=== PATIENT | male | born 1955 | race Caucasian/White ===

== ENCOUNTER 2020-08-10 08:58 | Inpatient (IN) | payer MEDICARE, MEDICAID ==
[~2020-08-10] VITALS: Ht 172.7 cm; Wt 95.6 kg
[2020-08-10 09:18] LABS: BASOPHILS % (AUTO) 0 % (0-10); EOSINOPHILS # (AUTO) 0.1 10^3/uL (0.0-0.3); EOSINOPHILS % (AUTO) 0 % (0-10); HEMATOCRIT 47 % (40-54); HEMOGLOBIN 16.4 G/DL (13.3-17.7); LYMPHOCYTES # (AUTO) 1.1 X 10^3 (1.0-4.0); LYMPHOCYTES % (AUTO) 8 % (12-44); MEAN CORPUSCULAR HEMOGLOBIN 30 PG (25-34); MEAN CORPUSCULAR HGB CONC 35 G/DL (32-36); MEAN CORPUSCULAR VOLUME 85 FL (80-99); MEAN PLATELET VOLUME 9.7 FL (7.4-10.4); MONOCYTES # (AUTO) 1.2 X 10^3 (0.0-1.0); MONOCYTES % (AUTO) 9 % (0-12); NEUTROPHILS # (AUTO) 10.9 X 10^3 (1.8-7.8); NEUTROPHILS % (AUTO) 82 % (42-75); PLATELET COUNT 300 10^3/uL (130-400); WHITE BLOOD COUNT 13.2 10^3/uL (4.3-11.0)
[2020-08-10] MEDS ORDERED: LACTATED RINGERS 1,000 ML IV STA (09:36)
[2020-08-10 09:40] LABS: ERYTHROCYTE SEDIMENTATION RATE 3 MM/HR (0-30)
[2020-08-10 09:46] LABS: ALBUMIN 4.2 GM/DL (3.2-4.5); CHLORIDE 102 MMOL/L (98-107); POTASSIUM 3.5 MMOL/L (3.6-5.0); SODIUM 138 MMOL/L (135-145)
[2020-08-10 09:47] LABS: CALCIUM 9.8 MG/DL (8.5-10.1)
[2020-08-10 09:48] LABS: FIBRIN DEGRADATION PRODUCTS 0.85 UG/ML (0.00-0.49); PROTHROMBIN TIME PATIENT 13.9 SEC (12.2-14.7)
[2020-08-10 09:49] LABS: GLUCOSE 141 MG/DL (70-105); TOTAL PROTEIN 7.6 GM/DL (6.4-8.2)
[2020-08-10 09:50] LABS: BILIRUBIN,TOTAL 0.9 MG/DL (0.1-1.0); CARBON DIOXIDE 23 MMOL/L (21-32)
[2020-08-10 09:52] LABS: ALKALINE PHOSPHATASE 78 U/L (40-136)
[2020-08-10 09:53] LABS: CREATININE SERUM 1.01 MG/DL (0.60-1.30); GFR ESTIMATED > 60
[2020-08-10 09:54] LABS: BUN/CREATININE RATIO 20
[2020-08-10 09:55] LABS: ALANINE AMINOTRANSFERASE 27 U/L (0-55)
--- NOTE | 2020-08-10 10:03 | ED General ---
General Chief Complaint: Neurological Problems Stated Complaint: NAUSEA,INCOORDINATION Nursing Triage Note: Pt to ED via EMS. Pt reports brushing dog yesterday morning when L arm became weak and felt uncoordinated. Pt reports not feeling well then and has been on the couch ever since. Pt reports not eating or drinking anything since yesterday morning. Pt denies pain. Nursing Sepsis Screen: No Definite Risk Source of Information: Patient Exam Limitations: No Limitations History of Present Illness Date Seen by Provider: Aug 10, 2020 Time Seen by Provider: 09:09 Initial Comments Here by EMS with report of low-grade fever and not feeling well since yesterday morning. Apparently he went to [facility] and came back and was brushing his dog when he realized that his left arm wasn't working as well and he felt exhausted. He has been laying on the couch since and states he really couldn't get up and felt weak and off balance. EMS noted low-grade fever. Patient states that he has a cough that seems to be about where he normally has but maybe a little bit worse. The weakness is global and more profound. Denies contact with COVID-19 that he knows of. He is ill-appearing and appears dehydrated. Patient believes he probably is dehydrated because he has not had anything to eat or drink in greater than 24 hours. States that he feels like his left arm is a little weaker than the right and that has been persistent since yesterday. Denies dysuria or diarrhea. Timing/Duration: 24 Hours, Constant Severity: Moderate Associated Systoms: No Chest Pain; Cough, Fever/Chills, Malaise; No Nausea/Vomiting, No Shortness of Air; Weakness Allergies and Home Medications Allergies Coded Allergies: sulfamethoxazole (Verified Allergy, Unknown, Hives, 08/10/20) trimethoprim (Verified Allergy, Unknown, Hives, 08/10/20) Patient Home Medication List Home Medication List Reviewed: Yes Review of Systems Review of Systems Constitutional: see HPI EENTM: nose congestion, throat pain Respiratory: cough; No short of breath Cardiovascular: No chest pain, No edema Gastrointestinal: No abdominal pain, No nausea, No vomiting Genitourinary: no symptoms reported Musculoskeletal: No muscle pain; muscle weakness Skin: no symptoms reported Psychiatric/Neurological: See HPI All Other Systems Reviewed Negative Unless Noted: Yes Past Hnjljhg-Lmqedx-Yhccee Hx Past Med/Social Hx: Reviewed Nursing Past Med/Soc Hx Patient Social History Alcohol Use: Denies Use Recreational Drug Use: Yes (occassional marijuana) Smoking Status: Current Everyday Smoker Type Used: Cigarettes 2nd Hand Smoke Exposure: Yes Recent Foreign Travel: No Contact w/Someone Who Travel: No Recent Infectious Disease Expo: No Recent Hopitalizations: No Past Medical History Surgeries: No Respiratory: Yes COPD Cardiac: Yes Hypertension Neurological: No Genitourinary: No Gastrointestinal: No Musculoskeletal: No Endocrine: No ("borderline diabetic") HEENT: No Cancer: No Psychosocial: No Integumentary: No Blood Disorders: No Family Medical History Reviewed Nursing Family Hx Physical Exam-Suspected Sepsis Physical Exam Vital Signs Vital Signs - First Documented 08/10/20 08:58 Temp 37.6 Pulse 75 Resp 18 B/P (MAP) 151/81 (104) Pulse Ox 94 O2 Delivery Room Air Capillary Refill : Less Than 3 Seconds Blood Pressure Mean: 104 Height, Weight, BMI Height: '" Weight: lbs. oz. kg; 35.00 BMI Method: General Appearance: WD/WN, Other (ill-appearing) HEENT: PERRL/EOMI, Pharyngeal Erythema, Other (dry mucous membranes) Neck: Non Tender, Supple Respiratory: No Accessory Muscle Use, Wheezing (few scattered) Cardiovascular: Regular Rate, Rhythm, No Murmur Gastrointestinal: Non Tender, Soft Back: Normal Inspection, No CVA Tenderness, No Vertebral Tenderness Extremity: Normal Range of Motion, Non Tender, No Calf Tenderness Neurologic/Psychiatric: Alert, Oriented x3, Other (mild decrease in capability on finger to nose and left. Otherwise no coordination or sensation issues noted on exam. Moves all extremities and has equal strength bilaterally.) Skin: normal color, warm/dry Focused Exam Lactate Level 08/10/20 10:40: Lactic Acid Level 1.56 Lactic Acid Level Laboratory Tests Test 08/10/20 10:40 Lactic Acid Level 1.56 MMOL/L (0.50-2.00) Progress/Results/Core Measures Suspected Sepsis Recent Fever Within 48 Hours: Yes Infection Criteria Present: None New/Unexplained Altered Menta: No Sepsis Screen: No Definite Risk SIRS Temperature: Pulse: 75 Respiratory Rate: 18 Laboratory Tests 08/10/20 09:10: White Blood Count 13.2H Blood Pressure 151 /81 Mean: 104 08/10/20 10:40: Lactic Acid Level 1.56 Laboratory Tests 08/10/20 09:10: Platelet Count 300 08/10/20 09:28: Creatinine 1.01, INR Comment 1.0, Total Bilirubin 0.9 Results/Orders Lab Results Laboratory Tests Test 08/10/20 09:10 08/10/20 09:28 08/10/20 09:41 08/10/20 10:40 Range/Units White Blood Count 13.2 H 4.3-11.0 10^3/uL Red Blood Count 5.54 4.35-5.85 10^6/uL Hemoglobin 16.4 13.3-17.7 G/DL Hematocrit 47 40-54 % Mean Corpuscular Volume 85 80-99 FL Mean Corpuscular Hemoglobin 30 25-34 PG Mean Corpuscular Hemoglobin Concent 35 32-36 G/DL Red Cell Distribution Width 13.7 10.0-14.5 % Platelet Count 300 130-400 10^3/uL Mean Platelet Volume 9.7 7.4-10.4 FL Neutrophils (%) (Auto) 82 H 42-75 % Lymphocytes (%) (Auto) 8 L 12-44 % Monocytes (%) (Auto) 9 0-12 % Eosinophils (%) (Auto) 0 0-10 % Basophils (%) (Auto) 0 0-10 % Neutrophils # (Auto) 10.9 H 1.8-7.8 X 10^3 Lymphocytes # (Auto) 1.1 1.0-4.0 X 10^3 Monocytes # (Auto) 1.2 H 0.0-1.0 X 10^3 Eosinophils # (Auto) 0.1 0.0-0.3 10^3/uL Basophils # (Auto) 0.0 0.0-0.1 10^3/uL Erythrocyte Sedimentation Rate 3 0-30 MM/HR Prothrombin Time 13.9 12.2-14.7 SEC INR Comment 1.0 0.8-1.4 Activated Partial Thromboplast Time 29 24-35 SEC D-Dimer 0.85 H 0.00-0.49 UG/ML Sodium Level 138 135-145 MMOL/L Potassium Level 3.5 L 3.6-5.0 MMOL/L Chloride Level 102 98-107 MMOL/L Carbon Dioxide Level 23 21-32 MMOL/L Anion Gap 13 5-14 MMOL/L Blood Urea Nitrogen 20 H 7-18 MG/DL Creatinine 1.01 0.60-1.30 MG/DL Estimat Glomerular Filtration Rate > 60 BUN/Creatinine Ratio 20 Glucose Level 141 H 70-105 MG/DL Calcium Level 9.8 8.5-10.1 MG/DL Corrected Calcium 9.6 8.5-10.1 MG/DL Total Bilirubin 0.9 0.1-1.0 MG/DL Aspartate Amino Transf (AST/SGOT) 28 5-34 U/L Alanine Aminotransferase (ALT/SGPT) 27 0-55 U/L Alkaline Phosphatase 78 40-136 U/L Lactate Dehydrogenase 239 H 125-220 U/L Troponin I < 0.028 <0.028 NG/ML C-Reactive Protein High Sensitivity 2.38 H 0.00-0.50 MG/DL Total Protein 7.6 6.4-8.2 GM/DL Albumin 4.2 3.2-4.5 GM/DL Procalcitonin 0.13 H <0.10 NG/ML Coronavirus 2019 ([place]) Negative Negative Lactic Acid Level 1.56 0.50-2.00 MMOL/L Test 08/10/20 12:15 Range/Units Urine Color YELLOW Urine Clarity CLEAR Urine pH 8.0 5-9 Urine Specific [place] 1.010 L 1.016-1.022 Urine Protein TRACE H NEGATIVE Urine Glucose (UA) NEGATIVE NEGATIVE Urine Ketones NEGATIVE NEGATIVE Urine Nitrite NEGATIVE NEGATIVE Urine Bilirubin NEGATIVE NEGATIVE Urine Urobilinogen 1.0 < = 1.0 MG/DL Urine Leukocyte Esterase NEGATIVE NEGATIVE Urine RBC (Auto) NEGATIVE NEGATIVE Urine RBC RARE /HPF Urine WBC NONE /HPF Urine Squamous Epithelial Cells RARE /HPF Urine Crystals NONE /LPF Urine Bacteria NEGATIVE /HPF Urine Casts NONE /LPF Urine Mucus NEGATIVE /LPF Urine Culture Indicated NO Micro Results Microbiology 08/10/20 Influenza Types A,B Antigen ([place]) - Final, Complete My Orders Orders - SARA HIRSCH MD Cbc With Automated Diff (08/10/20 09:09) Comprehensive Metabolic Panel (08/10/20 09:09) Blood Culture (08/10/20 09:09) Sputum Culture (08/10/20 09:09) Urinalysis (08/10/20 09:09) Urine Culture (08/10/20 09:09) Protime With Inr (08/10/20 09:09) Partial Thromboplastin Time (08/10/20 09:09) Chest 1 View, Ap/Pa Only (08/10/20 09:09) Ed Iv/Invasive Line Start (08/10/20 09:09) Ed Iv/Invasive Line Start (08/10/20 09:09) Vital Signs Adult Sepsis Patie Q15M (08/10/20 09:09) O2 (08/10/20 09:09) Remove Rings In Anticipation O (08/10/20 09:09) Lactic Acid Analyzer (08/10/20 09:09) Fibrin Degradation Products (08/10/20 09:09) Procalcitonin (Pct) (08/10/20 09:09) Hs C Reactive Protein (08/10/20 09:09) Erythrocyte Sedimentation Rate (08/10/20 09:09) LDH (08/10/20 09:09) Influenza A And B Antigens (08/10/20 09:36) Lactated Ringers (Lr 1000 Ml Iv Solution (08/10/20 09:36) Covid 19 Inhouse Test (08/10/20 09:36) Ekg Tracing (08/10/20 09:41) Troponin I (08/10/20 09:28) Coronavirus Sars-Cov-2 So 2019 (08/10/20 10:19) Ct Chest W (08/10/20 10:28) Dysphagia Screening Tool (08/10/20 10:28) Lactated Ringers (Lr 1000 Ml Iv Solution (08/10/20 11:07) Ct Head W Wo (08/10/20 11:16) Iohexol Injection (Omnipaque 350 Mg/Ml 1 (08/10/20 12:00) Received Contrast (Hold Metformin- Contr (08/10/20 12:00) Sodium Chloride Flush (Catheter Flush Sy (08/10/20 12:00) Ns (Ivpb) (Sodium Chloride 0.9% Ivpb Bag (08/10/20 12:00) Dexamethasone Injection (Decadron Inje (08/10/20 13:15) Cefepime Injection (Maxipime Injection) (08/10/20 13:15) Medications Given in ED Current Medications Medications Dose Ordered Sig/Lacey Route Start Time Stop Time Status Last Admin Dose Admin Iohexol 75 ml ONCE ONCE IV 08/10/20 12:00 08/10/20 12:01 DC 08/10/20 11:54 75 ML Lactated Ringer's 1,000 ml @ 0 mls/hr Q0M ONCE IV 08/10/20 11:07 08/10/20 11:09 DC 08/10/20 11:45 1,000 MLS/HR Sodium Chloride 10 ml NEEDED PRN IV 08/10/20 12:00 08/10/20 11:52 10 ML Sodium Chloride 100 ml ONCE ONCE IV 08/10/20 12:00 08/10/20 12:01 DC 08/10/20 11:52 80 ML Vital Signs/I&O 08/10/20 08:58 Temp 37.6 Pulse 75 Resp 18 B/P (MAP) 151/81 (104) Pulse Ox 94 O2 Delivery Room Air Capillary Refill : Less Than 3 Seconds Blood Pressure Mean: 104 Progress Note : Progress Note Seen and evaluated. IV, labs, blood cultures and lactic acid as well as UA and chest x-ray ordered. We will get rapid screening for COVID-19 as well as influenza with confirmatory testing if needed. We will consider CT of the head after COVID results noted. LR 1 L bolus ordered. Monitor patient. 1117: CT head ordered. We have added CT of the chest with contrast due to large mass found on chest x-ray. CT had change from without to with and without contrast due to initial scan showing lesions in the brain. Monitor patient. 1320: CT results are noted. I have discussed the case with Dr. Parra. We have initiated Decadron 10 mg IV as well as cefepime 1 g IV for the brain mass with symptoms and also for likely postobstructive pneumonia of the left long. We will continue these therapies inpatient. Dr. Haque will further evaluate and guide therapy related to the oncological aspect. Dr. Parra accepts patient for admission, inpatient status. Patient agrees with plan. ECG Initial ECG Impression Date: Aug 10, 2020 Initial ECG Impression Time: 09:20 Initial ECG Rate: 72 Initial ECG Rhythm: Normal Sinus Initial ECG Comparisson: No Previous ECG Available Comment Sinus rhythm with right bundle branch block. Left axis deviation. No evidence of ST elevation AR. No previous available for comparison. Interpreted by me. Diagnostic Imaging Diagonstic Imaging: Xray Plain Films/CT/US/NM/MRI: chest Comments [id number] [place], [place] NAME: JOY SORTO [facility] REC#: [id number] PT STATUS: REG ER : 1955 PHYSICIAN: SARA HIRSCH MD ADMIT DATE: 08/10/20/ER Draft Date of Exam:08/10/20 CHEST 1 VIEW, AP/PA ONLY Indication: Left arm and leg weakness and sepsis. Time of exam 10:08 AM Correlation no prior chest 01/22/2010. Heart size normal. There is soft tissue mass in the left suprahilar location. Otherwise lungs are clear. There is no effusion or pneumothorax. IMPRESSION: Soft tissue mass left upper lobe. CT chest would be recommended for further evaluation. Dictated on workstation # [id number] Dict: 08/10/20 1023 Trans: 08/10/20 10[address] [facility], [place] 7593[address] Interpreted by: OMAR EMERY MD Electronically signed by: Reviewed: Reviewed by Ms Diagonstic Imaging: CT Plain Films/CT/US/NM/MRI: chest Comments [facility]. [place], [place] NAME: JOY SORTO [facility] REC#: [id number] PT STATUS: REG ER : 1955 PHYSICIAN: SARA HIRSCH MD ADMIT DATE: 08/10/20/ER Draft Date of Exam:08/10/20 CT CHEST W EXAMINATION: CT Chest with intravenous contrast. TECHNIQUE: Multiple contiguous axial images were obtained through the chest after the uneventful administration of intravenous contrast. All CT scans use one or more of the following dose optimizing techniques: automated exposure control, MA and/or KvP adjustment based on a patient size and exam type, or iterative reconstruction. HISTORY: Chest mass COMPARISON: None available. FINDINGS: There is a 7.1 x 5.2 cm left upper lobe mass abutting the aorta extending into the left suprahilar space. This severely attenuates the left upper pulmonary vein and left upper pulmonary artery. Lungs are mildly emphysematous. No edema or pneumonia is seen. No pleural effusion. No pneumothorax. There is no axillary or supraclavicular lymphadenopathy. There is no mediastinal lymphadenopathy. Heart size is normal. There are severe coronary artery calcifications. No pericardial effusion. Aorta is normal in caliber. Limited views of the upper abdomen show a cyst in the left kidney. There are no suspicious osseus lesions. IMPRESSION: 1. Large left upper lobe mass abutting the aorta and extending left suprahilar space attenuating left upper pulmonary vein and pulmonary artery. This is most consistent with lung cancer. 2. No metastatic disease identified. Dictated on workstation # [id number] Dict: 08/10/20 1147 Trans: 08/10/20 115[address] [facility] [place] 3364-[address] Interpreted by: LISS BAER MD Electronically signed by: Reviewed: Reviewed by Me Diagonstic Imaging: CT Plain Films/CT/US/NM/MRI: head Comments [facility] [place] NAME: JOY SORTO [facility] REC#: [id number] PT STATUS: REG ER : 1955 PHYSICIAN: SARA HIRSCH MD ADMIT DATE: 08/10/20/ER Draft Date of Exam:08/10/20 CT HEAD W WO PROCEDURE: CT head with and without contrast. TECHNIQUE: Multiple contiguous axial images were obtained through the brain before and after the administration of intravenous contrast. Auto Exposure Controls were utilized during the CT exam to meet ALARA standards for radiation dose reduction. INDICATION: Nausea and weakness. There is a large area of low density in the left cerebellar hemisphere. A mass at this location is suspected. There is a rounded mass in the right occipital lobe with surrounding vasogenic edema measuring 2 cm. No midline shift is identified. No acute intra-axial or extra-axial hemorrhage is detected. Cisterns are patent. There does appear to be some questionable minimal enhancement of the lesion in the right occipital lobe on postcontrast imaging. IMPRESSION: Mass like lesion with surrounding vasogenic edema in right occipital lobe. There is also a large area of low density in the left cerebellar hemisphere and a mass at this location is suspected. Findings are worrisome for intracranial metastatic disease. There is no significant mass effect or midline shift. Dictated on workstation # [id number] Dict: 08/10/20 1147 Trans: 08/10/20 115[address] [facility] [place] [address]66[address] Interpreted by: OMAR EMERY MD Electronically signed by: Reviewed: Reviewed by Me Departure Communication (Admissions) Time/Spoke to Admitting Phy: 13:15 Time/Spoke to Consulting Phy: 13:20 Impression Primary Impression: Lung cancer metastatic to brain Additional Impressions: Pneumonia involving left lung Qualified Codes: J18.9 - Pneumonia, unspecified organism COVID-19 evaluation Disposition: 09 ADMITTED INPATIENT Condition: Stable Admissions Decision to Admit Reason: Admit from ER (General) Decision to Admit/Date: Aug 10, 2020 Time/Decision to Admit Time: 13:15 SARA HIRSCH MD Aug 10, 2020 10:03
--- NOTE | 2020-08-10 10:34 | Diagnostic Imaging Report ---
Indication: Left arm and leg weakness and sepsis. Time of exam 10:08 AM Correlation no prior chest 01/22/2010. Heart size normal. There is soft tissue mass in the left suprahilar location. Otherwise lungs are clear. There is no effusion or pneumothorax. IMPRESSION: Soft tissue mass left upper lobe. CT chest would be recommended for further evaluation. Dictated by: Dictated on workstation # [id number]
[2020-08-10] MEDS ORDERED: LACTATED RINGERS 1,000 ML IV ONE (11:07)
--- NOTE | 2020-08-10 11:56 | Diagnostic Imaging Report ---
PROCEDURE: CT head with and without contrast. TECHNIQUE: Multiple contiguous axial images were obtained through the brain before and after the administration of intravenous contrast. Auto Exposure Controls were utilized during the CT exam to meet ALARA standards for radiation dose reduction. INDICATION: Nausea and weakness. There is a large area of low density in the left cerebellar hemisphere. A mass at this location is suspected. There is a rounded mass in the right occipital lobe with surrounding vasogenic edema measuring 2 cm. No midline shift is identified. No acute intra-axial or extra-axial hemorrhage is detected. Cisterns are patent. There does appear to be some questionable minimal enhancement of the lesion in the right occipital lobe on postcontrast imaging. IMPRESSION: Mass like lesion with surrounding vasogenic edema in right occipital lobe. There is also a large area of low density in the left cerebellar hemisphere and a mass at this location is suspected. Findings are worrisome for intracranial metastatic disease. There is no significant mass effect or midline shift. Dictated by: Dictated on workstation # [id number]
--- NOTE | 2020-08-10 11:56 | Diagnostic Imaging Report ---
EXAMINATION: CT Chest with intravenous contrast. TECHNIQUE: Multiple contiguous axial images were obtained through the chest after the uneventful administration of intravenous contrast. All CT scans use one or more of the following dose optimizing techniques: automated exposure control, MA and/or KvP adjustment based on a patient size and exam type, or iterative reconstruction. HISTORY: Chest mass COMPARISON: None available. FINDINGS: There is a 7.1 x 5.2 cm left upper lobe mass abutting the aorta extending into the left suprahilar space. This severely attenuates the left upper pulmonary vein and left upper pulmonary artery. Lungs are mildly emphysematous. No edema or pneumonia is seen. No pleural effusion. No pneumothorax. There is no axillary or supraclavicular lymphadenopathy. There is no mediastinal lymphadenopathy. Heart size is normal. There are severe coronary artery calcifications. No pericardial effusion. Aorta is normal in caliber. Limited views of the upper abdomen show a cyst in the left kidney. There are no suspicious osseus lesions. IMPRESSION: 1. Large left upper lobe mass abutting the aorta and extending left suprahilar space attenuating left upper pulmonary vein and pulmonary artery. This is most consistent with lung cancer. 2. No metastatic disease identified. Dictated by: Dictated on workstation # [id number]
[2020-08-10] MEDS ORDERED: CATHETER FLUSH 10 ML SYR IV PRN (12:00)
[2020-08-10] MEDS ORDERED: HOLD METFORMIN - RECEIVED CONTRAST 20 ML VIAL IV SCH (12:00)
[2020-08-10] MEDS ORDERED: IOHEXOL 350 MG/ML 100 ML (OMNIPAQUE 350) VIAL IV ONE (12:00)
[2020-08-10] MEDS ORDERED: NS 100 ML (IVPB) BAG IV ONE (12:00)
[2020-08-10 12:25] LABS: BILIRUBIN,URINE NEGATIVE (NEGATIVE); CLARITY,URINE CLEAR; COLOR,URINE YELLOW; GLUCOSE, URINE (UA) NEGATIVE (NEGATIVE); KETONES,URINE NEGATIVE (NEGATIVE); LEUKOCYTE ESTERASE ,URINE NEGATIVE (NEGATIVE); NITRITE,URINE NEGATIVE (NEGATIVE); PROTEIN,URINE TRACE (NEGATIVE)
[2020-08-10 12:35] LABS: BACTERIA,URINE NEGATIVE /HPF; RBC,URINE RARE /HPF; SQUAMOUS EPITHELIAL CELL,UR RARE /HPF
[2020-08-10] MEDS ORDERED: CEFEPIME INJECTION 1,000 MG in WATER (STERILE) FOR INJECTION 10 ML IV ONE (13:15)
[2020-08-10 14:47] VITALS: BP 148/76
[2020-08-10 15:30] VITALS: BP 148/76
[2020-08-10] MEDS ORDERED: ONDANSETRON 4 MG/2 ML (SDV) Z0FRAN IV PRN (15:30)
[2020-08-10] MEDS: CEFEPIME 1,000 MG/SWFI 10 ML IV PUSH IV SCH ×4 (18:19→23:42)
[2020-08-10 19:03] VITALS: BP 138/73
[2020-08-10 23:31] VITALS: BP 148/78
[2020-08-11 03:32] VITALS: BP 141/77
[2020-08-11 05:19] LABS: BASOPHILS % (AUTO) 0 % (0-10); EOSINOPHILS % (AUTO) 0 % (0-10); HEMATOCRIT 44 % (40-54); HEMOGLOBIN 15.2 G/DL (13.3-17.7); LYMPHOCYTES # (AUTO) 0.7 X 10^3 (1.0-4.0); LYMPHOCYTES % (AUTO) 6 % (12-44); MEAN CORPUSCULAR HEMOGLOBIN 29 PG (25-34); MEAN CORPUSCULAR HGB CONC 35 G/DL (32-36); MEAN CORPUSCULAR VOLUME 85 FL (80-99); MEAN PLATELET VOLUME 9.7 FL (7.4-10.4); MONOCYTES # (AUTO) 0.5 X 10^3 (0.0-1.0); MONOCYTES % (AUTO) 4 % (0-12); NEUTROPHILS # (AUTO) 11.4 X 10^3 (1.8-7.8); NEUTROPHILS % (AUTO) 90 % (42-75); PLATELET COUNT 297 10^3/uL (130-400); WHITE BLOOD COUNT 12.7 10^3/uL (4.3-11.0)
[2020-08-11 05:35] LABS: CHLORIDE 104 MMOL/L (98-107); POTASSIUM 3.9 MMOL/L (3.6-5.0); SODIUM 137 MMOL/L (135-145)
[2020-08-11 05:36] LABS: CALCIUM 9.3 MG/DL (8.5-10.1)
[2020-08-11 05:37] LABS: GLUCOSE 141 MG/DL (70-105); TOTAL PROTEIN 7.2 GM/DL (6.4-8.2)
[2020-08-11 05:38] LABS: CARBON DIOXIDE 21 MMOL/L (21-32)
[2020-08-11 05:39] LABS: BILIRUBIN,TOTAL 0.9 MG/DL (0.1-1.0)
[2020-08-11 05:41] LABS: ALKALINE PHOSPHATASE 72 U/L (40-136); CREATININE SERUM 0.96 MG/DL (0.60-1.30); GFR ESTIMATED > 60
[2020-08-11 05:42] LABS: BUN/CREATININE RATIO 21
[2020-08-11 05:44] LABS: ALANINE AMINOTRANSFERASE 27 U/L (0-55)
[2020-08-11] MEDS: CEFEPIME 1,000 MG/SWFI 10 ML IV PUSH IV SCH ×8 (05:58→23:20)
[2020-08-11 08:00] VITALS: BP 143/79
[2020-08-11] MEDS ORDERED: AMLO10TA7 PO (08:43)
[2020-08-11] MEDS ORDERED: BUDE10.22 INH (08:43)
[2020-08-11] MEDS ORDERED: TIOT18CA2 INH (08:43)
[2020-08-11] MEDS ORDERED: ATOR40TA70 PO (08:43)
[2020-08-11] MEDS ORDERED: QUIN10TA14 PO (08:43)
[2020-08-11] MEDS ORDERED: METF-397 PO (08:43)
[2020-08-11] MEDS ORDERED: ALBU2.5V4 INH (08:43)
[2020-08-11] MEDS ORDERED: DICL75TA2 PO (08:43)
[2020-08-11] MEDS ORDERED: MONT10TA26 PO (08:43)
[2020-08-11] MEDS ORDERED: FENO145T26 PO (08:43)
[2020-08-11] MEDS ORDERED: HYDR25TA4 PO (08:50)
[2020-08-11] MEDS: PANTOPRAZOLE 40 MG (PROTONIX) VIAL IV SCH (10:47)
--- NOTE | 2020-08-11 11:35 | History & Physical-Hospitalist ---
History of Present Illness HPI/Chief Complaint patient reports feeling in his usual state of health until he attempted to brush his dog Baron night and noted that his left hand was weak and not doing what he wanted to do. He reported a little increase in baseline cough from presumed chronic bronchitis from long-standing tobacco use. He reported sensation of low-grade fever. He stayed on the couch and this morning could not get off the couch. He called EMS services and was brought to the emergency room. He denies any purulent sputum production or hemoptysis. Date Seen 08/11/20 Time Seen by a Provider: 09:45 Attending Physician Onur Huynh MD PCP Referring Physician Date of Admission Aug 10, 2020 at 13:22 Home Medications & Allergies Home Medications Reviewed patient Home Medication Reconciliation performed by pharmacy medication reconciliations software support technician and/or nursing. Patients Allergies have been reviewed. Allergies Allergies Coded Allergies sulfamethoxazole (Verified Allergy, Unknown, Hives, 08/10/20) trimethoprim (Verified Allergy, Unknown, Hives, 08/10/20) Past Quicsod-Gletyj-Knwkyr Hx Past Med/Social Hx: Reviewed Nursing Past Med/Soc Hx, Reviewed and Corrections made Patient Social History Alcohol Use: Denies Use Recreational Drug Use: Yes (occassional marijuana) Smoking Status: Current Everyday Smoker Type Used: Cigarettes 2nd Hand Smoke Exposure: Yes Recent Foreign Travel: No Contact w/other who traveled: No Recent Hopitalizations: No Recent Infectious Disease Expo: No Immunizations Up To Date Date of Pneumonia Vaccine: Oct 10, 2018 Past Medical History Cardiac: Hypertension History of Blood Disorders: No Family History Reviewed Nursing Family Hx Review of Systems Constitutional: see HPI Physical Exam Physical Exam Vital Signs Vital Signs - First Documented 08/10/20 08:58 Temp 37.6 Pulse 75 Resp 18 B/P (MAP) 151/81 (104) Pulse Ox 94 O2 Delivery Room Air Capillary Refill : Less Than 3 Seconds Height, Weight, BMI Height: '" Weight: lbs. oz. kg; 35.87 BMI Method: General Appearance: No Apparent Distress HEENT: PERRL/EOMI Neck: Full Range of Motion, Normal Inspection, Non Tender Respiratory: No Accessory Muscle Use, No Respiratory Distress, Wheezing (bilateral symmetrical and expiratory predominantly) Cardiovascular: Regular Rate, Rhythm, No Edema, No Gallop, No JVD, No Murmur, Normal Peripheral Pulses Gastrointestinal: Normal Bowel Sounds, No Organomegaly, No Pulsatile Mass, Non Tender, Soft Extremity: Normal Capillary Refill, Normal Inspection, Normal Range of Motion, Non Tender, No Calf Tenderness, No Pedal Edema Neurologic/Psychiatric: Alert, Oriented x3, Other (left upper extremity strength 4+ right sided strength 5+ diminished fine motor control of the left upper extremity. Patient unable to stand for 5+ strength in the left lower extremity 5+ on the right patient appears to be ataxic but unable to walk) Results Results/Procedures Labs Laboratory Tests 08/10/20 09:10 08/10/20 09:28 08/11/20 04:32 Patient resulted labs reviewed. Assessment/Plan Admission Diagnosis 1. 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 Dr. Marcus has been contacted and Decadron has been initiated. Patient has no help at home and will likely need longer term hospitalization with initiation of radiation therapy this coming week with consultation Dr. Judd as well which Dr. Marcus will be setting up. CT-guided needle biopsy versus bronchoscopy with needle biopsy for tissue diagnosis at the follow. 2. 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 3. 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 Admission Status: Inpatient Order (span 2 midnights) Reason for Inpatient Admission: see admission diagnosis Clinical Quality Measures DVT/VTE Risk/Contraindication: Risk Factor Score Per Nursin RFS Level Per Nursing on Admit: 4+=Very High ONUR HUYNH MD Aug 11, 2020 11:35
[2020-08-11 12:00] VITALS: BP 124/61
[2020-08-11] MEDS: ENOXAPARIN 40 MG/0.4 ML (LOVENOX) SYR SC SCH (12:53)
[2020-08-11 15:30] VITALS: BP 131/63
[2020-08-11 20:01] VITALS: BP 140/67
--- NOTE | 2020-08-11 21:35 | CONSULTATION REPORT ---
DATE OF SERVICE: 08/11/2020 The patient is admitted to room 413. PHYSICIAN REQUESTING CONSULTATION: Ceasar Parra MD. PRIMARY PHYSICIAN: Phill Flores MD IMPRESSION: 1. A 65-year-old male admitted with rapid onset left-sided weakness. 2. Found to have a right occipital mass with surrounding edema and a left cerebellar hypodensity/edema as well as a left upper lobe lung mass, rule out primary lung cancer with brain metastasis. RECOMMENDATIONS: 1. Start the patient on dexamethasone 10 mg IV followed by 4 mg p.o. q.6 hours to reduce cerebellar and cerebral edema. 2. Consult pulmonary and interventional radiology to obtain a needle biopsy the least invasive way. 3. Consult radiation oncology for palliative whole brain radiation therapy. 4. Consult social contact worker regarding support services for him as he lives alone with no family or close friends. 5. Start the patient on proton pump inhibitor while he is on high dose steroids for gastric protection. 6. We will follow the patient with you. BRIEF HISTORY: The patient is a 65-year-old male, who complained of fairly rapid onset left-sided weakness within 24 hours. As he was unable to move around in his house, he contacted EMS, who brought him to the emergency room. Workup including CT scan of the head and CT of the chest showed 2 brain lesions with edema and a left upper lobe lung mass. The patient was started on high dose steroids and admitted to the hospital for further workup and management. PAST MEDICAL HISTORY: Significant for COPD diagnosed several years ago, hypertension and borderline glucose intolerance. SOCIAL HISTORY: The patient is from his and has four adult children in [place], but has not had any contact with them for 10 years. He does not have their phone numbers either. He lives alone in [place], [place] after moving here 10 years ago. 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 He has more than [id number] history of tobacco use, smoking up to 3 packs of cigarettes daily, but more recently, he has been smoking only half pack of cigarettes daily. He uses alcohol socially and occasionally uses marijuana. FAMILY HISTORY: Unremarkable and noncontributory. PHYSICAL EXAMINATION: GENERAL: Today showed an elderly male, well developed and nourished, awake and oriented, in mild distress because of the left-sided weakness. VITAL SIGNS: Temperature was 37.5, pulse rate of 67, respirations 18, blood pressure 143/79 with oxygen saturation 96% on room air. HEENT: Normocephalic with male pattern baldness, extraocular muscles intact, conjunctivae pink, oral mucosa moist. NECK: Supple, with no JVD. No cervical, supraclavicular or axillary lymphadenopathy palpable. CHEST: Symmetrical. LUNGS: With diminished breath sounds bilaterally with a few scattered wheezes. No rales heard. CARDIOVASCULAR: Regular in rate and rhythm. No murmurs or gallops heard. ABDOMEN: Soft, nontender with no hepatosplenomegaly or other masses palpable. EXTREMITIES: Showed no edema. NEUROLOGIC: Significant for motor strength in the left side of 4/5 and right side 5/5. Fine motor skills were absent then abnormal on the left side. The patient is unable to stand because of the left-sided weakness. LABORATORY DATA: CBC done at the time of admission showed white count 13.2, hemoglobin 16.4, platelet count 300,000 with neutrophil count 10.9, lymphocyte count 1.1 and monocyte count 1.2. Chemistry panel showed normal electrolytes except potassium level of 3.5. BUN was 20 and creatinine 1.01 with GFR more than 60 mL per minute. Nonfasting glucose was 141. Liver function studies were within normal limits. Serum LDH was 239. Coagulation studies were unremarkable and D-dimer slightly elevated at 0.85. UA was unremarkable and COVID-[address] scan of the chest done at the time of admission showed a 7.1 x 5.2 cm left upper lobe mass abutting the aorta extending into the left suprahilar space. No metastatic lymphadenopathy or osseous lesions. Limited views of the upper abdomen showed a cyst in the left kidney. CT scan of the head done at the time of admission showed a mass-like lesion with surrounding vasogenic edema in the right occipital lobe. Also a large area of low density in the left cerebellar hemisphere and a mass is suspected. Findings are worrisome for intracranial metastatic disease. No midline shift. Thank you for allowing me to participate in this patient's care. I will follow the patient with you and make appropriate recommendations. Job ID: [id number] DocumentID: [id number] Dictated Date: 08/11/2020 11:26:24 Utility Tractor Operator Date: 08/11/2020 14:21:41 Dictated By: LAYLA HARRIS MD
[2020-08-11 23:28] VITALS: BP 135/69
[2020-08-12] VITALS (7 sets, daily range): BP systolic 133–158; BP diastolic 64–85
[2020-08-12] MEDS: CEFEPIME 1,000 MG/SWFI 10 ML IV PUSH IV SCH ×8 (05:23→23:28)
[2020-08-12] MEDS: PANTOPRAZOLE 40 MG (PROTONIX) VIAL IV SCH (07:44)
[2020-08-12] MEDS ORDERED: IBUP-2473 PO (09:56)
[2020-08-12] MEDS ORDERED: RT-ALBUINH INH (09:56)
--- NOTE | 2020-08-12 11:25 | Progress Note ---
MEGGAN BISHOP,MED STUDENT 08/12/20 1125: Subjective Subjective/Events-last exam Patient seen and examined this morning. He states his left arm weakness feels about the same today, and he feels like he has trouble controlling it. He has not been up out of bed or tried walking around yet. Review of Systems General: No Fatigue, No Malaise HEENT: No Visual Changes Pulmonary: No Dyspnea; Cough Cardiovascular: No: Chest Pain, Edema Gastrointestinal: No: Nausea, Vomiting, Abdominal Pain Neurological: Weakness, Incoordination; No: Numbness Focused Exam Lactate Level 08/10/20 10:40: Lactic Acid Level 1.56 Capillary Refill: Less Than 3 Seconds Objective Exam Last Set of Vital Signs Vital Signs Date Time Temp Pulse Resp B/P (MAP) Pulse Ox O2 Delivery O2 Flow Rate FiO2 08/12/20 07:50 37.0 62 18 144/82 (102) 95 Room Air Capillary Refill : Less Than 3 Seconds I&O Intake and Output 08/12/20 00:00 Intake Total 2290 ml Output Total 1500 ml Balance 790 ml Intake Oral 2290 ml Output Urine Total 1500 ml General: Alert, Oriented X3, No Acute Distress HEENT: EOMI, Mucous Memb Moist/[place] Lungs: Other (wheezing and ronchi heard throughout) Heart: Regular Rate, No Murmurs Abdomen: Normal Bowel Sounds, Soft, No Tenderness Extremities: No Edema, Normal Pulses Neuro: Normal Speech, Strength at 5/5 X4 Ext, Sensation Intact Psych/Mental Status: Mental Status NL, Mood NL Results/Procedures Lab Microbiology 08/10/20 Gram Stain - Final, Resulted 08/10/20 Sputum Culture, Resulted Pending 08/10/20 Blood Culture - Preliminary, Resulted No growth Radiology Date of Exam:08/10/20 CHEST 1 VIEW, AP/PA ONLY Indication: Left arm and leg weakness and sepsis. Time of exam 10:08 AM Correlation no prior chest 01/22/2010. Heart size normal. There is soft tissue mass in the left suprahilar location. Otherwise lungs are clear. There is no effusion or pneumothorax. IMPRESSION: Soft tissue mass left upper lobe. CT chest would be recommended for further evaluation. Date of Exam:08/10/20 CT CHEST W EXAMINATION: CT Chest with intravenous contrast. TECHNIQUE: Multiple contiguous axial images were obtained through the chest after the uneventful administration of intravenous contrast. All CT scans use one or more of the following dose optimizing techniques: automated exposure control, MA and/or KvP adjustment based on a patient size and exam type, or iterative reconstruction. HISTORY: Chest mass COMPARISON: None available. FINDINGS: There is a 7.1 x 5.2 cm left upper lobe mass abutting the aorta extending into the left suprahilar space. This severely attenuates the left upper pulmonary vein and left upper pulmonary artery. Lungs are mildly emphysematous. No edema or pneumonia is seen. No pleural effusion. No pneumothorax. There is no axillary or supraclavicular lymphadenopathy. There is no mediastinal lymphadenopathy. Heart size is normal. There are severe coronary artery calcifications. No pericardial effusion. Aorta is normal in caliber. Limited views of the upper abdomen show a cyst in the left kidney. There are no suspicious osseus lesions. IMPRESSION: 1. Large left upper lobe mass abutting the aorta and extending left suprahilar space attenuating left upper pulmonary vein and pulmonary artery. This is most consistent with lung cancer. 2. No metastatic disease identified. Date of Exam:08/10/20 CT HEAD W WO PROCEDURE: CT head with and without contrast. TECHNIQUE: Multiple contiguous axial images were obtained through the brain before and after the administration of intravenous contrast. Auto Exposure Controls were utilized during the CT exam to meet ALARA standards for radiation dose reduction. INDICATION: Nausea and weakness. There is a large area of low density in the left cerebellar hemisphere. A mass at this location is suspected. There is a rounded mass in the right occipital lobe with surrounding vasogenic edema measuring 2 cm. No midline shift is identified. No acute intra-axial or extra-axial hemorrhage is detected. Cisterns are patent. There does appear to be some questionable minimal enhancement of the lesion in the right occipital lobe on postcontrast imaging. IMPRESSION: Mass like lesion with surrounding vasogenic edema in right occipital lobe. There is also a large area of low density in the left cerebellar hemisphere and a mass at this location is suspected. Findings are worrisome for intracranial metastatic disease. There is no significant mass effect or midline shift. 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 Hope for CT-guided biopsy of lung mass tomorrow. Continue cefepime and dexamethasone COPD DVT prophylaxis- will hold lovenox today for tomorrow's biopsy Encourage ambulation with PT Clinical Quality Measures DVT/VTE Risk/Contraindication: Risk Factor Score Per Nursin RFS Level Per Nursing on Admit: 4+=Very High ELIDA CAIN MD 08/12/20 1258: Assessment/Plan Assessment/Plan (1) Pneumonia involving left lung Status: Acute Assessment & Plan: Possible postobstructive pneumonia, has leukocytosis, but may be mass-related. Cefepime started on admit, will continue for now. Afebrile. Qualifiers: Qualified Codes: J18.9 - Pneumonia, unspecified organism (2) Lung cancer metastatic to brain Status: Acute Assessment & Plan: Dr. Haque consulted, appreciate recommendations, Started on decadron, Radiation Oncology consulted. PT/OT for subjective weakness/further eval. CT guided lung biopsy to be done tomorrow, hold enoxaparin. (3) COPD (chronic obstructive pulmonary disease) Status: Chronic Assessment & Plan: Albuterol prn. On steroids as above. No clear exacerbation, not hypoxic. (4) DVT prophylaxis Status: Acute Supervisory-Addendum Brief Verification & Attestation Participated in pt care: history, physical Personally performed: exam, history, MDM, supervision of care Care discussed with: Medical Student Procedures: n/a I personally saw and examined this patient and repeated the history and exam documented by the medical student. See problem list for my assessment and plan. MEGGAN BISHOP,MED STUDENT Aug 12, 2020 11:25 ELIDA CAIN MD Aug 12, 2020 12:58
--- NOTE | 2020-08-12 12:24 | NUR ---
SPOKE WITH THE PT, WENT THRU THE EXT MED HISTORY AND CALLED [facility] TO COMPLETE THE MED REC THE PT COULDNT REMEMBER THE NAMES OF ALL HIS MEDICATIONS, I THEN NAMED THEM USING THE EXT MED HISTORY AND PT WAS ABLE TO TELL ME HOW HE TAKES EACH ACCORDING TO THE PT HE USES ALBUTEROL NEBULIZER SOLUTION EVERY 4 HOURS SCHEDULED HCTZ 25MG SHOWS LAST FILL DATE OF 04-29-2020 #90/90DS- HOWEVER [facility] JUST REFILLED IT ON 08-11-2020 #90- THEREFORE I DID NOT INCLUDE THE PAST DUE FILL DATE ON THE MED REC OTC MEDS: IBUPROFEN
[2020-08-12] MEDS: ENOXAPARIN 40 MG/0.4 ML (LOVENOX) SYR SC SCH (12:26)
--- NOTE | 2020-08-12 13:56 | NUR ---
Met with pt who expresses sadness and shock concerning recent diagnosis of Metastatic lung cancer. He lives alone and his classroom assistant is his labrador who weighs 100 lbs but has been his pet for 10 years. Pt stated that his friends are trying to find a suitable placement for him. Contacted his [employer] requesting case management services to assist in possible home or community services. Several social workers in the community have befriended pt and describe him as very sweet and kind. Pt states he also has friends from the [facility] who might also be a source of support. Will follow
--- NOTE | 2020-08-12 14:46 | Physical Therapy Evaluation ---
PT Evaluation-General Medical Diagnosis Admission Date Aug 10, 2020 at 13:22 Medical Diagnosis: lung cancer with mets to brain Onset Date: Aug 10, 2020 Therapy Diagnosis Therapy Diagnosis: generalized weakness/debility Precautions Precautions/Isolations: Fall Prevention, Standard Precautions Weight Bear Status Right Lower Extremity: Right Weight Bearing/Tolerated Left Lower Extremity: Left Weight Bearing/Tolerated Referral Physician: Hermes Reason for Referral: Evaluation/Treatment Medical History Pertinent Medical History: COPD, HTN, Smoking Current History ER secondary to left UE weakness and "off balance" Reviewed History: Yes Social History Home: Apartment Current Living Status: Alone Prior Prior Level of Function SCALE: Activities may be completed with or without assistive devices. 4-Opqpqfqdjb-vftlxdw completes the activity by him/herself with no assistance from a helper. 5-Set-up or Clean-up Assistance-helper sets up or cleans up; patient completes activity. [place] assists only prior to or following the activity. 4-Supervision or Touching Assistance-helper provides verbal cues and/or touching/steadying and/or contact guard assistance as patient completes activity. Assistance may be provided throughout the activity or intermittently. 3-Partial/Moderate Assistance-helper does LESS THAN HALF the effort. [place] lifts, holds or supports trunk or limbs, but provides less than half the effort. 2-Substantial/Maximal Assistance-helper does MORE THAN HALF the effort. [place] lifts or holds trunk or limbs and provides more than half the effort. 4-Atqzjdnhk-niudmq does ALL the effort. Patient does none of the effort to complete the activity. Or, the assistance of 2 or more helpers is required for the patient to complete the activity. If activity was not attempted, code reason: 7-Patient Refused. 9-Not Applicable-not attempted and the patient did not perform the activity before the current illness, exacerbation or injury. 10-Not Attempted due to Environmental Limitations-(lack of equipment, weather restraints, etc.). 88-Not Attempted due to Medical Conditions or Safety Concerns. Bed Mobility: 6 Transfers (B,C,W/C): 6 Gait: 6 Stairs: 6 Indoor Mobility (Ambulation): Independent Stairs: Independent Prior Devices Use: None PT Evaluation-Current Subjective Patient agrees to PT. States he feels weak. Objective Patient Orientation: Normal For Age ROM/Strength ROM Lower Extremities bilateral LE WFL Strength Lower Extremities right LE 4/5 grossly all planes/left LE 3/5 grossly all planes Integumentary/Posture Integumentary refer to nursing notes Bowel Incontinence: No Bladder Incontinence: No Posture WFL Neuromuscular (Tone, Coordination, Reflexes) ataxic left UE and LE Sensory Vision: Functional Hearing: Functional Sensation Right Lower Extremit: Intact Sensation Left Lower Extremity: Intact Transfers Roll Left to Right (QC): 5 Sit to Lying (QC): 5 Lying to Sitting/Side of Bed(Q: 5 Sit to Stand (QC): 3 Chair/Hzj-nt-Cazwu Xfer(QC): 3 Gait Does the Patient Walk?: Yes Mode of Locomotion: Walk Anticipated Mode of Locomotion: Walk Walk 10 feet (QC): 3 Walk 50 ft with 2 Turns(QC): 3 Walk 150 ft (QC): 88 Distance: 50' Gait Assistive Device: FWW Comments/Gait Description slow, slightly unsteady with 2 episodes of left LOB with PT correct Balance Sitting Static: Fair Sitting Dynamic: Fair Standing Static: Fair Standing Dynamic: Fair (Fair-) Assessment/Needs 65 y.o. male, will benefit from skilled PT to address functional strength and mobility to improve current LOF. Patient displays impaired mobility/dynamic balance and has ataxic gait pattern. Rehab Potential: Guarded PT Book Editor Goals Book Editor Goals PT Book Editor Goals Time Frame: Aug 28, 2020 Roll Left & Right (QC): 5 Sit to Lying (QC): 5 Lying-Sitting on Side/Bed(QC): 5 Sit to Stand (QC): 5 Chair/Shv-oa-Mjeff Xfer(QC): 5 Toilet Transfer (QC): 5 Car Transfer (QC): 5 Does the Patient Walk: Yes Walk 10 feet (QC): 5 Walk 50ft with 2 Turns (QC): 5 Walk 150 ft (QC): 5 PT Plan Problem List Problem List: Activity Tolerance, Functional Strength, Safety, Balance, Gait, Transfer Treatment/Plan Treatment Plan: Continue Plan of Care Treatment Plan: Education, Functional Activity [place], Functional Strength, Gait, Safety, Therapeutic Exercise, Transfers Treatment Duration: Aug 28, 2020 Frequency: 6 times per week Estimated Hrs Per Day: .25 hour per day Patient and/or Family Agrees t: Yes Time/GCodes Time In: 1357 Time Out: 1412 Total Billed Treatment Time: 15 Total Billed Treatment 1 visit EVModC 15 min HAWK GREEN PT Aug 12, 2020 14:46
--- NOTE | 2020-08-12 14:51 | Occupational Therapy Eval ---
OT Evaluation-General/PLF Medical Diagnosis Admission Date Aug 10, 2020 at 13:22 Medical Diagnosis: COPD, lung cancer metastatic to brain Onset Date: Aug 10, 2020 Therapy Diagnosis Therapy Diagnosis: decreased ADL status Precautions Precautions/Isolations: Standard Precautions Referral Physician: Hermes Referral Reason: Evaluation/Treatment Medical History Pertinent Medical History: COPD, HTN Current History Pt experienced LUE weakness when brushing his dog. Social History Home: Apartment Current Living Status: Alone Entry Into Home: Stairs Without Railing Steps Into Home: 1 ADL-Prior Level of Function SCALE: Activities may be completed with or without assistive devices. 8-Uttnfygbjp-aokxnoj completes the activity by him/herself with no assistance from a helper. 5-Set-up or Clean-up Assistance-helper sets up or cleans up; patient completes activity. [place] assists only prior to or following the activity. 4-Supervision or Touching Assistance-helper provides verbal cues and/or touching/steadying and/or contact guard assistance as patient completes activity. Assistance may be provided throughout the activity or intermittently. 3-Partial/Moderate Assistance-helper does LESS THAN HALF the effort. [place] lifts, holds or supports trunk or limbs, but provides less than half the effort. 2-Substantial/Maximal Assistance-helper does MORE THAN HALF the effort. [place] lifts or holds trunk or limbs and provides more than half the effort. 6-Xezaedaik-fbjsex does ALL the effort. Patient does none of the effort to complete the activity. Or, the assistance of 2 or more helpers is required for the patient to complete the activity. If activity was not attempted, code reason: 7-Patient Refused. 9-Not Applicable-not attempted and the patient did not perform the activity before the current illness, exacerbation or injury. 10-Not Attempted due to Environmental Limitations-(lack of equipment, weather restraints, etc.). 88-Not Attempted due to Medical Conditions or Safety Concerns. ADL PLOF Comments Pt reports living alone with his dog in a 1st floor apartment, 1 large step to get in. At PLOF, pt was independent with all ADLs and functional mobility without AD/AE. Pt has a shower without SC. Self Care: Independent Functional Cognition: Independent DME/Equipment: Shower OT Current Status Subjective Pt laying in bed, agreeable to OT evaluation and tx. Pt did not verbalize and pain during tx. Mental Status/Objective Patient Orientation: Person, Place, Time, Situation Current Glasses/Contacts: Yes Hearing Aids: No Dentures/Partials: No Hand Dominance: Right Upper Extremity ROM BUE shoulder flexion to approx 160 degrees, pt able to touch back of head with hands. Upper Extremity Coordination Pt able to complete finger to nose test and thumb opposition to each finger, slightly slower movements with LUE but pt able to perform tests ADL-Treatment Eating (QC): 5 (Pt reports having slight difficulty with eating due to decreased coordination LUE, but pt able to manage eating.) On/Off Footwear (QC): 4 (CGA seated EOB, pt able to don/doff BLE socks.) Other Treatments Pt laying in bed, agreeable to OT tx. OT educated pt on benefits and purpose of OT, he verbalized understanding. Pt then provided information about PLOF and home set up. Pt participated in UE screen. Pt transferred supine to sit EOB, SBA. He doffed/donned BLE socks, CGA for task due to decreased unsupported/dynamic sitting balance. Pt then transferred back to supine, SBA. OT educated pt on OT POC, pt agreeable. Post OT tx, pt laying in bed, call light in reach and all needs met. Education OT Patient Education: Correct positioning, Energy conservation, Modified ADL techniques, Progress toward Goal/Update tx plan, Purpose of tx/functional activities, Transfer techniques Teaching Recipient: Patient Teaching Methods: Discussion Response to Teaching: Verbalize Understanding OT Detention Goals Motor Vehicles Inspector Goals Time Frame: Sep 02, 2020 Eating (QC): 6 Oral Hygiene (QC): 6 Toileting Hygiene (QC): 6 Shower/Bathe Self (QC): 6 Upper Body Dressing (QC): 6 Lower Body Dressing (QC): 6 On/Off Footwear (QC): 6 1=Demonstrate adherence to instructed precautions during ADL tasks. 2=Patient will verbalize/demonstrate understanding of assistive devices/modifications for ADL. 3=Patient will improve strength/tolerance for activity to enable patient to perform ADL's. OT Education/Plan Problem List/Assessment Assessment: Decreased Activ Tolerance, Decreased UE Strength, Impaired Bed Mobility, Impaired Funct Balance, Impaired I ADL's, Impaired Self-Care Skills Discharge Recommendations Plan/Recommendations: Continue POC Comment discharge location and equipment recommendations to be determined Treatment Plan/Plan of Care Patient would benefit from OT for education, treatment and training to promote independence in ADL's, mobility, safety and/or upper extremity function for ADL's. Plan of Care: ADL Retraining, Functional Mobility, UE Funct Exercise/Act, UE Neuromus Re-Ed/Coord Treatment Duration: Sep 02, 2020 Frequency: 5 times per week Estimated Hrs Per Day: .25 hour per day Rehab Potential: Guarded Time/GCodes Start Time: 13:34 Stop Time: 13:47 Total Time Billed (hr/min): 13 Billed Treatment Time 1, PETAR GROVE OT Aug 12, 2020 14:51
--- NOTE | 2020-08-12 16:05 | NUR ---
Pastoral care visit, pt had visitor advised I will revisit.
[2020-08-12] MEDS ORDERED: RT-ALBUTEROL SULF 2.5 MG/3 ML PRE-MIX VIAL INH PRN (17:00)
[2020-08-12] MEDS: RT-ALBUTEROL SULF 2.5 MG/3 ML PRE-MIX VIAL INH SCH (23:01)
[2020-08-13] VITALS (20 sets, daily range): BP systolic 128–174; BP diastolic 67–90
[2020-08-13 05:27] LABS: BASOPHILS % (AUTO) 0 % (0-10); EOSINOPHILS % (AUTO) 0 % (0-10); HEMATOCRIT 45 % (40-54); HEMOGLOBIN 15.9 G/DL (13.3-17.7); LYMPHOCYTES % (AUTO) 7 % (12-44); MEAN CORPUSCULAR HEMOGLOBIN 29 PG (25-34); MEAN CORPUSCULAR HGB CONC 35 G/DL (32-36); MEAN CORPUSCULAR VOLUME 84 FL (80-99); MEAN PLATELET VOLUME 9.5 FL (7.4-10.4); MONOCYTES # (AUTO) 1.1 X 10^3 (0.0-1.0); MONOCYTES % (AUTO) 8 % (0-12); NEUTROPHILS # (AUTO) 11.7 X 10^3 (1.8-7.8); NEUTROPHILS % (AUTO) 85 % (42-75); PLATELET COUNT 296 10^3/uL (130-400); WHITE BLOOD COUNT 13.7 10^3/uL (4.3-11.0)
[2020-08-13] MEDS: CEFEPIME 1,000 MG/SWFI 10 ML IV PUSH IV SCH ×8 (05:37→23:50)
[2020-08-13 05:43] LABS: ALBUMIN 3.7 GM/DL (3.2-4.5)
[2020-08-13 05:44] LABS: CHLORIDE 103 MMOL/L (98-107); POTASSIUM 4.4 MMOL/L (3.6-5.0); SODIUM 136 MMOL/L (135-145)
[2020-08-13 05:45] LABS: CALCIUM 8.6 MG/DL (8.5-10.1)
[2020-08-13 05:46] LABS: GLUCOSE 135 MG/DL (70-105); TOTAL PROTEIN 6.6 GM/DL (6.4-8.2)
[2020-08-13 05:47] LABS: CARBON DIOXIDE 24 MMOL/L (21-32)
[2020-08-13 05:48] LABS: BILIRUBIN,TOTAL 0.8 MG/DL (0.1-1.0)
[2020-08-13 05:49] LABS: ALKALINE PHOSPHATASE 62 U/L (40-136)
[2020-08-13 05:50] LABS: CREATININE SERUM 0.94 MG/DL (0.60-1.30); GFR ESTIMATED > 60
[2020-08-13 05:51] LABS: BUN/CREATININE RATIO 27
[2020-08-13 05:52] LABS: ALANINE AMINOTRANSFERASE 48 U/L (0-55)
[2020-08-13 05:53] LABS: INR 1.1 (0.8-1.4); PROTHROMBIN TIME PATIENT 14.2 SEC (12.2-14.7)
--- NOTE | 2020-08-13 07:44 | Progress Note ---
MEGGAN BISHOP,MED STUDENT 08/13/20 0744: Subjective Subjective/Events-last exam Patient seen and examined this morning. He is resting comfortably in bed. He feels about the same as yesterday. Denies shortness of breath or chest pain. States his arm weakness and incoordination feels unchanged. He did walk yesterday with PT and states the walker helped him because he was not having to hold onto womack like he had been doing. Review of Systems General: No Chills; Fatigue HEENT: No Visual Changes Pulmonary: No Dyspnea; Cough Cardiovascular: No: Chest Pain, Edema Gastrointestinal: No: Nausea, Vomiting, Abdominal Pain Neurological: Weakness, Incoordination; No: Numbness Focused Exam Lactate Level 08/10/20 10:40: Lactic Acid Level 1.56 Objective Exam Last Set of Vital Signs Vital Signs Date Time Temp Pulse Resp B/P (MAP) Pulse Ox O2 Delivery O2 Flow Rate FiO2 08/13/20 04:00 36.9 64 18 134/68 (90) 94 Room Air Capillary Refill : Less Than 3 Seconds I&O Intake and Output 08/13/20 00:00 Intake Total 1220 ml Output Total 1850 ml Balance -630 ml Intake Oral 1220 ml Output Urine Total 1850 ml General: Alert, No Acute Distress HEENT: EOMI, Mucous Memb Moist/[place] Lungs: Other (end expiratory wheezes heard throughout) Heart: Regular Rate, No Murmurs Abdomen: Soft, No Tenderness Extremities: No Edema Neuro: Strength at 5/5 X4 Ext, Sensation Intact Psych/Mental Status: Mental Status NL, Mood NL Results/Procedures Lab Laboratory Tests 08/13/20 04:45: White Blood Count 13.7H, Red Blood Count 5.44, Hemoglobin 15.9, Hematocrit 45, Mean Corpuscular Volume 84, Mean Corpuscular Hemoglobin 29, Mean Corpuscular Hemoglobin Concent 35, Red Cell Distribution Width 12.7, Platelet Count 296, Mean Platelet Volume 9.5, Neutrophils (%) (Auto) 85H, Lymphocytes (%) (Auto) 7L, Monocytes (%) (Auto) 8, Eosinophils (%) (Auto) 0, Basophils (%) (Auto) 0, Neutrophils # (Auto) 11.7H, Lymphocytes # (Auto) 1.0, Monocytes # (Auto) 1.1H, Eosinophils # (Auto) 0.0, Basophils # (Auto) 0.0, Prothrombin Time 14.2, INR Comment 1.1, Activated Partial Thromboplast Time 29, Sodium Level 136, Potassium Level 4.4, Chloride Level 103, Carbon Dioxide Level 24, Anion Gap 9, Blood Urea Nitrogen 25H, Creatinine 0.94, Estimat Glomerular Filtration Rate > 60, BUN/Creatinine Ratio 27, Glucose Level 135H, Calcium Level 8.6, Corrected Calcium 8.8, Total Bilirubin 0.8, Aspartate Amino Transf (AST/SGOT) 39H, Alanine Aminotransferase (ALT/SGPT) 48, Alkaline Phosphatase 62, Total Protein 6.6, Albumin 3.7 Microbiology 08/10/20 Gram Stain - Final, Resulted 08/10/20 Sputum Culture - Preliminary, Resulted Mixed Bacterial Noreen With Culture In Progress 08/10/20 Urine Culture - Final, Complete Gram Pos Mixed Bacterial Noreen 08/10/20 Blood Culture - Preliminary, Resulted No growth Radiology Date of Exam:08/10/20 CHEST 1 VIEW, AP/PA ONLY Indication: Left arm and leg weakness and sepsis. Time of exam 10:08 AM Correlation no prior chest 01/22/2010. Heart size normal. There is soft tissue mass in the left suprahilar location. Otherwise lungs are clear. There is no effusion or pneumothorax. IMPRESSION: Soft tissue mass left upper lobe. CT chest would be recommended for further evaluation. Date of Exam:08/10/20 CT CHEST W EXAMINATION: CT Chest with intravenous contrast. TECHNIQUE: Multiple contiguous axial images were obtained through the chest after the uneventful administration of intravenous contrast. All CT scans use one or more of the following dose optimizing techniques: automated exposure control, MA and/or KvP adjustment based on a patient size and exam type, or iterative reconstruction. HISTORY: Chest mass COMPARISON: None available. FINDINGS: There is a 7.1 x 5.2 cm left upper lobe mass abutting the aorta extending into the left suprahilar space. This severely attenuates the left upper pulmonary vein and left upper pulmonary artery. Lungs are mildly emphysematous. No edema or pneumonia is seen. No pleural effusion. No pneumothorax. There is no axillary or supraclavicular lymphadenopathy. There is no mediastinal lymphadenopathy. Heart size is normal. There are severe coronary artery calcifications. No pericardial effusion. Aorta is normal in caliber. Limited views of the upper abdomen show a cyst in the left kidney. There are no suspicious osseus lesions. IMPRESSION: 1. Large left upper lobe mass abutting the aorta and extending left suprahilar space attenuating left upper pulmonary vein and pulmonary artery. This is most consistent with lung cancer. 2. No metastatic disease identified. Date of Exam:08/10/20 CT HEAD W WO PROCEDURE: CT head with and without contrast. TECHNIQUE: Multiple contiguous axial images were obtained through the brain before and after the administration of intravenous contrast. Auto Exposure Controls were utilized during the CT exam to meet ALARA standards for radiation dose reduction. INDICATION: Nausea and weakness. There is a large area of low density in the left cerebellar hemisphere. A mass at this location is suspected. There is a rounded mass in the right occipital lobe with surrounding vasogenic edema measuring 2 cm. No midline shift is identified. No acute intra-axial or extra-axial hemorrhage is detected. Cisterns are patent. There does appear to be some questionable minimal enhancement of the lesion in the right occipital lobe on postcontrast imaging. IMPRESSION: Mass like lesion with surrounding vasogenic edema in right occipital lobe. There is also a large area of low density in the left cerebellar hemisphere and a mass at this location is suspected. Findings are worrisome for intracranial metastatic disease. There is no significant mass effect or midline shift. 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 CT- guided biopsy of lung mass planned for this afternoon Continue dexamethasone Possible postobstructive pneumonia- continue cefepime, WBC count did increase slightly from 12.7 to 13.7 but this could from dexamethasone COPD- chronic DVT prophylaxis- will hold lovenox until tomorrow for biopsy, Encourage continued ambulation with PT Clinical Quality Measures DVT/VTE Risk/Contraindication: Risk Factor Score Per Nursin RFS Level Per Nursing on Admit: 4+=Very High ELIDA CAIN MD 08/13/20 1023: Assessment/Plan Assessment/Plan (1) COPD (chronic obstructive pulmonary disease) Status: Chronic Assessment & Plan: No exacerbation, use albuterol as needed. (2) Pneumonia involving left lung Status: Acute Assessment & Plan: Possible post-obstructive pneumonia. Continue cefepime. Qualifiers: Qualified Codes: J18.9 - Pneumonia, unspecified organism (3) Lung cancer metastatic to brain Status: Acute Assessment & Plan: Oncology consulted, plan for IR biopsy this afternoon of lung mass. Dexamethasone started, Rad Onc consulted. (4) DVT prophylaxis Status: Acute Assessment & Plan: Held enoxaparin today for procedure. Supervisory-Addendum Brief Verification & Attestation Participated in pt care: history, MDM, physical Personally performed: exam, history, MDM, supervision of care Care discussed with: Medical Student Procedures: n/a I personally saw and examined the patient today, repeated the history and physical and agree with student documentation of these findings. See problem [address] for my assessment and plan. MEGGAN BISHOP,MED STUDENT Aug 13, 2020 07:44 ELIDA CAIN MD Aug 13, 2020 10:23
[2020-08-13] MEDS: RT-ALBUTEROL SULF 2.5 MG/3 ML PRE-MIX VIAL INH SCH ×4 (07:45→18:48)
[2020-08-13] MEDS: PANTOPRAZOLE 40 MG (PROTONIX) VIAL IV SCH (08:10)
--- NOTE | 2020-08-13 10:13 | Occupational Ther Daily Note ---
OT Current Status-Daily Note Subjective Pt seen in bed/ supine. Pt alert/ oriented. Pt agrees to OT tx session, denies pain, though states, "Same as yesterday." Mental Status/Objective Patient Orientation: Person, Place, Situation ADL-Treatment Therapy Code Descriptions/Definitions Functional [place] Measure: 0=Not Assessed/NA 4=Minimal Assistance 1=Total Assistance 5=Supervision or Setup 2=Maximal Assistance 6=Modified [place] 3=Moderate Assistance 7=Complete IndependenceSCALE: Activities may be completed with or without assistive devices. 5-Bzjlteretd-loytgrx completes the activity by him/herself with no assistance from a helper. 5-Set-up or Clean-up Assistance-helper sets up or cleans up; patient completes activity. [place] assists only prior to or following the activity. 4-Supervision or Touching Assistance-helper provides verbal cues and/or touching/steadying and/or contact guard assistance as patient completes activity. Assistance may be provided throughout the activity or intermittently. 3-Partial/Moderate Assistance-helper does LESS THAN HALF the effort. Mona lifts, holds or supports trunk or limbs, but provides less than half the effort. 2-Substantial/Maximal Assistance-helper does MORE THAN HALF the effort. Mona lifts or holds trunk or limbs and provides more than half the effort. 3-Msvgfvmmo-cmfzku does ALL the effort. Patient does none of the effort to complete the activity. Or, the assistance of 2 or more helpers is required for the patient to complete the activity. If activity was not attempted, code reason: 7-Patient Refused. 9-Not Applicable-not attempted and the patient did not perform the activity before the current illness, exacerbation or injury. 10-Not Attempted due to Environmental Limitations-(lack of equipment, weather restraints, etc.). 88-Not Attempted due to Medical Conditions or Safety Concerns. Eating (QC): 88 (NPO at this time.) Other Treatment Pt completes bed mob (supine to sit) with SUP, sit to stand and ambulation to chair with SBA. Good balance. Pt states fatigue with ambulation, sits and completes UE theraband ex with cues for positioning/ tension. Pt completes 10 reps bilaterally of the following exercises: bicep curls, back flies, triceps, scaption. Pt denies questions, encouraged to complete during times of increased energy. Pt able to maintain grasp with L hand throughout, denies pain throughout, noted R shoulder (dominant) depression during tasks. Pt left in chair with all needs met, call light in reach. Pt educated to press call light if need to get up. Pt agrees. Education OT Patient Education: Correct positioning, Exercise program, Home exercise program, Purpose of tx/functional activities, Safety issues Teaching Recipient: Patient Teaching Methods: Demonstration, Discussion Response to Teaching: Verbalize Understanding, Return Demonstration OT Blow Molder Goals Blow Molder Goals Time Frame: Sep 02, 2020 Eating (QC): 6 Oral Hygiene (QC): 6 Toileting Hygiene (QC): 6 Shower/Bathe Self (QC): 6 Upper Body Dressing (QC): 6 Lower Body Dressing (QC): 6 On/Off Footwear (QC): 6 1=Demonstrate adherence to instructed precautions during ADL tasks. 2=Patient will verbalize/demonstrate understanding of assistive devices/modifications for ADL. 3=Patient will improve strength/tolerance for activity to enable patient to perform ADL's. OT Education/Plan Problem List/Assessment Assessment: Decreased Activ Tolerance, Decreased UE Strength Discharge Recommendations Plan/Recommendations: Continue POC Therapy Discharge Recommendati: Meals on Wheels, Home & Family Treatment Plan/Plan of Care Treatment,Training & Education: Yes Patient would benefit from OT for education, treatment and training to promote independence in ADL's, mobility, safety and/or upper extremity function for ADL's. Plan of Care: ADL Retraining, Functional Mobility, UE Funct Exercise/Act, UE Neuromus Re-Ed/Coord Treatment Duration: Sep 02, 2020 Frequency: 5 times per week Estimated Hrs Per Day: .25 hour per day Rehab Potential: Guarded Time/GCodes Start Time: 09:47 Stop Time: 10:02 Total Time Billed (hr/min): 15 Billed Treatment Time 1, EX (15) BAILEY MARTINEZ OTR Aug 13, 2020 10:13
--- NOTE | 2020-08-13 11:17 | Physical Therapy Daily Note ---
PT Daily Note-Current Subjective Patient agrees to PT. Mental Status Patient Orientation: Normal For Age Transfers SCALE: Activities may be completed with or without assistive devices. 0-Lepmnhigqz-xdkfcnt completes the activity by him/herself with no assistance from a helper. 5-Set-up or Clean-up Assistance-helper sets up or cleans up; patient completes activity. [place] assists only prior to or following the activity. 4-Supervision or Touching Assistance-helper provides verbal cues and/or touching/steadying and/or contact guard assistance as patient completes activity. Assistance may be provided throughout the activity or intermittently. 3-Partial/Moderate Assistance-helper does LESS THAN HALF the effort. [place] lifts, holds or supports trunk or limbs, but provides less than half the effort. 2-Substantial/Maximal Assistance-helper does MORE THAN HALF the effort. [place] lifts or holds trunk or limbs and provides more than half the effort. 2-[place]-npxrif does ALL the effort. Patient does none of the effort to complete the activity. Or, the assistance of 2 or more helpers is required for the patient to complete the activity. If activity was not attempted, code reason: 7-Patient Refused. 9-Not Applicable-not attempted and the patient did not perform the activity befo re the current illness, exacerbation or injury. 10-Not Attempted due to Environmental Limitations-(lack of equipment, weather re straints, etc.). 88-Not Attempted due to Medical Conditions or Safety Concerns. Sit to Lying (QC): 5 Sit to Stand (QC): 3 Chair/Mfj-pf-Qehvl Xfer(QC): 3 Weight Bearing Right Lower Extremity: Right Weight Bearing/Tolerated Left Lower Extremity: Left Weight Bearing/Tolerated Gait Training Does the Patient Walk?: Yes Distance: 45' Walk 10 feet (QC): 3 Gait Assistive Device: FWW decreased step length with step to sequence due to balance deficit Assessment Patient returned to bed with needs met. Patient to have procedure in p.m. per his report. PT Machine Hostler Goals Machine Hostler Goals PT Machine [place]ler Goals Time Frame: Aug 28, 2020 Roll Left & Right (QC): 5 Sit to Lying (QC): 5 Lying-Sitting on Side/Bed(QC): 5 Sit to Stand (QC): 5 Chair/Ocy-du-Jwver Xfer(QC): 5 Toilet Transfer (QC): 5 Car Transfer (QC): 5 Does the Patient Walk: Yes Walk 10 feet (QC): 5 Walk 50ft with 2 Turns (QC): 5 Walk 150 ft (QC): 5 PT Plan Treatment/Plan Treatment Plan: Continue Plan of Care Treatment Plan: Education, Functional Activity [place], Functional Strength, Gait, Safety, Therapeutic Exercise, Transfers Treatment Duration: Aug 28, 2020 Frequency: 6 times per week Estimated Hrs Per Day: .25 hour per day Patient and/or Family Agrees t: Yes Time/GCodes Time In: 1029 Time Out: 1039 Total Billed Treatment Time: 10 Total Billed Treatment 1 visit GT 10 min HAWK GREEN PT Aug 13, 2020 11:17
[2020-08-13] MEDS ORDERED: fentaNYL INJECTION 100 MCG/2 ML AMP IVP ONE (11:30)
[2020-08-13] MEDS ORDERED: MIDAZOLAM 2 MG/2 ML (VERSED) VIAL IVP ONE (11:30)
[2020-08-13] MEDS ORDERED: LIDOCAINE 1% INJ 20 ML 20 ML VIAL INJ ONE (11:30)
--- NOTE | 2020-08-13 13:56 | Pre-Op Note & Conscious Sedat ---
Pre-Operative Progress Note H&P Reviewed The H&P was reviewed, patient examined and no changes noted. Date H&P Reviewed: Aug 13, 2020 Time H&P Reviewed: 12:00 Pre-Op Diagnosis: Lung mass Conscious Sedation Pre-Proced Time 12:00 ASA Score 2 For ASA 3 and 4: Consider anesthesia and medical clearance. Also, for patients with a history of failed moderate sedation consider anesthesia. Airway Lungs Heart ASA score ASA 1: a normal healthy patient ASA 2: a patient with a mild systemic disease (mid diabetes, controlled hypertension, obesity ASA 3: a patient with a severe systemic disease that limits activity (angina, COPD, prior Myocardial infarction) ASA 4: a patient with an incapacitating disease that is a constant threat to life (CHF, renal failure) ASA 5: a moribund patient not expected to survive 24 hrs. (ruptured aneurysm) ASA 6: a declared brain- patient whose organs are being harvested. For emergent operations, add the letter E after the classification Mallampati Classification Grade 2 Sedation Plan Analgesia, Amnesia, Plan communicated to team members, Discussed options with patient/fam, Discussed risks with patient/fam The patient is an appropriate candidate to undergo the planned procedure, sedation, and anesthesia. The patient immediately re-assessed prior to indication. OMAR EMERY MD Aug 13, 2020 13:56
--- NOTE | 2020-08-13 14:12 | Diagnostic Imaging Report ---
INDICATION: Left lung mass. Patient presents for CT-guided biopsy. TECHNIQUE: All CT scans use one or more of the following dose optimizing techniques: automated exposure control, MA and/or KvP adjustment based on patient size and exam type or iterative reconstruction. PROCEDURE: Patient is brought to the CT suite and placed on the table in a supine position. Axial imaging through the chest was performed to evaluate appropriate entry site. The study was performed utilizing conscious sedation with radiology nursing and constant patient monitoring. Patient was administered a total of 50 mcg of fentanyl and 1 mg of Versed intravenously. Total procedure time for approximately 9 minutes. The left upper chest was prepped and draped in the usual sterile fashion. A small amount of 1% lidocaine was utilized for local anesthesia. Coaxial 20-gauge Temno needle was advanced and placed with its tip within the mass in the left upper lobe. Three core biopsies were obtained. A blood patch was injected during needle removal. Follow-up imaging shows no complicating features. No definite pneumothorax is identified. IMPRESSION: CT-guided left upper lobe lung mass biopsy utilizing conscious sedation. Pathology results are currently pending. Dictated by: Dictated on workstation # [id number]
[2020-08-13] MEDS ORDERED: HYDROcodone/APAP 5 MG/325 MG (LORTAB) TAB PO PRN (14:15)
[2020-08-13] MEDS ORDERED: HYDROcodone/APAP 5 MG/325 MG (LORTAB) TAB ONE (14:25)
--- NOTE | 2020-08-13 15:00 | NUR ---
patient back from procedure, stable - few minutes later noted was lying on his left side moaning, reported of discomfort noted to be diaphoretic, patient was requested to turn on to his right side, pain med administered ,after this patient felt much better remains stable no pain just reports of some discomfort vitals stable and neuros
--- NOTE | 2020-08-13 15:21 | NUR ---
Swing Bed Note: Swing Bed evaluation order received. Patient qualifies for swing bed for continued need of strengthening to return to his prior level of independent functioning. He lives at home alone with no identified support systems. He has a dog that he cares for and has found someone to feed and walk his dog while he is away. Along with PT and OT the patient will be receiving chemotherapy for his known lung cancer with METS. It is unknown at this time what treatment course he will need for that. Patient has a managed [facility] [place] license of [facility] plan. Authorization request was submitted with pending auth number [facility] [id number] and [facility] [id number]. Clinical information faxed to [phone] with request to begin SWB on 08/14/20 pending acceptance vs denial. Days 1-100 are covered at 100% pending authorization. The above information was discussed with the patient and consent to access benefits was obtained pending auth.
--- NOTE | 2020-08-13 16:05 | Diagnostic Imaging Report ---
INDICATION: Lung biopsy. TIME OF EXAM: 3:37 PM. COMPARISON: Correlation is made with the prior chest x-ray from 08/10/2020. FINDINGS: There has been interval development of a left-sided pneumothorax of approximately 20%. There is some mild tracheal shift to the right. The left hilar mass is again noted. The right lung is clear. There is no effusion. IMPRESSION: Development of a moderate-sized left pneumothorax status post left lung mass biopsy. These results were discussed with Dr. Mejia at the time of this exam. The patient will be transferred to the ICU for monitoring. The patient is currently asymptomatic. Dictated by: Dictated on workstation # [id number]
--- NOTE | 2020-08-13 16:09 | NUR ---
While visiting with the patient, the primary care nurse came to the room and notified the patient that he has a pneumothorax and will transfer to the ICU for continued monitoring. He is lying on his right side and respirations are even et unlabored at this time. Will continue to follow along with and when the patient is determined to be at a post acute care level by the doctors then I will resubmit authorization request for swing bed at that time.
--- NOTE | 2020-08-13 16:21 | NUR ---
PATIENT TRANSFERRED TO ICU 8 AT THIS TIME, RN GAVE THIS NURSE REPORT AT BEDSIDE, THIS RN TO ASSUME CARE OF PATIENT. PATIENT HOOKED UP TO MONITOR, ET ORIENTED TO ROOM. PATIENT HAS NO C/O AT THIS TIME. SEE PHYSICAL ASSESSMENT UNDER INTERVENTIONS.
[2020-08-13] MEDS: inSUlin ASPART (NovoLOG) 1 UNIT/0.01 ML (CHARGE PER UNIT) SC SCH ×2 (17:03→21:02)
--- NOTE | 2020-08-13 18:04 | Diagnostic Imaging Report ---
INDICATION: Left-sided pneumothorax, status post lung biopsy. Study is performed for follow-up. TIME OF EXAM: 5:42 PM CORRELATION is made with prior exam from earlier same day. Left upper lobe lung mass is again noted. Left-sided pneumothorax does appear to be slightly smaller when compared with examination 2 hours earlier. This is likely approximately 15%. Right lung is clear. The degree of the tracheal shift to the right has decreased. IMPRESSION: Overall slight decrease in size of left-sided pneumothorax when compared with examination earlier this same day. Dictated by: Dictated on workstation # [id number]
[2020-08-13] MEDS ORDERED: CEFEPIME 1 GM (MAXIPIME) VIAL ONE ×2 (18:19→23:43)
[2020-08-13] MEDS ORDERED: WATER (STERILE) FOR INJECTION 10 ML ONE ×2 (18:19→23:43)
[2020-08-14] VITALS (22 sets, daily range): BP systolic 109–161; BP diastolic 66–99
[2020-08-14 04:02] LABS: BASOPHILS % (AUTO) 0 % (0-10); EOSINOPHILS % (AUTO) 0 % (0-10); HEMATOCRIT 46 % (40-54); LYMPHOCYTES # (AUTO) 0.7 X 10^3 (1.0-4.0); LYMPHOCYTES % (AUTO) 4 % (12-44); MEAN CORPUSCULAR HEMOGLOBIN 29 PG (25-34); MEAN CORPUSCULAR HGB CONC 35 G/DL (32-36); MEAN CORPUSCULAR VOLUME 84 FL (80-99); MEAN PLATELET VOLUME 9.7 FL (7.4-10.4); MONOCYTES # (AUTO) 1.5 X 10^3 (0.0-1.0); MONOCYTES % (AUTO) 9 % (0-12); NEUTROPHILS # (AUTO) 13.6 X 10^3 (1.8-7.8); NEUTROPHILS % (AUTO) 86 % (42-75); PLATELET COUNT 312 10^3/uL (130-400); WHITE BLOOD COUNT 15.8 10^3/uL (4.3-11.0)
[2020-08-14 04:15] LABS: ALBUMIN 3.9 GM/DL (3.2-4.5); CHLORIDE 103 MMOL/L (98-107); POTASSIUM 4.2 MMOL/L (3.6-5.0); SODIUM 137 MMOL/L (135-145)
[2020-08-14 04:16] LABS: CALCIUM 8.6 MG/DL (8.5-10.1)
[2020-08-14 04:18] LABS: GLUCOSE 139 MG/DL (70-105)
[2020-08-14 04:19] LABS: BILIRUBIN,TOTAL 0.7 MG/DL (0.1-1.0); CARBON DIOXIDE 23 MMOL/L (21-32)
[2020-08-14 04:21] LABS: ALKALINE PHOSPHATASE 68 U/L (40-136); GFR ESTIMATED > 60; PHOSPHORUS 2.6 MG/DL (2.3-4.7)
[2020-08-14 04:22] LABS: BUN/CREATININE RATIO 25
[2020-08-14 04:24] LABS: ALANINE AMINOTRANSFERASE 52 U/L (0-55); MAGNESIUM 2.7 MG/DL (1.6-2.4)
[2020-08-14] MEDS: inSUlin ASPART (NovoLOG) 1 UNIT/0.01 ML (CHARGE PER UNIT) SC SCH ×4 (05:13→21:00)
[2020-08-14] MEDS: MAGNESIUM 1 GM/100 ML IVPB 100 ML IV SCH (05:13)
[2020-08-14] MEDS: POTASSIUM CL 10MEQ/50ML IVPB 50 ML IV SCH (05:13)
[2020-08-14] MEDS: KCL 20 MEQ TAB (K-DUR) PO SCH (05:13)
[2020-08-14 05:34] LABS: ATYPICAL LYMPHOCYTES 1 %; LYMPHOCYTES % (MANUAL) 6 %; MONOCYTES % (MANUAL) 7 %; NEUTROPHILS % (MANUAL) 86 %
[2020-08-14 05:35] LABS: RBC MORPH NORMAL
[2020-08-14] MEDS ORDERED: WATER (STERILE) FOR INJECTION 10 ML ONE ×2 (05:43→18:14)
[2020-08-14] MEDS ORDERED: CEFEPIME 1 GM (MAXIPIME) VIAL ONE ×2 (05:43→18:14)
[2020-08-14] MEDS: CEFEPIME 1,000 MG/SWFI 10 ML IV PUSH IV SCH ×6 (06:20→18:25)
--- NOTE | 2020-08-14 06:39 | NUR ---
THIS RN NOTIFIED BY EICU CONCERNING PT CHEST XRAY. REQUESTED RADIOLOGY TO READ STAT. NOTIFIED CT. ALL VSS.
--- NOTE | 2020-08-14 07:02 | NUR ---
THIS RN NOTIFIED OF RADIOLOGY REPORT OF CHEST XRAY-PNEUMOTHORAX WORSENING. DR CAIN NOTIFIED. GENERAL SURGERY CONSULTED. ALL VSS
--- NOTE | 2020-08-14 07:02 | Diagnostic Imaging Report ---
INDICATION: 65-year-old male underwent a recent lung biopsy, has a pneumo, follow-up COMPARISONS: 08/14/2020 at 3:31 a.m., this film was obtained at 6:10 a.m. FINDINGS: Single portable film of the chest continues to show an approximately 50% left pneumothorax minimally changed since the earlier exam. Cardiac contour is normal. Some mild central venous prominence noted. A large left suprahilar lung mass again noted. Soft tissues and bony thorax are unchanged IMPRESSION: Persistent study greater than 50% left pneumothorax. Results will be called to Emergency Room. Dictated by: Dictated on workstation # [id number]
[2020-08-14] MEDS ORDERED: LIDOCAINE 1% INJ 20 ML 20 ML VIAL ONE (07:41)
[2020-08-14] MEDS: RT-ALBUTEROL SULF 2.5 MG/3 ML PRE-MIX VIAL INH SCH ×4 (07:45→19:12)
[2020-08-14] MEDS ORDERED: LIDOCAINE 1% INJ 20 ML 20 ML VIAL INJ NR (08:00)
--- NOTE | 2020-08-14 08:02 | Diagnostic Imaging Report ---
HISTORY: Follow-up pneumothorax. Dyspnea. COMPARISON: 08/13/2020 TECHNIQUE: Frontal view chest FINDINGS: Redemonstrated is a large left pneumothorax, which appears unchanged compared to the prior study. No significant midline shift is appreciated on this exam. There is no pleural effusion. The right lung is clear. The left perihilar mass is again seen. IMPRESSION: 1. Redemonstrated large left pneumothorax and left perihilar mass. Findings appear unchanged compared to the prior exam. Dictated by: Dictated on workstation # [id number]
--- NOTE | 2020-08-14 08:04 | NUR ---
TIMELINE NOTE BELOW 08/14/2020 AT 0740: CONSENT SIGNED BY PT FOR CHEST TUBE INSERTION. 08/14/2020 AT 0748: TIMEOUT PERFORMED WITH THIS RN AND DR. SANCHEZ. 08/14/2020 AT 0749: PROCEDURE START. 08/14/2020 AT 0755: PROCEDURE END. THORAVENT CONNECTED TO ATRIUM. ATRIUM CONNECTED TO WALL SUCTION AT LOW-CONTINUOUS SUCTION. AIR BUBBLES NOTED WITHIN ATRIUM COLLECTION SYSTEM. STAT CXR ORDERED.
--- NOTE | 2020-08-14 08:06 | Progress Note ---
MEGGAN BISHOP,MED STUDENT 08/14/20 0806: Subjective Subjective/Events-last exam Patient seen and examined this morning. After yesterday's biopsy he developed a pneumothorax and was subsequently moved to ICU. This morning he denies any pain, shortness of breath or trouble breathing. X-ray showed a persistent pneumothorax on the left this morning. Review of Systems General: No Chills, No Malaise HEENT: No Head Aches Pulmonary: No Dyspnea; Cough; No Pleuritic Chest Pain Cardiovascular: No: Chest Pain Gastrointestinal: No: Nausea, Vomiting, Abdominal Pain Neurological: Weakness Objective Exam Last Set of Vital Signs Vital Signs Date Time Temp Pulse Resp B/P (MAP) Pulse Ox O2 Delivery O2 Flow Rate FiO2 08/14/20 06:00 84 140/76 (97) 96 Nasal Cannula 5.00 08/14/20 05:00 15 08/14/20 00:13 37.0 Capillary Refill : Less Than 3 Seconds I&O Intake and Output 08/14/20 00:00 Intake Total 720 ml Output Total 1500 ml Balance -780 ml Intake Oral 720 ml Output Urine Total 1500 ml General: Alert, No Acute Distress HEENT: EOMI, Mucous Memb Moist/[place] Lungs: Other (decreased breath sounds on the left, wheezing throughout) Heart: Regular Rate, No Murmurs Abdomen: Soft, No Tenderness Extremities: No Edema Results/Procedures Lab Laboratory Tests 08/13/20 16:48: Glucometer 273H 08/13/20 20:42: Glucometer 166H 08/14/20 03:08: White Blood Count 15.8H, Red Blood Count 5.46, Hemoglobin 16.0, Hematocrit 46, Mean Corpuscular Volume 84, Mean Corpuscular Hemoglobin 29, Mean Corpuscular Hemoglobin Concent 35, Red Cell Distribution Width 13.2, Platelet Count 312, Mean Platelet Volume 9.7, Neutrophils (%) (Auto) 86H, Lymphocytes (%) (Auto) 4L, Monocytes (%) (Auto) 9, Eosinophils (%) (Auto) 0, Basophils (%) (Auto) 0, Neutrophils # (Auto) 13.6H, Lymphocytes # (Auto) 0.7L, Monocytes # (Auto) 1.5H, Eosinophils # (Auto) 0.0, Basophils # (Auto) 0.0, Neutrophils % (Manual) 86, Lymphocytes % (Manual) 6, Monocytes % (Manual) 7, Atypical Lymphocytes 1, Blood Morphology Comment NORMAL, Sodium Level 137, Potassium Level 4.2, Chloride Level 103, Carbon Dioxide Level 23, Anion Gap 11, Blood Urea Nitrogen 25H, Creatinine 1.00, Estimat Glomerular Filtration Rate > 60, BUN/Creatinine Ratio 25, Glucose Level 139H, Calcium Level 8.6, Corrected Calcium 8.7, Phosphorus Level 2.6, Magnesium Level 2.7H, Total Bilirubin 0.7, Aspartate Amino Transf (AST/SGOT) 30, Alanine Aminotransferase (ALT/SGPT) 52, Alkaline Phosphatase 68, Total Protein 7.0, Albumin 3.9 Microbiology 08/10/20 Gram Stain - Final, Complete 08/10/20 Sputum Culture - Final, Complete Usual upper respiratory era 08/10/20 Urine Culture - Final, Complete Gram Pos Mixed Bacterial Era 08/10/20 Blood Culture - Preliminary, Resulted No growth Radiology Date of Exam:08/10/20 CHEST 1 VIEW, AP/PA ONLY Indication: Left arm and leg weakness and sepsis. Time of exam 10:08 AM Correlation no prior chest 01/22/2010. Heart size normal. There is soft tissue mass in the left suprahilar location. Otherwise lungs are clear. There is no effusion or pneumothorax. IMPRESSION: Soft tissue mass left upper lobe. CT chest would be recommended for further evaluation. Date of Exam:08/10/20 CT CHEST W EXAMINATION: CT Chest with intravenous contrast. TECHNIQUE: Multiple contiguous axial images were obtained through the chest after the uneventful administration of intravenous contrast. All CT scans use one or more of the following dose optimizing techniques: automated exposure control, MA and/or KvP adjustment based on a patient size and exam type, or iterative reconstruction. HISTORY: Chest mass COMPARISON: None available. FINDINGS: There is a 7.1 x 5.2 cm left upper lobe mass abutting the aorta extending into the left suprahilar space. This severely attenuates the left upper pulmonary vein and left upper pulmonary artery. Lungs are mildly emphysematous. No edema or pneumonia is seen. No pleural effusion. No pneumothorax. There is no axillary or supraclavicular lymphadenopathy. There is no mediastinal lymphadenopathy. Heart size is normal. There are severe coronary artery calcifications. No pericardial effusion. Aorta is normal in caliber. Limited views of the upper abdomen show a cyst in the left kidney. There are no suspicious osseus lesions. IMPRESSION: 1. Large left upper lobe mass abutting the aorta and extending left suprahilar space attenuating left upper pulmonary vein and pulmonary artery. This is most consistent with lung cancer. 2. No metastatic disease identified. Date of Exam:08/10/20 CT HEAD W WO PROCEDURE: CT head with and without contrast. TECHNIQUE: Multiple contiguous axial images were obtained through the brain before and after the administration of intravenous contrast. Auto Exposure Controls were utilized during the CT exam to meet ALARA standards for radiation dose reduction. INDICATION: Nausea and weakness. There is a large area of low density in the left cerebellar hemisphere. A mass at this location is suspected. There is a rounded mass in the right occipital lobe with surrounding vasogenic edema measuring 2 cm. No midline shift is identified. No acute intra-axial or extra-axial hemorrhage is detected. Cisterns are patent. There does appear to be some questionable minimal enhancement of the lesion in the right occipital lobe on postcontrast imaging. IMPRESSION: Mass like lesion with surrounding vasogenic edema in right occipital lobe. There is also a large area of low density in the left cerebellar hemisphere and a mass at this location is suspected. Findings are worrisome for intracranial metastatic disease. There is no significant mass effect or midline shift. 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 CT- guided biopsy of lung mass performed yesterday, pending pathology. Continue dexamethasone Left pneumothorax- surgery consulted and chest tube placed this morning with improvement on Xray Possible postobstructive pneumonia- continue cefepime, will continue for a total course of 5 days. COPD- chronic, continue inhalers DVT prophylaxis- Will consider restarting enoxaparin due to patient being high risk. Encourage continued ambulation with PT Clinical Quality Measures DVT/VTE Risk/Contraindication: Risk Factor Score Per Nursin RFS Level Per Nursing on Admit: 4+=Very High ELIDA CAIN MD 08/14/20 1031: Assessment/Plan Assessment/Plan (1) Pneumothorax of left lung after biopsy Status: Acute Assessment & Plan: Initially around 15% volume, no respiratory issues, but pro gressed to 50% this am, Surgery consulted and venting tube placed with complete resolution. (2) Pneumonia involving left lung Status: Acute Assessment & Plan: Possible post-obstructive pneumonia. Continue cefepime. Qualifiers: Qualified Codes: J18.9 - Pneumonia, unspecified organism (3) Lung cancer metastatic to brain Status: Acute Assessment & Plan: Oncology consulted, IR biopsy done 08/13. Dexamethasone started, Rad Onc consulted. (4) COPD (chronic obstructive pulmonary disease) Status: Chronic Assessment & Plan: No exacerbation, use albuterol as needed. (5) DVT prophylaxis Status: Acute Assessment & Plan: Held enoxaparin today for procedure. Supervisory-Addendum Brief Verification & Attestation Participated in pt care: history, MDM, physical Personally performed: exam, history, MDM Care discussed with: Medical Student Procedures: n/a I personally saw and examined this patient today and did my own history and physical, agree with documentation per medical student history and exam. See problem list for my assessment and plan. MEGGAN BISHOP,MED STUDENT Aug 14, 2020 08:06 ELIDA CAIN MD Aug 14, 2020 10:31
[2020-08-14] MEDS: PANTOPRAZOLE 40 MG (PROTONIX) VIAL IV SCH (08:11)
--- NOTE | 2020-08-14 08:45 | Diagnostic Imaging Report ---
INDICATION: Thora-Vent placement. TIME OF EXAM: 8:10 AM. COMPARISON: Correlation is made with the prior study of earlier this same day. FINDINGS: A Pleur-evac chest tube has been placed on the left. There is complete reexpansion of the left lung. No residual pneumothorax is identified. A left upper lobe mass is again noted. The right lung is clear. IMPRESSION: Thora-Vent placement on the left. There has been complete reexpansion of the left lung. No pneumothorax is identified. Dictated by: Dictated on workstation # [id number]
--- NOTE | 2020-08-14 09:38 | Physical Therapy Progress Note ---
Therapy Progress Note Patient had a decline in medical status and went to ICU. Nurse notified that PT will need new orders if appropriate to continue PT tx. HUONG BRYANT PT Aug 14, 2020 09:38
--- NOTE | 2020-08-14 11:14 | Physical Therapy Evaluation ---
PT Evaluation-General Medical Diagnosis Admission Date Aug 10, 2020 at 13:22 Medical Diagnosis: COPD, lung cancer metastatic to brain Onset Date: Aug 10, 2020 Therapy Diagnosis Therapy Diagnosis: Impaired balance, strength, and endurance Precautions Precautions/Isolations: Fall Prevention, Standard Precautions Weight Bear Status Right Lower Extremity: Right Weight Bearing/Tolerated Left Lower Extremity: Left Weight Bearing/Tolerated Referral Physician: Hermes Reason for Referral: Evaluation/Treatment Medical History Pertinent Medical History: COPD, HTN Additional Medical History lung CA with mets to brain Reviewed History: Yes Social History Home: Apartment Current Living Status: Alone Entry Into Home: Stairs Without Railing PT Steps Into Home: 1 Prior Prior Level of Function SCALE: Activities may be completed with or without assistive devices. 6-Lrkukqnqra-knnxyfe completes the activity by him/herself with no assistance from a helper. 5-Set-up or Clean-up Assistance-helper sets up or cleans up; patient completes activity. [place] assists only prior to or following the activity. 4-Supervision or Touching Assistance-helper provides verbal cues and/or t ouching/steadying and/or contact guard assistance as patient completes activity. Assistance may be provided throughout the activity or intermittently. 3-Partial/Moderate Assistance-helper does LESS THAN HALF the effort. [place] lifts, holds or supports trunk or limbs, but provides less than half the effort. 2-Substantial/Maximal Assistance-helper does MORE THAN HALF the effort. [place] lifts or holds trunk or limbs and provides more than half the effort. 9-Mpircpdbv-rozysz does ALL the effort. Patient does none of the effort to complete the activity. Or, the assistance of 2 or more helpers is required for the patient to complete the activity. If activity was not attempted, code reason: 7-Patient Refused. 9-Not Applicable-not attempted and the patient did not perform the activity before the current illness, exacerbation or injury. 10-Not Attempted due to Environmental Limitations-(lack of equipment, weather restraints, etc.). 88-Not Attempted due to Medical Conditions or Safety Concerns. Bed Mobility: 6 Transfers (B,C,W/C): 6 Gait: 6 Stairs: 6 Indoor Mobility (Ambulation): Independent Stairs: Independent Prior Devices Use: None PT Evaluation-Current Subjective Pt presents supine in bed. Pt agrees to PT. Pt reports 2/10 pain at area of chest-tube placement. Pt/Family Goals Return Home Objective Patient Orientation: Person, Unable to Assess, Eyes Open, Situation Attachments: Chest Tube, Oxygen, IV ROM/Strength ROM Lower Extremities WFL Strength Lower Extremities Gross B LE strength 4/5 Integumentary/Posture Bowel Incontinence: No Bladder Incontinence: No Neuromuscular (Tone, Coordination, Reflexes) Patient describes weakness in left UE and LE, some neurological testing performed. Patient has intact peripheral vision bilaterally, possibly slight impaired tracking on the left side, normal clonus in LLE and negative babinski Sensory Vision: Functional Hearing: Functional Hand Dominance: Right Sensation Right Lower Extremit: Intact Sensation Left Lower Extremity: Intact Transfers Sit to Lying (QC): 3 Lying to Sitting/Side of Bed(Q: 3 Sit to Stand (QC): 3 Balance Sitting Static: Normal Sitting Dynamic: Normal Standing Static: Fair Standing Dynamic: Poor Treatment Standing Marches x10 Seated LAQ and HR/TR x15 Assessment/Needs Pt struggles with holding balance in standing; pt takes extra time to weight shift and requires min assistance to stabilize when holding full weight on L side. Rehab Potential: Fair PT Residential Goals Tool Rental Technician Goals PT Tool Rental Technician Goals Time Frame: Aug 21, 2020 Roll Left & Right (QC): 4 Sit to Lying (QC): 4 Lying-Sitting on Side/Bed(QC): 4 Sit to Stand (QC): 4 Chair/Ibj-qh-Gbyad Xfer(QC): 4 Toilet Transfer (QC): 4 Car Transfer (QC): 4 Does the Patient Walk: Yes Walk 10 feet (QC): 4 Walk 50ft with 2 Turns (QC): 4 PT Plan Problem List Problem List: Activity Tolerance, Functional Strength, Safety, Balance, Gait, Transfer, Bed Mobility, ROM Treatment/Plan Treatment Plan: Continue Plan of Care Treatment Plan: Bed Mobility, Education, Functional Activity [place], Functional Strength, Gait, Safety, Therapeutic Exercise, Transfers Treatment Duration: Aug 21, 2020 Frequency: 6 times per week Estimated Hrs Per Day: .25 hour per day Patient and/or Family Agrees t: Yes Safety Risks/Education Patient Education: Transfer Techniques, Correct Positioning, Safety Issues Teaching Recipient: Patient Teaching Methods: Demonstration, Discussion Response to Teaching: Reinforcement Needed Discharge Recommendations Plan Patient will perform bed mobility and transfer training, balance and endurance training, functional strengthening, stair training, gait training, and education, to improve functional mobility and independence at home. Therapy Discharge Recommendati: Post Acute PT Time/GCodes Time In: 1033 Time Out: 1050 Total Billed Treatment Time: 17 Total Billed Treatment 1 visit HUONG BEASLEY PT Aug 14, 2020 11:14
--- NOTE | 2020-08-14 11:36 | Occupational Ther Daily Note ---
OT Current Status-Daily Note Subjective New order received to continue treatment with pt. after admitting to ICU from 4th. Pt. does not report pain, but states that he is tired from procedure this morning. Appearance Pt. in bed. Agrees to work with OT. Mental Status/Objective Patient Orientation: Person, Place, Time, Situation Attachments: Telemetry ADL-Treatment Therapy Code Descriptions/Definitions Functional [place] Measure: 0=Not Assessed/NA 4=Minimal Assistance 1=Total Assistance 5=Supervision or Setup 2=Maximal Assistance 6=Modified [place] 3=Moderate Assistance 7=Complete IndependenceSCALE: Activities may be completed with or without assistive devices. 2-Lzoutkyrxc-nsfnsax completes the activity by him/herself with no assistance from a helper. 5-Set-up or Clean-up Assistance-helper sets up or cleans up; patient completes activity. [place] assists only prior to or following the activity. 4-Supervision or Touching Assistance-helper provides verbal cues and/or touching/steadying and/or contact guard assistance as patient completes activity. Assistance may be provided throughout the activity or intermittently. 3-Partial/Moderate Assistance-helper does LESS THAN HALF the effort. [place] lifts, holds or supports trunk or limbs, but provides less than half the effort. 2-Substantial/Maximal Assistance-helper does MORE THAN HALF the effort. [place] lifts or holds trunk or limbs and provides more than half the effort. 0-Ojzxxkjiw-yoqkox does ALL the effort. Patient does none of the effort to complete the activity. Or, the assistance of 2 or more helpers is required for the patient to complete the activity. If activity was not attempted, code reason: 7-Patient Refused. 9-Not Applicable-not attempted and the patient did not perform the activity before the current illness, exacerbation or injury. 10-Not Attempted due to Environmental Limitations-(lack of equipment, weather restraints, etc.). 88-Not Attempted due to Medical Conditions or Safety Concerns. Oral Hygiene (QC): 7 (Pt. declines. States, "I only have 4 teeth." OT encourages him to brush his 4 teeth. He continues to decline.) Shower/Bathe Self (QC): 7 (Pt. declines cleaning up with bath pack after getting to side of bed.) Lower Body Dressing (QC): 4 (CGA in stance to don pants over hips.) On/Off Footwear: 4 (SBA while seated on side of bed to don slipper socks.) Other Treatment Pt. transfers supine-sit with SBA. Sits on side of bed and encouraged to take d eep breaths. Pt. is able to stand from bed with CGA and no AE, to unfasten and pull down jeans over hips. Sat back on bed and doffed over feet. Pt. agrees to don clean sweat pants. Pt. able to bring feet up to him and don over feet. Stood again with CGA and donned over hips. Pt. able to don slipper socks by bringing feet up to him. Pt. continues to sit on side and take deep breaths. Pt. is able to state that his coordination is more difficult in left UE. Stood several more times to take steps toward HOB. Transferred sit-supine with SBA. All needs met. Education OT Patient Education: Correct positioning, Modified ADL techniques, Progress toward Goal/Update tx plan, Purpose of tx/functional activities, Reviewed preca utions, Rehab process, Transfer techniques Teaching Recipient: Patient Teaching Methods: Demonstration, Discussion Response to Teaching: Verbalize Understanding, Return Demonstration OT Long-Term Goals [employer] Police Sergeant Goals Time Frame: Sep 02, 2020 Eating (QC): 6 Oral Hygiene (QC): 6 Toileting Hygiene (QC): 6 Shower/Bathe Self (QC): 6 Upper Body Dressing (QC): 6 Lower Body Dressing (QC): 6 On/Off Footwear (QC): 6 1=Demonstrate adherence to instructed precautions during ADL tasks. 2=Patient will verbalize/demonstrate understanding of assistive devices/modifications for ADL. 3=Patient will improve strength/tolerance for activity to enable patient to perform ADL's. OT Education/Plan Problem List/Assessment Assessment: Decreased Activ Tolerance, Impaired Coordination, Impaired I ADL's, Impaired Self-Care Skills Discharge Recommendations Plan/Recommendations: Continue POC Therapy Discharge Recommendati: Post Acute OT Treatment Plan/Plan of Care Treatment,Training & Education: Yes Patient would benefit from OT for education, treatment and training to promote independence in ADL's, mobility, safety and/or upper extremity function for ADL's. Plan of Care: ADL Retraining, Functional Mobility, UE Funct Exercise/Act, UE Neuromus Re-Ed/Coord Treatment Duration: Sep 02, 2020 Frequency: 5 times per week Estimated Hrs Per Day: .25 hour per day Agreement: Yes Rehab Potential: Good Time/GCodes Start Time: 10:55 Stop Time: 11:15 Total Time Billed (hr/min): 20 Billed Treatment Time 1, ADL DINH CUELLAR OT Aug 14, 2020 11:35
--- NOTE | 2020-08-14 19:46 | Consultation - Surgery ---
History of Present Illness History of Present Illness Patient Consulted On(maureen/time) 08/14/20 07:41 Date Seen by Provider: Aug 14, 2020 Time Seen by Provider: 07:41 History of Present Illness Consult requested by Dr. Mirza for left pneumothorax. Patient is a 65 year old male who was at home and began having left sided weakness. Was able to call EMS and brought to hospital for evaluation. Patient was found to have left upper lobe lung mass with likely metastatic lesions to brain. Patient had biopsy of lung mass yesterday and found to have small pneumothorax. He was placed in ICU and this morning had enlargment of left pneumothorax. Patient states he is a having a little more difficuly breathing but not too bad. Not having any chest pain. Had chest x ray showing about 50% left sided pneumothorax and irasema lung mass. Patient states moving around make breathing harder. Laying still makes better. Denies n/v fever sweats chills or chest pain. Allergies and Home Medications Allergies Coded Allergies: sulfamethoxazole (Verified Allergy, Unknown, Hives, 08/10/20) trimethoprim (Verified Allergy, Unknown, Hives, 08/10/20) Home Medications Albuterol Sulfate 2.5 Mg/3 Ml Vial.neb, 1 VIAL INH QID, (Reported) Albuterol Sulfate 1 Puff Puff, 2 PUFF INH Q6H PRN for SHORTNESS OF BREATH, (Reported) Amlodipine Besylate 10 Mg Tablet, 10 MG PO HS, (Reported) Atorvastatin Calcium 40 Mg Tablet, 40 MG PO HS, (Reported) Budesonide/Formoterol Fumarate 10.2 Gm Hfa.aer.ad, 1 PUFF INH DAILY, (Reported) Diclofenac Sodium 75 Mg Tablet.dr, 75 MG PO BID, (Reported) Fenofibrate Nanocrystallized 145 Mg Tablet, 145 MG PO DAILY, (Reported) Hydrochlorothiazide 25 Mg Tablet, 25 MG PO DAILY, (Reported) Ibuprofen 200 Mg Tablet, 400-600 MG PO Q6H PRN for PAIN-MILD (1-4), (Reported) Metformin HCl 500 Mg Tablet, 1,000 MG PO BID, (Reported) TAKES 2 (500MG) TABS Montelukast Sodium 10 Mg Tablet, 10 MG PO HS, (Reported) Quinapril HCl 10 Mg Tablet, 10 MG PO HS, (Reported) Tiotropium [place] 1 Inh Aerp, 1 PUFF INH DAILY, (Reported) Patient Home Medication List Home Medication List Reviewed: Yes Past Drackdh-Njjgpe-Uzvasl Hx Patient Social History Alcohol Use: Denies Use Recreational Drug Use: Yes (occassional marijuana) Smoking Status: Current Everyday Smoker Type Used: Cigarettes 2nd Hand Smoke Exposure: Yes Recent Foreign Travel: No Contact w/Someone Who Travel: No Recent Infectious Disease Expo: No Recent Hopitalizations: No Immunizations Up To Date Date of Pneumonia Vaccine: Oct 10, 2018 Surgeries History of Surgeries: No Respiratory History of Respiratory Disorde: Yes Respiratory Disorders: COPD Cardiovascular History of Cardiac Disorders: Yes Cardiac Disorders: Hypertension Neurological History of Neurological Disord: No Genitourinary History of Genitourinary Disor: No Gastrointestinal History of Gastrointestinal Di: No Musculoskeletal History of Musculoskeletal Dis: No Endocrine History of Endocrine Disorders: No ("borderline diabetic") HEENT History of HEENT Disorders: No Cancer History of Cancer: No Psychosocial History of Psychiatric Problem: No Integumentary History of Skin or Integumenta: No Blood Transfusions History of Blood Disorders: No Reviewed Nursing Assessment Reviewed/Agree w Nursing PMH: Yes Family Medical History Significant Family History: No Pertinent Family Hx Review of Systems-General Constitutional: No chills; weakness Respiratory: dyspnea on exertion, short of breath Cardiovascular: No chest pain, No edema Gastrointestinal: No abdominal pain, No dysphagia Genitourinary: No decreased output, No discharge Musculoskeletal: No back pain, No joint pain Skin: No change in color, No change in hair/nails Psychiatric/Neurological: Denies Anxiety, Denies Depressed, Denies Emotional Problems All Other Systems Reviewed Negative Unless Noted: Yes (Negative excepted noted.) Physical Exam-General Problems Physical Exam Vital Signs Vital Signs - First Documented 08/10/20 08/13/20 08:58 13:30 Temp 37.6 Pulse 75 Resp 18 B/P (MAP) 151/81 (104) Pulse Ox 94 O2 Delivery Room Air O2 Flow Rate 2.00 Capillary Refill : Less Than 3 Seconds General Appearance: WD/WN, no apparent distress HEENT: PERRL/EOMI, normal ENT inspection Neck: non-tender, supple Respiratory: chest non-tender, no accessory muscle use, decreased breath sounds (left) Cardiovascular: regular rate, rhythm, no edema, no JVD Gastrointestinal: non tender, soft, no organomegaly Rectal: deferred Back: no CVA tenderness, no vertebral tenderness Extremities: non-tender, normal inspection Neurologic/Psychiatric: alert, normal mood/affect, oriented x 3 Skin: normal color, warm/dry Lymphatic: no adenopathy Data Review Labs Laboratory Tests 08/13/20 20:42: Glucometer 166H 08/14/20 03:08: White Blood Count 15.8H, Red Blood Count 5.46, Hemoglobin 16.0, Hematocrit 46, Mean Corpuscular Volume 84, Mean Corpuscular Hemoglobin 29, Mean Corpuscular Hemoglobin Concent 35, Red Cell Distribution Width 13.2, Platelet Count 312, Mean Platelet Volume 9.7, Neutrophils (%) (Auto) 86H, Lymphocytes (%) (Auto) 4L, Monocytes (%) (Auto) 9, Eosinophils (%) (Auto) 0, Basophils (%) (Auto) 0, Neutrophils # (Auto) 13.6H, Lymphocytes # (Auto) 0.7L, Monocytes # (Auto) 1.5H, Eosinophils # (Auto) 0.0, Basophils # (Auto) 0.0, Neutrophils % (Manual) 86, Lymphocytes % (Manual) 6, Monocytes % (Manual) 7, Atypical Lymphocytes 1, Blood Morphology Comment NORMAL, Sodium Level 137, Potassium Level 4.2, Chloride Level 103, Carbon Dioxide Level 23, Anion Gap 11, Blood Urea Nitrogen 25H, Creatinine 1.00, Estimat Glomerular Filtration Rate > 60, BUN/Creatinine Ratio 25, Glucose Level 139H, Calcium Level 8.6, Corrected Calcium 8.7, Phosphorus Level 2.6, Magnesium Level 2.7H, Total Bilirubin 0.7, Aspartate Amino Transf (AST/SGOT) 30, Alanine Aminotransferase (ALT/SGPT) 52, Alkaline Phosphatase 68, Total Protein 7.0, Albumin 3.9 08/14/20 10:30: Glucometer 152H 08/14/20 15:40: Glucometer 166H Microbiology 08/13/20 MRSA Screen - Final, Complete MRSA not isolated 08/10/20 Urine Culture - Final, Complete Gram Pos Mixed Bacterial Noreen 08/10/20 Blood Culture - Preliminary, Resulted No growth Assessment/Plan Assessment/Plan Assessment/Plan left upper lobe lung mass left pneumothorax shortness of breath patient with left pneumothorax, we discussed management and placement of Thoravent (chest tube) he understands risks and benefits and wishes to proceed with left chest thoravent placment To atirum chest x ray after placement Clinical Quality Measures DVT/VTE Risk/Contraindication: Risk Factor Score Per Nursin RFS Level Per Nursing on Admit: 4+=Very High PATRICIA SANCHEZ DO Aug 14, 2020 19:46
[2020-08-15] VITALS (19 sets, daily range): BP systolic 126–170; BP diastolic 68–105
[2020-08-15] MEDS ORDERED: CEFEPIME 1 GM (MAXIPIME) VIAL ONE ×3 (00:21→11:14)
[2020-08-15] MEDS ORDERED: WATER (STERILE) FOR INJECTION 10 ML ONE ×2 (00:21→05:22)
[2020-08-15] MEDS: CEFEPIME 1,000 MG/SWFI 10 ML IV PUSH IV SCH ×6 (00:29→11:21)
[2020-08-15 04:00] LABS: BASOPHILS % (AUTO) 0 % (0-10); EOSINOPHILS % (AUTO) 0 % (0-10); HEMATOCRIT 46 % (40-54); HEMOGLOBIN 16.1 G/DL (13.3-17.7); LYMPHOCYTES # (AUTO) 0.8 X 10^3 (1.0-4.0); LYMPHOCYTES % (AUTO) 5 % (12-44); MEAN CORPUSCULAR HEMOGLOBIN 29 PG (25-34); MEAN CORPUSCULAR HGB CONC 35 G/DL (32-36); MEAN CORPUSCULAR VOLUME 84 FL (80-99); MEAN PLATELET VOLUME 9.6 FL (7.4-10.4); MONOCYTES # (AUTO) 1.3 X 10^3 (0.0-1.0); MONOCYTES % (AUTO) 9 % (0-12); NEUTROPHILS # (AUTO) 12.9 X 10^3 (1.8-7.8); NEUTROPHILS % (AUTO) 86 % (42-75); PLATELET COUNT 309 10^3/uL (130-400); WHITE BLOOD COUNT 15.1 10^3/uL (4.3-11.0)
[2020-08-15 04:23] LABS: BUN/CREATININE RATIO 23; CALCIUM 8.4 MG/DL (8.5-10.1); CARBON DIOXIDE 25 MMOL/L (21-32); CHLORIDE 101 MMOL/L (98-107); CREATININE SERUM 0.87 MG/DL (0.60-1.30); GFR ESTIMATED > 60; GLUCOSE 150 MG/DL (70-105); MAGNESIUM 2.5 MG/DL (1.6-2.4); PHOSPHORUS 2.5 MG/DL (2.3-4.7); POTASSIUM 4.8 MMOL/L (3.6-5.0); SODIUM 134 MMOL/L (135-145)
[2020-08-15] MEDS: KCL 20 MEQ TAB (K-DUR) PO SCH (04:28)
[2020-08-15] MEDS: MAGNESIUM 1 GM/100 ML IVPB 100 ML IV SCH (04:28)
[2020-08-15] MEDS: POTASSIUM CL 10MEQ/50ML IVPB 50 ML IV SCH (04:28)
[2020-08-15] MEDS: inSUlin ASPART (NovoLOG) 1 UNIT/0.01 ML (CHARGE PER UNIT) SC SCH (04:29)
--- NOTE | 2020-08-15 04:46 | OPERATIVE REPORT ---
DATE OF SERVICE: 08/14/2020 PREOPERATIVE DIAGNOSIS: Left pneumothorax. POSTOPERATIVE DIAGNOSIS: Left pneumothorax. PROCEDURE: Left chest or vent (thoracostomy) tube placement. SURGEON: Patricia Lemus DO ANESTHESIA: 1% lidocaine 3 mL. COMPLICATIONS: None. INDICATIONS: The patient is a 65-year-old male with left upper lobe lung mass that was biopsied yesterday. The patient was found to have pneumothorax, increased in size, I was called for placement of Thora-Vent or chest tube. The patient understands risks and benefits of procedure and wished to proceed with procedure. Consent was signed in the chart. DESCRIPTION OF PROCEDURE: The patient was prepped and draped in sterile fashion. Timeout was performed. Local anesthetic was infiltrated in midclavicular lines between the 2nd and 3rd rib space. Between the 2nd and 3rd rib, a #11 blade scalpel was used to make a small skin incision and the Thora-Vent was then advanced through the chest wall into the chest cavity and the catheter was advanced and the trocar was removed. This was then attached in the usual fashion. This was then hooked up to the atrium, which the patient had air leak. Chest x-ray is pending. The patient tolerated procedure well without any complications. Job ID: [id number] DocumentID: [id number] Dictated Date: 08/14/2020 21:54:44 Eyeglass Cutter Date: 08/15/2020 04:45:48 Dictated By: PATRICIA LEMUS DO
[2020-08-15] MEDS: RT-ALBUTEROL SULF 2.5 MG/3 ML PRE-MIX VIAL INH SCH ×5 (07:19→23:11)
--- NOTE | 2020-08-15 07:32 | Diagnostic Imaging Report ---
Portable erect AP chest at 310 hours. INDICATION: Dyspnea. FINDINGS: The heart size is within normal limits and stable when compared to 08/14/2020. The large mass along the medial aspect of the left upper lung seen previously is also again evident and no different. There is no sign of a pneumothorax on the left. The right lung is generally clear. The mediastinum is not widened. The osseous structures are intact. IMPRESSION: The overall appearance of the chest is stable when compared to the prior exam. Specifically, there is no sign of a recurrent pneumothorax on the left. A followup study would be recommended for continued evaluation. Dictated by: Dictated on workstation # [id number]
--- NOTE | 2020-08-15 08:40 | Progress Note ---
MEGGAN BISHOP,MED STUDENT 08/15/20 0840: Subjective Subjective/Events-last exam Patient seen and examined this morning. He denies any shortness of breath. He feels like his weakness in his left arm is continuing to improve, and he hopes to work with PT more today for his walking. He states that he has some pain near the insertion site of the chest tube, but denies any other complaints this morning. Review of Systems General: No Fatigue HEENT: No Head Aches, No Visual Changes; Sore Throat (feels "dry" ) Pulmonary: No Dyspnea; Cough Cardiovascular: Chest Pain (near chest tube ) Gastrointestinal: No: Nausea, Vomiting, Abdominal Pain Neurological: Weakness, Incoordination; No: Numbness Objective Exam Last Set of Vital Signs Vital Signs Date Time Temp Pulse Resp B/P (MAP) Pulse Ox O2 Delivery O2 Flow Rate FiO2 08/15/20 07:19 97 Nasal Cannula 3.00 08/15/20 06:00 56 11 158/96 (116) 08/14/20 20:00 36.6 Capillary Refill : Less Than 3 Seconds I&O Intake and Output 08/15/20 00:00 Intake Total 2210 ml Output Total 2475 ml Balance -265 ml Intake Oral 2210 ml Output Urine Total 2475 ml Drainage Total 0 ml General: Alert, No Acute Distress HEENT: EOMI Lungs: Other (wheezes throughout, but somwehat improved from yesterday, crackles left lower lobe) Heart: Regular Rate, No Murmurs Abdomen: Normal Bowel Sounds, Soft, No Tenderness Extremities: No Edema Results/Procedures Lab Laboratory Tests 08/14/20 10:30: Glucometer 152H 08/14/20 15:40: Glucometer 166H 08/14/20 20:47: Glucometer 145H 08/15/20 03:33: White Blood Count 15.1H, Red Blood Count 5.47, Hemoglobin 16.1, Hematocrit 46, Mean Corpuscular Volume 84, Mean Corpuscular Hemoglobin 29, Mean Corpuscular Hemoglobin Concent 35, Red Cell Distribution Width 12.9, Platelet Count 309, Mean Platelet Volume 9.6, Neutrophils (%) (Auto) 86H, Lymphocytes (%) (Auto) 5L, Monocytes (%) (Auto) 9, Eosinophils (%) (Auto) 0, Basophils (%) (Auto) 0, Neutrophils # (Auto) 12.9H, Lymphocytes # (Auto) 0.8L, Monocytes # (Auto) 1.3H, Eosinophils # (Auto) 0.0, Basophils # (Auto) 0.0, Sodium Level 134L, Potassium Level 4.8, Chloride Level 101, Carbon Dioxide Level 25, Anion Gap 8, Blood Urea Nitrogen 20H, Creatinine 0.87, Estimat Glomerular Filtration Rate > 60, BUN/Creatinine Ratio 23, Glucose Level 150H, Calcium Level 8.4L, Phosphorus Level 2.5, Magnesium Level 2.5H 08/15/20 05:49: Glucometer 146H Microbiology 08/13/20 MRSA Screen - Final, Complete MRSA not isolated 08/10/20 Urine Culture - Final, Complete Gram Pos Mixed Bacterial Noreen 08/10/20 Blood Culture - Preliminary, Resulted No growth Radiology Date of Exam:08/10/20 CHEST 1 VIEW, AP/PA ONLY Indication: Left arm and leg weakness and sepsis. Time of exam 10:08 AM Correlation no prior chest 01/22/2010. Heart size normal. There is soft tissue mass in the left suprahilar location. Otherwise lungs are clear. There is no effusion or pneumothorax. IMPRESSION: Soft tissue mass left upper lobe. CT chest would be recommended for further evaluation. Date of Exam:08/10/20 CT CHEST W EXAMINATION: CT Chest with intravenous contrast. TECHNIQUE: Multiple contiguous axial images were obtained through the chest after the uneventful administration of intravenous contrast. All CT scans use one or more of the following dose optimizing techniques: automated exposure control, MA and/or KvP adjustment based on a patient size and exam type, or iterative reconstruction. HISTORY: Chest mass COMPARISON: None available. FINDINGS: There is a 7.1 x 5.2 cm left upper lobe mass abutting the aorta extending into the left suprahilar space. This severely attenuates the left upper pulmonary vein and left upper pulmonary artery. Lungs are mildly emphysematous. No edema or pneumonia is seen. No pleural effusion. No pneumothorax. There is no axillary or supraclavicular lymphadenopathy. There is no mediastinal lymphadenopathy. Heart size is normal. There are severe coronary artery calcifications. No pericardial effusion. Aorta is normal in caliber. Limited views of the upper abdomen show a cyst in the left kidney. There are no suspicious osseus lesions. IMPRESSION: 1. Large left upper lobe mass abutting the aorta and extending left suprahilar space attenuating left upper pulmonary vein and pulmonary artery. This is most consistent with lung cancer. 2. No metastatic disease identified. Date of Exam:08/10/20 CT HEAD W WO PROCEDURE: CT head with and without contrast. TECHNIQUE: Multiple contiguous axial images were obtained through the brain before and after the administration of intravenous contrast. Auto Exposure Controls were utilized during the CT exam to meet ALARA standards for radiation dose reduction. INDICATION: Nausea and weakness. There is a large area of low density in the left cerebellar hemisphere. A mass at this location is suspected. There is a rounded mass in the right occipital lobe with surrounding vasogenic edema measuring 2 cm. No midline shift is identified. No acute intra-axial or extra-axial hemorrhage is detected. Cisterns are patent. There does appear to be some questionable minimal enhancement of the lesion in the right occipital lobe on postcontrast imaging. IMPRESSION: Mass like lesion with surrounding vasogenic edema in right occipital lobe. There is also a large area of low density in the left cerebellar hemisphere and a mass at this location is suspected. Findings are worrisome for intracranial metastatic disease. There is no significant mass effect or midline shift. 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 CT- guided biopsy of lung mass performed, pending pathology. Continue dexamethasone Left pneumothorax- resolved after chest tube placement, management per surgical team Possible postobstructive pneumonia- continue cefepime, will continue for a total course of 5 days. COPD- chronic, continue inhalers DVT prophylaxis- Will consider restarting enoxaparin due to patient being high risk. Encourage continued ambulation with PT Clinical Quality Measures DVT/VTE Risk/Contraindication: Risk Factor Score Per Nursin RFS Level Per Nursing on Admit: 4+=Very High ELIDA CAIN MD 08/15/20 1146: Assessment/Plan Assessment/Plan (1) Lung cancer metastatic to brain Status: Acute Assessment & Plan: Oncology consulted, IR biopsy done 08/13. Dexamethasone started, Rad Onc consulted. (2) Pneumonia involving left lung Status: Acute Assessment & Plan: Possible post-obstructive pneumonia. Completed 6 days of cefepime, will d/c. Qualifiers: Qualified Codes: J18.9 - Pneumonia, unspecified organism (3) Pneumothorax of left lung after biopsy Status: Acute Assessment & Plan: Initially around 15% volume, no respiratory issues, but progressed to 50%, Surgery consulted and venting tube placed with complete resolution. 08/15- no further air leak last night, tube clamped (4) COPD (chronic obstructive pulmonary disease) Status: Chronic Assessment & Plan: No exacerbation, use albuterol as needed. (5) Hypertension Status: Chronic Assessment & Plan: Resume home meds Qualifiers: Qualified Codes: I10 - Essential (primary) hypertension (6) Hyperlipidemia Status: Chronic Assessment & Plan: Resume home meds (7) Diabetes mellitus Status: Chronic Assessment & Plan: Hold metformin, diabetic diet. Qualifiers: Qualified Codes: E11.69 - Type 2 diabetes mellitus with other specified complication (8) Hyponatremia Status: Acute Assessment & Plan: Mild, suspect secondary to lung pathology, monitor. (9) DVT prophylaxis Status: Acute Assessment & Plan: Enoxaparin Supervisory-Addendum Brief Verification & Attestation Participated in pt care: history, MDM, physical Personally performed: exam, history, MDM, supervision of care Care discussed with: Medical Student Procedures: n/a I personally saw and examined patient today, I did my own history and physical exam and my findings are the same as those documented by the medical student. See problem list for my assessment and plan. Move to floor status. MEGGAN BISHOP,MED STUDENT Aug 15, 2020 08:40 ELIDA CAIN MD Aug 15, 2020 11:46
--- NOTE | 2020-08-15 08:44 | NUR ---
THIS NURSE SPOKE WITH DR Pope WITH [facility]. ORDERS GIVEN TO WATER SEAL CHEST TUBE AND TO RECHECK CXR AT 1300. THIS NURSE TO MONITOR PT BREATH SOUNDS AND FOR SOA.
[2020-08-15] MEDS: HYDROCHLOROTHIAZIDE 25 MG (HCTZ) TAB PO SCH (08:58)
[2020-08-15] MEDS: PANTOPRAZOLE 40 MG (PROTONIX) VIAL IV SCH (08:58)
[2020-08-15] MEDS: ETODOLAC 300 MG (LODINE) CAP PO SCH ×2 (08:58→20:08)
[2020-08-15] MEDS: lisINopril 10 MG (PRINIVIL) TABLET PO SCH (08:58)
--- NOTE | 2020-08-15 10:22 | NUR ---
Pt wanting to return to his apt. where he lives alone. Initiated a Home and Community Based service request from [facility]. He would need a Front Wheel Walker, Home Health Care, Meals on Wheels, and Home personal Alert system. Pt resistant to shelter placement but recognizes may be his only option Will fol;ow and assist.
[2020-08-15] MEDS: UMECLIDINIUM BROMIDE (INCRUSE ELLIPTA) 7'S IH SCH (10:31)
[2020-08-15] MEDS: ENOXAPARIN 40 MG/0.4 ML (LOVENOX) SYR SC SCH (11:21)
--- NOTE | 2020-08-15 12:01 | Physical Therapy Daily Note ---
PT Daily Note-Current Subjective Patient agrees to PT. Pain Numeric Pain Scale: 0-No Pain Location: No Pain Reported Mental Status Patient Orientation: Normal For Age Attachments: Oxygen Transfers SCALE: Activities may be completed with or without assistive devices. 1-Wrssamzyts-rllehqm completes the activity by him/herself with no assistance from a helper. 5-Set-up or Clean-up Assistance-helper sets up or cleans up; patient completes activity. [place] assists only prior to or following the activity. 4-Supervision or Touching Assistance-helper provides verbal cues and/or touching/steadying and/or contact guard assistance as patient completes activity. Assistance may be provided throughout the activity or intermittently. 3-Partial/Moderate Assistance-helper does LESS THAN HALF the effort. [place] lifts, holds or supports trunk or limbs, but provides less than half the effort. 2-Substantial/Maximal Assistance-helper does MORE THAN HALF the effort. [place] lifts or holds trunk or limbs and provides more than half the effort. 4-Esqkjiblr-awdcdj does ALL the effort. Patient does none of the effort to complete the activity. Or, the assistance of 2 or more helpers is required for the patient to complete the activity. If activity was not attempted, code reason: 7-Patient Refused. 9-Not Applicable-not attempted and the patient did not perform the activity before the current illness, exacerbation or injury. 10-Not Attempted due to Environmental Limitations-(lack of equipment, weather restraints, etc.). 88-Not Attempted due to Medical Conditions or Safety Concerns. Roll Left & Right (QC): 5 Lying to Sitting/Side of Bed(Q: 5 Sit to Stand (QC): 3 Chair/Zrt-xb-Idwww Xfer(QC): 3 minimal assist due to diminished balance Weight Bearing Right Lower Extremity: Right Weight Bearing/Tolerated Left Lower Extremity: Left Weight Bearing/Tolerated Gait Training Does the Patient Walk?: Yes Distance: 10 Walk 10 feet (QC): 3 Gait Assistive Device: FWW decreased step length and ataxic Exercises Standing: (20) Assessment Patient ceased ambulation due to fear of falling and decrease in balance. PT to increase activity as tolerated by patient. PT Custodial Goals Medical Biller Goals PT Custodial Goals Time Frame: Aug 21, 2020 Roll Left & Right (QC): 4 Sit to Lying (QC): 4 Lying-Sitting on Side/Bed(QC): 4 Sit to Stand (QC): 4 Chair/Nxp-ex-Qtmwu Xfer(QC): 4 Toilet Transfer (QC): 4 Car Transfer (QC): 4 Does the Patient Walk: Yes Walk 10 feet (QC): 4 Walk 50ft with 2 Turns (QC): 4 PT Plan Treatment/Plan Treatment Plan: Continue Plan of Care Treatment Plan: Bed Mobility, Education, Functional Activity Fabien, Functional Strength, Gait, Safety, Therapeutic Exercise, Transfers Treatment Duration: Aug 21, 2020 Frequency: 6 times per week Estimated Hrs Per Day: .25 hour per day Patient and/or Family Agrees t: Yes Time/GCodes Time In: 1100 Time Out: 1113 Total Billed Treatment Time: 13 Total Billed Treatment 1 visit FA 13 min HAWK GREEN PT Aug 15, 2020 12:01
--- NOTE | 2020-08-15 13:54 | Progress Note - Surgery ---
CHELSEA KIM MED STUDENT 08/15/20 1354: Subjective Date Seen by a Provider: Aug 15, 2020 Time Seen by a Provider: 07:20 Subjective/Events-last exam Miguel has decreased SOB with the Thoravent in place. He has tubing going to the atrium and states he has had a small amount of blood running through the tube since it was put in yesterday. The patient states he has an occasional dry cough from being a smoker but denies increased cough. He denies rashes near the Thoravent device. Objective Exam Vital Signs Date Time Temp Pulse Resp B/P (MAP) Pulse Ox O2 Delivery O2 Flow Rate FiO2 08/15/20 11:59 37.2 08/15/20 11:00 67 16 170/90 (116) 95 Nasal Cannula 5.00 08/15/20 10:32 96 Nasal Cannula 3.00 08/15/20 10:00 73 27 158/88 (111) 96 Nasal Cannula 5.00 08/15/20 09:00 64 21 155/95 (115) 98 Nasal Cannula 5.00 08/15/20 08:41 36.7 08/15/20 08:00 71 19 160/91 (114) 97 Nasal Cannula 5.00 08/15/20 08:00 Nasal Cannula 5.00 08/15/20 07:19 97 Nasal Cannula 3.00 08/15/20 07:00 57 17 166/100 (122) 98 Nasal Cannula 5.00 08/15/20 07:00 55 08/15/20 06:00 56 11 158/96 (116) 98 Nasal Cannula 5.00 08/15/20 05:00 57 16 153/86 (108) 97 Nasal Cannula 5.00 08/15/20 04:10 Nasal Cannula 5.00 08/15/20 04:00 59 15 160/105 (123) 97 Nasal Cannula 5.00 08/15/20 03:00 51 15 152/86 (108) 98 Nasal Cannula 5.00 08/15/20 02:00 53 156/88 (110) 97 Nasal Cannula 5.00 08/15/20 01:00 60 08/15/20 01:00 55 164/95 (118) 97 Nasal Cannula 5.00 08/15/20 00:00 Nasal Cannula 5.00 08/15/20 00:00 62 36 154/89 (110) 97 Nasal Cannula 5.00 08/14/20 23:00 54 25 156/98 (117) 97 Nasal Cannula 5.00 08/14/20 22:00 62 22 152/87 (108) 97 Nasal Cannula 5.00 08/14/20 21:00 55 15 161/99 (119) 98 Nasal Cannula 5.00 08/14/20 20:00 Nasal Cannula 5.00 08/14/20 20:00 36.6 08/14/20 20:00 79 14 154/77 (102) 96 Nasal Cannula 5.00 08/14/20 19:00 62 13 150/77 (101) 97 Nasal Cannula 5.00 08/14/20 19:00 62 08/14/20 18:00 70 17 141/77 (98) 97 Nasal Cannula 5.00 08/14/20 17:00 64 32 138/66 (90) 97 Nasal Cannula 5.00 08/14/20 16:00 Nasal Cannula 5.00 08/14/20 16:00 37.0 08/14/20 16:00 71 28 151/82 (105) 98 Nasal Cannula 5.00 08/14/20 15:00 64 23 151/74 (99) 98 Nasal Cannula 5.00 08/14/20 14:48 97 Nasal Cannula 5.00 08/14/20 14:00 80 28 109/80 (90) 94 Nasal Cannula 5.00 I & O 08/15/20 07:00 Intake Total 2160 ml Output Total 3400 ml Balance -1240 ml Capillary Refill : Less Than 3 Seconds General Appearance: No Apparent Distress HEENT: PERRL/EOMI Neck: Full Range of Motion, Normal Inspection, Non Tender Respiratory: Chest Non Tender, Lungs Clear (only auscultated upper and RML ), Normal Breath Sounds, Other (Thoravent in place left anterior chest. No surrounding erythema or signs of cellulitis. Some blood present in the tubing, no blood in atrium collection device. ) Cardiovascular: Regular Rate, Rhythm, No Edema, Other (faint heart sounds) Gastrointestinal: non tender, soft, no organomegaly Extremity: Normal Capillary Refill, Normal Inspection, Normal Range of Motion, Non Tender, No Calf Tenderness, No Pedal Edema Neurologic/Psychiatric: Alert, Oriented x3, Other (left upper extremity strength 4+ right sided strength 5+ diminished fine motor control of the left upper extremity. Patient unable to stand for 5+ strength in the left lower extremity 5+ on the right patient appears to be ataxic but unable to walk) Results Lab Laboratory Tests 08/14/20 15:40: Glucometer 166H 08/14/20 20:47: Glucometer 145H 08/15/20 03:33: White Blood Count 15.1H, Red Blood Count 5.47, Hemoglobin 16.1, Hematocrit 46, Mean Corpuscular Volume 84, Mean Corpuscular Hemoglobin 29, Mean Corpuscular Hemoglobin Concent 35, Red Cell Distribution Width 12.9, Platelet Count 309, Mean Platelet Volume 9.6, Neutrophils (%) (Auto) 86H, Lymphocytes (%) (Auto) 5L, Monocytes (%) (Auto) 9, Eosinophils (%) (Auto) 0, Basophils (%) (Auto) 0, Neutrophils # (Auto) 12.9H, Lymphocytes # (Auto) 0.8L, Monocytes # (Auto) 1.3H, Eosinophils # (Auto) 0.0, Basophils # (Auto) 0.0, Sodium Level 134L, Potassium Level 4.8, Chloride Level 101, Carbon Dioxide Level 25, Anion Gap 8, Blood Urea Nitrogen 20H, Creatinine 0.87, Estimat Glomerular Filtration Rate > 60, BUN/Creatinine Ratio 23, Glucose Level 150H, Calcium Level 8.4L, Phosphorus Level 2.5, Magnesium Level 2.5H 08/15/20 05:49: Glucometer 146H 08/15/20 10:53: Glucometer 192H Microbiology 08/13/20 MRSA Screen - Final, Complete MRSA not isolated 08/10/20 Urine Culture - Final, Complete Gram Pos Mixed Bacterial Noreen 08/10/20 Blood Culture - Final, Complete No growth Assessment/Plan Assessment/Plan Assessment/Plan left upper lobe lung mass s/p biopsy 08/13 left pneumothorax shortness of breath Thoravent in place, repeat X-rays show expanded lungs will stop suction and repeat CXR in 4 to 6 hours continue to monitor for signs of cellulitis monitor for worsening SOB awaiting biopsy results management of other issues per ICU team Clinical Quality Measures DVT/VTE Risk/Contraindication: Risk Factor Score Per Nursin RFS Level Per Nursing on Admit: 4+=Very High PATRICIA LEMUS DO 08/15/202056: Subjective Subjective/Events-last exam Denies any shortness of breath at this time. No air leak. Chest x ray no pneumothorax. No chest pain. Left sided weakness he feels is getting better. Denies n/v fever sweats chills shortness of breath or chest pain. Objective Exam General Appearance: No Apparent Distress, WD/WN HEENT: PERRL/EOMI, Normal ENT Inspection Neck: Full Range of Motion, Non Tender Respiratory: Chest Non Tender, Normal Breath Sounds, Other (Thoravent in place left anterior chest. No surrounding erythema or signs of cellulitis. Some blood present in the tubing, no blood in atrium collection device. ) Cardiovascular: Regular Rate, Rhythm, No JVD Gastrointestinal: non tender, soft, no organomegaly Extremity: Normal Capillary Refill, Normal Inspection, Non Tender Neurologic/Psychiatric: Alert, Oriented x3 Skin: Normal Color, Warm/Dry Lymphatic: No Adenopathy Assessment/Plan Assessment/Plan Assessment/Plan left upper lobe lung mass s/p biopsy 08/13 left pneumothorax shortness of breath Thoravent may be outside chest, no pneumothorax, likely remove later today follow with x ray medical management, Supervisory-Addendum Brief Verification & Attestation Participated in pt care: history, MDM, physical Personally performed: exam, history, MDM, supervision of care Care discussed with: Medical Student Procedures: n/a Results interpretation: Verified all documentation Verification and Attestation of Medical Student E/M Service A medical student performed and documented this service in my presence. I reviewed and verified all information documented by the medical student and made modifications to such information, when appropriate. I personally performed the physical exam and medical decision making. Patricia Lemus, Aug 15, 2020,20:57 CHELSEA KIM MED STUDENT Aug 15, 2020 13:54 PATRICIA LEMUS DO Aug 15, 2020 20:57
--- NOTE | 2020-08-15 14:36 | Occupational Ther Daily Note ---
OT Current Status-Daily Note Subjective Pt. states that he is upset because his friend did not come back. Does not report pain. Pt. does seem slightly confused. OT notified nursing of this. ADL-Treatment Therapy Code Descriptions/Definitions Functional [place] Measure: 0=Not Assessed/NA 4=Minimal Assistance 1=Total Assistance 5=Supervision or Setup 2=Maximal Assistance 6=Modified [place] 3=Moderate Assistance 7=Complete IndependenceSCALE: Activities may be completed with or without assistive devices. 5-Dhroemjcmn-qlbsqrw completes the activity by him/herself with no assistance from a helper. 5-Set-up or Clean-up Assistance-helper sets up or cleans up; patient completes activity. [place] assists only prior to or following the activity. 4-Supervision or Touching Assistance-helper provides verbal cues and/or touching/steadying and/or contact guard assistance as patient completes activity. Assistance may be provided throughout the activity or intermittently. 3-Partial/Moderate Assistance-helper does LESS THAN HALF the effort. [place] lifts, holds or supports trunk or limbs, but provides less than half the effort. 2-Substantial/Maximal Assistance-helper does MORE THAN HALF the effort. [place] lifts or holds trunk or limbs and provides more than half the effort. 2-Qcvciqkwh-cazocs does ALL the effort. Patient does none of the effort to complete the activity. Or, the assistance of 2 or more helpers is required for the patient to complete the activity. If activity was not attempted, code reason: 7-Patient Refused. 9-Not Applicable-not attempted and the patient did not perform the activity before the current illness, exacerbation or injury. 10-Not Attempted due to Environmental Limitations-(lack of equipment, weather restraints, etc.). 88-Not Attempted due to Medical Conditions or Safety Concerns. Other Treatment Pt. up in chair when OT came. Pt. verbalizes that his friend did not come back after leaving, and he is upset. Also states that he wanted to get up more, but no one did. OT reminded him that when he was up earlier with PT, he was unstable and safe. Pt. seems confused and states that he was supposed to get PT twice in the a.m., and twice in the p.m. Pt. seems slightly confused and tearful. Noted that pt. had urinated on front of sweat pants. OT encouraged pt. to let OT assist him with changing pants and cleaning self up. Pt. is adamant and refuses. States that he just wants to lay in his pants, because he laid in his "others, and no one cared." OT offers to assist pt. to stance and work on standing balance and endurance. Pt. refuses after saying he wants more therapy, and states, "I am just going to get back to bed." OT assists pt. to bed with CGA sit-stand and SBA for sit-supine. All needs met and OT notified nursing of pt's pants and concerns, and possible confusion. Education OT Patient Education: Correct positioning, Modified ADL techniques, Progress toward Goal/Update tx plan, Purpose of tx/functional activities, Reviewed precautions, Rehab process, Transfer techniques Teaching Recipient: Patient Teaching Methods: Demonstration, Discussion Response to Teaching: Reinforcement Needed OT Fabrication Specialist Goals M[facility] Goals Time Frame: Sep 02, 2020 Eating (QC): 6 Oral Hygiene (QC): 6 Toileting Hygiene (QC): 6 Shower/Bathe Self (QC): 6 Upper Body Dressing (QC): 6 Lower Body Dressing (QC): 6 On/Off Footwear (QC): 6 1=Demonstrate adherence to instructed precautions during ADL tasks. 2=Patient will verbalize/demonstrate understanding of assistive devices/modifications for ADL. 3=Patient will improve strength/tolerance for activity to enable patient to perform ADL's. OT Education/Plan Problem List/Assessment Assessment: Decreased Activ Tolerance, Decreased UE Strength, Dependent Transfers, Impaired Cognition, Impaired I ADL's, Impaired Self-Care Skills Discharge Recommendations Plan/Recommendations: Continue POC Therapy Discharge Recommendati: Post Acute OT Treatment Plan/Plan of Care Treatment,Training & Education: Yes Patient would benefit from OT for education, treatment and training to promote independence in ADL's, mobility, safety and/or upper extremity function for ADL's. Plan of Care: ADL Retraining, Functional Mobility, UE Funct Exercise/Act, UE Neuromus Re-Ed/Coord Treatment Duration: Sep 02, 2020 Frequency: 5 times per week Estimated Hrs Per Day: .25 hour per day Agreement: Yes Rehab Potential: Fair Time/GCodes Start Time: 14:10 Stop Time: 14:25 Total Time Billed (hr/min): 15 Billed Treatment Time 1, FA x 15minutes NACCARATO,DINH OT Aug 15, 2020 14:36
--- NOTE | 2020-08-15 15:36 | Diagnostic Imaging Report ---
INDICATION: Pneumothorax, follow-up. TIME OF EXAM: 02:43 p.m. COMPARISON: Correlation is made with prior study earlier same day. FINDINGS: A large mass in left upper lobe is again noted. The Thora-Vent chest tube overlying the left upper chest appears to have the tip extrathoracic. This is similar to the chest x-ray earlier today. Even so, left lung is completely expanded without evidence of residual pneumothorax. Right lung is clear. Pulmonary vascularity is normal. IMPRESSION: 1. No evidence of residual pneumothorax. Note is made that the patient's left Thora-Vent chest tube is extrathoracic in location with tip overlying the left axilla. Results were discussed with Dr. Lemus prior to this dictation. Dictated by: Dictated on workstation # [id number]
--- NOTE | 2020-08-15 15:45 | NUR ---
THIS NURSE SPOKE WITH DR SANCHEZ. ORDER GIVEN TO DC CHEST TUBE AND TO PLACE PETROLEUM GAUZE AND GAUZE OVER SITE AND TO GET A CHEST XRAY IN 2 HOURS.
--- NOTE | 2020-08-15 17:34 | Progress Note ---
Standard Progress Note Progress Notes/Assess & Plan Date Seen by a Provider: Aug 15, 2020 Time Seen by a Provider: 17:30 Progress/Assessment & Plan 65-year-old male admitted with left-sided weakness and found to have left upper lobe lung mass with right posterior occipital mass with surrounding edema as well as left cerebellar edema. Patient was started on dexamethasone to reduce cerebral edema. The left upper extremity strength, movement and motor function has improved. He underwent CT-guided needle biopsy of the left upper lobe lung mass which resulted in a pneumothorax requiring chest tube placement. Chest tube was removed today. Preliminary pathology report yesterday was of necrotic tissue with no viable tissue. Deeper sections done today showed only necrotic tissue. He will need a repeat biopsy for tissue diagnosis. Radiation oncology consult pending and will see him next week on Wednesday to start palliative whole brain radiation. An MRI of the brain was requested for better visualization of the left cerebellar edema/mass. May consider decreasing dexamethasone to 4 mg every 8 hours. Will follow patient with you. LAYLA HARRIS Aug 15, 2020 17:34
--- NOTE | 2020-08-15 19:12 | Diagnostic Imaging Report ---
INDICATION: Chest tube. FINDINGS: There is no thoracostomy tube radiographically apparent. Left medial upper lung mass redemonstrated. No appreciable pneumothorax. IMPRESSION: Left lung mass redemonstrated. No pneumothorax following catheter removal. Dictated by: Dictated on workstation # [id number]
[2020-08-15] MEDS: ADVAIR HFA 45/21 MCG INHALER 8 GM IH SCH (19:38)
[2020-08-15] MEDS ORDERED: amLODIPine 10 MG (NORVASC) TAB PO SCH (21:00)
[2020-08-15] MEDS ORDERED: MONTELUKAST 10 MG (SINGULAIR) TAB PO SCH (21:00)
[2020-08-15] MEDS ORDERED: FENOFIBRATE 134 MG (LOFIBRA) CAPSULE PO SCH (21:00)
[2020-08-16] VITALS: BP 111/97
[2020-08-16 03:09] LABS: HEMOGLOBIN 16.3 G/DL (13.3-17.7); MEAN PLATELET VOLUME 9.4 FL (7.4-10.4); WHITE BLOOD COUNT 16.5 10^3/uL (4.3-11.0)
[2020-08-16] MEDS: RT-ALBUTEROL SULF 2.5 MG/3 ML PRE-MIX VIAL INH SCH ×4 (03:10→14:30)
[2020-08-16 03:17] LABS: CHLORIDE 97 MMOL/L (98-107); POTASSIUM 4.3 MMOL/L (3.6-5.0); SODIUM 133 MMOL/L (135-145)
[2020-08-16 03:18] LABS: CALCIUM 8.9 MG/DL (8.5-10.1)
[2020-08-16 03:19] LABS: GLUCOSE 149 MG/DL (70-105)
[2020-08-16 03:20] LABS: CARBON DIOXIDE 27 MMOL/L (21-32)
[2020-08-16 03:23] LABS: CREATININE SERUM 0.89 MG/DL (0.60-1.30); GFR ESTIMATED > 60
[2020-08-16 03:24] LABS: BUN/CREATININE RATIO 21
[2020-08-16 04:00] VITALS: BP 128/73
[2020-08-16] MEDS: UMECLIDINIUM BROMIDE (INCRUSE ELLIPTA) 7'S IH SCH (07:35)
[2020-08-16] MEDS: ADVAIR HFA 45/21 MCG INHALER 8 GM IH SCH (07:35)
[2020-08-16 08:00] VITALS: BP 165/86
--- NOTE | 2020-08-16 08:00 | Diagnostic Imaging Report ---
Indication: Lung mass. Findings: A left medial lung mass unchanged. There is no pneumothorax or pleural fluid. Impression: No pneumothorax, redemonstration of known left lung mass. Dictated by: Dictated on workstation # [id number]
--- NOTE | 2020-08-16 08:26 | Progress Note - Surgery ---
CHELSEA KIM MED STUDENT 08/16/20 0826: Subjective Date Seen by a Provider: Aug 16, 2020 Time Seen by a Provider: 07:10 Subjective/Events-last exam Miguel states no respiratory difficulties. Has not had chest pain since removal of thoravent. Denies fever, chills, increased cough. Has chronic occasional dry cough due to smoking. Objective Exam Vital Signs Date Time Temp Pulse Resp B/P (MAP) Pulse Ox O2 Delivery O2 Flow Rate FiO2 08/16/20 07:36 97 Nasal Cannula 3.00 08/16/20 07:00 70 08/16/20 04:00 36.3 08/16/20 04:00 55 14 128/73 (91) 97 Nasal Cannula 5.00 08/16/20 03:10 96 Nasal Cannula 3.00 08/16/20 01:00 61 08/16/20 00:00 67 22 111/97 (102) 97 Nasal Cannula 5.00 08/16/20 00:00 36.8 08/15/20 23:11 99 Nasal Cannula 3.00 08/15/20 20:00 37.1 08/15/20 20:00 Nasal Cannula 5.00 08/15/20 20:00 64 17 142/81 (101) 97 Nasal Cannula 5.00 08/15/20 19:37 97 Nasal Cannula 3.00 08/15/20 19:00 61 08/15/20 16:32 Nasal Cannula 5.00 08/15/20 16:00 17 126/85 (99) 95 Nasal Cannula 5.00 08/15/20 15:55 37.0 08/15/20 15:00 64 10 147/80 (102) 99 Nasal Cannula 5.00 08/15/20 14:39 96 Nasal Cannula 3.00 08/15/20 14:24 37.2 75 97 32 08/15/20 14:00 17 145/74 (97) 96 Nasal Cannula 5.00 08/15/20 13:00 75 17 137/68 (91) 100 Nasal Cannula 5.00 08/15/20 12:00 71 22 147/82 (103) 97 Nasal Cannula 5.00 08/15/20 11:59 37.2 08/15/20 11:00 67 16 170/90 (116) 95 Nasal Cannula 5.00 08/15/20 10:32 96 Nasal Cannula 3.00 08/15/20 10:00 73 27 158/88 (111) 96 Nasal Cannula 5.00 08/15/20 09:00 64 21 155/95 (115) 98 Nasal Cannula 5.00 08/15/20 08:41 36.7 I & O 08/16/20 07:00 Intake Total 2140 ml Output Total 3650 ml Balance -1510 ml Capillary Refill : Less Than 3 Seconds General Appearance: No Apparent Distress, WD/WN HEENT: PERRL/EOMI, Normal ENT Inspection Neck: Full Range of Motion, Non Tender Respiratory: Chest Non Tender, Normal Breath Sounds, Other (bandage over left chest covering prior thoravent location. No signs of seepage through the bandage.) Cardiovascular: Regular Rate, Rhythm, No JVD Gastrointestinal: non tender, soft, no organomegaly Extremity: Normal Capillary Refill, Normal Inspection, Non Tender Neurologic/Psychiatric: Alert, Oriented x3 Skin: Normal Color, Warm/Dry Lymphatic: No Adenopathy Results Lab Laboratory Tests 08/15/20 10:53: Glucometer 192H 08/15/20 15:21: Glucometer 191H 08/15/20 20:20: Glucometer 187H 08/16/20 03:00: White Blood Count 16.5H, Red Blood Count 5.59, Hemoglobin 16.3, Hematocrit 47, Mean Corpuscular Volume 84, Mean Corpuscular Hemoglobin 29, Mean Corpuscular Hemoglobin Concent 35, Red Cell Distribution Width 13.2, Platelet Count 309, Mean Platelet Volume 9.4, Sodium Level 133L, Potassium Level 4.3, Chloride Level 97L, Carbon Dioxide Level 27, Anion Gap 9, Blood Urea Nitrogen 19H, Creatinine 0.89, Estimat Glomerular Filtration Rate > 60, BUN/Creatinine Ratio 21, Glucose Level 149H, Calcium Level 8.9 Microbiology 08/13/20 MRSA Screen - Final, Complete MRSA not isolated 08/10/20 Urine Culture - Final, Complete Gram Pos Mixed Bacterial Noreen 08/10/20 Blood Culture - Final, Complete No growth Assessment/Plan Assessment/Plan Assessment/Plan left upper lobe lung mass s/p biopsy 08/13 left pneumothorax shortness of breath Thoravent removed yesterday, 3am 07/16 xray no pneumothorax medical management Clinical Quality Measures DVT/VTE Risk/Contraindication: Risk Factor Score Per Nursin RFS Level Per Nursing on Admit: 4+=Very High PATRICIA LEMUS DO 08/18/20 1117: Subjective Subjective/Events-last exam Not having any issues with breathing at this time. Thoravent removed and no evidence of pneumothorax. Patient with no new complaints. Objective Exam General Appearance: No Apparent Distress, WD/WN HEENT: PERRL/EOMI, Normal ENT Inspection Neck: Normal Inspection, Non Tender Respiratory: Chest Non Tender, No Accessory Muscle Use, No Respiratory Distress Cardiovascular: Regular Rate, Rhythm, No JVD Gastrointestinal: non tender, soft, no organomegaly Extremity: Normal Capillary Refill, Normal Inspection, Non Tender Neurologic/Psychiatric: Alert, Oriented x3 Skin: Normal Color, Warm/Dry Lymphatic: No Adenopathy Assessment/Plan Assessment/Plan Assessment/Plan left upper lobe lung mass s/p biopsy 08/13 left pneumothorax shortness of breath Thoravent removed yesterday and no evidence of left pneumothorax 3am 07/16 xray no pneumothorax medical management may need rebiopsy vs bronch for irasema lung mass biopsy necrotic no surgical intervention at this time. Supervisory-Addendum Brief Verification & Attestation Participated in pt care: history, MDM, physical Personally performed: exam, history, MDM, supervision of care Care discussed with: Medical Student Procedures: n/a Results interpretation: Verified all documentation Verification and Attestation of Medical Student E/M Service A medical student performed and documented this service in my presence. I reviewed and verified all information documented by the medical student and made modifications to such information, when appropriate. I personally performed the physical exam and medical decision making. Patricia Lemus, Aug 16, 2020,11:16 CHELSEA KIM MED STUDENT Aug 16, 2020 08:26 PATRICIA LEMUS DO Aug 18, 2020 11:17
[2020-08-16 08:29] VITALS: BP 158/84
[2020-08-16] MEDS ORDERED: PANTOPRAZOLE 40 MG (PROTONIX) TAB PO SCH (09:00)
[2020-08-16] MEDS: ETODOLAC 300 MG (LODINE) CAP PO SCH (09:56)
[2020-08-16] MEDS: HYDROCHLOROTHIAZIDE 25 MG (HCTZ) TAB PO SCH (09:56)
[2020-08-16] MEDS: lisINopril 10 MG (PRINIVIL) TABLET PO SCH (09:56)
[2020-08-16] MEDS ORDERED: GADOBUTROL 10 MMOL/10 ML (GADAVIST) VIAL IV ONE ×2 (10:30→10:45)
--- NOTE | 2020-08-16 11:17 | Diagnostic Imaging Report ---
PROCEDURE: MR imaging of the brain with and without contrast. TECHNIQUE: Multiplanar, multisequence MR imaging of the brain was performed with and without contrast. INDICATION: Lung cancer with brain metastases. COMPARISON: CT head on 08/10/2020. FINDINGS: Acute/subacute ischemia is seen involving the middle and superior aspect of the left cerebellar hemisphere. No hemorrhagic conversion is seen. There is associated edema with mild effacement of the 4th ventricle. 2 enhancing lesions are visualized in the bilateral parieto-occipital regions, with the largest in the right measuring 2.2 x 1.8 cm and 2.8 cm craniocaudal and the smaller measuring 1.0 x 0.9 cm on the left. Internal hemorrhage is seen within the larger mass. Associated surrounding edema is seen without evidence of midline shift. No evidence of herniation. The ventricles are symmetric without evidence of acute hydrocephalus. The basilar cisterns are symmetric and unremarkable. The sellar and suprasellar regions have a normal appearance. The paranasal sinuses and mastoid air cells demonstrate normal signal characteristics. The globes and orbits are symmetric and unremarkable. The scalp and calvarium have a normal appearance. IMPRESSION: 1. Enhancing masses in the bilateral parieto-occipital regions with associated surrounding edema. Internal hemorrhage is noted within the larger mass on the right. No evidence of midline shift or herniation. 2. Acute/subacute ischemia involving the mid and superior aspects of the left cerebellar hemisphere. This results in mild effacement of the 4th ventricle without evidence of obstructive hydrocephalus. Dr. Judd was paged at 11:05 AM on 08/16/[address] Domenico White. Dictated by: Dictated on workstation # [id number]
--- NOTE | 2020-08-16 11:20 | Physical Therapy Progress Note ---
Therapy Progress Note Patient just returned from MRI and delined PT at this time. PT will check status in p.m. 1 ref ([id number]) HAWK GREEN PT Aug 16, 2020 11:20
--- NOTE | 2020-08-16 11:48 | Occupational Ther Daily Note ---
OT Current Status-Daily Note Subjective Pt's nurse clears OT tx. Pt in bed upon entry, alert/ Ox3. Pt denies pain, states agreement for tx. Mental Status/Objective Patient Orientation: Normal For Age Attachments: Oxygen ADL-Treatment Therapy Code Descriptions/Definitions Functional [place] Measure: 0=Not Assessed/NA 4=Minimal Assistance 1=Total Assistance 5=Supervision or Setup 2=Maximal Assistance 6=Modified [place] 3=Moderate Assistance 7=Complete IndependenceSCALE: Activities may be completed with or without assistive devices. 3-Mnrzzmvurb-rsjbtxi completes the activity by him/herself with no assistance from a helper. 5-Set-up or Clean-up Assistance-helper sets up or cleans up; patient completes activity. [place] assists only prior to or following the activity. 4-Supervision or Touching Assistance-helper provides verbal cues and/or touching/steadying and/or contact guard assistance as patient completes activity. Assistance may be provided throughout the activity or intermittently. 3-Partial/Moderate Assistance-helper does LESS THAN HALF the effort. [place] lifts, holds or supports trunk or limbs, but provides less than half the effort. 2-Substantial/Maximal Assistance-helper does MORE THAN HALF the effort. [place] lifts or holds trunk or limbs and provides more than half the effort. 5-Hodnkirak-tixcjl does ALL the effort. Patient does none of the effort to complete the activity. Or, the assistance of 2 or more helpers is required for the patient to complete the activity. If activity was not attempted, code reason: 7-Patient Refused. 9-Not Applicable-not attempted and the patient did not perform the activity before the current illness, exacerbation or injury. 10-Not Attempted due to Environmental Limitations-(lack of equipment, weather restraints, etc.). 88-Not Attempted due to Medical Conditions or Safety Concerns. Toileting Hygiene (QC): 7 Toilet Transfer (QC): 7 Other Treatment Pt seen in bed. Pt states has been completing AROM. Pt again educated on use of LUE and AROM for increased fx movement/ strengthening/ neuromuscular re-ed. Pt agrees. Pt supine to sit with SBA, sit to stand from EOB with CGA and no AE. Pt denies use of walker at this time. Pt positions self in front of chair and holds on to arm rests to rotate self to chair. Pt sits with control. Pt states no BM since last Wednesday. Pt is educated on diaphragmatic breathing technique and torin efits, pt return demonstrates with good form 5x. All needs met, call light in reach, pt in chair upon OT exit. Education OT Patient Education: Correct positioning, Exercise program, Home exercise program, Progress toward Goal/Update tx plan, Purpose of tx/functional activities, Safety issues Teaching Recipient: Patient Teaching Methods: Demonstration, Discussion Response to Teaching: Verbalize Understanding, Return Demonstration OT Bolt Loader Goals Mcc Goals Time Frame: Sep 02, 2020 Eating (QC): 6 Oral Hygiene (QC): 6 Toileting Hygiene (QC): 6 Shower/Bathe Self (QC): 6 Upper Body Dressing (QC): 6 Lower Body Dressing (QC): 6 On/Off Footwear (QC): 6 1=Demonstrate adherence to instructed precautions during ADL tasks. 2=Patient will verbalize/demonstrate understanding of assistive devices/modifications for ADL. 3=Patient will improve strength/tolerance for activity to enable patient to perform ADL's. OT Education/Plan Problem List/Assessment Assessment: Decreased Activ Tolerance, Decreased Safety Aware, Decreased UE Strength, Dependent Transfers, Impaired Funct Balance, Impaired I ADL's, Impaired Self-Care Skills Discharge Recommendations Plan/Recommendations: Continue POC Therapy Discharge Recommendati: Intermittent Supervision, Scheduled Assistance, Home & Family Treatment Plan/Plan of Care Treatment,Training & Education: Yes Patient would benefit from OT for education, treatment and training to promote independence in ADL's, mobility, safety and/or upper extremity function for ADL's. Plan of Care: ADL Retraining, Functional Mobility, UE Funct Exercise/Act, UE N euromus Re-Ed/Coord Treatment Duration: Sep 02, 2020 Frequency: 5 times per week Estimated Hrs Per Day: .25 hour per day Agreement: Yes Rehab Potential: Fair Time/GCodes Start Time: 11:31 Stop Time: 11:41 Total Time Billed (hr/min): 10 Billed Treatment Time 1, EX (10) BAILEY MARTINEZ OTR Aug 16, 2020 11:48
--- NOTE | 2020-08-16 11:58 | Physical Therapy Daily Note ---
PT Daily Note-Current Subjective Patient reports fatigue from just completing OT, however, agrees to PT. Pain Numeric Pain Scale: 0-No Pain Location: No Pain Reported Mental Status Patient Orientation: Normal For Age Attachments: Oxygen Transfers SCALE: Activities may be completed with or without assistive devices. 3-Nhfaqtaugc-kdduuem completes the activity by him/herself with no assistance from a helper. 5-Set-up or Clean-up Assistance-helper sets up or cleans up; patient completes activity. [place] assists only prior to or following the activity. 4-Supervision or Touching Assistance-helper provides verbal cues and/or touching/steadying and/or contact guard assistance as patient completes activity. Assistance may be provided throughout the activity or intermittently. 3-Partial/Moderate Assistance-helper does LESS THAN HALF the effort. [place] lifts, holds or supports trunk or limbs, but provides less than half the effort. 2-Substantial/Maximal Assistance-helper does MORE THAN HALF the effort. [place] lifts or holds trunk or limbs and provides more than half the effort. 7-Wpkoyrohq-niymez does ALL the effort. Patient does none of the effort to complete the activity. Or, the assistance of 2 or more helpers is required for the patient to complete the activity. If activity was not attempted, code reason: 7-Patient Refused. 9-Not Applicable-not attempted and the patient did not perform the activity before the current illness, exacerbation or injury. 10-Not Attempted due to Environmental Limitations-(lack of equipment, weather restraints, etc.). 88-Not Attempted due to Medical Conditions or Safety Concerns. Sit to Stand (QC): 3 Weight Bearing Right Lower Extremity: Right Weight Bearing/Tolerated Left Lower Extremity: Left Weight Bearing/Tolerated Gait Training Does the Patient Walk?: Yes Distance: 30' x 2 Walk 10 feet (QC): 3 (minimal to moderate assist due to 3 episodes of LOB to left with PT correct) VC's for body placement in FWW for safety and mobility/3 episodes of LOB with PT correct. Assessment Patient remains up in recliner with needs met. Patient continues with impaired mobility/dynamic balance with decrease step length. PT Intermediate Goals Turf Keeper Goals PT Turf Keeper Goals Time Frame: Aug 21, 2020 Roll Left & Right (QC): 4 Sit to Lying (QC): 4 Lying-Sitting on Side/Bed(QC): 4 Sit to Stand (QC): 4 Chair/Zeg-yy-Tvqji Xfer(QC): 4 Toilet Transfer (QC): 4 Car Transfer (QC): 4 Does the Patient Walk: Yes Walk 10 feet (QC): 4 Walk 50ft with 2 Turns (QC): 4 PT Plan Treatment/Plan Treatment Plan: Continue Plan of Care Treatment Plan: Bed Mobility, Education, Functional Activity Fabien, Functional Strength, Gait, Safety, Therapeutic Exercise, Transfers Treatment Duration: Aug 21, 2020 Frequency: 6 times per week Estimated Hrs Per Day: .25 hour per day Patient and/or Family Agrees t: Yes Time/GCodes Time In: 1140 Time Out: 1151 Total Billed Treatment Time: 11 Total Billed Treatment 1 visit GT 11 min HAWK GREEN PT Aug 16, 2020 11:58
[2020-08-16 12:00] VITALS: BP 155/81
--- NOTE | 2020-08-16 12:08 | Progress Note ---
Subjective Subjective/Events-last exam Afebrile, feeling fairly well. Still not able to ambulate well. Breathing is reportedly okay. Objective Exam Last Set of Vital Signs Vital Signs Date Time Temp Pulse Resp B/P (MAP) Pulse Ox O2 Delivery O2 Flow Rate FiO2 08/16/20 08:29 71 16 158/84 (108) 100 Nasal Cannula 3.00 08/16/20 08:00 36.8 08/15/20 14:24 32 Capillary Refill : Less Than 3 Seconds I&O Intake and Output 08/16/20 00:00 Intake Total 1990 ml Output Total 4225 ml Balance -2235 ml Intake Oral 1980 ml IV Total 10 ml Output Urine Total 4225 ml Drainage Total 0 ml General: Alert, No Acute Distress Lungs: Clear to Auscultation, Normal Air Movement Heart: Regular Rate, No Murmurs Neuro: Normal Speech Psych/Mental Status: Mood NL Results/Procedures Lab Laboratory Tests 08/15/20 15:21: Glucometer 191H 08/15/20 20:20: Glucometer 187H 08/16/20 03:00: White Blood Count 16.5H, Red Blood Count 5.59, Hemoglobin 16.3, Hematocrit 47, Mean Corpuscular Volume 84, Mean Corpuscular Hemoglobin 29, Mean Corpuscular Hemoglobin Concent 35, Red Cell Distribution Width 13.2, Platelet Count 309, Mean Platelet Volume 9.4, Sodium Level 133L, Potassium Level 4.3, Chloride Level 97L, Carbon Dioxide Level 27, Anion Gap 9, Blood Urea Nitrogen 19H, Creatinine 0.89, Estimat Glomerular Filtration Rate > 60, BUN/Creatinine Ratio 21, Glucose Level 149H, Calcium Level 8.9 08/16/20 10:45: Glucometer 206H Microbiology 08/13/20 MRSA Screen - Final, Complete MRSA not isolated 08/10/20 Urine Culture - Final, Complete Gram Pos Mixed Bacterial Noreen 08/10/20 Blood Culture - Final, Complete No growth Radiology Date of Exam:08/10/20 CHEST 1 VIEW, AP/PA ONLY Indication: Left arm and leg weakness and sepsis. Time of exam 10:08 AM Correlation no prior chest 01/22/2010. Heart size normal. There is soft tissue mass in the left suprahilar location. Otherwise lungs are clear. There is no effusion or pneumothorax. IMPRESSION: Soft tissue mass left upper lobe. CT chest would be recommended for further evaluation. Date of Exam:08/10/20 CT CHEST W EXAMINATION: CT Chest with intravenous contrast. TECHNIQUE: Multiple contiguous axial images were obtained through the chest after the uneventful administration of intravenous contrast. All CT scans use one or more of the following dose optimizing techniques: automated exposure control, MA and/or KvP adjustment based on a patient size and exam type, or iterative reconstruction. HISTORY: Chest mass COMPARISON: None available. FINDINGS: There is a 7.1 x 5.2 cm left upper lobe mass abutting the aorta extending into the left suprahilar space. This severely attenuates the left upper pulmonary vein and left upper pulmonary artery. Lungs are mildly emphysematous. No edema or pneumonia is seen. No pleural effusion. No pneumothorax. There is no axillary or supraclavicular lymphadenopathy. There is no mediastinal lymphadenopathy. Heart size is normal. There are severe coronary artery calcifications. No pericardial effusion. Aorta is normal in caliber. Limited views of the upper abdomen show a cyst in the left kidney. There are no suspicious osseus lesions. IMPRESSION: 1. Large left upper lobe mass abutting the aorta and extending left suprahilar space attenuating left upper pulmonary vein and pulmonary artery. This is most consistent with lung cancer. 2. No metastatic disease identified. ---- Date of Exam:08/10/20 CT HEAD W WO PROCEDURE: CT head with and without contrast. TECHNIQUE: Multiple contiguous axial images were obtained through the brain before and after the administration of intravenous contrast. Auto Exposure Controls were utilized during the CT exam to meet ALARA standards for radiation dose reduction. INDICATION: Nausea and weakness. There is a large area of low density in the left cerebellar hemisphere. A mass at this location is suspected. There is a rounded mass in the right occipital lobe with surrounding vasogenic edema measuring 2 cm. No midline shift is identified. No acute intra-axial or extra-axial hemorrhage is detected. Cisterns are patent. There does appear to be some questionable minimal enhancement of the lesion in the right occipital lobe on postcontrast imaging. IMPRESSION: Mass like lesion with surrounding vasogenic edema in right occipital lobe. There is also a large area of low density in the left cerebellar hemisphere and a mass at this location is suspected. Findings are worrisome for intracranial metastatic disease. There is no significant mass effect or midline shift. Assessment/Plan Assessment/Plan (1) Lung cancer metastatic to brain Status: Acute Assessment & Plan: Oncology consulted, IR biopsy done 08/13. Dexamethasone started, Rad Onc consulted. 08/16 biopsy unfortunately is necrotic tissue, will need repeat, discussed with Dr. Mejia and can do bronchoscopy/attempt further biopsy on Wed am. Continue dexamethasone and PT/OT. Not able to safely go home at this time. (2) Pneumonia involving left lung Status: Acute Assessment & Plan: Possible post-obstructive pneumonia. Completed 6 days of cefepime, will d/c. Qualifiers: Qualified Codes: J18.9 - Pneumonia, unspecified organism (3) Pneumothorax of left lung after biopsy Status: Resolved Assessment & Plan: Initially around 15% volume, no respiratory issues, but progressed to 50%, Surgery consulted and venting tube placed with complete resolution. 08/15- no further air leak last night, tube clamped 08/16 chest tube removed yesterday and CXR stable with no recurrence. (4) COPD (chronic obstructive pulmonary disease) Status: Chronic Assessment & Plan: No exacerbation, use albuterol as needed. (5) Hypertension Status: Chronic Assessment & Plan: Resume home meds Qualifiers: Qualified Codes: I10 - Essential (primary) hypertension (6) Hyperlipidemia Status: Chronic Assessment & Plan: Resume home meds (7) Diabetes mellitus Status: Chronic Assessment & Plan: Hold metformin, diabetic diet. Qualifiers: Qualified Codes: E11.69 - Type 2 diabetes mellitus with other specified complication (8) Hyponatremia Status: Acute Assessment & Plan: Mild, suspect secondary to lung pathology, monitor. (9) DVT prophylaxis Status: Acute Assessment & Plan: Enoxaparin Clinical Quality Measures DVT/VTE Risk/Contraindication: Risk Factor Score Per Nursin RFS Level Per Nursing on Admit: 4+=Very High ELIDA CAIN MD Aug 16, 2020 12:08
[2020-08-16] MEDS: ENOXAPARIN 40 MG/0.4 ML (LOVENOX) SYR SC SCH (12:26)
--- NOTE | 2020-08-16 12:27 | NUR ---
SPOKE WITH DR CAIN AFTER MRI RESULTS REVIEWED AND ADMINISTRATION OF LOVENOX. PER DR CAIN CONTINUE WITH LOVENOX AT CURRENT DOSE.
--- NOTE | 2020-08-16 14:08 | NUR ---
"RD ASSESSMENT PMHx: HTN; COPD PT INTERACTION: Pt was awake and pleasant during nutrition assessment for LOS. Pt states current appetite is good. Note avg PO intake 85% x4d, per chart review. Pt states following a regular diet at home and has no issues with chewing/swallowing food, despite missing several teeth. Pt states some recent issues with nausea, vomiting, and constipation, and that last his last BM was 08/10. Note pt not currently on bowel regimen per chart review. Pt states no recent wt changes. Note unable to determine recent wt hx, per chart review. ABNORMAL NUTRITION-RELATED LAB VALUES LOW: Na 133; Cl 97 HIGH: glu 149 Est. kcal needs: 1450 kcal | 15 kcal/kg Est. Pro needs: 76 g Pro | 0.8 g Pro/kg PES STATEMENT: Given current PO intake, no nutrition diagnosis at this time (NO-1.1) INTERVENTION: Continue with current diet order of CHO 60g/m 1snack diet. Pt may benefit from more aggressive bowel regimen if constipation persists. Will continue to follow and reassess as pt needs, intake, and status change. Aliza Holm, MS, RD, LD"
--- NOTE | 2020-08-16 16:00 | Discharge Summary ---
Discharge Summary Hospital Course Problems/Diagnosis: (1) Lung cancer metastatic to brain Status: Acute Assessment & Plan: Oncology consulted, IR biopsy done 08/13. Dexamethasone started, Rad Onc consulted. 08/16 biopsy unfortunately is necrotic tissue, will need repeat, discussed with Dr. Mejia and can do bronchoscopy/attempt further biopsy on Wed am. Continue dexamethasone and PT/OT. Not able to safely go home at this time, discharged to swing bed status. (2) Pneumonia involving left lung Status: Acute Assessment & Plan: Possible post-obstructive pneumonia. Completed 6 days of cefepime, will d/c. Qualifiers: Qualified Codes: J18.9 - Pneumonia, unspecified organism (3) Pneumothorax of left lung after biopsy Status: Resolved Resolution Date/Time: 08/15/20 @ 12:07 Assessment & Plan: Initially around 15% volume, no respiratory issues, but progressed to 50%, Surgery consulted and venting tube placed with complete resolution. 08/15- no further air leak last night, tube clamped 08/16 chest tube removed yesterday and CXR stable with no recurrence. (4) COPD (chronic obstructive pulmonary disease) Status: Chronic Assessment & Plan: No exacerbation, use albuterol as needed. (5) Hypertension Status: Chronic Assessment & Plan: Resume home meds Qualifiers: Qualified Codes: I10 - Essential (primary) hypertension (6) Hyperlipidemia Status: Chronic Assessment & Plan: Resume home meds (7) Diabetes mellitus Status: Chronic Assessment & Plan: Hold metformin, diabetic diet. Qualifiers: Qualified Codes: E11.69 - Type 2 diabetes mellitus with other specified complication (8) Hyponatremia Status: Acute Assessment & Plan: Mild, suspect secondary to lung pathology, monitor. Hospital Course Date of Admission: Aug 10, 2020 at 13:22 Admission Diagnosis : See problem list Family Physician/Provider: Date of Discharge: 08/16/20 Discharge Diagnosis: See problem list Hospital Course: See problem list Labs and Pending Lab Test: Laboratory Tests 08/15/20 20:20: Glucometer 187H 08/16/20 03:00: White Blood Count 16.5H, Red Blood Count 5.59, Hemoglobin 16.3, Hematocrit 47, Mean Corpuscular Volume 84, Mean Corpuscular Hemoglobin 29, Mean Corpuscular Hemoglobin Concent 35, Red Cell Distribution Width 13.2, Platelet Count 309, Mean Platelet Volume 9.4, Sodium Level 133L, Potassium Level 4.3, Chloride Level 97L, Carbon Dioxide Level 27, Anion Gap 9, Blood Urea Nitrogen 19H, Creatinine 0.89, Estimat Glomerular Filtration Rate > 60, BUN/Creatinine Ratio 21, Glucose Level 149H, Calcium Level 8.9 08/16/20 10:45: Glucometer 206H Microbiology 08/13/20 MRSA Screen - Final, Complete MRSA not isolated 08/10/20 Urine Culture - Final, Complete Gram Pos Mixed Bacterial Noreen 08/10/20 Blood Culture - Final, Complete No growth Home Meds Active Reported Ibuprofen 200 Mg Tablet 400-600 Mg PO Q6H PRN Proair Hfa (Albuterol Sulfate) 1 Puff Puff 2 Puff INH Q6H PRN Hydrochlorothiazide 25 Mg Tablet 25 Mg PO DAILY Amlodipine Besylate 10 Mg Tablet 10 Mg PO HS Albuterol Sulfate 2.5 Mg/3 Ml Vial.neb 1 Vial INH QID Symbicort 80-4.5 Mcg Inhaler (Budesonide/Formoterol Fumarate) 10.2 Gm Hfa.aer.ad 1 Puff INH DAILY Fenofibrate (Fenofibrate Nanocrystallized) 145 Mg Tablet 145 Mg PO DAILY Spiriva (Tiotropium [place]) 1 Inh Aerp 1 Puff INH DAILY Montelukast Sodium 10 Mg Tablet 10 Mg PO HS Atorvastatin Calcium 40 Mg Tablet 40 Mg PO HS Quinapril HCl 10 Mg Tablet 10 Mg PO HS Metformin HCl 500 Mg Tablet 1,000 Mg PO BID TAKES 2 (500MG) TABS Diclofenac Sodium 75 Mg Tablet.dr 75 Mg PO BID Assessment/Pt DC Instructions Discharged to swing bed status. Discharge Physical Examination Allergies: Coded Allergies: sulfamethoxazole (Verified Allergy, Unknown, Hives, 08/10/20) trimethoprim (Verified Allergy, Unknown, Hives, 08/10/20) General Appearance: No Apparent Distress, WD/WN Respiratory: Lungs Clear, Normal Breath Sounds Cardiovascular: Regular Rate, Rhythm, No Murmur Skin: Normal Color, Warm/Dry Neurologic/Psychiatric: Alert, Normal Mood/Affect Clinical Quality Measures DVT/VTE Risk/Contraindication: Risk Factor Score Per Nursin RFS Level Per Nursing on Admit: 4+=Very High ELIDA CAIN MD Aug 16, 2020 16:00
== END 2020-08-16 14:50 | disposition swing bed (61) | DRG 180 ==
LOC: EDUNIT# 08:58 → ER 09:00 → 4TH 13:22 → ICU 08-13 16:21 → 4TH 08-16 14:21
PROVIDERS: ADMIT Internal Medicine; ATTEND Family Medicine
PROC: 0B9G3ZX Drainage of Left Upper Lung Lobe, Percutaneous Approach, Diagnostic (ICD-10-PCS; principal; 2020-08-13)
PROC: 0W9B30Z Drainage of Left Pleural Cavity with Drainage Device, Percutaneous Approach (ICD-10-PCS; 2020-08-14)
DX: C34.12 Malignant neoplasm of upper lobe, left bronchus or lung (principal); J18.9 Pneumonia, unspecified organism; G93.6 Cerebral edema; C79.31 Secondary malignant neoplasm of brain; J44.0 Chronic obstructive pulmonary disease with (acute) lower respiratory infection; G81.94 Hemiplegia, unspecified affecting left nondominant side; J95.811 Postprocedural pneumothorax; E87.1 Hypo-osmolality and hyponatremia; E11.69 Type 2 diabetes mellitus with other specified complication; E78.5 Hyperlipidemia, unspecified; I10 Essential (primary) hypertension; F17.210 Nicotine dependence, cigarettes, uncomplicated; R27.0 Ataxia, unspecified; Z20.828 Contact with and (suspected) exposure to other viral communicable diseases
CPT/HCPCS: 36415; 70470; 70553; 71045; 71260; 77012; 80048; 80053; 81000; 82962; 83605; 83615; 83735; 84100; 84145; 84484; 85007; 85025; 85027; 85379; 85610; 85652; 85730; 86141; 87040; 87070; 87081; 87088; 87205; 87635; 87804; 88305; 93005; 94640; 94664; 94760

== ENCOUNTER 2020-08-16 14:33 | Inpatient (IN) | payer MEDICARE, MEDICAID ==
[~2020-08-16 14:33] MED LIST: ALBU2.5V4 INH; AMLO10TA7 PO; ATOR40TA70 PO; BUDE10.22 INH; DICL75TA2 PO; FENO145T26 PO; HYDR25TA4 PO; IBUP-2473 PO; METF-397 PO; MONT10TA26 PO; QUIN10TA14 PO; RT-ALBUINH INH; TIOT18CA2 INH
[2020-08-16] MEDS ORDERED: ONDANSETRON 4 MG/2 ML (SDV) Z0FRAN IV PRN (15:00)
[2020-08-16] MEDS ORDERED: CATHETER FLUSH 10 ML SYR IV PRN (15:00)
[2020-08-16] MEDS ORDERED: HYDROcodone/APAP 5 MG/325 MG (LORTAB) TAB PO PRN (15:00)
[2020-08-16] MEDS ORDERED: ENOXAPARIN 40 MG/0.4 ML (LOVENOX) SYR SC SCH (15:00)
[2020-08-16] MEDS ORDERED: RT-ALBUTEROL SULF 2.5 MG/3 ML PRE-MIX VIAL INH PRN (15:30)
--- NOTE | 2020-08-16 15:56 | Occupational Therapy Eval ---
OT Evaluation-General/PLF Medical Diagnosis Admission Date Aug 16, 2020 at 14:58 Medical Diagnosis: COPD, lung cancer metastatic to brain Onset Date: Aug 10, 2020 Therapy Diagnosis Therapy Diagnosis: decreased ADL status Referral Physician: Hermes Referral Reason: Evaluation/Treatment Medical History Pertinent Medical History: COPD, DM, HTN Additional Medical History hyperlipidemia Current History Pt experienced LUE weakness when brushing his dog Social History Home: Apartment Current Living Status: Alone Entry Into Home: Stairs Without Railing Steps Into Home: 1 ADL-Prior Level of Function SCALE: Activities may be completed with or without assistive devices. 5-Cgmomjeyed-scmxcmc completes the activity by him/herself with no assistance from a helper. 5-Set-up or Clean-up Assistance-helper sets up or cleans up; patient completes activity. [place] assists only prior to or following the activity. 4-Supervision or Touching Assistance-helper provides verbal cues and/or touching/steadying and/or contact guard assistance as patient completes activity. Assistance may be provided throughout the activity or intermittently. 3-Partial/Moderate Assistance-helper does LESS THAN HALF the effort. [place] lifts, holds or supports trunk or limbs, but provides less than half the effort. 2-Substantial/Maximal Assistance-helper does MORE THAN HALF the effort. [place] lifts or holds trunk or limbs and provides more than half the effort. 3-Atdifcwmm-mquizn does ALL the effort. Patient does none of the effort to complete the activity. Or, the assistance of 2 or more helpers is required for the patient to complete the activity. If activity was not attempted, code reason: 7-Patient Refused. 9-Not Applicable-not attempted and the patient did not perform the activity be fore the current illness, exacerbation or injury. 10-Not Attempted due to Environmental Limitations-(lack of equipment, weather restraints, etc.). 88-Not Attempted due to Medical Conditions or Safety Concerns. ADL PLOF Comments Pt reports being independent at PLOF with ADLs and functional mobility, no AD/AE. He has a shower without SC. Self Care: Independent Functional Cognition: Independent DME/Equipment: Shower OT Current Status Subjective Pt laying in bed, agreeable to OT evaluation at this time. Mental Status/Objective Patient Orientation: Person, Place, Time, Situation Attachments: Oxygen Current Glasses/Contacts: Yes Hearing Aids: No Dentures/Partials: No Hand Dominance: Right Upper Extremity ROM WFL Upper Extremity Coordination WFL, slightly slower movements with LUE ADL-Treatment Eating (QC): 6 (pt reports being independent with eating, he is able to cut food and bring food to mouth) Oral Hygiene (QC): 9 (Pt reports he did not complete this task at home prior to hospitalization, he only has a few teeth and they bleed when he brushes. He declined task.) Shower/Bathe Self (QC): 3 (Mod A standing balance at FWW, Pt able to wash upper body, buttocks and periarea, assist with LEs due to fatigue.) Upper Body Dressing (QC): 7 (pt declined donning shirt at this time.) Lower Body Dressing (QC): 3 (Pt requires assistance for dynamic sitting balance at EOB, and Mod A with balance when standing at FWW during pant hike) On/Off Footwear (QC): 3 (Min A for footwear, assistance with dynamic sitting balance and min assist with donning sock due to fatigue.) Toileting Hygiene (QC): 3 (Mod A standing balance at FWW, pt able to perform pericare and wash buttocks, he can manage pants down and manage pants up with assistance for balance.) Other Treatments Pt laying in bed, transferred supine to sit EOB with SBA. Pt completed sponge bath and dressing sitting EOB, with assistance for dynamic sitting balance. Pt reports being able to eat independently. Post OT Tx, pt seated EOB with PT present. Education OT Patient Education: Correct positioning, Modified ADL techniques, Progress toward Goal/Update tx plan, Purpose of tx/functional activities, Safety issues, Transfer techniques Teaching Recipient: Patient Teaching Methods: Discussion Response to Teaching: Verbalize Understanding OT Shelter Goals Shelter Goals Time Frame: Sep 06, 2020 Eating (QC): 6 Oral Hygiene (QC): 6 Toileting Hygiene (QC): 6 Shower/Bathe Self (QC): 6 Upper Body Dressing (QC): 6 Lower Body Dressing (QC): 6 On/Off Footwear (QC): 6 1=Demonstrate adherence to instructed precautions during ADL tasks. 2=Patient will verbalize/demonstrate understanding of assistive devices/modifications for ADL. 3=Patient will improve strength/tolerance for activity to enable patient to perform ADL's. OT Education/Plan Problem List/Assessment Assessment: Decreased Activ Tolerance, Decreased UE Strength, Impaired I ADL's, Impaired Self-Care Skills Discharge Recommendations Plan/Recommendations: Continue POC Treatment Plan/Plan of Care Patient would benefit from OT for education, treatment and training to promote independence in ADL's, mobility, safety and/or upper extremity function for ADL's. Plan of Care: ADL Retraining, Functional Mobility, UE Funct Exercise/Act Treatment Duration: Sep 06, 2020 Frequency: 5 times per week Estimated Hrs Per Day: .25 hour per day Rehab Potential: Fair Time/GCodes Start Time: 15:20 Stop Time: 15:40 Total Time Billed (hr/min): 20 Billed Treatment Time 1, PETAR GROVE OT Aug 16, 2020 15:56
--- NOTE | 2020-08-16 16:10 | Physical Therapy Evaluation ---
PT Evaluation-General Medical Diagnosis Admission Date Aug 16, 2020 at 14:58 Medical Diagnosis: COPD, lung cancer metastatic to brain Onset Date: Aug 10, 2020 Therapy Diagnosis Therapy Diagnosis: impaired mobility, strength, endurance, balance Weight Bear Status Right Lower Extremity: Right Weight Bearing/Tolerated Left Lower Extremity: Left Weight Bearing/Tolerated Referral Physician: Hermes Reason for Referral: Evaluation/Treatment Medical History Pertinent Medical History: COPD, DM, HTN Reviewed History: Yes Social History Home: Apartment Current Living Status: Alone Entry Into Home: Stairs Without Railing PT Steps Into Home: 1 Prior Prior Level of Function SCALE: Activities may be completed with or without assistive devices. 0-Kmtumcxkmt-lvvitvn completes the activity by him/herself with no assistance from a helper. 5-Set-up or Clean-up Assistance-helper sets up or cleans up; patient completes activity. [place] assists only prior to or following the activity. 4-Supervision or Touching Assistance-helper provides verbal cues and/or touching/steadying and/or contact guard assistance as patient completes activity. Assistance may be provided throughout the activity or intermittently. 3-Partial/Moderate Assistance-helper does LESS THAN HALF the effort. [place] lifts, holds or supports trunk or limbs, but provides less than half the effort. 2-Substantial/Maximal Assistance-helper does MORE THAN HALF the effort. [place] lifts or holds trunk or limbs and provides more than half the effort. 0-Zexjplafh-lmtnyw does ALL the effort. Patient does none of the effort to complete the activity. Or, the assistance of 2 or more helpers is required for the patient to complete the activity. If activity was not attempted, code reason: 7-Patient Refused. 9-Not Applicable-not attempted and the patient did not perform the activity before the current illness, exacerbation or injury. 10-Not Attempted due to Environmental Limitations-(lack of equipment, weather restraints, etc.). 88-Not Attempted due to Medical Conditions or Safety Concerns. Bed Mobility: 6 Transfers (B,C,W/C): 6 Gait: 6 Stairs: 6 Indoor Mobility (Ambulation): Independent Stairs: Independent PT Evaluation-Current Subjective Patient sitting EOB pre tx, agrees to PT, has no complaints of pain. Pt/Family Goals "to get my balance better" Objective Patient Orientation: Person, Place, Situation Attachments: Oxygen ROM/Strength ROM Lower Extremities WNL Strength Lower Extremities 4+/5 gross LLE, 5/5 gross RLE Sensory Vision: Functional Hearing: Functional Hand Dominance: Right Sensation Right Lower Extremit: Intact Sensation Left Lower Extremity: Intact Transfers Roll Left to Right (QC): 6 Sit to Lying (QC): 6 Lying to Sitting/Side of Bed(Q: 6 Sit to Stand (QC): 4 Chair/Okq-ne-Cscoa Xfer(QC): 4 Toilet Transfer (QC): 4 Car Transfer (QC): 4 CGA for sit to stand and transfers, cues for safety, direction, and positioning Gait Does the Patient Walk?: Yes Mode of Locomotion: Walk Anticipated Mode of Locomotion: Walk Walk 10 feet (QC): 4 Walk 50 ft with 2 Turns(QC): 88 Walk 150 ft (QC): 88 Walking 10ft/uneven surface-QC: 88 Distance: 40' Gait Assistive Device: FWW Comments/Gait Description slow ambulation, unsteady but no parul LOB, uncoordinated steps with left leg Wheelchair Training Wheel 50 ft with 2 turns (QC): 9 Wheel 150 ft (QC): 9 Stairs 1 Step (curb) (QC): 88 4 Steps (QC): 88 12 Steps (QC): 88 Balance Sitting Static: Normal Sitting Dynamic: Normal Standing Static: Fair Standing Dynamic: Poor Picking up an Object (QC): 88 Treatment supine BLE exercises x20 (AP, QS, GS, HS) Assessment/Needs Patient has impaired mobility, strength, endurance, balance. Patient in bed post tx with nurse call, phone, tray, all needs met. Patient is unsteady with ambulation but still CGA, no LOB. Rehab Potential: Fair PT Mcc Goals Pastry Mixer Goals PT Mcc Goals Time Frame: Aug 23, 2020 Roll Left & Right (QC): 6 Sit to Lying (QC): 6 Lying-Sitting on Side/Bed(QC): 6 Sit to Stand (QC): 4 (SBA) Chair/Ubq-cv-Jpepe Xfer(QC): 4 (SBA) Toilet Transfer (QC): 4 (SBA) Car Transfer (QC): 4 (SBA) Does the Patient Walk: Yes Walk 10 feet (QC): 4 (SBA) Walk 50ft with 2 Turns (QC): 4 (SBA) Walk 150 ft (QC): 4 (SBA) Walking 10ft on Uneven Surface: 4 (SBA) 1 Step (curb) (QC): 4 (SBA) 4 Steps (QC): 9 12 Steps (QC): 9 Picking up an Object (QC): 88 Does the Pt use WC or Scooter?: No Wheel 50 feet with 2 turns (QC: 9 Wheel 150 feet: 9 PT Plan Problem List Problem List: Activity Tolerance, Functional Strength, Safety, Balance, Gait, Transfer Treatment/Plan Treatment Plan: Continue Plan of Care Treatment Plan: Education, Functional Activity Fabien, Functional Strength, Gait, Safety, Therapeutic Exercise, Transfers Treatment Duration: Aug 23, 2020 Frequency: 6 times per week Estimated Hrs Per Day: .25 hour per day Patient and/or Family Agrees t: Yes Safety Risks/Education Patient Education: Gait Training, Transfer Techniques, Correct Positioning, Safety Issues Teaching Recipient: Patient Teaching Methods: Demonstration, Discussion Response to Teaching: Reinforcement Needed Discharge Recommendations Plan Patient will perform bed mobility and transfer training, balance and endurance training, functional strengthening, stair training, gait training, and education, to improve functional mobility and independence at home. Therapy Discharge Recommendati: Post Acute PT Time/GCodes Time In: 1540 Time Out: 1610 Total Billed Treatment Time: 30 Total Billed Treatment 1 visit STACY 15' EX 15' HUONG BRYANT PT Aug 16, 2020 16:10
--- NOTE | 2020-08-16 16:12 | NUR ---
Swing Bed Note: Swing Bed evaluation order received. Patient qualifies for swing bed for continued need of strengthening to return to his prior level of independent functioning. He lives at home alone with no identified support systems. He has a dog that he cares for and has found someone to feed and walk his dog while he is away. Along with PT and OT the patient will be receiving chemotherapy for his known lung cancer with METS. It is unknown at this time what treatment course he will need for that. Patient has a managed [facility]. Authorization request was submitted with pending auth number [facility] [id number] and [facility] [id number]. Clinical information faxed to [phone] with request to begin SWB on 08/14/20 pending acceptance vs denial. Days 1-100 are covered at 100% pending authorization. The above information was discussed with the patient and consent to access benefits was obtained pending auth.
--- NOTE | 2020-08-16 16:13 | NUR ---
Swing Bed Note: Authorization number [id number]. Auth given for 08/16/20-09/15/20 NRD needed on 09/15/20.
--- NOTE | 2020-08-16 16:38 | NUR ---
Admission Drug Regimen Review: Date: 08/16/20 Time: 1637 Review Completed, No Issues found
--- NOTE | 2020-08-16 17:45 | NUR ---
REPORT RECEIVED FROM CHRISTOPHER, CLIMATOLOGIST. PT TRANSFERRED TO ROOM 410 FROM ICU ADMITTED TO SWING BED.
[2020-08-16] MEDS: RT-ALBUTEROL SULF 2.5 MG/3 ML PRE-MIX VIAL INH SCH ×2 (19:18→22:49)
[2020-08-16] MEDS: ADVAIR HFA 45/21 MCG INHALER 8 GM IH SCH (19:19)
[2020-08-16] MEDS: MONTELUKAST 10 MG (SINGULAIR) TAB PO SCH (20:51)
[2020-08-16] MEDS: amLODIPine 10 MG (NORVASC) TAB PO SCH (20:51)
[2020-08-16] MEDS: ETODOLAC 300 MG (LODINE) CAP PO SCH (20:51)
[2020-08-16] MEDS: FENOFIBRATE 134 MG (LOFIBRA) CAPSULE PO SCH (20:52)
[2020-08-17 05:31] VITALS: BP 131/84
[2020-08-17] MEDS: HYDROCHLOROTHIAZIDE 25 MG (HCTZ) TAB PO SCH (08:37)
[2020-08-17] MEDS: lisINopril 10 MG (PRINIVIL) TABLET PO SCH (08:37)
[2020-08-17] MEDS: ETODOLAC 300 MG (LODINE) CAP PO SCH ×2 (08:37→20:11)
[2020-08-17] MEDS: PANTOPRAZOLE 40 MG (PROTONIX) TAB PO SCH (08:37)
[2020-08-17] MEDS: RT-ALBUTEROL SULF 2.5 MG/3 ML PRE-MIX VIAL INH SCH ×4 (10:38→18:16)
[2020-08-17] MEDS: UMECLIDINIUM BROMIDE (INCRUSE ELLIPTA) 7'S IH SCH (10:40)
[2020-08-17] MEDS: ADVAIR HFA 45/21 MCG INHALER 8 GM IH SCH ×3 (10:40→18:23)
[2020-08-17] MEDS: ENOXAPARIN 40 MG/0.4 ML (LOVENOX) SYR SC SCH (12:47)
--- NOTE | 2020-08-17 13:45 | Physical Therapy Daily Note ---
PT Daily Note-Current Subjective Pt. in bed, agrees to PT. Mental Status Patient Orientation: Person, Place Transfers SCALE: Activities may be completed with or without assistive devices. 0-Vekycrcvrv-jwajcxf completes the activity by him/herself with no assistance from a helper. 5-Set-up or Clean-up Assistance-helper sets up or cleans up; patient completes activity. [place] assists only prior to or following the activity. 4-Supervision or Touching Assistance-helper provides verbal cues and/or touching/steadying and/or contact guard assistance as patient completes activity. Assistance may be provided throughout the activity or intermittently. 3-Partial/Moderate Assistance-helper does LESS THAN HALF the effort. [place] lifts, holds or supports trunk or limbs, but provides less than half the effort. 2-Substantial/Maximal Assistance-helper does MORE THAN HALF the effort. [place] lifts or holds trunk or limbs and provides more than half the effort. 7-Vljqxwvrz-qrqhfi does ALL the effort. Patient does none of the effort to complete the activity. Or, the assistance of 2 or more helpers is required for the patient to complete the activity. If activity was not attempted, code reason: 7-Patient Refused. 9-Not Applicable-not attempted and the patient did not perform the activity b efore the current illness, exacerbation or injury. 10-Not Attempted due to Environmental Limitations-(lack of equipment, weather restraints, etc.). 88-Not Attempted due to Medical Conditions or Safety Concerns. Lying to Sitting/Side of Bed(Q: 4 Sit to Stand (QC): 4 Weight Bearing Right Lower Extremity: Right Weight Bearing/Tolerated Left Lower Extremity: Left Weight Bearing/Tolerated Gait Training Does the Patient Walk?: Yes Distance: 60 ft Walk 10 feet (QC): 3 Gait Assistive Device: FWW very slow gait, small steps Treatments gait training Assessment Current Status: Good Progress Pt. was CGA/min A with transfers, mod A with gait. He had no parul LOB but extremely slow gait pattern. Pt. returned to bed, call light in reach and all needs met. PT Senior Living Goals Senior Living Goals PT Senior Living Goals Time Frame: Aug 23, 2020 Roll Left & Right (QC): 6 Sit to Lying (QC): 6 Lying-Sitting on Side/Bed(QC): 6 Sit to Stand (QC): 4 (SBA) Chair/Jgx-za-Ruxwi Xfer(QC): 4 (SBA) Toilet Transfer (QC): 4 (SBA) Car Transfer (QC): 4 (SBA) Does the Patient Walk: Yes Walk 10 feet (QC): 4 (SBA) Walk 50ft with 2 Turns (QC): 4 (SBA) Walk 150 ft (QC): 4 (SBA) Walking 10ft on Uneven Surface: 4 (SBA) 1 Step (curb) (QC): 4 (SBA) 4 Steps (QC): 9 12 Steps (QC): 9 Picking up an Object (QC): 88 Does the Pt use WC or Scooter?: No Wheel 50 feet with 2 turns (QC: 9 Wheel 150 feet: 9 PT Plan Treatment/Plan Treatment Plan: Continue Plan of Care Treatment Plan: Education, Functional Activity Fabien, Functional Strength, Gait, Safety, Therapeutic Exercise, Transfers Treatment Duration: Aug 23, 2020 Frequency: 6 times per week Estimated Hrs Per Day: .25 hour per day Patient and/or Family Agrees t: Yes Time/GCodes Time In: 1133 Time Out: 1153 Total Billed Treatment Time: 20 Total Billed Treatment 1, GT 20' ESTRADA RIOS PT Aug 17, 2020 13:45
[2020-08-17 17:32] VITALS: BP 136/68
[2020-08-17] MEDS: FENOFIBRATE 134 MG (LOFIBRA) CAPSULE PO SCH (20:08)
[2020-08-17] MEDS: amLODIPine 10 MG (NORVASC) TAB PO SCH (20:08)
[2020-08-17] MEDS: MONTELUKAST 10 MG (SINGULAIR) TAB PO SCH (20:08)
[2020-08-18 05:51] VITALS: BP 146/79
[2020-08-18] MEDS: ADVAIR HFA 45/21 MCG INHALER 8 GM IH SCH ×2 (07:16→19:09)
[2020-08-18] MEDS: RT-ALBUTEROL SULF 2.5 MG/3 ML PRE-MIX VIAL INH SCH ×4 (07:16→19:03)
[2020-08-18] MEDS: UMECLIDINIUM BROMIDE (INCRUSE ELLIPTA) 7'S IH SCH (07:17)
[2020-08-18] MEDS: PANTOPRAZOLE 40 MG (PROTONIX) TAB PO SCH (08:52)
[2020-08-18] MEDS: HYDROCHLOROTHIAZIDE 25 MG (HCTZ) TAB PO SCH (08:52)
[2020-08-18] MEDS: ETODOLAC 300 MG (LODINE) CAP PO SCH ×2 (08:52→20:30)
[2020-08-18] MEDS: lisINopril 10 MG (PRINIVIL) TABLET PO SCH (08:52)
[2020-08-18] MEDS ORDERED: inSUlin ASPART (NovoLOG) 1 UNIT/0.01 ML (CHARGE PER UNIT) ONE (12:07)
[2020-08-18] MEDS: ENOXAPARIN 40 MG/0.4 ML (LOVENOX) SYR SC SCH (12:13)
[2020-08-18] MEDS: inSUlin ASPART (NovoLOG) 1 UNIT/0.01 ML (CHARGE PER UNIT) SC SCH ×3 (12:14→21:16)
[2020-08-18 17:32] VITALS: BP 142/74
[2020-08-18] MEDS: amLODIPine 10 MG (NORVASC) TAB PO SCH (20:29)
[2020-08-18] MEDS: MONTELUKAST 10 MG (SINGULAIR) TAB PO SCH (20:29)
[2020-08-18] MEDS: FENOFIBRATE 134 MG (LOFIBRA) CAPSULE PO SCH (20:29)
[2020-08-19] MEDS: inSUlin ASPART (NovoLOG) 1 UNIT/0.01 ML (CHARGE PER UNIT) SC SCH ×2 (05:42→12:20)
[2020-08-19 06:14] VITALS: BP 133/75
[2020-08-19] MEDS: RT-ALBUTEROL SULF 2.5 MG/3 ML PRE-MIX VIAL INH SCH ×2 (06:43→09:56)
[2020-08-19] MEDS: UMECLIDINIUM BROMIDE (INCRUSE ELLIPTA) 7'S IH SCH (06:44)
[2020-08-19] MEDS: ADVAIR HFA 45/21 MCG INHALER 8 GM IH SCH (06:44)
[2020-08-19] MEDS: PANTOPRAZOLE 40 MG (PROTONIX) TAB PO SCH (09:53)
[2020-08-19] MEDS: HYDROCHLOROTHIAZIDE 25 MG (HCTZ) TAB PO SCH (09:53)
[2020-08-19] MEDS: ETODOLAC 300 MG (LODINE) CAP PO SCH (09:53)
[2020-08-19] MEDS: lisINopril 10 MG (PRINIVIL) TABLET PO SCH (09:53)
[2020-08-19 10:04] VITALS: BP 133/75
[2020-08-19 10:07] LABS: BASOPHILS % (AUTO) 0 % (0-10); EOSINOPHILS % (AUTO) 0 % (0-10); HEMATOCRIT 50 % (40-54); HEMOGLOBIN 17.8 G/DL (13.3-17.7); LYMPHOCYTES # (AUTO) 1.3 X 10^3 (1.0-4.0); LYMPHOCYTES % (AUTO) 6 % (12-44); MEAN CORPUSCULAR HEMOGLOBIN 30 PG (25-34); MEAN CORPUSCULAR HGB CONC 36 G/DL (32-36); MEAN CORPUSCULAR VOLUME 84 FL (80-99); MEAN PLATELET VOLUME 9.4 FL (7.4-10.4); MONOCYTES % (AUTO) 5 % (0-12); NEUTROPHILS # (AUTO) 19.3 X 10^3 (1.8-7.8); NEUTROPHILS % (AUTO) 90 % (42-75); PLATELET COUNT 348 10^3/uL (130-400); WHITE BLOOD COUNT 21.6 10^3/uL (4.3-11.0)
--- NOTE | 2020-08-19 10:15 | Physical Therapy Daily Note ---
PT Daily Note-Current Subjective Patient voices frustration with not knowing the plan. PT consulted with RN. Pain Numeric Pain Scale: 0-No Pain Location: No Pain Reported Mental Status Patient Orientation: Person, Time, Situation Attachments: Oxygen (2L) Transfers SCALE: Activities may be completed with or without assistive devices. 7-Frbtsmccle-ieanywy completes the activity by him/herself with no assistance from a helper. 5-Set-up or Clean-up Assistance-helper sets up or cleans up; patient completes activity. [place] assists only prior to or following the activity. 4-Supervision or Touching Assistance-helper provides verbal cues and/or touching/steadying and/or contact guard assistance as patient completes activity. Assistance may be provided throughout the activity or intermittently. 3-Partial/Moderate Assistance-helper does LESS THAN HALF the effort. [place] lifts, holds or supports trunk or limbs, but provides less than half the effort. 2-Substantial/Maximal Assistance-helper does MORE THAN HALF the effort. [place] lifts or holds trunk or limbs and provides more than half the effort. 4-Naashuxtn-eawgjx does ALL the effort. Patient does none of the effort to complete the activity. Or, the assistance of 2 or more helpers is required for the patient to complete the activity. If activity was not attempted, code reason: 7-Patient Refused. 9-Not Applicable-not attempted and the patient did not perform the activity before the current illness, exacerbation or injury. 10-Not Attempted due to Environmental Limitations-(lack of equipment, weather restraints, etc.). 88-Not Attempted due to Medical Conditions or Safety Concerns. Roll Left & Right (QC): 6 Sit to Lying (QC): 6 Lying to Sitting/Side of Bed(Q: 6 Sit to Stand (QC): 4 Weight Bearing Right Lower Extremity: Right Weight Bearing/Tolerated Left Lower Extremity: Left Weight Bearing/Tolerated Gait Training Does the Patient Walk?: Yes Distance: 125' Walk 10 feet (QC): 3 Walk 50 ft with 2 Turns(QC): 3 Walk 150 ft (QC): 88 Gait Assistive Device: FWW very slow, steady gait sequence/short kwame/no deviation Assessment Current Status: Good Progress Patient returned to bed with needs met. PT to increase activity as tolerated by patient. PT [place]her Goals Edge [place]usher Goals PT Longterm Goals Time Frame: Aug 23, 2020 Roll Left & Right (QC): 6 Sit to Lying (QC): 6 Lying-Sitting on Side/Bed(QC): 6 Sit to Stand (QC): 4 (SBA) Chair/Bmb-gf-Tvxnj Xfer(QC): 4 (SBA) Toilet Transfer (QC): 4 (SBA) Car Transfer (QC): 4 (SBA) Does the Patient Walk: Yes Walk 10 feet (QC): 4 (SBA) Walk 50ft with 2 Turns (QC): 4 (SBA) Walk 150 ft (QC): 4 (SBA) Walking 10ft on Uneven Surface: 4 (SBA) 1 Step (curb) (QC): 4 (SBA) 4 Steps (QC): 9 12 Steps (QC): 9 Picking up an Object (QC): 88 Does the Pt use WC or Scooter?: No Wheel 50 feet with 2 turns (QC: 9 Wheel 150 feet: 9 PT Plan Treatment/Plan Treatment Plan: Continue Plan of Care Treatment Plan: Education, Functional Activity Fabien, Functional Strength, Gait, Safety, Therapeutic Exercise, Transfers Treatment Duration: Aug 23, 2020 Frequency: 6 times per week Estimated Hrs Per Day: .25 hour per day Patient and/or Family Agrees t: Yes Time/GCodes Time In: 925 Time Out: 943 Total Billed Treatment Time: 18 Total Billed Treatment 1 visit GT 18 min HAWK GREEN PT Aug 19, 2020 10:15
--- NOTE | 2020-08-19 10:24 | Progress Note - Hospitalist ---
Subjective HPI/CC On Admission Date Seen by Provider: Aug 19, 2020 Time Seen by Provider: 08:00 Subjective/Events-last exam see dc note Review of Systems General: Fatigue, Malaise Neurological: Weakness Focused Exam Lactate Level 08/19/20 10:40: Lactic Acid Level 2.02*H 08/19/20 13:10: Lactic Acid Level 1.39 Lactic Acid Level Objective Exam Vital Signs Vital Signs Date Time Temp Pulse Resp B/P (MAP) Pulse Ox O2 Delivery O2 Flow Rate FiO2 08/19/20 10:04 36.9 88 91 28 08/19/20 09:56 Nasal Cannula 2.00 08/19/20 06:14 20 133/75 (94) Capillary Refill : Less Than 3 Seconds General Appearance: No Apparent Distress, WD/WN, Anxious, Chronically ill HEENT: PERRL/EOMI, Normal ENT Inspection, Pharynx Normal, Moist Mucous Membranes Neck: Full Range of Motion, Normal Inspection, Non Tender, Supple, Carotid Bruit Respiratory: Chest Non Tender, Lungs Clear, Normal Breath Sounds, No Accessory Muscle Use, No Respiratory Distress, Decreased Breath Sounds Cardiovascular: Regular Rate, Rhythm, No Edema, No Gallop, No JVD, No Murmur, Normal Peripheral Pulses Gastrointestinal: Normal Bowel Sounds, No Organomegaly, No Pulsatile Mass, Non Tender, Soft Back: Normal Inspection, No CVA Tenderness, No Vertebral Tenderness Extremity: Normal Capillary Refill, Normal Inspection, Normal Range of Motion, Non Tender, No Calf Tenderness, No Pedal Edema Neurologic/Psychiatric: Alert, Oriented x3, No Motor/Sensory Deficits, Normal Mood/Affect Skin: Normal Color, Warm/Dry Lymphatic: No Adenopathy Results/Procedures Lab Laboratory Tests 08/19/20 10:00 Patient resulted labs reviewed. Assessment/Plan Assessment and Plan Assess & Plan/Chief Complaint Assessment: AECOPD Elevated lactic acid Oxygen dependant Severe debility Leukocytosis Plan: Check labs IV fluids Dr. Mejia consult Monitor closely Check chest xray and add PCT and lactic acid move to ICU Clinical Quality Measures DVT/VTE Risk/Contraindication: Risk Factor Score Per Nursin DAVID NICOLE DO Aug 19, 2020 10:24
[2020-08-19 10:25] LABS: BAND NEUTROPHILS 1 %; LYMPHOCYTES % (MANUAL) 6 %; MONOCYTES % (MANUAL) 7 %; NEUTROPHILS % (MANUAL) 86 %; RBC MORPH NORMAL
[2020-08-19 10:28] LABS: ALANINE AMINOTRANSFERASE 130 U/L (0-55); ALBUMIN 3.8 GM/DL (3.2-4.5); ALKALINE PHOSPHATASE 85 U/L (40-136); BUN/CREATININE RATIO 29; CALCIUM 9.3 MG/DL (8.5-10.1); CARBON DIOXIDE 20 MMOL/L (21-32); CHLORIDE 98 MMOL/L (98-107); CREATININE SERUM 1.12 MG/DL (0.60-1.30); GFR ESTIMATED > 60; GLUCOSE 277 MG/DL (70-105); SODIUM 130 MMOL/L (135-145); TOTAL PROTEIN 6.7 GM/DL (6.4-8.2)
--- NOTE | 2020-08-19 10:54 | NUR ---
Pt recently diagnosed with cancer but diagnostic studies remain pending. Dr. Judd Radiation Oncologist is scheduled to see pt tomorrow at 2:30 to complete radiation consult. Pt lives alone is a small apt. locally and is most significant butt presser is a 12 year old female lab who weighs nearly 100 lbs. Pt has been living in this community 10 years and prior was homeless but through the efforts of several community agencies was able to establish independent living arrangement. He has no family support. Pt receives social security disability but has very limited social security income and food-stamps. He has Medicare and [employer] Medicaid plan. He currently has Home oxygen at home for nighttime. If discharged home he will need Front Wheel walker, Meals on Wheels, personal alert system and oxygen home study as well as Home Health Care with Physical and Occupational Therapies with Bathing assistance. Home and Community Based services request through [employer] has been completed and faxed to [place] [employer] office in [place] and waiting their approval which would provide homemaker in-home care. Pt seemed more agitated today then seen previously. He is concerned about the whereabouts of his dog and will try to resolve his concerns. Would like to have most services in place by the end if this week pending medical status and treatment plan. Will follow and assist.
--- NOTE | 2020-08-19 11:30 | Diagnostic Imaging Report ---
INDICATION: Leukocytosis. COMPARISON: 08/16/2020. FINDINGS: Frontal and lateral radiographic views of the chest were obtained and show interval development of large left pneumothorax estimated greater than 50%. Large left upper lobe mass is again noted. Right lung remains relatively clear. There is no large effusion on either side. Cardiac silhouette and pulmonary vasculature are within normal limits and midline. Osseous structures show no new acute abnormalities. IMPRESSION: 1. Interval development of large left-sided pneumothorax. 2. Redemonstration of left upper lobe lung mass. Attempt was made at 1115 to page the ordering physician, but the ordering physician does not take pages unless on-call. Ordering physician's office does not answer the phone. Additionally, the patient's floor in the hospital also does not answer the phone. Results were eventually successfully relayed to the patient's nurse, Myriam and Devin in Dr. Gil's office by Navi Alarcon. Dictated by: Dictated on workstation # [id number]
[2020-08-19] MEDS ORDERED: MIDAZOLAM 5 MG/5 ML (VERSED) VIAL ONE (12:19)
[2020-08-19] MEDS ORDERED: fentaNYL INJECTION 100 MCG/2 ML AMP ONE (12:19)
[2020-08-19] MEDS: ENOXAPARIN 40 MG/0.4 ML (LOVENOX) SYR SC SCH (12:20)
[2020-08-19] MEDS ORDERED: NS IV 1000 ML 1,000 ML ONE (12:24)
--- NOTE | 2020-08-19 12:35 | NUR ---
Received communication from Dr. Gil that patient will be moving to ICU. F/U with Pocket Operator [place] to let her know that patient will have to be discharged out of the swing bed account and a new acute account will need to be made. Patient is discharged from [facility] on this date.
[2020-08-19] MEDS ORDERED: LIDOCAINE 1% INJ 20 ML 20 ML VIAL ONE (12:47)
--- NOTE | 2020-08-19 15:21 | Therapy Team Discharge Summary ---
Therapy Discharge Summary Discharge Recommendations Date of Discharge Aug 19, 2020 at 12:30 Physical Therapy Patient transferred to ICU due to change in medical status. PT to dismiss patient from SWB at this time. Occupational Therapy Decreased Activ Tolerance, Decreased UE Strength, Impaired I ADL's, Impaired Self-Care Skills PT Skilled Nursing Goals Cloth Handler Goals PT Skilled Nursing Goals Time Frame: Aug 23, 2020 Roll Left to Right (QC): 6 Sit to Lying (QC): 6 Lying-Sitting on Side/Bed(QC): 6 Sit to Stand (QC): 4 (SBA) Chair/Umt-ud-Pvyut Xfer(QC): 4 (SBA) Car Transfer (QC): 4 (SBA) Does the Patient Walk: Yes Walk 10 feet (QC): 4 (SBA) Walk 10ft-Uneven Surface(QC): 4 (SBA) Walk 50ft with 2 Turns (QC): 4 (SBA) Walk 150 ft (QC): 4 (SBA) Does the Pt use WC or Scooter?: No Wheel 50 feet with 2 turns (QC: 9 1 Step (curb) (QC): 4 (SBA) 4 Steps (QC): 9 12 Steps (QC): 9 Picking up an Object (QC): 88 OT Cloth Handler Goals Cloth Handler Goals Time Frame: Sep 06, 2020 Eating (QC): 6 Oral Hygiene (QC): 6 Shower/Bathe Self (QC): 6 Upper Body Dressing (QC): 6 Lower Body Dressing (QC): 6 On/Off Footwear (QC): 6 Toileting Hygiene (QC): 6 Toilet/Commode Transfer (QC): 4 (SBA) 1=Demonstrate adherence to instructed precautions during ADL tasks. 2=Patient will verbalize/demonstrate understanding of assistive devices/modifications for ADL. 3=Patient will improve strength/tolerance for activity to enable patient to perform ADL's. HAWK GREEN PT Aug 19, 2020 15:21
--- NOTE | 2020-08-19 15:35 | Therapy Team Discharge Summary ---
Therapy Discharge Summary Discharge Recommendations Date of Discharge Aug 19, 2020 at 12:30 Occupational Therapy Pt evaluated on 08/16/2020, pt did not meet any goals/make progress towards goals due to only being seen for evaluation. Pt transferred to ICU due to change in medical status. OT to d/c from [facility] OT services at this time. Decreased Activ Tolerance, Decreased UE Strength, Impaired I ADL's, Impaired Self-Care Skills PT Jackhammer Splitter Operator Goals Jackhammer Splitter Operator Goals PT Jackhammer Splitter Operator Goals Time Frame: Aug 23, 2020 Roll Left to Right (QC): 6 Sit to Lying (QC): 6 Lying-Sitting on Side/Bed(QC): 6 Sit to Stand (QC): 4 (SBA) Chair/Iud-vz-Toluq Xfer(QC): 4 (SBA) Car Transfer (QC): 4 (SBA) Does the Patient Walk: Yes Walk 10 feet (QC): 4 (SBA) Walk 10ft-Uneven Surface(QC): 4 (SBA) Walk 50ft with 2 Turns (QC): 4 (SBA) Walk 150 ft (QC): 4 (SBA) Does the Pt use WC or Scooter?: No Wheel 50 feet with 2 turns (QC: 9 1 Step (curb) (QC): 4 (SBA) 4 Steps (QC): 9 12 Steps (QC): 9 Picking up an Object (QC): 88 OT Jackhammer Splitter Operator Goals Correction Goals Time Frame: Sep 06, 2020 Eating (QC): 6 Oral Hygiene (QC): 6 Shower/Bathe Self (QC): 6 Upper Body Dressing (QC): 6 Lower Body Dressing (QC): 6 On/Off Footwear (QC): 6 Toileting Hygiene (QC): 6 Toilet/Commode Transfer (QC): 4 (SBA) 1=Demonstrate adherence to instructed precautions during ADL tasks. 2=Patient will verbalize/demonstrate understanding of assistive devices/modifications for ADL. 3=Patient will improve strength/tolerance for activity to enable patient to perform ADL's. PETAR NICHOLS OT Aug 19, 2020 15:35
--- NOTE | 2020-08-19 21:14 | Discharge Summary ---
Discharge Summary Hospital Course Was the Problem List Reviewed?: Yes Problems/Dx: (1) Pneumothorax Hospital Course Date of Admission: Aug 16, 2020 at 14:58 Admission Diagnosis : Family Physician/Provider: Date of Discharge: 08/19/20 Discharge Diagnosis: Left PTX, AECOPD Hospital Course: Hospital Course: Pt had a brief hospital course. He was admitted for acute on chronic respiratory failure requiring steroids and oxygen supplementation in addition to his home O2 at night, he was requiring 24/7. Overall he wanted to get home as soon as possible. Pt was found to have slight tachypnea. Labs reviewed from this morning showing white count of 21,000. Chest x ray obtained, Dr. Mejia consulted, and that revealed a pneumothorax. Pt was transferred to ICU for chest tube placement. Labs and Pending Lab Test: Laboratory Tests 08/19/20 05:36: Glucometer 152H 08/19/20 10:00: White Blood Count 21.6H, Red Blood Count 5.98H, Hemoglobin 17.8H, Hematocrit 50, Mean Corpuscular Volume 84, Mean Corpuscular Hemoglobin 30, Mean Corpuscular Hemoglobin Concent 36, Red Cell Distribution Width 13.9, Platelet Count 348, Mean Platelet Volume 9.4, Neutrophils (%) (Auto) 90H, Lymphocytes (%) (Auto) 6L, Monocytes (%) (Auto) 5, Eosinophils (%) (Auto) 0, Basophils (%) (Auto) 0, Neutrophils # (Auto) 19.3H, Lymphocytes # (Auto) 1.3, Monocytes # (Auto) 1.0, Eosinophils # (Auto) 0.0, Basophils # (Auto) 0.0, Neutrophils % (Manual) 86, Lymphocytes % (Manual) 6, Monocytes % (Manual) 7, Band Neutrophils 1, Blood Morphology Comment NORMAL, Sodium Level 130L, Potassium Level 5.0, Chloride Level 98, Carbon Dioxide Level 20L, Anion Gap 12, Blood Urea Nitrogen 32H, Creatinine 1.12, Estimat Glomerular Filtration Rate > 60, BUN/Creatinine Ratio 29, Glucose Level 277H, Calcium Level 9.3, Corrected Calcium 9.5, Total Bilirubin 1.0, Aspartate Amino Transf (AST/SGOT) 24, Alanine Aminotransferase (ALT/SGPT) 130H, Alkaline Phosphatase 85, Total Protein 6.7, Albumin 3.8, Procalcitonin 0.05 08/19/20 10:40: Lactic Acid Level 2.02*H 08/19/20 11:30: Glucometer 214H 08/19/20 13:10: Lactic Acid Level 1.39 Home Meds Active Reported Ibuprofen 200 Mg Tablet 400-600 Mg PO Q6H PRN Proair Hfa (Albuterol Sulfate) 1 Puff Puff 2 Puff INH Q6H PRN Hydrochlorothiazide 25 Mg Tablet 25 Mg PO DAILY Amlodipine Besylate 10 Mg Tablet 10 Mg PO HS Albuterol Sulfate 2.5 Mg/3 Ml Vial.neb 1 Vial INH QID Symbicort 80-4.5 Mcg Inhaler (Budesonide/Formoterol Fumarate) 10.2 Gm Hfa.aer.ad 1 Puff INH DAILY Fenofibrate (Fenofibrate Nanocrystallized) 145 Mg Tablet 145 Mg PO DAILY Spiriva (Tiotropium [place]) 1 Inh Aerp 1 Puff INH DAILY Montelukast Sodium 10 Mg Tablet 10 Mg PO HS Atorvastatin Calcium 40 Mg Tablet 40 Mg PO HS Quinapril HCl 10 Mg Tablet 10 Mg PO HS Metformin HCl 500 Mg Tablet 1,000 Mg PO BID TAKES 2 (500MG) TABS Diclofenac Sodium 75 Mg Tablet.dr 75 Mg PO BID Assessment/Pt Instructions icu Discharge Planning: <30 minutes discharge planning Discharge Instructions Discharge Diet: ADA Diet Activity as Tolerated: Yes Discharge Physical Examination Vital Signs Vital Signs Date Time Temp Pulse Resp B/P (MAP) Pulse Ox O2 Delivery O2 Flow Rate FiO2 08/19/20 10:04 36.9 88 91 28 08/19/20 09:56 Nasal Cannula 2.00 08/19/20 06:14 20 133/75 (94) Respiratory: Decreased Breath Sounds Allergies: Coded Allergies: sulfamethoxazole (Verified Allergy, Unknown, Hives, 08/10/20) trimethoprim (Verified Allergy, Unknown, Hives, 08/10/20) Discharge Summary Date of Admission Aug 16, 2020 at 14:58 Date of Discharge Aug 19, 2020 at 12:30 Discharge Diagnosis Assessment: AECOPD Elevated lactic acid Oxygen dependant Severe debility Leukocytosis Plan: Check labs IV fluids Dr. Mejia consult Monitor closely Check chest xray and add PCT and lactic acid move to ICU Clinical Quality Measures DVT/VTE Risk/Contraindication: Risk Factor Score Per Nursin DAVID NICOLE DO Aug 19, 2020 21:14
== END 2020-08-19 12:30 | disposition short-term general hospital (02) | DRG 189 ==
LOC: 4TH 14:58 → ICU 08-19 12:28
PROVIDERS: ADMIT Family Medicine; ATTEND Internal Medicine
DX: J96.20 Acute and chronic respiratory failure, unspecified whether with hypoxia or hypercapnia (principal); J44.1 Chronic obstructive pulmonary disease with (acute) exacerbation; C34.12 Malignant neoplasm of upper lobe, left bronchus or lung; C79.9 Secondary malignant neoplasm of unspecified site; J93.9 Pneumothorax, unspecified; Z99.81 Dependence on supplemental oxygen
CPT/HCPCS: 36415; 71046; 80053; 82962; 83605; 84145; 85007; 85027; 94640; 94760

== ENCOUNTER 2020-08-19 12:43 | Inpatient (IN) | payer MEDICARE, MEDICAID ==
[~2020-08-19] VITALS: Ht 172.7 cm; Wt 88.4 kg
[2020-08-19] VITALS (9 sets, daily range): BP systolic 127–150; BP diastolic 63–95
[~2020-08-19 12:43] MED LIST changes: +MIDAZOLAM 2 MG/2 ML (VERSED) VIAL IVP ONE; +fentaNYL INJECTION 100 MCG/2 ML AMP IVP ONE
[2020-08-19] MEDS ORDERED: PIPERACILLIN/TAZO 4.5 GM/NS 100 ML IV NR ×2 (14:00)
--- NOTE | 2020-08-19 14:10 | Pulmonary Consultation ---
History of Present Illness History of Present Illness Date Seen by Provider: Aug 19, 2020 Time Seen by Provider: 14:09 Date of Admission Allergies and Home Medications Allergies Coded Allergies: sulfamethoxazole (Verified Allergy, Unknown, Hives, 08/10/20) trimethoprim (Verified Allergy, Unknown, Hives, 08/10/20) Home Medications Albuterol Sulfate 2.5 Mg/3 Ml Vial.neb, 1 VIAL INH QID, (Reported) Albuterol Sulfate 1 Puff Puff, 2 PUFF INH Q6H PRN for SHORTNESS OF BREATH, (Reported) Amlodipine Besylate 10 Mg Tablet, 10 MG PO HS, (Reported) Atorvastatin Calcium 40 Mg Tablet, 40 MG PO HS, (Reported) Budesonide/Formoterol Fumarate 10.2 Gm Hfa.aer.ad, 1 PUFF INH DAILY, (Reported) Diclofenac Sodium 75 Mg Tablet.dr, 75 MG PO BID, (Reported) Fenofibrate Nanocrystallized 145 Mg Tablet, 145 MG PO DAILY, (Reported) Hydrochlorothiazide 25 Mg Tablet, 25 MG PO DAILY, (Reported) Ibuprofen 200 Mg Tablet, 400-600 MG PO Q6H PRN for PAIN-MILD (1-4), (Reported) Metformin HCl 500 Mg Tablet, 1,000 MG PO BID, (Reported) TAKES 2 (500MG) TABS Montelukast Sodium 10 Mg Tablet, 10 MG PO HS, (Reported) Quinapril HCl 10 Mg Tablet, 10 MG PO HS, (Reported) Tiotropium [place] 1 Inh Aerp, 1 PUFF INH DAILY, (Reported) Past Ckvqxzi-Mfbaer-Wkdsuu Hx Patient Social History Type Used: Cigarettes 2nd Hand Smoke Exposure: Yes Recent Hopitalizations: No Immunizations Up To Date Date of Pneumonia Vaccine: Oct 10, 2018 Past Medical History Surgeries: No Respiratory: Yes COPD Cardiac: Yes Hypertension Neurological: No Genitourinary: No Gastrointestinal: No Musculoskeletal: No Endocrine: No ("borderline diabetic") HEENT: No Cancer: No Psychosocial: No Integumentary: No Blood Disorders: No Review of Systems Time Seen by Provider: 14:10 Sepsis Event Evaluation Height, Weight, BMI Height: '" Weight: lbs. oz. kg; 35.87 BMI Method: Exam Exam Vital Signs Date Time Temp Pulse Resp B/P (MAP) Pulse Ox O2 Delivery O2 Flow Rate FiO2 08/19/20 13:00 82 08/19/20 12:15 83 Height & Weight Height: '" Weight: lbs. oz. kg; 35.87 BMI Method: Assessment/Plan Assessment/Plan Acute repeat PTX iatrogenic from CT needle bx -Will place Thoravent -Transfer to ICU Large left Lung Mass -Plan is for bronch with EBUS on Wed Leukocytosis -Start Zosyn -Edwards cultures -Check UA NORBERTO RAUSCH DO Aug 19, 2020 14:10
--- NOTE | 2020-08-19 14:12 | Pulmonary Procedures ---
Pulmonary Procedures Date of Procedure Date of Service: Aug 19, 2020 Chest Tube : Chest Tube Position: Left (Secondary to left PTX) Chest Tube Location: Anterior Chest Chest Tube Procedure: betadine prep, sterile drapes applied, sterile dressing applied Anesthesia: 1% Lidocaine Volume Anesthetic (ccs): 8 Number of Attempts: 1 Time of Successful Intubation: 13:30 Tube Drainage: see nurses notes Tube Sutured to Skin: Yes Post Procedure CXR?: Yes NORBERTO RAUSCH DO Aug 19, 2020 14:12
[2020-08-19] MEDS ORDERED: diphenhydrAMINE 25 MG TAB (BENADRYL) PO PRN (14:30)
[2020-08-19] MEDS ORDERED: DOCUSATE SODIUM 100 MG (COLACE) CAP PO PRN (14:30)
[2020-08-19] MEDS ORDERED: ACETAMINOPHEN 500 MG TAB (TYLENOL) PO PRN (14:30)
[2020-08-19] MEDS ORDERED: ONDANSETRON 4 MG/2 ML (SDV) Z0FRAN IVP PRN (14:30)
[2020-08-19] MEDS ORDERED: MELATONIN 3 MG TABLET PO PRN (14:30)
[2020-08-19] MEDS ORDERED: CALCIUM CARBONATE 500 MG (TUMS) TAB.CHEW PO PRN (14:30)
[2020-08-19] MEDS ORDERED: ALPRAZolam 0.25 MG (XANAX) TAB PO PRN (14:30)
--- NOTE | 2020-08-19 14:42 | Diagnostic Imaging Report ---
INDICATION: Chest tube placement. COMPARISON: Earlier same day Single frontal radiographic view of the chest was obtained and demonstrates interval placement of left-sided chest tube. As a result, there has been appropriate interval evacuation of large left-sided pneumothorax. Large left upper lung mass is noted, as is a smaller nodular density within the lateral left lower lung. Right lung remains clear. There is no large effusion on either side. Cardiac silhouette and pulmonary vasculature remain within normal limits. IMPRESSION: 1. Interval placement of left-sided chest tube with successful interval evacuation of left-sided pneumothorax. Dictated by: Dictated on workstation # [id number]
[2020-08-19] MEDS ORDERED: RT-ALBUTEROL SULF 2.5 MG/3 ML PRE-MIX VIAL INH PRN (15:45)
--- NOTE | 2020-08-19 16:27 | NUR ---
is a 65 year old single male who was initially admitted to our hospital Jul. 12. Since admission he has been treated at our ICU and was placed on Swing Bed Status on but returned to ICU on this date. Pt has no available family and came to this community homeless but through the aid of community agencies has lived in an apt. locally for 10 years with his 10 year old Lab. Pt is expressing frustration today not knowing his diagnosis and plan for treatment. He has placed his dog Justin in the [facility] with the hope that he may return to his apt. and resume her care. Pt doesn't want to name anyone as DPOA as states he doesn't want anyone "stuck with making final arrangements" as he doesn't have any funds. Pt more agitated today then he was last week. DR. Judd, Radiation Oncologist is scheduled to see pt tomorrow at 2:30PM. will follow and assist. Pt does have friends he names as Ghazal and Dustin who live in the [place] area. Their telephone number is [phone] or [phone].
[2020-08-19] MEDS: RT-ALBUTEROL SULF 2.5 MG/3 ML PRE-MIX VIAL INH SCH ×2 (18:42→22:06)
--- NOTE | 2020-08-19 21:11 | History & Physical-Hospitalist ---
History of Present Illness HPI/Chief Complaint CC: SOB HPI: This is a 65yoWM who has a PMH of COPD who had been admitted, placed on swing bed last week but found to have worsening SOB. Chest x-ray revealed left pneumothorax and white count was 21,000. Pt was transferred to the ICU with Dr. Mejia for a chest tube placement and will be monitored in the meantime. He is worried about his dog. Her name is Justin and his family is in and will need prior notice to come to [place] when he goes home. Source: patient, RN/MD Exam Limitations: no limitations Date Seen 08/19/20 Time Seen by a Provider: 13:00 Attending Physician Chayito Gil Bethany N MD Referring Physician Date of Admission Aug 19, 2020 at 12:43 Home Medications & Allergies Home Medications Reviewed patient Home Medication Reconciliation performed by pharmacy medication reconciliations installation technician and/or nursing. Patients Allergies have been reviewed. Allergies Allergies Coded Allergies sulfamethoxazole (Verified Allergy, Unknown, Hives, 08/10/20) trimethoprim (Verified Allergy, Unknown, Hives, 08/10/20) Past Thxhjwg-Alpxgj-Jhnaql Hx Past Med/Social Hx: Reviewed Nursing Past Med/Soc Hx, Reviewed and Corrections made Patient Social History Marrital Status: single Employed/Student: retired Alcohol Use: Denies Use Smoking Status: Never a Smoker Type Used: Cigarettes 2nd Hand Smoke Exposure: Yes Recent Hopitalizations: No Immunizations Up To Date Date of Pneumonia Vaccine: Oct 10, 2018 Past Medical History Respiratory: COPD Cardiac: Hypertension History of Blood Disorders: No Review of Systems Constitutional: see HPI, malaise, weakness Respiratory: dyspnea on exertion, short of breath Physical Exam Physical Exam Vital Signs Vital Signs - First Documented 08/19/20 08/19/20 08/19/20 12:06 12:15 15:00 Temp 36.9 Pulse 83 Resp 12 B/P (MAP) 143/86 (105) Pulse Ox 96 O2 Delivery Nasal Cannula O2 Flow Rate 4.00 Capillary Refill : Height, Weight, BMI Height: '" Weight: lbs. oz. kg; 30.04 BMI Method: General Appearance: No Apparent Distress, Anxious, Chronically ill Eyes: Right Eye Normal Inspection, Right Eye PERRL HEENT: PERRL/EOMI, Normal ENT Inspection, Pharynx Normal, Moist Mucous Membranes Neck: Full Range of Motion, Normal Inspection, Non Tender Respiratory: Chest Non Tender, Lungs Clear, Normal Breath Sounds, No Accessory Muscle Use, No Respiratory Distress Cardiovascular: Regular Rate, Rhythm, No Edema, No Gallop, No JVD, No Murmur, Normal Peripheral Pulses Gastrointestinal: Normal Bowel Sounds, No Organomegaly, No Pulsatile Mass, Non Tender, Soft Back: Normal Inspection, No CVA Tenderness, No Vertebral Tenderness Extremity: Normal Capillary Refill, Normal Inspection, Normal Range of Motion, Non Tender, No Calf Tenderness, No Pedal Edema Neurologic/Psychiatric: Alert, Oriented x3, No Motor/Sensory Deficits, Normal Mood/Affect Skin: Normal Color, Warm/Dry Lymphatic: No Adenopathy Results Results/Procedures Labs Patient resulted labs reviewed. Assessment/Plan Admission Diagnosis Assessment: Acute pneumothorax AE COPD Plan: Continue current medications in ICU Admission Status: Inpatient Order (span 2 midnights) Reason for Inpatient Admission: PTX Diagnosis/Problems Diagnosis/Problems (1) Pneumothorax (2) COPD (chronic obstructive pulmonary disease) Status: Chronic (3) Hypertension Status: Chronic (4) Hyperlipidemia Status: Chronic (5) Diabetes mellitus Status: Chronic Clinical Quality Measures DVT/VTE Risk/Contraindication: Risk Factor Score Per Nursin RFS Level Per Nursing on Admit: 4+=Very High Contraindications-Pharm: Other *list below* Other: bronch tomorrow CHAYITO GIL DO Aug 19, 2020 21:11
[2020-08-19] MEDS ORDERED: PIPERACILLIN/TAZO 4.5 GM VIAL (ZOSYN) IV ONE (21:24)
[2020-08-19] MEDS ORDERED: NS (IVPB) 100 ML ONE (21:25)
[2020-08-19] MEDS: PIPERACILLIN/TAZOBACTAM (BULK) 4.5 GM in NS (IVPB) 100 ML IV SCH (21:38)
[2020-08-19] MEDS: SENNA W/DOCUSATE (SENOKOT S) TABLET PO SCH (21:40)
[2020-08-20] VITALS (24 sets, daily range): BP systolic 121–160; BP diastolic 65–97
[2020-08-20] MEDS: RT-ALBUTEROL SULF 2.5 MG/3 ML PRE-MIX VIAL INH SCH (02:32)
[2020-08-20 03:47] LABS: BASOPHILS % (AUTO) 0 % (0-10); EOSINOPHILS # (AUTO) 0.1 10^3/uL (0.0-0.3); EOSINOPHILS % (AUTO) 0 % (0-10); HEMATOCRIT 50 % (40-54); HEMOGLOBIN 17.6 G/DL (13.3-17.7); LYMPHOCYTES # (AUTO) 1.6 X 10^3 (1.0-4.0); LYMPHOCYTES % (AUTO) 9 % (12-44); MEAN CORPUSCULAR HEMOGLOBIN 30 PG (25-34); MEAN CORPUSCULAR HGB CONC 36 G/DL (32-36); MEAN CORPUSCULAR VOLUME 85 FL (80-99); MEAN PLATELET VOLUME 9.7 FL (7.4-10.4); MONOCYTES # (AUTO) 2.5 X 10^3 (0.0-1.0); MONOCYTES % (AUTO) 13 % (0-12); NEUTROPHILS % (AUTO) 78 % (42-75); PLATELET COUNT 283 10^3/uL (130-400); WHITE BLOOD COUNT 19.2 10^3/uL (4.3-11.0)
[2020-08-20 04:05] LABS: ALBUMIN 3.5 GM/DL (3.2-4.5); CHLORIDE 97 MMOL/L (98-107); POTASSIUM 4.4 MMOL/L (3.6-5.0); SODIUM 132 MMOL/L (135-145)
[2020-08-20 04:07] LABS: CALCIUM 9.1 MG/DL (8.5-10.1)
[2020-08-20 04:08] LABS: GLUCOSE 130 MG/DL (70-105); TOTAL PROTEIN 6.3 GM/DL (6.4-8.2)
[2020-08-20 04:09] LABS: CARBON DIOXIDE 25 MMOL/L (21-32)
[2020-08-20] MEDS ORDERED: PIPERACILLIN/TAZO 4.5 GM VIAL (ZOSYN) IV ONE (04:09)
[2020-08-20 04:10] LABS: BILIRUBIN,TOTAL 0.9 MG/DL (0.1-1.0)
[2020-08-20] MEDS ORDERED: NS (IVPB) 100 ML ONE (04:10)
[2020-08-20 04:11] LABS: ALKALINE PHOSPHATASE 81 U/L (40-136); PHOSPHORUS 3.9 MG/DL (2.3-4.7)
[2020-08-20 04:12] LABS: CREATININE SERUM 1.03 MG/DL (0.60-1.30); GFR ESTIMATED > 60
[2020-08-20 04:13] LABS: BUN/CREATININE RATIO 26
[2020-08-20 04:14] LABS: ALANINE AMINOTRANSFERASE 122 U/L (0-55); MAGNESIUM 1.8 MG/DL (1.6-2.4)
[2020-08-20] MEDS: PIPERACILLIN/TAZOBACTAM (BULK) 4.5 GM in NS (IVPB) 100 ML IV SCH ×3 (04:38→20:11)
[2020-08-20 05:22] LABS: CLARITY,URINE CLEAR; COLOR,URINE YELLOW; GLUCOSE, URINE (UA) 1+ (NEGATIVE); KETONES,URINE NEGATIVE (NEGATIVE); LEUKOCYTE ESTERASE ,URINE NEGATIVE (NEGATIVE); NITRITE,URINE NEGATIVE (NEGATIVE); PROTEIN,URINE NEGATIVE (NEGATIVE)
[2020-08-20 05:34] LABS: BACTERIA,URINE NEGATIVE /HPF; BILIRUBIN,URINE 1+ (NEGATIVE)
--- NOTE | 2020-08-20 05:34 | Pulmonary Progress Note ---
Subjective Date Seen by a Provider: Aug 20, 2020 Time Seen by a Provider: 05:29 Subjective/Events-last exam Pt complains of SOB. Sepsis Event Evaluation Height, Weight, BMI Height: '" Weight: lbs. oz. kg; 30.04 BMI Method: Exam Exam Vital Signs Date Time Temp Pulse Resp B/P (MAP) Pulse Ox O2 Delivery O2 Flow Rate FiO2 08/20/20 04:00 36.0 08/20/20 04:00 70 16 135/78 (97) 93 Nasal Cannula 4.00 08/20/20 04:00 94 Nasal Cannula 4.00 08/20/20 03:00 62 13 126/77 (93) 92 Nasal Cannula 4.00 08/20/20 02:32 94 Nasal Cannula 2.00 08/20/20 02:00 65 14 126/79 (95) 93 Nasal Cannula 4.00 08/20/20 01:00 68 08/20/20 01:00 68 26 130/69 (89) 95 Nasal Cannula 4.00 08/20/20 00:54 36.2 08/20/20 00:00 68 14 129/79 (96) 94 Nasal Cannula 4.00 08/20/20 00:00 94 Nasal Cannula 4.00 08/19/20 23:00 75 12 127/81 (96) 94 Nasal Cannula 4.00 08/19/20 22:00 65 14 135/65 (88) 94 Nasal Cannula 4.00 08/19/20 22:00 94 Nasal Cannula 2.00 08/19/20 21:00 73 13 145/73 (97) 95 Nasal Cannula 4.00 08/19/20 20:04 36.2 08/19/20 20:00 82 22 139/74 (95) 92 Nasal Cannula 4.00 08/19/20 20:00 Nasal Cannula 4.00 08/19/20 19:00 77 08/19/20 19:00 77 15 136/71 (92) 91 Nasal Cannula 4.00 08/19/20 18:42 96 Nasal Cannula 2.00 08/19/20 18:00 73 15 132/63 (86) 92 Nasal Cannula 4.00 08/19/20 17:00 96 24 145/95 (112) 96 Nasal Cannula 4.00 08/19/20 16:00 Nasal Cannula 2.00 08/19/20 16:00 75 11 150/81 (104) 95 Nasal Cannula 4.00 08/19/20 15:30 36.4 08/19/20 15:21 82 96 08/19/20 15:00 65 12 143/86 (105) 96 Nasal Cannula 4.00 08/19/20 14:00 Nasal Cannula 4.00 08/19/20 13:00 Nasal Cannula 4.00 08/19/20 13:00 82 08/19/20 12:15 83 08/19/20 12:09 Nasal Cannula 2.00 08/19/20 12:06 36.9 Nasal Cannula 4.00 I & O 08/20/20 07:00 Intake Total 920 ml Output Total 1500 ml Balance -580 ml Height & Weight Height: '" Weight: lbs. oz. kg; 30.04 BMI Method: General Appearance: No Apparent Distress, Anxious, Chronically ill HEENT: PERRL/EOMI, Normal ENT Inspection, Pharynx Normal, Moist Mucous Membranes Neck: Full Range of Motion, Normal Inspection, Non Tender Respiratory: Chest Non Tender, Lungs Clear, Normal Breath Sounds, No Accessory Muscle Use, No Respiratory Distress Cardiovascular: Regular Rate, Rhythm, No Edema, No Gallop, No JVD, No Murmur, Normal Peripheral Pulses Capillary Refill: Less Than 3 Seconds Extremity: Normal Capillary Refill, Normal Inspection, Normal Range of Motion, Non Tender, No Calf Tenderness, No Pedal Edema Neurologic/Psychiatric: Alert, Oriented x3, No Motor/Sensory Deficits, Normal Mood/Affect Skin: Normal Color, Warm/Dry Lymphatic: No Adenopathy Results Lab Laboratory Tests 08/20/20 03:01 Assessment/Plan Assessment/Plan Acute repeat PTX iatrogenic from CT needle bx -Will place Thoravent -Transfer to ICU Large left Lung Mass with mets to brain -Plan is for bronch with EBUS on Wed -Repeat CT of chest today and add abdomen/pelvis. Leukocytosis -Start Zosyn -Edwards cultures -Check UA Total time taken with pt is 60min of ICU time. NORBERTO RAUSCH DO Aug 20, 2020 05:34
[2020-08-20] MEDS ORDERED: NS 100 ML (IVPB) BAG IV ONE (06:00)
[2020-08-20] MEDS ORDERED: HOLD METFORMIN - RECEIVED CONTRAST 20 ML VIAL IV SCH (06:00)
[2020-08-20] MEDS ORDERED: IOHEXOL 350 MG/ML 100 ML (OMNIPAQUE 350) VIAL IV ONE (06:00)
[2020-08-20] MEDS: RT-ALBUTEROL/IPRATROPIUM 3 ML (DUONEB) VIAL INH SCH ×5 (07:43→22:33)
--- NOTE | 2020-08-20 08:02 | Diagnostic Imaging Report ---
EXAMINATION: CT Chest, Abdomen and Pelvis with intravenous contrast. TECHNIQUE: Multiple contiguous axial images were obtained through the chest, abdomen and pelvis after the uneventful administration of intravenous contrast. All CT scans use one or more of the following dose optimizing techniques: automated exposure control, MA and/or KvP adjustment based on a patient size and exam type, or iterative reconstruction. HISTORY: Lung mass, pneumothorax. COMPARISON: 08/10/2020 FINDINGS: Again seen is a large left upper lobe mass measuring up to 7.5 cm, unchanged from previous exam. There is now a large left pneumothorax. There is a left chest wall catheter which does not enter the pleural space or a blood vessel There is a 6 mm right upper lobe nodule which is new from prior exam. Lungs are severely emphysematous. No pleural effusion. There is no axillary or supraclavicular lymphadenopathy. There is no mediastinal lymphadenopathy. Heart size is normal. There are moderate coronary artery calcifications. No pericardial effusion. Aorta is normal in caliber. The liver is normal without focal lesion. There is no biliary ductal dilation. Gallbladder is normal. Pancreas is normal. Spleen is normal. Adrenal glands are normal. There is a 26 mm left lower pole renal mass. There is an adjacent 25 mm left lower pole renal mass. Simple cysts are also seen in both kidneys. There is no hydronephrosis. Urinary bladder is normal. Visualized bowel is normal in caliber without obstruction or inflammation. No free fluid or air. No abdominal or pelvic lymphadenopathy. Aorta is normal in caliber without aneurysm. There are no suspicious osseus lesions. IMPRESSION: 1. Large left pneumothorax. There is a catheter in the left chest wall but this does not enter the pleural space. 2. Stable large left upper lobe lung mass. 3. New right upper lobe pulmonary nodule, presumed to be inflammatory given its rapid appearance, but attention on follow-up is recommended to ensure it is not metastatic. 4. There are two left renal masses concerning for metastases. Dictated by: Dictated on workstation # [id number]
--- NOTE | 2020-08-20 08:14 | Physical Therapy Progress Note ---
Therapy Progress Note With transfer to ICU, PT will require new orders to resume. RN will be notified. HAWK GREEN PT Aug 20, 2020 08:13
--- NOTE | 2020-08-20 08:31 | Diagnostic Imaging Report ---
INDICATION: Lung cancer. Frontal chest obtained at 0309 a.m. and compared to yesterday. Left perihilar mass is unchanged. Small caliber left-sided chest tube is noted. There is a left lateral basilar pneumothorax which was not present yesterday. There is no new infiltrate or pleural fluid. IMPRESSION: Unchanged left perihilar mass and left-sided chest tube. There is a new relatively small lateral basilar pneumothorax on the left side. Dictated by: Dictated on workstation # [id number]
--- NOTE | 2020-08-20 09:43 | Progress Note - Hospitalist ---
Subjective HPI/CC On Admission Date Seen by Provider: Aug 20, 2020 Time Seen by Provider: 09:00 CC: SOB HPI: This is a 65yoWM who has a PMH of COPD who had been admitted, placed on swing bed last week but found to have worsening SOB. Chest x-ray revealed left pneumothorax and white count was 21,000. Pt was transferred to the ICU with Dr. Mejia for a chest tube placement and will be monitored in the meantime. He is worried about his dog. Her name is Justin and his family is in and will need prior notice to come to [place] when he goes home. Subjective/Events-last exam Pt in a bad mood today Cant understand why he cant go home Had to have the left-sided chest tube replaced because it came out Heplocking IV fluid Bronchoscopy in the morning Bowels moved yesterday Review of Systems General: Fatigue, Malaise Neurological: Weakness Objective Exam Vital Signs Vital Signs Date Time Temp Pulse Resp B/P (MAP) Pulse Ox O2 Delivery O2 Flow Rate FiO2 08/20/20 20:00 36.8 08/20/20 18:45 96 Nasal Cannula 4.00 08/20/20 18:00 79 14 144/82 (102) Capillary Refill : Less Than 3 Seconds General Appearance: No Apparent Distress, WD/WN, Chronically ill, Thin HEENT: PERRL/EOMI, Normal ENT Inspection, Pharynx Normal, Moist Mucous Membranes Neck: Full Range of Motion, Normal Inspection, Non Tender, Supple, Carotid Bruit Respiratory: Chest Non Tender, No Accessory Muscle Use, No Respiratory Distress, Decreased Breath Sounds Cardiovascular: Regular Rate, Rhythm, No Edema, No Gallop, No JVD, No Murmur, Normal Peripheral Pulses Gastrointestinal: Normal Bowel Sounds, No Organomegaly, No Pulsatile Mass, Non Tender, Soft Back: Normal Inspection, No CVA Tenderness, No Vertebral Tenderness Extremity: Normal Capillary Refill, Normal Inspection, Normal Range of Motion, Non Tender, No Calf Tenderness, No Pedal Edema Neurologic/Psychiatric: Alert, Oriented x3, No Motor/Sensory Deficits, Normal Mood/Affect Skin: Normal Color, Warm/Dry Lymphatic: No Adenopathy Results/Procedures Lab Laboratory Tests 08/20/20 03:01 Patient resulted labs reviewed. Assessment/Plan Assessment and Plan Assess & Plan/Chief Complaint Assessment: Acute pneumothorax AE COPD Plan: Continue current medications in ICU 08/20/20: Heplock IV fluid Bronchoscopy in the morning Appreciate Dr. Mejia Maintain chest tube in left chest wall Diagnosis/Problems Diagnosis/Problems (1) Pneumothorax (2) COPD (chronic obstructive pulmonary disease) Status: Chronic (3) Hypertension Status: Chronic (4) Hyperlipidemia Status: Chronic (5) Diabetes mellitus Status: Chronic Clinical Quality Measures DVT/VTE Risk/Contraindication: Risk Factor Score Per Nursin RFS Level Per Nursing on Admit: 4+=Very High Contraindications-Pharm: Other *list below* Other: bronch tomorrow DAVID NICOLE DO Aug 20, 2020 09:43
[2020-08-20] MEDS: SENNA W/DOCUSATE (SENOKOT S) TABLET PO SCH ×2 (10:43→21:37)
[2020-08-20] MEDS ORDERED: MIDAZOLAM 2 MG/2 ML (VERSED) VIAL ONE (11:22)
[2020-08-20] MEDS ORDERED: fentaNYL INJECTION 100 MCG/2 ML AMP ONE (11:22)
[2020-08-20] MEDS ORDERED: LIDOCAINE 1% INJ 20 ML 20 ML VIAL ONE (11:28)
[2020-08-20] MEDS ORDERED: morphine INJ 4 MG/ML 1 ML (VIAL/SYRINGE) IVP PRN (12:00)
--- NOTE | 2020-08-20 12:12 | Pulmonary Procedures ---
Pulmonary Procedures Date of Procedure Date of Service: Aug 20, 2020 Chest Tube : Chest Tube Position: Left Chest Tube Location: Anterior Chest Chest Tube Procedure: betadine prep, sterile drapes applied, sterile dressing applied Anesthesia: 1% Lidocaine [place]val[place] [employer]: Yes Number of Attempts: 8 Time of Successful Intubation: 11:30 Tube Drainage: see nurses notes Tube Sutured to Skin: Yes Post Procedure CXR?: Yes NORBERTO RAUSCH DO Aug 20, 2020 12:12
--- NOTE | 2020-08-20 13:01 | Diagnostic Imaging Report ---
INDICATION: Repositioning of the left thoracostomy tube. TIME: 11:55 AM. COMPARISON: Correlation is made with the prior chest from earlier this same day. FINDINGS: The chest tube has been repositioned on the left. There has been reexpansion of the left lung. No residual pneumothorax is detected. The large left upper lobe mass is again noted. The right lung is stable. There is no effusion. IMPRESSION: Repositioning of the left-sided Thora-Vent chest tube with reexpansion of the left lung. Dictated by: Dictated on workstation # [id number]
--- NOTE | 2020-08-20 13:22 | Pulmonary Progress Note ---
Standard Progress Note Progress Notes Date Seen by Provider: Aug 20, 2020 Time Seen by Provider: 11:00 Called to bedside secondary to Chest tube becoming dislodged. I discussed with patient and need to reinsert chest tube. Pt is in agreement. Assessment & Plan Acute repeat PTX iatrogenic from CT needle bx -Will place Thoravent -Transfer to ICU Large left Lung Mass with mets to brain -Plan is for bronch with EBUS on Wed -Repeat CT of chest today and add abdomen/pelvis. Leukocytosis -Start Zosyn -Edwards cultures -Check UA Critical Care: Critically Ill Patient NORBERTO RAUSCH DO Aug 20, 2020 13:22
--- NOTE | 2020-08-20 14:58 | NUR ---
11[address] NEW [address]ORAVENT PLACED BY DR RAUSCH, IV SEDATION MEDICATIONS GIVEN PER DR RAUSCH ORDERS. 50 MG FENTANYL AND 2 MG VERSED GIVEN. PT TOLERATED PROCEDURE WELL. PT PLACED BACK ON SUCTION PER DR RAUSCH ORDERS. PT VOICES NO C/O OF PAIN, CALL LIGHT AND OTHER PERSONAL ITEMS WITHIN REACH WILL CONTINUE TO MONITOR.
[2020-08-20] MEDS: HYDROcodone/APAP 5 MG/325 MG (LORTAB) TAB PO PRN (20:15)
[2020-08-21] VITALS (19 sets, daily range): BP systolic 66–156; BP diastolic 68–87
[2020-08-21] MEDS: RT-ALBUTEROL/IPRATROPIUM 3 ML (DUONEB) VIAL INH SCH ×6 (02:33→22:51)
[2020-08-21 03:38] LABS: BASOPHILS % (AUTO) 0 % (0-10); EOSINOPHILS # (AUTO) 0.3 10^3/uL (0.0-0.3); EOSINOPHILS % (AUTO) 2 % (0-10); HEMATOCRIT 50 % (40-54); HEMOGLOBIN 16.9 g/dL (13.3-17.7); LYMPHOCYTES # (AUTO) 1.3 10^3/uL (1.0-4.0); LYMPHOCYTES % (AUTO) 10 % (12-44); MEAN CORPUSCULAR HEMOGLOBIN 29 pg (25-34); MEAN CORPUSCULAR HGB CONC 34 g/dL (32-36); MEAN CORPUSCULAR VOLUME 87 fL (80-99); MEAN PLATELET VOLUME 9.5 fL (9.0-12.2); MONOCYTES # (AUTO) 1.7 10^3/uL (0.0-1.0); MONOCYTES % (AUTO) 13 % (0-12); NEUTROPHILS # (AUTO) 9.6 10^3/uL (1.8-7.8); NEUTROPHILS % (AUTO) 73 % (42-75); PLATELET COUNT 236 10^3/uL (130-400); WHITE BLOOD COUNT 13.1 10^3/uL (4.3-11.0)
[2020-08-21 03:48] LABS: BUN/CREATININE RATIO 24; CALCIUM 8.6 MG/DL (8.5-10.1); CARBON DIOXIDE 25 MMOL/L (21-32); CHLORIDE 99 MMOL/L (98-107); CREATININE SERUM 1.03 MG/DL (0.60-1.30); GFR ESTIMATED > 60; GLUCOSE 129 MG/DL (70-105); MAGNESIUM 1.9 MG/DL (1.6-2.4); PHOSPHORUS 3.5 MG/DL (2.3-4.7); POTASSIUM 4.3 MMOL/L (3.6-5.0); SODIUM 134 MMOL/L (135-145)
[2020-08-21] MEDS: PIPERACILLIN/TAZOBACTAM (BULK) 4.5 GM in NS (IVPB) 100 ML IV SCH ×3 (04:16→20:02)
--- NOTE | 2020-08-21 05:14 | Pulmonary Progress Note ---
Subjective Time Seen by a Provider: 05:11 Sepsis Event Evaluation Height, Weight, BMI Height: '" Weight: lbs. oz. kg; 30.04 BMI Method: Exam Exam Vital Signs Date Time Temp Pulse Resp B/P (MAP) Pulse Ox O2 Delivery O2 Flow Rate FiO2 08/21/20 04:16 36.4 08/21/20 04:00 94 Nasal Cannula 4.00 08/21/20 03:08 67 135/84 (101) 93 Nasal Cannula 6.00 08/21/20 02:33 93 Nasal Cannula 08/21/20 02:00 70 16 127/83 (98) 92 Nasal Cannula 6.00 08/21/20 01:00 72 14 121/76 (91) 92 Nasal Cannula 6.00 08/21/20 01:00 72 08/21/20 00:00 70 15 128/77 (94) 94 Nasal Cannula 6.00 08/21/20 00:00 94 Nasal Cannula 4.00 08/21/20 00:00 36.7 08/20/20 23:00 77 15 127/81 (96) 96 Nasal Cannula 6.00 08/20/20 22:34 96 Nasal Cannula 4.00 08/20/20 22:00 75 13 138/76 (96) 97 Nasal Cannula 6.00 08/20/20 21:00 78 16 134/77 (96) 95 Nasal Cannula 6.00 08/20/20 20:00 79 13 131/74 (93) Nasal Cannula 6.00 08/20/20 20:00 94 Nasal Cannula 4.00 08/20/20 20:00 36.8 08/20/20 19:05 82 19 122/83 (96) 95 Nasal Cannula 6.00 08/20/20 19:00 87 08/20/20 18:45 96 Nasal Cannula 4.00 08/20/20 18:00 79 14 144/82 (102) 96 Nasal Cannula 6.00 08/20/20 17:00 98 18 140/95 (110) 97 Nasal Cannula 6.00 08/20/20 16:00 95 Nasal Cannula 3.00 08/20/20 16:00 36.4 08/20/20 16:00 73 13 135/76 (95) 92 Nasal Cannula 6.00 08/20/20 15:00 82 16 132/69 (90) 93 Nasal Cannula 6.00 08/20/20 14:46 96 Nasal Cannula 6.00 08/20/20 14:00 74 13 133/72 (92) 97 Nasal Cannula 6.00 08/20/20 13:00 80 9 143/78 (99) 97 Nasal Cannula 6.00 08/20/20 12:31 84 08/20/20 12:15 95 Nasal Cannula 3.00 08/20/20 12:00 86 14 136/80 (98) 96 Nasal Cannula 6.00 08/20/20 11:00 90 19 146/75 (98) 95 Nasal Cannula 6.00 08/20/20 10:02 94 Nasal Cannula 6.00 08/20/20 10:00 86 27 140/77 (98) 92 Nasal Cannula 6.00 08/20/20 09:34 Nasal Cannula 6.00 08/20/20 09:00 82 13 142/86 (104) 92 Nasal Cannula 5.00 08/20/20 08:00 76 16 160/66 (97) 91 Nasal Cannula 5.00 08/20/20 07:45 95 Nasal Cannula 3.00 08/20/20 07:43 91 Nasal Cannula 5.00 08/20/20 07:40 Nasal Cannula 5.00 08/20/20 07:40 37.1 08/20/20 07:00 84 20 136/95 (109) 90 Nasal Cannula 4.00 08/20/20 06:39 66 08/20/20 06:30 73 17 157/97 (117) 94 Nasal Cannula 4.00 I & O 08/21/20 07:00 Intake Total 820 ml Output Total 2075 ml Balance -1255 ml Height & Weight Height: '" Weight: lbs. oz. kg; 30.04 BMI Method: General Appearance: No Apparent Distress, WD/WN, Chronically ill, Thin HEENT: PERRL/EOMI, Normal ENT Inspection, Pharynx Normal, Moist Mucous Membranes Neck: Full Range of Motion, Normal Inspection, Non Tender, Supple, Carotid Bruit Respiratory: Chest Non Tender, No Accessory Muscle Use, No Respiratory Distress , Decreased Breath Sounds Cardiovascular: Regular Rate, Rhythm, No Edema, No Gallop, No JVD, No Murmur, Normal Peripheral Pulses Capillary Refill: Less Than 3 Seconds Extremity: Normal Capillary Refill, Normal Inspection, Normal Range of Motion, Non Tender, No Calf Tenderness, No Pedal Edema Neurologic/Psychiatric: Alert, Oriented x3, No Motor/Sensory Deficits, Normal Mood/Affect Skin: Normal Color, Warm/Dry Lymphatic: No Adenopathy Results Lab Laboratory Tests 08/20/20 03:01 08/21/20 03:10 Assessment/Plan Assessment/Plan Acute repeat PTX iatrogenic from CT needle bx -continue Thoravent Large left Lung Mass with mets to brain -Plan is for bronch with EBUS on Wed Leukocytosis - Zosyn -Edwards cultures -Check UA NORBERTO RAUSCH DO Aug 21, 2020 05:14
[2020-08-21] MEDS ORDERED: MIDAZOLAM 2 MG/2 ML (VERSED) VIAL ONE (07:10)
[2020-08-21] MEDS ORDERED: GLYCOPYRROLATE 0.2 MG/ML (ROBINUL) 2 ML VIAL ONE (07:10)
[2020-08-21] MEDS ORDERED: fentaNYL INJECTION 100 MCG/2 ML AMP ONE (07:10)
[2020-08-21] MEDS ORDERED: proPOfol 200 MG/20 ML (DIPRIVAN) VIAL IV ONE (07:10)
[2020-08-21] MEDS ORDERED: NEOSTIGMINE 3 MG/3 ML VIAL ONE (07:11)
[2020-08-21] MEDS ORDERED: ONDANSETRON 4 MG/2 ML (SDV) Z0FRAN ONE (07:11)
[2020-08-21] MEDS ORDERED: LIDOCAINE PF 2% 5 ML (XYLOCAINE) VIAL ONE (07:11)
[2020-08-21] MEDS ORDERED: ROCURONIUM 10 MG/ML 5 ML SYRINGE IV ONE (07:11)
[2020-08-21] MEDS ORDERED: LACTATED RINGERS 1,000 ML IV ONE (07:14)
[2020-08-21] MEDS ORDERED: LACTATED RINGERS 1,000 ML IV PRN (07:33)
[2020-08-21] MEDS ORDERED: PROPOFOL INJECTION 50 ML IV ONE ×2 (07:33→07:45)
[2020-08-21] MEDS ORDERED: SUCCINYLCHOLINE INJ 100 MG/5 ML SYR/VIAL ONE (07:40)
--- NOTE | 2020-08-21 07:47 | Diagnostic Imaging Report ---
INDICATION: Lung cancer Upright chest shows normal heart size and vascularity. The left upper lung mass is again seen. The remainder of the lungs are clear. Chest tube remains in place on the left. There is no pneumothorax. These findings are similar to the 08/20/2020 study. IMPRESSION: Stable chest. Dictated by: Dictated on workstation # [id number]
--- NOTE | 2020-08-21 08:31 | Pulmonary Procedures ---
Pulmonary Procedures Date of Procedure Date of Service: Aug 21, 2020 Bronch Bronchoscopy with fleuroscopy, bilateral wash, DODIE BAL, transbronchial brush, transbronchial forcep bx. EBUS was used to US mediastinum however no lymph nodes were large enough for bx. Preop DX: [mediastinal lymphadenopathy] PostOP DX: same Complications: None Pt was sedated per anesthesia. Bronchoscopy was advanced through the ET tube and an anatomical undertaken down to the segmental bronchi bilaterally. No endobronchial lesions noted. Bronchoscopy with use of fleuroscopy, bilateral was h, DODIE BAL, transbronchial brush, transbronchial forcep bx were done. EBUS was used to US mediastinum however no lymph nodes were large enough for bx. Pt tolerated procedure well. No complications noted. NORBERTO RAUSCH DO Aug 21, 2020 08:31
--- NOTE | 2020-08-21 09:05 | Diagnostic Imaging Report ---
CHEST 1 VIEW, AP/PA ONLY Indication: Pneumothorax status post lung biopsy Comparison: 08/21/2020 at 3:01 AM Findings: Left-sided chest tube is in stable position. A trace pneumothorax is now seen in the left apex with approximately 5 mm of apical pleural separation. No pleural effusion. Left upper lobe mass is stable. Stable cardiac mediastinal silhouette. Impression: 1. Trace left apical pneumothorax is now appreciated on this examination, which was not prior exam from 0300 of same day. Dictated by: Dictated on workstation # [id number]
[2020-08-21] MEDS: SENNA W/DOCUSATE (SENOKOT S) TABLET PO SCH ×2 (09:30→20:02)
--- NOTE | 2020-08-21 09:46 | NUR ---
PT BACK TO ROOM ICU 7 POST BRONCHOSCOPY, ASSESSMENT COMPLETE, PT DROWSY AWAKENS TO VERBAL STIMULI, PT ON 4 LITERS 02, PT VOICES NO C/O OF PAIN, NO NEEDS NOTED AT THIS TIME, CALL LIGHT AND OTHER PERSONAL ITEMS WITHIN REACH WILL CONTINUE TO MONITOR. Addendum: 08/21/20 at 0953 by DONOVAN LANDERS RN ORDERS RECEIVED TO PLACE PT BACK TO WALL SUCTION ON CHEST TUBE AND CONTINUE ALL PREVIOUS ORDERS.
--- NOTE | 2020-08-21 10:23 | Diagnostic Imaging Report ---
INDICATION: Fluoroscopy during bronchoscopy. TIME OF EXAM: 08:32 a.m. FINDINGS: Fluoroscopy was provided for Dr. Mejia during bronchoscopy. 55 seconds of fluoroscopic time was utilized. A single image was obtained. Image demonstrates forceps overlying the left lung mass. IMPRESSION: Fluoroscopy during bronchoscopy. Dictated by: Dictated on workstation # [id number]
[2020-08-21] MEDS ORDERED: LIDOCAINE JELLY 2% 6 ML SYRINGE MM ONE (10:54)
[2020-08-21] MEDS ORDERED: LIDOCAINE PF 1% 2 ML AMP IJ ONE (10:54)
[2020-08-21] MEDS ORDERED: LIDOCAINE PF 2% 5 ML (XYLOCAINE) VIAL INJ ONE (10:54)
--- NOTE | 2020-08-21 11:36 | Progress Note - Hospitalist ---
Subjective HPI/CC On Admission Date Seen by Provider: Aug 21, 2020 Time Seen by Provider: 10:00 CC: SOB HPI: This is a 65yoWM who has a PMH of COPD who had been admitted, placed on swing bed last week but found to have worsening SOB. Chest x-ray revealed left pneumothorax and white count was 21,000. Pt was transferred to the ICU with Dr. Mejia for a chest tube placement and will be monitored in the meantime. He is worried about his dog. Her name is Justin and his family is in [place] and will need prior notice to come to [place] when he goes home. Subjective/Events-last exam Pt doing pretty well Bronchoscopy was successful today Remains on 4 liters of O2 Chest tube in place on the left side Moving to 4th floor Review of Systems General: Fatigue, Malaise Neurological: Weakness Objective Exam Vital Signs Vital Signs Date Time Temp Pulse Resp B/P (MAP) Pulse Ox O2 Delivery O2 Flow Rate FiO2 08/22/20 04:30 36.6 71 20 162/86 (111) 96 Nasal Cannula 3.00 Capillary Refill : Less Than 3 Seconds General Appearance: No Apparent Distress, WD/WN, Chronically ill HEENT: PERRL/EOMI, Normal ENT Inspection, Pharynx Normal, Moist Mucous Membranes Neck: Full Range of Motion, Normal Inspection, Non Tender, Supple, Carotid Bruit Respiratory: Chest Non Tender, Lungs Clear, No Accessory Muscle Use, No Respiratory Distress, Decreased Breath Sounds Cardiovascular: Regular Rate, Rhythm, No Edema, No Gallop, No JVD, No Murmur, Normal Peripheral Pulses Gastrointestinal: Normal Bowel Sounds, No Organomegaly, No Pulsatile Mass, Non Tender, Soft Back: Normal Inspection, No CVA Tenderness, No Vertebral Tenderness Extremity: Normal Capillary Refill, Normal Inspection, Normal Range of Motion, Non Tender, No Calf Tenderness, No Pedal Edema Neurologic/Psychiatric: Alert, Oriented x3, No Motor/Sensory Deficits, Normal Mood/Affect Skin: Normal Color, Warm/Dry Lymphatic: No Adenopathy Results/Procedures Lab Laboratory Tests 08/22/20 03:15 Patient resulted labs reviewed. Assessment/Plan Assessment and Plan Assess & Plan/Chief Complaint Assessment: Acute pneumothorax AE COPD Plan: Continue current medications in ICU 08/20/20: Heplock IV fluid Bronchoscopy in the morning Appreciate Dr. Mejia Maintain chest tube in left chest wall 08/21/20: Transfer to 4th floor Maintain oxygen level Maintain chest tube on the left Critical Care Critically Ill Patient Diagnosis/Problems Diagnosis/Problems (1) Pneumothorax (2) COPD (chronic obstructive pulmonary disease) Status: Chronic (3) Hypertension Status: Chronic (4) Hyperlipidemia Status: Chronic (5) Diabetes mellitus Status: Chronic Clinical Quality Measures DVT/VTE Risk/Contraindication: Risk Factor Score Per Nursin RFS Level Per Nursing on Admit: 4+=Very High Contraindications-Pharm: Other *list below* Other: bronch tomorrow DAVID NICOLE DO Aug 21, 2020 11:36
--- NOTE | 2020-08-21 14:02 | Occupational Therapy Eval ---
OT Evaluation-General/PLF Medical Diagnosis Admission Date Aug 19, 2020 at 12:43 Medical Diagnosis: pneumothorax Onset Date: Aug 19, 2020 Therapy Diagnosis Therapy Diagnosis: decreased ADL status, impaired functional mobility Precautions Precautions/Isolations: Fall Prevention, Standard Precautions Referral Physician: Jeffery Bucio Reason: Evaluation/Treatment Medical History Pertinent Medical History: COPD, DM, HTN Current History Pt admitted to hospital on 08/10 after petting his dog and experiencing LUE weakness. Pt diagnosed with lung cancer metastatic to brain. Pt then admitted to [facility] on 08/16, transferring back to ICU on 08/19 due to SOB. Pt had chest tube placed Social History Home: Apartment Current Living Status: Alone Entry Into Home: Stairs Without Railing Steps Into Home: 1 ADL-Prior Level of Function SCALE: Activities may be completed with or without assistive devices. 2-Uxlteaskyu-xxxupzf completes the activity by him/herself with no assistance from a helper. 5-Set-up or Clean-up Assistance-helper sets up or cleans up; patient completes activity. [place] assists only prior to or following the activity. 4-Supervision or Touching Assistance-helper provides verbal cues and/or touching/steadying and/or contact guard assistance as patient completes activity. Assistance may be provided throughout the activity or intermittently. 3-Partial/Moderate Assistance-helper does LESS THAN HALF the effort. [place] lifts, holds or supports trunk or limbs, but provides less than half the effort. 2-Substantial/Maximal Assistance-helper does MORE THAN HALF the effort. [place] lifts or holds trunk or limbs and provides more than half the effort. 8-Ydzctbdyt-fneadv does ALL the effort. Patient does none of the effort to complete the activity. Or, the assistance of 2 or more helpers is required for the patient to complete the activity. If activity was not attempted, code reason: 7-Patient Refused. 9-Not Applicable-not attempted and the patient did not perform the activity before the current illness, exacerbation or injury. 10-Not Attempted due to Environmental Limitations-(lack of equipment, weather restraints, etc.). 88-Not Attempted due to Medical Conditions or Safety Concerns. ADL PLOF Comments Pt lives in an apartment with his dog, he reports everything he needs is close together in his apartment. Pt was independent with ADLs and functional mobility without AD/AE at PLOF Self Care: Independent Functional Cognition: Independent DME/Equipment: Shower OT Current Status Subjective Pt laying in bed, agreeable to OT evaluation and tx. Pt indicates he is tired but has difficulty sleeping from the noise and the lines attached to him. Pt also expresses concerns about discharge, stating he had a procedure this morning but no one has updated him on what his discharge plan is or the results of procedure. OT notified nurse. Mental Status/Objective Patient Orientation: Person, Place, Time, Situation Attachments: Chest Tube, IV, Oxygen Current Glasses/Contacts: Yes Hearing Aids: No Dentures/Partials: No Hand Dominance: Right Upper Extremity ROM WFL Upper Extremity Coordination WFL, slightly slower movements in LUE Upper Extremity Sensation WFL, pt denies tingling/numnbess BUEs ADL-Treatment Oral Hygiene (QC): 7 Other Treatments Pt laying in bed, OT introduced self to pt. Pt provided information about PLOF and home set up. Pt declined brushing his teeth, stating he does not have any. Pt agreeable to washing his face, pt completed task with set up. Pt expressed frustration with not knowing the results of this mornings procedure, and he has not had anyone talk with him about discharge planing. Pt indicates he would like to go home, his apartment is set up to where everything is close together. OT informed pt of recommendation of shower chair for safety with bathing, pt agreeable. Pt declined further ADLs/UE exercises, stating he would just like to get some rest. OT educated pt on OT POC while he is admitted to the hospital, including txs to focus on increasing independence and safety with ADLs/functi onal mobility, and UE strengthening, pt agreeable. Post OT tx, pt laying in bed, call light in reach and all needs met. Education OT Patient Education: Correct positioning, Modified ADL techniques, Progress toward Goal/Update tx plan, Purpose of tx/functional activities, Rehab process Teaching Recipient: Patient Teaching Methods: Discussion Response to Teaching: Verbalize Understanding OT Supervisor [employer] Goals Longterm Goals Time Frame: Sep 13, 2020 Eating (QC): 6 Oral Hygiene (QC): 6 Toileting Hygiene (QC): 6 Shower/Bathe Self (QC): 6 Upper Body Dressing (QC): 6 Lower Body Dressing (QC): 6 On/Off Footwear (QC): 6 1=Demonstrate adherence to instructed precautions during ADL tasks. 2=Patient will verbalize/demonstrate understanding of assistive devices/modifications for ADL. 3=Patient will improve strength/tolerance for activity to enable patient to perform ADL's. OT Education/Plan Problem List/Assessment Assessment: Decreased Activ Tolerance, Decreased UE Strength, Impaired Funct Balance, Impaired I ADL's, Impaired Self-Care Skills, Restricted Funct UE ROM Discharge Recommendations Plan/Recommendations: Continue POC Equpiment Recommendations-D/C: Bath Chair Treatment Plan/Plan of Care Patient would benefit from OT for education, treatment and training to promote independence in ADL's, mobility, safety and/or upper extremity function for ADL's. Plan of Care: ADL Retraining, Functional Mobility, UE Funct Exercise/Act, UE Neuromus Re-Ed/Coord Treatment Duration: Sep 13, 2020 Frequency: 5 times per week Estimated Hrs Per Day: .25 hour per day Rehab Potential: Guarded Time/GCodes Start Time: 13:35 Stop Time: 13:45 Total Time Billed (hr/min): 10 Billed Treatment Time 1, PETAR GROVE OT Aug 21, 2020 14:02
--- NOTE | 2020-08-21 14:36 | Physical Therapy Evaluation ---
PT Evaluation-General Medical Diagnosis Admission Date Aug 19, 2020 at 12:43 Medical Diagnosis: pneumothorax Onset Date: Aug 19, 2020 Therapy Diagnosis Therapy Diagnosis: impaired mobility, strength, endurance Precautions Precautions/Isolations: Fall Prevention, Standard Precautions Referral Physician: Jeffery Reason for Referral: Evaluation/Treatment Medical History Pertinent Medical History: COPD, DM, HTN Reviewed History: Yes Social History Home: Apartment Current Living Status: Alone Entry Into Home: Stairs Without Railing PT Steps Into Home: 1 Prior Prior Level of Function SCALE: Activities may be completed with or without assistive devices. 4-Empglxrvzn-bilvefi completes the activity by him/herself with no assistance from a helper. 5-Set-up or Clean-up Assistance-helper sets up or cleans up; patient completes activity. [place] assists only prior to or following the activity. 4-Supervision or Touching Assistance-helper provides verbal cues and/or touching/steadying and/or contact guard assistance as patient completes activity. Assistance may be provided throughout the activity or intermittently. 3-Partial/Moderate Assistance-helper does LESS THAN HALF the effort. [place] lifts, holds or supports trunk or limbs, but provides less than half the effort. 2-Substantial/Maximal Assistance-helper does MORE THAN HALF the effort. [place] lifts or holds trunk or limbs and provides more than half the effort. 0-Zqoryqrbm-gbpjnf does ALL the effort. Patient does none of the effort to complete the activity. Or, the assistance of 2 or more helpers is required for the patient to complete the activity. If activity was not attempted, code reason: 7-Patient Refused. 9-Not Applicable-not attempted and the patient did not perform the activity before the current illness, exacerbation or injury. 10-Not Attempted due to Environmental Limitations-(lack of equipment, weather restraints, etc.). 88-Not Attempted due to Medical Conditions or Safety Concerns. Bed Mobility: 6 Transfers (B,C,W/C): 6 Gait: 6 Stairs: 6 Indoor Mobility (Ambulation): Independent Stairs: Independent PT Evaluation-Current Subjective Patient in bed pre tx, agrees reluctantly to PT, states he is very tired and depressed and doesn't want to do much. Voiced no complaints of pain. Pt/Family Goals to be independent at home Objective Patient Orientation: Person, Place, Situation Attachments: Chest Tube, Oxygen, IV ROM/Strength ROM Lower Extremities WNL Strength Lower Extremities 4+/5 gross LLE, 5/5 gross RLE Sensory Vision: Functional Hearing: Functional Hand Dominance: Right Sensation Right Lower Extremit: Intact Sensation Left Lower Extremity: Intact Transfers Roll Left to Right (QC): 6 Sit to Lying (QC): 6 Lying to Sitting/Side of Bed(Q: 6 Sit to Stand (QC): 4 SBA for sit to stand, patient was able to stand for a couple of minutes before sitting back down and laying down. Balance Sitting Static: Normal Sitting Dynamic: Normal Standing Static: Good Standing Dynamic: Good Assessment/Needs Patient has impaired mobility, strength, endurance. Patient's chest tube limits his mobility. Patient in bed post tx with nurse call, phone, tray, all needs met. 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 [facility] Goals PT [facility] Goals Time Frame: Aug 28, 2020 Roll Left & Right (QC): 6 Sit to Lying (QC): 6 Lying-Sitting on Side/Bed(QC): 6 Sit to Stand (QC): 6 Chair/Tao-xm-Vphqm Xfer(QC): 6 Walk 10 feet (QC): 6 Walk 50ft with 2 Turns (QC): 6 Walk 150 ft (QC): 6 PT Plan Problem List Problem List: Activity Tolerance, Functional Strength, Safety, Balance, Gait, Transfer Treatment/Plan Treatment Plan: Continue Plan of Care Treatment Plan: Education, Functional Activity Fabien, Functional Strength, Gait, Safety, Therapeutic Exercise, Transfers Treatment Duration: Aug 28, 2020 Frequency: 6 times per week Estimated Hrs Per Day: .25 hour per day Patient and/or Family Agrees t: Yes Safety Risks/Education Patient Education: Transfer Techniques, Correct Positioning, Safety Issues Teaching Recipient: Patient Teaching Methods: Demonstration, Discussion Response to Teaching: Reinforcement Needed Discharge Recommendations Plan Patient will perform bed mobility and transfer training, balance and endurance training, functional strengthening, stair training, gait training, and education, to improve functional mobility and independence at home. Therapy Discharge Recommendati: Home & Family Time/GCodes Time In: 1346 Time Out: 1356 Total Billed Treatment Time: 10 Total Billed Treatment 1 visit HUONG KING PT Aug 21, 2020 14:36
--- NOTE | 2020-08-21 14:37 | Anesthesia-General Post-Op ---
General Patient Condition Mental Status/LOC: Same as Preop Cardiovascular: Satisfactory Nausea/Vomiting: Absent Respiratory: Satisfactory Pain: Controlled Complications: Absent Post Op Complications Complications None Follow Up Care/Instructions Patient Instructions None needed. Anesthesia/Patient Condition Patient Condition Patient is doing well, no complaints, stable vital signs, no apparent adverse anesthesia problems. No complications reported per nursing. SULEMA CARTWRIGHT CRNA Aug 21, 2020 14:37
--- NOTE | 2020-08-21 16:05 | NUR ---
Pt appears depressed and states wants discharged home but unsure he can manage.He has absolutely no one available to assist m with grocery shopping, meal preparation, or Activities of Daily living. Referrals have been made to [place] [facility] for In-home care but hasn't yet been approved. When discharged home would recommend Home Health Care with Nursing, Physical and Occupational Therapies with Bathing assistance. He will also need Front wheel walker, Home oxygen study for current continuous oxygen as has orders for Night-time only which is provided by [facility] from [place]. Have initiated request for Personal alarm bracelet and can request installation after discharge. Pt has friends in [facility] but unsure they can visit or assist. Have suggested to pt that he actively participate with therapies.
[2020-08-21] MEDS ORDERED: RT-ALBUTEROL/IPRATROPIUM 3 ML (DUONEB) VIAL ONE (18:28)
[2020-08-22 00:28] VITALS: BP 149/81
[2020-08-22] MEDS: HYDROcodone/APAP 5 MG/325 MG (LORTAB) TAB PO PRN (00:33)
[2020-08-22 03:32] LABS: BASOPHILS % (AUTO) 0 % (0-10); EOSINOPHILS % (AUTO) 0 % (0-10); HEMATOCRIT 47 % (40-54); LYMPHOCYTES # (AUTO) 0.5 10^3/uL (1.0-4.0); LYMPHOCYTES % (AUTO) 3 % (12-44); MEAN CORPUSCULAR HEMOGLOBIN 30 pg (25-34); MEAN CORPUSCULAR HGB CONC 34 g/dL (32-36); MEAN CORPUSCULAR VOLUME 86 fL (80-99); MEAN PLATELET VOLUME 9.4 fL (9.0-12.2); MONOCYTES # (AUTO) 0.9 10^3/uL (0.0-1.0); MONOCYTES % (AUTO) 5 % (0-12); NEUTROPHILS # (AUTO) 15.3 10^3/uL (1.8-7.8); NEUTROPHILS % (AUTO) 90 % (42-75); PLATELET COUNT 231 10^3/uL (130-400); WHITE BLOOD COUNT 16.9 10^3/uL (4.3-11.0)
[2020-08-22 04:01] LABS: CHLORIDE 98 MMOL/L (98-107); POTASSIUM 4.8 MMOL/L (3.6-5.0); SODIUM 132 MMOL/L (135-145)
[2020-08-22 04:02] LABS: CALCIUM 8.5 MG/DL (8.5-10.1)
[2020-08-22 04:03] LABS: GLUCOSE 201 MG/DL (70-105)
[2020-08-22 04:04] LABS: CARBON DIOXIDE 24 MMOL/L (21-32)
[2020-08-22 04:07] LABS: BUN/CREATININE RATIO 21; CREATININE SERUM 0.91 MG/DL (0.60-1.30); GFR ESTIMATED > 60
[2020-08-22 04:30] VITALS: BP 162/86
[2020-08-22] MEDS: PIPERACILLIN/TAZOBACTAM (BULK) 4.5 GM in NS (IVPB) 100 ML IV SCH ×3 (04:31→19:56)
--- NOTE | 2020-08-22 05:26 | Progress Note - Hospitalist ---
Subjective HPI/CC On Admission Date Seen by Provider: Aug 22, 2020 Time Seen by Provider: 10:00 CC: SOB HPI: This is a 65yoWM who has a PMH of COPD who had been admitted, placed on swing bed last week but found to have worsening SOB. Chest x-ray revealed left pneumothorax and white count was 21,000. Pt was transferred to the ICU with Dr. Mejia for a chest tube placement and will be monitored in the meantime. He is worried about his dog. Her name is Justin and his family is in [place] and will need prior notice to come to [place] when he goes home. Subjective/Events-last exam Pt doing pretty well today Crackles on lungs exam Chest tube still in place on the left side On Decadron per oncology recommendations Sodium level 132 WBC 16.9 Review of Systems General: Fatigue, Malaise Pulmonary: Dyspnea Objective Exam Vital Signs Vital Signs Date Time Temp Pulse Resp B/P (MAP) Pulse Ox O2 Delivery O2 Flow Rate FiO2 08/23/20 01:47 98 High Flow N/C 1.00 08/23/20 01:00 70 08/23/20 00:00 36.6 16 140/72 (94) Capillary Refill : Less Than 3 Seconds General Appearance: No Apparent Distress, WD/WN Respiratory: Chest Non Tender, No Accessory Muscle Use, No Respiratory Distress, Decreased Breath Sounds, Wheezing Cardiovascular: Regular Rate, Rhythm, No Edema, No Gallop, No JVD, No Murmur, Normal Peripheral Pulses Neurologic/Psychiatric: Alert, Oriented x3, No Motor/Sensory Deficits, Normal Mood/Affect Results/Procedures Lab Laboratory Tests 08/23/20 02:15 Patient resulted labs reviewed. Assessment/Plan Assessment and Plan Assess & Plan/Chief Complaint Assessment: Acute pneumothorax AE COPD Plan: Continue current medications in ICU 08/20/20: Heplock IV fluid Bronchoscopy in the morning Appreciate Dr. Mejia Maintain chest tube in left chest wall 08/21/20: Transfer to 4th floor Maintain oxygen level Maintain chest tube on the left 08/22/20: Chest tube management Monitor labs and O2 Critical Care Critically Ill Patient Diagnosis/Problems Diagnosis/Problems (1) Pneumothorax (2) COPD (chronic obstructive pulmonary disease) Status: Chronic (3) Hypertension Status: Chronic (4) Hyperlipidemia Status: Chronic (5) Diabetes mellitus Status: Chronic Clinical Quality Measures DVT/VTE Risk/Contraindication: Risk Factor Score Per Nursin RFS Level Per Nursing on Admit: 4+=Very High Contraindications-Pharm: Other *list below* Other: bronch tomorrow DAVID NICOLE DO Aug 22, 2020 05:26
[2020-08-22] MEDS: RT-ALBUTEROL/IPRATROPIUM 3 ML (DUONEB) VIAL INH SCH ×5 (06:27→22:23)
--- NOTE | 2020-08-22 06:37 | NUR ---
This RT received patient on 3 L Hifl NC with an O2 Sat of 98% so she turned O2 down to 2 L. No distress noted at this time.
--- NOTE | 2020-08-22 06:59 | Pulmonary Progress Note ---
Subjective Time Seen by a Provider: 06:56 Subjective/Events-last exam No complications noted. Sepsis Event Evaluation Height, Weight, BMI Height: '" Weight: lbs. oz. kg; 30.04 BMI Method: Exam Exam Vital Signs Date Time Temp Pulse Resp B/P (MAP) Pulse Ox O2 Delivery O2 Flow Rate FiO2 08/22/20 06:27 98 High Flow N/C 3.00 08/22/20 04:30 36.6 71 20 162/86 (111) 96 Nasal Cannula 3.00 08/22/20 04:28 94 Nasal Cannula 4.00 08/22/20 01:00 80 08/22/20 00:28 36.6 75 20 149/81 (103) 96 Nasal Cannula 3.00 08/22/20 00:00 94 Nasal Cannula 4.00 08/21/20 23:25 95 High Flow N/C 4.00 08/21/20 20:00 36.8 91 22 156/81 (106) 96 Nasal Cannula 4.00 08/21/20 20:00 94 Nasal Cannula 4.00 08/21/20 19:16 96 High Flow N/C 4.00 08/21/20 19:00 90 08/21/20 16:02 94 Nasal Cannula 4.00 08/21/20 16:00 85 19 96 Nasal Cannula 4.00 08/21/20 16:00 36.8 08/21/20 15:00 26 138/70 (92) Nasal Cannula 4.00 08/21/20 14:33 98 Nasal Cannula 4.00 08/21/20 12:42 81 08/21/20 12:40 36.0 08/21/20 12:35 98 Nasal Cannula 4.00 08/21/20 12:00 80 31 136/87 (103) 97 Nasal Cannula 4.00 08/21/20 11:20 14 08/21/20 11:00 66 14 132/82 (99) 94 Nasal Cannula 4.00 08/21/20 10:58 94 Nasal Cannula 4.00 08/21/20 10:00 68 11 123/74 (90) 97 Nasal Cannula 4.00 08/21/20 09:51 Nasal Cannula 4.00 08/21/20 09:45 97 Nasal Cannula 4.00 08/21/20 09:25 OxyMask 2 08/21/20 09:20 36.8 17 127/69 (88) 92 OxyMask 2 08/21/20 09:15 OxyMask 4 08/21/20 09:10 14 133/75 (94) 97 OxyMask 2 08/21/20 09:00 13 126/75 (92) 95 OxyMask 4 08/21/20 09:00 135/77 (96) Nasal Cannula 6.00 08/21/20 08:55 OxyMask 6 08/21/20 08:50 15 129/72 (91) 97 OxyMask 6 08/21/20 08:45 OxyMask 8 08/21/20 08:40 15 123/70 (87) 96 OxyMask 8 08/21/20 08:35 36.8 16 132/71 (91) 95 OxyMask 10 08/21/20 08:35 OxyMask 10 08/21/20 08:00 74 18 93 Nasal Cannula 6.00 08/21/20 07:25 93 Nasal Cannula 3.00 08/21/20 07:00 74 15 135/85 (102) 94 Nasal Cannula 6.00 I & O 08/22/20 07:00 Intake Total 2030 ml Output Total 1325 ml Balance 705 ml Height & Weight Height: '" Weight: lbs. oz. kg; 30.04 BMI Method: General Appearance: No Apparent Distress, WD/WN, Chronically ill HEENT: PERRL/EOMI, Normal ENT Inspection, Pharynx Normal, Moist Mucous Membranes Neck: Full Range of Motion, Normal Inspection, Non Tender, Supple, Carotid Bruit Respiratory: Chest Non Tender, Lungs Clear, No Accessory Muscle Use, No Respiratory Distress, Decreased Breath Sounds Cardiovascular: Regular Rate, Rhythm, No Edema, No Gallop, No JVD, No Murmur, Normal Peripheral Pulses Capillary Refill: Less Than 3 Seconds Extremity: Normal Capillary Refill, Normal Inspection, Normal Range of Motion, Non Tender, No Calf Tenderness, No Pedal Edema Neurologic/Psychiatric: Alert, Oriented x3, No Motor/Sensory Deficits, Normal Mood/Affect Skin: Normal Color, Warm/Dry Lymphatic: No Adenopathy Results Lab Laboratory Tests 08/21/20 03:10 08/22/20 03:15 Assessment/Plan Assessment/Plan Acute repeat PTX iatrogenic from CT needle bx -continue Thoravent -Will disconnect pt from suction. 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
[2020-08-22 07:25] VITALS: BP 156/70
--- NOTE | 2020-08-22 08:24 | Physical Therapy Progress Note ---
Therapy Progress Note Patient declined PT stating, "Every time I move I have too much chest pressure. I sat up for 5 hours yesterday and it was too much on my chest." PT attempted to educate patient on importance of actively participating with therapy to improve lung function, however, patient continued to decline. He also reports frustration with no one telling him what the plan of care. PT consulted with RN on patient's concern and frustration. 1 ref ( [phone]) HAWK GREEN PT Aug 22, 2020 08:24
--- NOTE | 2020-08-22 08:42 | Diagnostic Imaging Report ---
EXAMINATION: Portable erect AP chest at 414h. INDICATION: Pneumothorax The prior exam of 08/21/2020 suggest a trace apical pneumothorax on the left. That pneumothorax is difficult to appreciate on this study. The small caliber chest tube on the left seen previously is again evident. The atelectasis/infiltrate in the left upper lung adjacent to the soft tissue mass along the medial aspect of the left upper lung seen previously has essentially resolved. The soft tissue mass itself is unchanged. The small nodule in the right upper lobe noted previously is also no different. The lungs are otherwise clear and the heart is stable. IMPRESSION: The appearance of the chest has improved as the trace apical pneumothorax on the left seen previously has resolved. The left upper lung also seems much better aerated. There is no acute abnormality identified at this time. Dictated by: Dictated on workstation # [id number]
[2020-08-22] MEDS: SENNA W/DOCUSATE (SENOKOT S) TABLET PO SCH ×2 (08:45→19:56)
--- NOTE | 2020-08-22 09:07 | NUR ---
0840 DR RAUSCH IN ROOM TO SEE PATIENT AND SUCTION REMOVED FROM THORAVENT. PT REMAINS ON 2 LITERS OF 02 VIA NC, NO SOA NOTED, ALL PERSONAL ITEMS WITHIN REACH, PT VERBALIZES NO NEEDS AT THIS TIME, WILL CONTINUE TO MONITOR.
--- NOTE | 2020-08-22 11:35 | NUR ---
Pastoral care visit.
[2020-08-22 12:07] VITALS: BP 161/84
--- NOTE | 2020-08-22 12:11 | Occupational Ther Daily Note ---
OT Current Status-Daily Note Subjective Pt laying in bed, agreeable to OT. Pt states difficulty using new phone and asks for assistance. Mental Status/Objective Patient Orientation: Person, Place, Time, Situation ADL-Treatment Therapy Code Descriptions/Definitions Functional [place] Measure: 0=Not Assessed/NA 4=Minimal Assistance 1=Total Assistance 5=Supervision or Setup 2=Maximal Assistance 6=Modified [place] 3=Moderate Assistance 7=Complete IndependenceSCALE: Activities may be completed with or without assistive devices. 9-Qmmytyfwlk-tfmomto completes the activity by him/herself with no assistance from a helper. 5-Set-up or Clean-up Assistance-helper sets up or cleans up; patient completes activity. [place] assists only prior to or following the activity. 4-Supervision or Touching Assistance-helper provides verbal cues and/or touching/steadying and/or contact guard assistance as patient completes activity. Assistance may be provided throughout the activity or intermittently. 3-Partial/Moderate Assistance-helper does LESS THAN HALF the effort. [place] lifts, holds or supports trunk or limbs, but provides less than half the effort. 2-Substantial/Maximal Assistance-helper does MORE THAN HALF the effort. [place] lifts or holds trunk or limbs and provides more than half the effort. 7-Nnqlkrvgn-jphbys does ALL the effort. Patient does none of the effort to complete the activity. Or, the assistance of 2 or more helpers is required for the patient to complete the activity. If activity was not attempted, code reason: 7-Patient Refused. 9-Not Applicable-not attempted and the patient did not perform the activity before the current illness, exacerbation or injury. 10-Not Attempted due to Environmental Limitations-(lack of equipment, weather restraints, etc.). 88-Not Attempted due to Medical Conditions or Safety Concerns. Other Treatment Pt laying in bed, requests assistance with phone. In order to increase independence with ADLs and safety at home, OT assisted pt with learning how to operate his phone. OT guided pt through powering phone on/off, and getting to contact list/dial pad to call someone. Pt demo'd ability to operate phone, unlock screen, navigate to phone icon, call from contact list and navigate to dial pad. Pt indicates he feels more comfortable with operating phone, he was nervous about being home alone and not knowing how to operate the phone if he falls or needs assistance. Pt states no further concerns at this time and declines other ADLs. Post OT tx, pt laying in bed, call light in reach and all needs met. Education OT Patient Education: Correct positioning, Energy conservation, Modified ADL techniques, Progress toward Goal/Update tx plan, Purpose of tx/functional activities, Safety issues Teaching Recipient: Patient Teaching Methods: Discussion Response to Teaching: Verbalize Understanding OT Adjustment Supervisor Goals Half-Way Goals Time Frame: Sep 13, 2020 Eating (QC): 6 Oral Hygiene (QC): 6 Toileting Hygiene (QC): 6 Shower/Bathe Self (QC): 6 Upper Body Dressing (QC): 6 Lower Body Dressing (QC): 6 On/Off Footwear (QC): 6 1=Demonstrate adherence to instructed precautions during ADL tasks. 2=Patient will verbalize/demonstrate understanding of assistive devices/modifications for ADL. 3=Patient will improve strength/tolerance for activity to enable patient to perform ADL's. OT Education/Plan Problem List/Assessment Assessment: Decreased Activ Tolerance, Decreased UE Strength, Impaired I ADL's, Impaired Self-Care Skills Discharge Recommendations Plan/Recommendations: Continue POC Treatment Plan/Plan of Care Patient would benefit from OT for education, treatment and training to promote independence in ADL's, mobility, safety and/or upper extremity function for ADL's. Plan of Care: ADL Retraining, Functional Mobility, UE Funct Exercise/Act, UE Neuromus Re-Ed/Coord Treatment Duration: Sep 13, 2020 Frequency: 5 times per week Estimated Hrs Per Day: .25 hour per day Rehab Potential: Fair Time/GCodes Start Time: 11:25 Stop Time: 11:35 Total Time Billed (hr/min): 10 Billed Treatment Time 1, ADL PETAR NICHOLS OT Aug 22, 2020 12:11
[2020-08-22 15:35] VITALS: BP 164/73
[2020-08-22 19:09] VITALS: BP 137/71
[2020-08-23] VITALS (7 sets, daily range): BP systolic 140–165; BP diastolic 72–96
[2020-08-23] MEDS: RT-ALBUTEROL/IPRATROPIUM 3 ML (DUONEB) VIAL INH SCH ×5 (01:47→21:23)
[2020-08-23 02:57] LABS: BASOPHILS % (AUTO) 0 % (0-10); EOSINOPHILS % (AUTO) 0 % (0-10); HEMATOCRIT 45 % (40-54); HEMOGLOBIN 15.3 g/dL (13.3-17.7); LYMPHOCYTES # (AUTO) 0.6 10^3/uL (1.0-4.0); LYMPHOCYTES % (AUTO) 3 % (12-44); MEAN CORPUSCULAR HEMOGLOBIN 29 pg (25-34); MEAN CORPUSCULAR HGB CONC 34 g/dL (32-36); MEAN CORPUSCULAR VOLUME 86 fL (80-99); MEAN PLATELET VOLUME 9.7 fL (9.0-12.2); MONOCYTES # (AUTO) 1.2 10^3/uL (0.0-1.0); MONOCYTES % (AUTO) 7 % (0-12); NEUTROPHILS # (AUTO) 15.9 10^3/uL (1.8-7.8); NEUTROPHILS % (AUTO) 88 % (42-75); PLATELET COUNT 232 10^3/uL (130-400)
[2020-08-23 03:03] LABS: CHLORIDE 101 MMOL/L (98-107); POTASSIUM 4.3 MMOL/L (3.6-5.0); SODIUM 133 MMOL/L (135-145)
[2020-08-23 03:04] LABS: CALCIUM 8.9 MG/DL (8.5-10.1)
[2020-08-23 03:05] LABS: GLUCOSE 242 MG/DL (70-105)
[2020-08-23 03:06] LABS: CARBON DIOXIDE 24 MMOL/L (21-32)
[2020-08-23 03:08] LABS: PHOSPHORUS 2.1 MG/DL (2.3-4.7)
[2020-08-23 03:09] LABS: BUN/CREATININE RATIO 22; CREATININE SERUM 0.83 MG/DL (0.60-1.30); GFR ESTIMATED > 60
[2020-08-23 03:11] LABS: MAGNESIUM 1.8 MG/DL (1.6-2.4)
[2020-08-23] MEDS: PIPERACILLIN/TAZOBACTAM (BULK) 4.5 GM in NS (IVPB) 100 ML IV SCH ×3 (04:54→21:30)
--- NOTE | 2020-08-23 07:11 | Pulmonary Progress Note ---
Subjective Time Seen by a Provider: 07:10 Subjective/Events-last exam No complications noted. Sepsis Event Evaluation Height, Weight, BMI Height: '" Weight: lbs. oz. kg; 30.04 BMI Method: Exam Exam Vital Signs Date Time Temp Pulse Resp B/P (MAP) Pulse Ox O2 Delivery O2 Flow Rate FiO2 08/23/20 07:02 93 Room Air 08/23/20 04:20 37.0 72 16 161/88 (112) 96 Room Air 08/23/20 01:47 98 High Flow N/C 1.00 08/23/20 01:00 70 08/23/20 00:00 36.6 77 16 140/72 (94) 96 Nasal Cannula 2.00 08/22/20 22:23 96 High Flow N/C 1.00 08/22/20 21:00 95 Nasal Cannula 2.00 08/22/20 19:09 37.3 80 16 137/71 (93) 96 Nasal Cannula 2.00 08/22/20 19:00 80 08/22/20 17:18 96 High Flow N/C 1.00 08/22/20 15:35 37.3 88 17 164/73 (103) 96 Nasal Cannula 2.00 08/22/20 14:34 95 High Flow N/C 1.00 08/22/20 13:01 92 08/22/20 12:07 36.8 83 16 161/84 (109) 95 Nasal Cannula 2.00 08/22/20 10:22 97 High Flow N/C 2.00 08/22/20 08:00 94 Nasal Cannula 2.00 08/22/20 07:25 36.8 84 16 156/70 (98) 97 Nasal Cannula 2.00 I & O 08/23/20 07:00 Intake Total 1350 ml Output Total 1800 ml Balance -450 ml Height & Weight Height: '" Weight: lbs. oz. kg; 30.04 BMI Method: General Appearance: No Apparent Distress, WD/WN HEENT: PERRL/EOMI, Normal ENT Inspection, Pharynx Normal, Moist Mucous Membranes Neck: Full Range of Motion, Normal Inspection, Non Tender, Supple, Carotid Bruit Respiratory: Chest Non Tender, No Accessory Muscle Use, No Respiratory Distress, Decreased Breath Sounds, Wheezing Cardiovascular: Regular Rate, Rhythm, No Edema, No Gallop, No JVD, No Murmur, Normal Peripheral Pulses Capillary Refill: Less Than 3 Seconds Extremity: Normal Capillary Refill, Normal Inspection, Normal Range of Motion, Non Tender, No Calf Tenderness, No Pedal Edema Neurologic/Psychiatric: Alert, Oriented x3, No Motor/Sensory Deficits, Normal Mood/Affect Skin: Normal Color, Warm/Dry Lymphatic: No Adenopathy Results Lab Laboratory Tests 08/22/20 03:15 08/23/20 02:15 Assessment/Plan Assessment/Plan Acute repeat PTX iatrogenic from CT needle bx -continue Thoravent- disconnected from suction -Check repeat CT of chest to ensure resolution of PTX. 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
[2020-08-23] MEDS: SENNA W/DOCUSATE (SENOKOT S) TABLET PO SCH ×2 (09:58→21:34)
--- NOTE | 2020-08-23 10:10 | Physical Therapy Daily Note ---
PT Daily Note-Current Subjective Patient agrees to PT. Continues to c/o dizziness. Mental Status Patient Orientation: Normal For Age Transfers SCALE: Activities may be completed with or without assistive devices. 9-Hrlqxcorfb-ckvzxis completes the activity by him/herself with no assistance from a helper. 5-Set-up or Clean-up Assistance-helper sets up or cleans up; patient completes activity. [place] assists only prior to or following the activity. 4-Supervision or Touching Assistance-helper provides verbal cues and/or touching/steadying and/or contact guard assistance as patient completes activity. Assistance may be provided throughout the activity or intermittently. 3-Partial/Moderate Assistance-helper does LESS THAN HALF the effort. [place] lifts, holds or supports trunk or limbs, but provides less than half the effort. 2-Substantial/Maximal Assistance-helper does MORE THAN HALF the effort. [place] lifts or holds trunk or limbs and provides more than half the effort. 3-Xbskodmlo-qckrxt does ALL the effort. Patient does none of the effort to complete the activity. Or, the assistance of 2 or more helpers is required for the patient to complete the activity. If activity was not attempted, code reason: 7-Patient Refused. 9-Not Applicable-not attempted and the patient did not perform the activity before the current illness, exacerbation or injury. 10-Not Attempted due to Environmental Limitations-(lack of equipment, weather restraints, etc.). 88-Not Attempted due to Medical Conditions or Safety Concerns. Roll Left & Right (QC): 6 Sit to Lying (QC): 6 Lying to Sitting/Side of Bed(Q: 6 Sit to Stand (QC): 3 Toilet Transfer (QC): 3 slight left lean with PT correct/noted diminished proprioception left LE and UE Gait Training Does the Patient Walk?: Yes Distance: 150' Walk 10 feet (QC): 3 Walk 50 ft with 2 Turns(QC): 3 Walk 150 ft (QC): 3 Gait Assistive Device: FWW NBOS/noted left knee hyperextension due to increase weakness/diminished proprioception left LE/UE Assessment Patient declined exercises due to frustration and fatigue. Patient returned to bed with 4 rails up. 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 Seafood Fisherman Goals 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 Time Frame: Aug 28, 2020 Roll Left & Right (QC): 6 Sit to Lying (QC): 6 Lying-Sitting on Side/Bed(QC): 6 Sit to Stand (QC): 6 Chair/Iio-ke-Ytjxy Xfer(QC): 6 Walk 10 feet (QC): 6 Walk 50ft with 2 Turns (QC): 6 Walk 150 ft (QC): 6 PT Plan Treatment/Plan Treatment Plan: Continue Plan of Care Treatment Plan: Education, Functional Activity Fabien, Functional Strength, Gait, Safety, Therapeutic Exercise, Transfers Treatment Duration: Aug 28, 2020 Frequency: 6 times per week Estimated Hrs Per Day: .25 hour per day Patient and/or Family Agrees t: Yes Time/GCodes Time In: 920 Time Out: 933 Total Billed Treatment Time: 13 Total Billed Treatment 1 visit GT 13 min HAWK GREEN PT Aug 23, 2020 10:10
--- NOTE | 2020-08-23 10:42 | Diagnostic Imaging Report ---
PROCEDURE: CT chest without contrast. TECHNIQUE: Multiple contiguous axial images were obtained through the chest without the use of intravenous contrast. Auto Exposure Controls were utilized during the CT exam to meet ALARA standards for radiation dose reduction. INDICATION: Pneumothorax. FINDINGS: The previous CT chest exam of 08/20/2020 noted a large apical pneumothorax on the left. The plain film examination of the chest performed earlier today at 03:44 a.m. failed to show any clear evidence for pneumothorax. On this study, there is only a very small residual apical pneumothorax present. I would estimate this to be less than 5% of the volume of the lung. As noted on the chest exam, there is radiopaque tubing overlying the left upper thorax. However, this tubing is entirely extrathoracic and unchanged in position when compared to the prior study. There is a small amount of subcutaneous gas about the tubing. The large mass in the left suprahilar region seen previously is again evident and no different. There is only a very small amount of associated atelectasis/infiltrate still present about the mass. There is a very small 3.5 mm noncalcified nodule in the lingula (image 111/170). Even in retrospect, this finding could not be clearly visualized on the prior exam. The 6 mm nodule along the posterior aspect of the right upper lobe seen previously is again evident and no different. The left lung is otherwise generally clear as is the right lung. The heart is stable in size. Coronary artery calcifications are again noted. The aorta is not abnormally dilated. There is no obvious mediastinal or hilar adenopathy. The thyroid gland is unremarkable. There is no obvious mediastinal or hilar adenopathy. The sections through the upper abdomen failed to show any sign of an acute abnormality. The two suspected left renal metastatic lesions, reported on the previous study, were not well visualized on this exam. The stomach is filled with particulate matter. The bone windows are unremarkable for a fracture or for a destructive lesion. IMPRESSION: 1. The appearance of the chest has improved as the large pneumothorax on the left seen previously has diminished significantly. There is only a small amount of free air still present within the left thorax. The radiopaque tubing seen on the chest exam is entirely extrathoracic. There is a small amount is subcutaneous emphysema still present about the tubing. 2. The appearance of the chest has also improved as the left lung does seem much better aerated than on the prior CT exam. There is no acute cardiopulmonary abnormality noted. 3. The large mass involving the medial aspect of the left upper lobe is unchanged. There are also a small noncalcified nodules in the lingula and right upper lobe. These could be neoplastic in nature. 4. The heart is stable in size. Coronary artery calcifications are noted. 5. These results were discussed with Dr. Len Mejia. Dictated by: Dictated on workstation # [id number]
[2020-08-23] MEDS ORDERED: CEFD300C3 PO (11:09)
[2020-08-23] MEDS ORDERED: DEXA4TAB PO (11:09)
--- NOTE | 2020-08-23 11:09 | Discharge Summary ---
Discharge Summary Hospital Course Problems/Dx: (1) Pneumothorax (2) COPD (chronic obstructive pulmonary disease) Status: Chronic (3) Hypertension Status: Chronic (4) Hyperlipidemia Status: Chronic (5) Diabetes mellitus Status: Chronic Hospital Course Date of Admission: Aug 19, 2020 at 12:43 Admission Diagnosis : Family Physician/Provider: Date of Discharge: 08/23/20 Discharge Diagnosis: [ ] Hospital Course: [ ] Labs and Pending Lab Test: Laboratory Tests 08/23/20 02:15: White Blood Count 18.0H, Red Blood Count 5.21, Hemoglobin 15.3, Hematocrit 45, Mean Corpuscular Volume 86, Mean Corpuscular Hemoglobin 29, Mean Corpuscular Hemoglobin Concent 34, Red Cell Distribution Width 12.7, Platelet Count 232, Mean Platelet Volume 9.7, Immature Granulocyte % (Auto) 1, Neutrophils (%) (Auto) 88H, Lymphocytes (%) (Auto) 3L, Monocytes (%) (Auto) 7, Eosinophils (%) (Auto) 0, Basophils (%) (Auto) 0, Neutrophils # (Auto) 15.9H, Lymphocytes # (Auto) 0.6L, Monocytes # (Auto) 1.2H, Eosinophils # (Auto) 0.0, Basophils # (Auto) 0.0, Immature Granulocyte # (Auto) 0.2H, Sodium Level 133L, Potassium Level 4.3, Chloride Level 101, Carbon Dioxide Level 24, Anion Gap 8, Blood Urea Nitrogen 18, Creatinine 0.83, Estimat Glomerular Filtration Rate > 60, BUN/Creatinine Ratio 22, Glucose Level 242H, Calcium Level 8.9, Phosphorus Level 2.1L, Magnesium Level 1.8 Microbiology 08/21/20 Mycobacterial Culture - Preliminary, Resulted 08/20/20 Blood Culture - Preliminary, Resulted No growth Home Meds Active Reported Ibuprofen 200 Mg Tablet 400-600 Mg PO Q6H PRN Proair Hfa (Albuterol Sulfate) 1 Puff Puff 2 Puff INH Q6H PRN Hydrochlorothiazide 25 Mg Tablet 25 Mg PO DAILY Amlodipine Besylate 10 Mg Tablet 10 Mg PO HS Albuterol Sulfate 2.5 Mg/3 Ml Vial.neb 1 Vial INH QID Symbicort 80-4.5 Mcg Inhaler (Budesonide/Formoterol Fumarate) 10.2 Gm Hfa.aer.ad 1 Puff INH DAILY Fenofibrate (Fenofibrate Nanocrystallized) 145 Mg Tablet 145 Mg PO DAILY Spiriva (Tiotropium [place]) 1 Inh Aerp 1 Puff INH DAILY Montelukast Sodium 10 Mg Tablet 10 Mg PO HS Atorvastatin Calcium 40 Mg Tablet 40 Mg PO HS Quinapril HCl 10 Mg Tablet 10 Mg PO HS Metformin HCl 500 Mg Tablet 1,000 Mg PO BID TAKES 2 (500MG) TABS Diclofenac Sodium 75 Mg Tablet.dr 75 Mg PO BID Discharge Physical Examination Vital Signs Vital Signs Date Time Temp Pulse Resp B/P (MAP) Pulse Ox O2 Delivery O2 Flow Rate FiO2 08/23/20 10:35 94 Room Air 08/23/20 08:00 80 18 161/80 (107) 08/23/20 04:20 37.0 08/23/20 01:47 1.00 Allergies: Coded Allergies: sulfamethoxazole (Verified Allergy, Unknown, Hives, 08/10/20) trimethoprim (Verified Allergy, Unknown, Hives, 08/10/20) Discharge Summary Date of Admission Aug 19, 2020 at 12:43 Date of Discharge Discharge Date: Aug 23, 2020 Admission Diagnosis Assessment: Acute pneumothorax AE COPD Plan: Continue current medications in ICU Discharge Diagnosis Assessment: Acute pneumothorax AE COPD Plan: Continue current medications in ICU 08/20/20: Heplock IV fluid Bronchoscopy in the morning Appreciate Dr. Mejia Maintain chest tube in left chest wall 08/21/20: Transfer to 4th floor Maintain oxygen level Maintain chest tube on the left 08/22/20: Chest tube management Monitor labs and O2 (1) Pneumothorax (2) COPD (chronic obstructive pulmonary disease) Status: Chronic (3) Hypertension Status: Chronic (4) Hyperlipidemia Status: Chronic (5) Diabetes mellitus Status: Chronic Clinical Quality Measures DVT/VTE Risk/Contraindication: Risk Factor Score Per Nursin RFS Level Per Nursing on Admit: 4+=Very High Contraindications-Pharm: Other *list below* Other: bronch tomorrow DAVID NICOLE DO Aug 23, 2020 11:09
--- NOTE | 2020-08-23 11:30 | Occ Therapy Progress Note ---
Therapy Progress Note Pt laying in bed, requested assistance to find his phone. OT and staff looked through pt's belongings, his phone was found and placed on tray table per pt request. Pt declined OT tx on this date. OT educated pt on benefits of OT to increase independence with ADLs and UE strengthening, encouraging him to participate, pt continued to decline stating he is hoping to discharge today. He also does not want to perform arm exercises because he will be eating lunch before long and he tries to eat with his left hand, so he does not want to fatigue now. OT will attempt again next available time. 1, visit 1055 PETAR NICHOLS OT Aug 23, 2020 11:30
--- NOTE | 2020-08-23 11:32 | Progress Note - Hospitalist ---
Subjective HPI/CC On Admission Date Seen by Provider: Aug 23, 2020 Time Seen by Provider: 10:00 CC: SOB HPI: This is a 65yoWM who has a PMH of COPD who had been admitted, placed on swing bed last week but found to have worsening SOB. Chest x-ray revealed left pneumothorax and white count was 21,000. Pt was transferred to the ICU with Dr. Mejia for a chest tube placement and will be monitored in the meantime. He is worried about his dog. Her name is Justin and his family is in and will need prior notice to come to [place] when he goes home. Subjective/Events-last exam Patient doing well CT removed today CT reviewed No pain No BM yet Checked meds and labs Review of Systems General: Fatigue, Malaise Pulmonary: Dyspnea Objective Exam Vital Signs Vital Signs Date Time Temp Pulse Resp B/P (MAP) Pulse Ox O2 Delivery O2 Flow Rate FiO2 08/24/20 04:00 36.8 62 17 146/79 (101) 95 Room Air 08/23/20 01:47 1.00 Capillary Refill : Less Than 3 Seconds General Appearance: No Apparent Distress, WD/WN, Chronically ill Respiratory: Chest Non Tender, Lungs Clear, Normal Breath Sounds, No Accessory Muscle Use, No Respiratory Distress, Decreased Breath Sounds Cardiovascular: Regular Rate, Rhythm, No Edema, No Gallop, No JVD, No Murmur, Normal Peripheral Pulses Results/Procedures Lab Laboratory Tests 08/24/20 02:50 Patient resulted labs reviewed. Assessment/Plan Assessment and Plan Assess & Plan/Chief Complaint Assessment: Acute pneumothorax AE COPD Plan: Continue current medications in ICU 08/20/20: Heplock IV fluid Bronchoscopy in the morning Appreciate Dr. Mejia Maintain chest tube in left chest wall 08/21/20: Transfer to 4th floor Maintain oxygen level Maintain chest tube on the left 08/22/20: Chest tube management Monitor labs and O2 08/23/20: CT removed CT checked Monitor closely for recurrent PTX Critical Care Critically Ill Patient Diagnosis/Problems Diagnosis/Problems (1) Pneumothorax (2) COPD (chronic obstructive pulmonary disease) Status: Chronic (3) Hypertension Status: Chronic (4) Hyperlipidemia Status: Chronic (5) Diabetes mellitus Status: Chronic Clinical Quality Measures DVT/VTE Risk/Contraindication: Risk Factor Score Per Nursin RFS Level Per Nursing on Admit: 4+=Very High Contraindications-Pharm: Other *list below* Other: bronch tomorrow DAVID NICOLE DO Aug 23, 2020 11:32
--- NOTE | 2020-08-23 14:20 | NUR ---
CM/SS Received a call from [facility] child support case officer and updated hospital social work job titles: Analisa Waters [facility] [phone] Analisa stated patient is eligible for Home Care Based Services.
--- NOTE | 2020-08-23 17:18 | NUR ---
Pt understands may be discharged on Wednesday. He has been approved for in-home care. Recommend that he receive Home Health care orders for pt to receive [facility] - Nursing, Physical and Occupational therapies with bathing assistance. Pt will also need physician orders for Front wheel walker and Home Oxygen study for [facility] if needs continuous oxygen. will follow and assist.
[2020-08-23] MEDS ORDERED: RT-ALBUTEROL/IPRATROPIUM 3 ML (DUONEB) VIAL ONE (18:16)
--- NOTE | 2020-08-23 21:07 | NUR ---
THIS RN NOTIFIED DR. NICOLE THAT PATIENT'S BLOOD SUGAR HAS BEEN IN 200'S LAST TWO DAYS ON MORNING LABS, PT NOT TAKING HOME METFORMIN CURRENTLY, NEW ORDER RECEIVED FOR ACHS ACCU CHECKS AND NOVOLOG SLIDING SCALE A. ALSO NOTIFIED DR. NICOLE THAT PATIENT'S SBP HAS BEEN RANGING IN 140-160'S, HOME BP MEDICATIONS HAVE NOT BEEN RESTARTED AT THIS TIME. NEW ORDER RECEIVED FOR 5M PO NORVASC X1 NOW AND TO RESTART THE FOLLOWING MEDICATIONS TO START TOMORROW: AMLODIPINE 10 MG PO DAILY, HYDROCHLOROTHIAZIDE 25MG PO DAILY, AND QUINAPRIL 10MG PO HS. SEE ORDER HX.
[2020-08-23] MEDS ORDERED: amLODIPine 5 MG (NORVASC) TAB PO ONE (21:15)
[2020-08-23] MEDS ORDERED: amLODIPine 5 MG (NORVASC) TAB ONE (21:17)
[2020-08-23] MEDS ORDERED: inSUlin ASPART (NovoLOG) 1 UNIT/0.01 ML (CHARGE PER UNIT) ONE (21:29)
[2020-08-23] MEDS: inSUlin ASPART (NovoLOG) 1 UNIT/0.01 ML (CHARGE PER UNIT) SC SCH (21:34)
[2020-08-24] MEDS: RT-ALBUTEROL/IPRATROPIUM 3 ML (DUONEB) VIAL INH SCH ×6 (02:30→23:36)
[2020-08-24 03:18] LABS: BASOPHILS % (AUTO) 0 % (0-10); EOSINOPHILS % (AUTO) 0 % (0-10); HEMATOCRIT 45 % (40-54); HEMOGLOBIN 15.4 g/dL (13.3-17.7); LYMPHOCYTES # (AUTO) 0.6 10^3/uL (1.0-4.0); LYMPHOCYTES % (AUTO) 3 % (12-44); MEAN CORPUSCULAR HEMOGLOBIN 29 pg (25-34); MEAN CORPUSCULAR HGB CONC 34 g/dL (32-36); MEAN CORPUSCULAR VOLUME 86 fL (80-99); MEAN PLATELET VOLUME 9.2 fL (9.0-12.2); MONOCYTES # (AUTO) 1.2 10^3/uL (0.0-1.0); MONOCYTES % (AUTO) 7 % (0-12); NEUTROPHILS # (AUTO) 15.5 10^3/uL (1.8-7.8); NEUTROPHILS % (AUTO) 89 % (42-75); PLATELET COUNT 242 10^3/uL (130-400); WHITE BLOOD COUNT 17.5 10^3/uL (4.3-11.0)
[2020-08-24 03:37] LABS: CHLORIDE 103 MMOL/L (98-107); POTASSIUM 4.3 MMOL/L (3.6-5.0); SODIUM 134 MMOL/L (135-145)
[2020-08-24 03:38] LABS: CALCIUM 9.2 MG/DL (8.5-10.1); GLUCOSE 218 MG/DL (70-105)
[2020-08-24 03:40] LABS: CARBON DIOXIDE 22 MMOL/L (21-32)
[2020-08-24 03:42] LABS: CREATININE SERUM 0.78 MG/DL (0.60-1.30); GFR ESTIMATED > 60; PHOSPHORUS 2.6 MG/DL (2.3-4.7)
[2020-08-24 03:43] LABS: BUN/CREATININE RATIO 19
[2020-08-24 03:45] LABS: MAGNESIUM 1.7 MG/DL (1.6-2.4)
[2020-08-24 04:00] VITALS: BP 146/79
[2020-08-24] MEDS: PIPERACILLIN/TAZOBACTAM (BULK) 4.5 GM in NS (IVPB) 100 ML IV SCH ×2 (04:26→12:40)
--- NOTE | 2020-08-24 05:14 | Pulmonary Progress Note ---
Subjective Time Seen by a Provider: 05:12 Subjective/Events-last exam no complications noted. Sepsis Event Evaluation Height, Weight, BMI Height: '" Weight: lbs. oz. kg; 30.04 BMI Method: Exam Exam Vital Signs Date Time Temp Pulse Resp B/P (MAP) Pulse Ox O2 Delivery O2 Flow Rate FiO2 08/24/20 04:00 36.8 62 17 146/79 (101) 95 Room Air 08/24/20 01:00 62 08/23/20 23:27 36.6 75 18 151/73 (99) 96 Room Air 08/23/20 21:24 98 Room Air 08/23/20 21:00 Room Air 08/23/20 20:00 36.8 85 20 165/85 (111) 94 Room Air 08/23/20 19:00 90 08/23/20 18:50 97 Room Air 08/23/20 16:00 69 18 148/96 (113) 96 Room Air 08/23/20 14:28 95 Room Air 08/23/20 13:00 98 08/23/20 12:00 36.8 88 20 154/75 (101) 95 Room Air 08/23/20 10:35 94 Room Air 08/23/20 08:31 Room Air 08/23/20 08:00 80 18 161/80 (107) 96 Room Air 08/23/20 07:02 93 Room Air 08/23/20 07:00 63 I & O 08/24/20 07:00 Intake Total 1570 ml Output Total 2175 ml Balance -605 ml Height & Weight Height: '" Weight: lbs. oz. kg; 30.04 BMI Method: General Appearance: No Apparent Distress, WD/WN, Chronically ill HEENT: PERRL/EOMI, Normal ENT Inspection, Pharynx Normal, Moist Mucous Membranes Neck: Full Range of Motion, Normal Inspection, Non Tender, Supple, Carotid Br uit Respiratory: Chest Non Tender, Lungs Clear, Normal Breath Sounds, No Accessory Muscle Use, No Respiratory Distress, Decreased Breath Sounds Cardiovascular: Regular Rate, Rhythm, No Edema, No Gallop, No JVD, No Murmur, Normal Peripheral Pulses Capillary Refill: Less Than 3 Seconds Extremity: Normal Capillary Refill, Normal Inspection, Normal Range of Motion, Non Tender, No Calf Tenderness, No Pedal Edema Neurologic/Psychiatric: Alert, Oriented x3, No Motor/Sensory Deficits, Normal M ood/Affect Skin: Normal Color, Warm/Dry Lymphatic: No Adenopathy Results Lab Laboratory Tests 08/23/20 02:15 08/24/20 02:50 Assessment/Plan Assessment/Plan Acute repeat PTX iatrogenic from CT needle bx -S/p chest tube 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
--- NOTE | 2020-08-24 06:25 | Progress Note - Hospitalist ---
Subjective HPI/CC On Admission Date Seen by Provider: Aug 25, 2020 Time Seen by Provider: 11:30 CC: SOB HPI: This is a 65yoWM who has a PMH of COPD who had been admitted, placed on swing bed last week but found to have worsening SOB. Chest x-ray revealed left pneumothorax and white count was 21,000. Pt was transferred to the ICU with Dr. Mejia for a chest tube placement and will be monitored in the meantime. He is worried about his dog. Her name is Justin and his family is in and will need prior notice to come to [place] when he goes home. Subjective/Events-last exam Patient doing well No PTX on CXR today No BM yet and he refused meds so I encouraged him to take some No pain reported Review of Systems General: Fatigue Pulmonary: Dyspnea Objective Exam Vital Signs Vital Signs Date Time Temp Pulse Resp B/P (MAP) Pulse Ox O2 Delivery O2 Flow Rate FiO2 08/25/20 06:18 93 Room Air 21 08/25/20 04:23 36.0 72 16 146/72 (96) 08/23/20 01:47 1.00 Capillary Refill : Less Than 3 Seconds General Appearance: No Apparent Distress, WD/WN, Chronically ill Respiratory: Chest Non Tender, Lungs Clear, Normal Breath Sounds, No Accessory Muscle Use, No Respiratory Distress, Decreased Breath Sounds Cardiovascular: Regular Rate, Rhythm, No Edema, No Gallop, No JVD, No Murmur, Normal Peripheral Pulses Neurologic/Psychiatric: Alert, Oriented x3, No Motor/Sensory Deficits, Normal Mood/Affect Results/Procedures Lab Laboratory Tests 08/25/20 03:15 Patient resulted labs reviewed. Assessment/Plan Assessment and Plan Assess & Plan/Chief Complaint Assessment: Acute pneumothorax AE COPD Plan: Continue current medications in ICU 08/20/20: Heplock IV fluid Bronchoscopy in the morning Appreciate Dr. Mejia Maintain chest tube in left chest wall 08/21/20: Transfer to 4th floor Maintain oxygen level Maintain chest tube on the left 08/22/20: Chest tube management Monitor labs and O2 08/23/20: CT removed CT checked Monitor closely for recurrent PTX 08/24/20: Monitor for recurrent PTX BM regimen DC Wednesday on Critical Care Critically Ill Patient Diagnosis/Problems Diagnosis/Problems (1) Pneumothorax (2) COPD (chronic obstructive pulmonary disease) Status: Chronic (3) Hypertension Status: Chronic (4) Hyperlipidemia Status: Chronic (5) Diabetes mellitus Status: Chronic Clinical Quality Measures DVT/VTE Risk/Contraindication: Risk Factor Score Per Nursin RFS Level Per Nursing on Admit: 4+=Very High Contraindications-Pharm: Other *list below* Other: bronch tomorrow DAVID NICOLE DO Aug 24, 2020 06:25
[2020-08-24] MEDS: inSUlin ASPART (NovoLOG) 1 UNIT/0.01 ML (CHARGE PER UNIT) SC SCH ×4 (06:30→20:15)
[2020-08-24 07:22] VITALS: BP 148/75
--- NOTE | 2020-08-24 08:33 | Diagnostic Imaging Report ---
Indication: Dyspnea. Follow-up lung cancer. Comparison: 08/23/2020. Discussion: Single upright frontal portable view of the chest was obtained. Large mass within the left suprahilar region is stable. No pneumothorax. No new consolidation. No pleural fluid. Normal heart size. No osseous abnormality. Impression: 1. Stable mass within the left upper lobe. No acute cardiopulmonary process. Dictated by: Dictated on workstation # [id number]
[2020-08-24] MEDS: HYDROCHLOROTHIAZIDE 25 MG (HCTZ) TAB PO SCH (10:15)
[2020-08-24] MEDS: amLODIPine 5 MG (NORVASC) TAB PO SCH (10:15)
[2020-08-24] MEDS: SENNA W/DOCUSATE (SENOKOT S) TABLET PO SCH ×3 (10:16→20:14)
[2020-08-24] MEDS: ENOXAPARIN 40 MG/0.4 ML (LOVENOX) SYR SC SCH (10:16)
[2020-08-24 11:15] VITALS: BP 153/79
--- NOTE | 2020-08-24 11:23 | Physical Therapy Daily Note ---
PT Daily Note-Current Subjective Pt in bed, agreeable. No c/o pain, "just tired". Mental Status Patient Orientation: Person, Place Attachments: IV Transfers SCALE: Activities may be completed with or without assistive devices. 2-Pmvrkrqqfj-dhnpabd completes the activity by him/herself with no assistance from a helper. 5-Set-up or Clean-up Assistance-helper sets up or cleans up; patient completes activity. Rampart assists only prior to or following the activity. 4-Supervision or Touching Assistance-helper provides verbal cues and/or touching/steadying and/or contact guard assistance as patient completes activity. Assistance may be provided throughout the activity or intermittently. 3-Partial/Moderate Assistance-helper does LESS THAN HALF the effort. Rampart lifts, holds or supports trunk or limbs, but provides less than half the effort. 2-Substantial/Maximal Assistance-helper does MORE THAN HALF the effort. Rampart lifts or holds trunk or limbs and provides more than half the effort. 9-Razybsgrb-lcmonx does ALL the effort. Patient does none of the effort to complete the activity. Or, the assistance of 2 or more helpers is required for the patient to complete the activity. If activity was not attempted, code reason: 7-Patient Refused. 9-Not Applicable-not attempted and the patient did not perform the activity before the current illness, exacerbation or injury. 10-Not Attempted due to Environmental Limitations-(lack of equipment, weather restraints, etc.). 88-Not Attempted due to Medical Conditions or Safety Concerns. Lying to Sitting/Side of Bed(Q: 5 Sit to Stand (QC): 4 Chair/Cxg-kj-Jbdie Xfer(QC): 4 CGA for safety with sit<->stand. CGA and skilled VCS for bed->chair transfer as Pt has difficulty with safety/sequencing and often exhibits very narrow ABDIRAHMAN Weight Bearing Right Lower Extremity: Right Full Weight Bearing Left Lower Extremity: Left Full Weight Bearing Gait Training Does the Patient Walk?: Yes Distance: 70 Walk 10 feet (QC): 4 Walk 50 ft with 2 Turns(QC): 4 Gait Persons Needed: 1 Gait Assistive Device: FWW Pt ambulates with very slow gait. Narrow ABDIRAHMAN, often scissoring. Pt able to correct ABDIRAHMAN with near constant VCS. (L) knee hyperextends frequently. With turning, Pt needs near constant cues to maintain safe base of support. Treatments Gait training. Pt returned to up in chair with visitor in room. Assessment Current Status: Fair Progress Pt declined to ambulate further citing fatigue. He did show mild improvement in sitting and standing balance, no significant (L) lean this date with near constant cues to attend to ABDIRAHMAN and (L) foot placement with gait. PT Nursing Home Goals Nursing Home Goals PT Nursing Home Goals Time Frame: Aug 28, 2020 Roll Left & Right (QC): 6 Sit to Lying (QC): 6 Lying-Sitting on Side/Bed(QC): 6 Sit to Stand (QC): 6 Chair/Hgt-po-Zmefm Xfer(QC): 6 Walk 10 feet (QC): 6 Walk 50ft with 2 Turns (QC): 6 Walk 150 ft (QC): 6 PT Plan Problem List Problem List: Activity Tolerance, Functional Strength, Safety, Balance, Gait, Transfer, Bed Mobility Treatment/Plan Treatment Plan: Continue Plan of Care Treatment Plan: Bed Mobility, Education, Functional Activity Fabien, Functional Strength, Gait, Safety, Therapeutic Exercise, Transfers Treatment Duration: Aug 28, 2020 Frequency: 6 times per week Estimated Hrs Per Day: .25 hour per day Patient and/or Family Agrees t: Yes Safety Risks/Education Patient Education: Gait Training Teaching Recipient: Patient Teaching Methods: Discussion Response to Teaching: Verbalize Understanding, Return Demonstration, Reinforcement Needed Time/GCodes Time In: 932 Time Out: 0950 Total Billed Treatment Time: 17 Total Billed Treatment 1, GT x 17' LILLY MORALES DPYang Aug 24, 2020 11:22
[2020-08-24 16:00] VITALS: BP 157/90
[2020-08-24 19:20] VITALS: BP 158/91
[2020-08-24] MEDS: lisINopril 10 MG (PRINIVIL) TABLET PO SCH (20:14)
[2020-08-25] VITALS (7 sets, daily range): BP systolic 134–162; BP diastolic 72–88
[2020-08-25] MEDS: RT-ALBUTEROL/IPRATROPIUM 3 ML (DUONEB) VIAL INH SCH ×6 (02:10→23:09)
[2020-08-25 04:28] LABS: BASOPHILS % (AUTO) 0 % (0-10); EOSINOPHILS % (AUTO) 0 % (0-10); HEMATOCRIT 46 % (40-54); HEMOGLOBIN 15.8 g/dL (13.3-17.7); LYMPHOCYTES # (AUTO) 0.7 10^3/uL (1.0-4.0); LYMPHOCYTES % (AUTO) 4 % (12-44); MEAN CORPUSCULAR HEMOGLOBIN 29 pg (25-34); MEAN CORPUSCULAR HGB CONC 34 g/dL (32-36); MEAN CORPUSCULAR VOLUME 86 fL (80-99); MEAN PLATELET VOLUME 9.7 fL (9.0-12.2); MONOCYTES # (AUTO) 1.3 10^3/uL (0.0-1.0); MONOCYTES % (AUTO) 7 % (0-12); NEUTROPHILS # (AUTO) 15.9 10^3/uL (1.8-7.8); NEUTROPHILS % (AUTO) 87 % (42-75); PLATELET COUNT 259 10^3/uL (130-400); WHITE BLOOD COUNT 18.2 10^3/uL (4.3-11.0)
[2020-08-25 04:45] LABS: CHLORIDE 97 MMOL/L (98-107); POTASSIUM 4.1 MMOL/L (3.6-5.0); SODIUM 132 MMOL/L (135-145)
[2020-08-25 04:46] LABS: CALCIUM 9.3 MG/DL (8.5-10.1)
[2020-08-25 04:47] LABS: GLUCOSE 331 MG/DL (70-105)
[2020-08-25 04:48] LABS: CARBON DIOXIDE 22 MMOL/L (21-32)
[2020-08-25 04:50] LABS: PHOSPHORUS 2.9 MG/DL (2.3-4.7)
[2020-08-25 04:51] LABS: BUN/CREATININE RATIO 24; CREATININE SERUM 0.88 MG/DL (0.60-1.30); GFR ESTIMATED > 60
[2020-08-25 04:53] LABS: MAGNESIUM 1.7 MG/DL (1.6-2.4)
--- NOTE | 2020-08-25 05:09 | Pulmonary Progress Note ---
Subjective Time Seen by a Provider: 05:09 Sepsis Event Evaluation Height, Weight, BMI Height: '" Weight: lbs. oz. kg; 30.04 BMI Method: Exam Exam Vital Signs Date Time Temp Pulse Resp B/P (MAP) Pulse Ox O2 Delivery O2 Flow Rate FiO2 08/25/20 04:23 36.0 72 16 146/72 (96) 91 Room Air 08/25/20 02:10 97 Room Air 21 08/25/20 01:00 70 08/25/20 00:00 37.0 74 18 159/80 (106) 95 Room Air 08/24/20 20:00 Room Air 08/24/20 19:20 37.0 87 18 158/91 (113) 92 Room Air 08/24/20 19:00 84 08/24/20 18:19 98 Room Air 21 08/24/20 16:00 37.2 78 18 157/90 (112) 94 Room Air 08/24/20 14:30 93 Room Air 08/24/20 12:47 85 08/24/20 11:15 37.0 87 18 153/79 (103) 94 Room Air 08/24/20 10:20 93 Room Air 08/24/20 08:00 Room Air 08/24/20 07:22 37.1 77 18 148/75 (99) 92 Room Air 08/24/20 07:10 97 Room Air 08/24/20 07:00 63 I & O 08/25/20 07:00 Intake Total 1060 ml Output Total 1650 ml Balance -590 ml Height & Weight Height: '" Weight: lbs. oz. kg; 30.04 BMI Method: General Appearance: No Apparent Distress, WD/WN, Chronically ill HEENT: PERRL/EOMI, Normal ENT Inspection, Pharynx Normal, Moist Mucous Membranes Neck: Full Range of Motion, Normal Inspection, Non Tender, Supple, Carotid Bruit Respiratory: Chest Non Tender, Lungs Clear, Normal Breath Sounds, No Accessory Muscle Use, No Respiratory Distress, Decreased Breath Sounds Cardiovascular: Regular Rate, Rhythm, No Edema, No Gallop, No JVD, No Murmur, Normal Peripheral Pulses Capillary Refill: Less Than 3 Seconds Extremity: Normal Capillary Refill, Normal Inspection, Normal Range of Motion, Non Tender, No Calf Tenderness, No Pedal Edema Neurologic/Psychiatric: Alert, Oriented x3, No Motor/Sensory Deficits, Normal Mood/Affect Skin: Normal Color, Warm/Dry Lymphatic: No Adenopathy Results Lab Laboratory Tests 08/24/20 02:50 08/25/20 03:15 Assessment/Plan Assessment/Plan Acute repeat PTX iatrogenic from CT needle bx -S/p chest tube 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
[2020-08-25] MEDS: inSUlin ASPART (NovoLOG) 1 UNIT/0.01 ML (CHARGE PER UNIT) SC SCH ×4 (05:29→20:22)
--- NOTE | 2020-08-25 08:08 | Diagnostic Imaging Report ---
Indication: Dyspnea. Comparison: 08/24/2020. Discussion: Single portable upright view of the chest was obtained. Large mass within the left upper lobe along the left suprahilar region is stable. Stable normal heart size. No consolidation, pleural fluid, or pneumothorax. No osseous abnormality. Impression: 1. Stable chest. Dictated by: Dictated on workstation # [id number]
[2020-08-25] MEDS: HYDROCHLOROTHIAZIDE 25 MG (HCTZ) TAB PO SCH (08:46)
[2020-08-25] MEDS: ENOXAPARIN 40 MG/0.4 ML (LOVENOX) SYR SC SCH (08:46)
[2020-08-25] MEDS: SENNA W/DOCUSATE (SENOKOT S) TABLET PO SCH ×2 (08:46→20:20)
[2020-08-25] MEDS: amLODIPine 5 MG (NORVASC) TAB PO SCH (08:46)
--- NOTE | 2020-08-25 10:56 | Progress Note - Hospitalist ---
Subjective HPI/CC On Admission Date Seen by Provider: Aug 25, 2020 Time Seen by Provider: 11:30 CC: SOB HPI: This is a 65yoWM who has a PMH of COPD who had been admitted, placed on swing bed last week but found to have worsening SOB. Chest x-ray revealed left pneumothorax and white count was 21,000. Pt was transferred to the ICU with Dr. Mejia for a chest tube placement and will be monitored in the meantime. He is worried about his dog. Her name is Justin and his family is in and will need prior notice to come to [place] when he goes home. Subjective/Events-last exam Patient doing well No pain reported BM+ [facility] O2 weaned now and has it at home to use at night Review of Systems General: Fatigue, Malaise Pulmonary: Dyspnea Objective Exam Vital Signs Vital Signs Date Time Temp Pulse Resp B/P (MAP) Pulse Ox O2 Delivery O2 Flow Rate FiO2 08/25/20 14:15 36.8 103 18 162/88 (112) 95 Room Air 08/25/20 06:18 21 08/23/20 01:47 1.00 Capillary Refill : Less Than 3 Seconds General Appearance: No Apparent Distress, WD/WN, Chronically ill Respiratory: Chest Non Tender, Lungs Clear, Normal Breath Sounds, No Accessory Muscle Use, No Respiratory Distress, Decreased Breath Sounds Cardiovascular: Regular Rate, Rhythm, No Edema, No Gallop, No JVD, No Murmur, N ormal Peripheral Pulses Neurologic/Psychiatric: Alert, Oriented x3, No Motor/Sensory Deficits, Normal Mood/Affect Results/Procedures Lab Laboratory Tests 08/25/20 03:15 Patient resulted labs reviewed. Assessment/Plan Assessment and Plan Assess & Plan/Chief Complaint Assessment: Acute pneumothorax AE COPD Plan: Continue current medications in ICU 08/20/20: Heplock IV fluid Bronchoscopy in the morning Appreciate Dr. Mejia Maintain chest tube in left chest wall 08/21/20: Transfer to 4th floor Maintain oxygen level Maintain chest tube on the left 08/22/20: Chest tube management Monitor labs and O2 08/23/20: CT removed CT checked Monitor closely for recurrent PTX 08/24/20: Monitor for recurrent PTX BM regimen DC Wednesday on HH 08/25/20: DC tomorrow Monitor for recurrent PTX Critical Care Critically Ill Patient Diagnosis/Problems Diagnosis/Problems (1) Pneumothorax (2) COPD (chronic obstructive pulmonary disease) Status: Chronic (3) Hypertension Status: Chronic (4) Hyperlipidemia Status: Chronic (5) Diabetes mellitus Status: Chronic Clinical Quality Measures DVT/VTE Risk/Contraindication: Risk Factor Score Per Nursin RFS Level Per Nursing on Admit: 4+=Very High Contraindications-Pharm: Other *list below* Other: bronch tomorrow DAVID NICOLE DO Aug 25, 2020 10:56
[2020-08-25] MEDS ORDERED: ENOXAPARIN 40 MG/0.4 ML (LOVENOX) SYR SC SCH (12:00)
--- NOTE | 2020-08-25 14:05 | NUR ---
PT TRANSFERRED TO ROOM 408 VIA CHAIR W/ STAFF AND PERSONAL BELONGINGS. REPORT GIVEN TO SOCORRO URRUTIA . NO QUESTIONS/CONCERNS VOICED.
--- NOTE | 2020-08-25 14:10 | NUR ---
TRANSFERRED FROM ICU TO ROOM 408. ALERT AND COOPERATIVE. SKIN W/D. RESP. REGULAR AND ON R/A. DENIES SOA. LUNGS CLEAR AND SL. DIM. HEART RATE REGULAR. NO EDEMA IN LOWER EXT. ABD. DISTENDED AND SOFT. DENIES PAIN AT THIS TIME. DRESSING TO LEFT UPPER CHEST D/I.
[2020-08-25] MEDS: lisINopril 10 MG (PRINIVIL) TABLET PO SCH (20:22)
[2020-08-26 00:22] VITALS: BP 139/71
[2020-08-26] MEDS: RT-ALBUTEROL/IPRATROPIUM 3 ML (DUONEB) VIAL INH SCH ×3 (01:55→11:13)
[2020-08-26 04:15] VITALS: BP 145/84
[2020-08-26] MEDS: inSUlin ASPART (NovoLOG) 1 UNIT/0.01 ML (CHARGE PER UNIT) SC SCH ×2 (06:26→12:38)
[2020-08-26 08:00] VITALS: BP 146/79
[2020-08-26] MEDS: amLODIPine 5 MG (NORVASC) TAB PO SCH (09:01)
[2020-08-26] MEDS: ENOXAPARIN 40 MG/0.4 ML (LOVENOX) SYR SC SCH (09:01)
[2020-08-26] MEDS: SENNA W/DOCUSATE (SENOKOT S) TABLET PO SCH (09:01)
[2020-08-26] MEDS: HYDROCHLOROTHIAZIDE 25 MG (HCTZ) TAB PO SCH (09:01)
--- NOTE | 2020-08-26 09:26 | NUR ---
pt would like to be discharged today. He will need a front wheel walker and Home Health Care ro provide nursing, physical and occuptional therapy and bathing assistance. I have requested from [facility] a Alert bracelet and also in-home care which should begin tomorrow. Pt has friends in [place] he plans to notify when he returns home but unsure if they can assist. Pt has no support system other then agency assist.
--- NOTE | 2020-08-26 10:07 | Physical Therapy Daily Note ---
PT Daily Note-Current Subjective Patient agrees to PT. No c/o. Mental Status Patient Orientation: Normal For Age Transfers SCALE: Activities may be completed with or without assistive devices. 3-Vavsqzzehr-blregez completes the activity by him/herself with no assistance from a helper. 5-Set-up or Clean-up Assistance-helper sets up or cleans up; patient completes activity. [place] assists only prior to or following the activity. 4-Supervision or Touching Assistance-helper provides verbal cues and/or touching/steadying and/or contact guard assistance as patient completes activity. Assistance may be provided throughout the activity or intermittently. 3-Partial/Moderate Assistance-helper does LESS THAN HALF the effort. [place] lifts, holds or supports trunk or limbs, but provides less than half the effort. 2-Substantial/Maximal Assistance-helper does MORE THAN HALF the effort. [place] lifts or holds trunk or limbs and provides more than half the effort. 8-Ajiufzceu-gebqlj does ALL the effort. Patient does none of the effort to c omplete the activity. Or, the assistance of 2 or more helpers is required for the patient to complete the activity. If activity was not attempted, code reason: 7-Patient Refused. 9-Not Applicable-not attempted and the patient did not perform the activity before the current illness, exacerbation or injury. 10-Not Attempted due to Environmental Limitations-(lack of equipment, weather restraints, etc.). 88-Not Attempted due to Medical Conditions or Safety Concerns. Roll Left & Right (QC): 6 Sit to Lying (QC): 6 Lying to Sitting/Side of Bed(Q: 6 Sit to Stand (QC): 5 Weight Bearing Right Lower Extremity: Right Full Weight Bearing Left Lower Extremity: Left Full Weight Bearing Gait Training Does the Patient Walk?: Yes Distance: 80' Walk 10 feet (QC): 5 Walk 50 ft with 2 Turns(QC): 5 Gait Assistive Device: FWW very slow with VC's for widening ABDIRAHMAN for balance/steady gait sequence Assessment Patient returned to bed with needs met. SW in to discuss with patient home health care upon dismissal from hospital. PT Snf Goals Snf Goals PT Snf Goals Time Frame: Aug 28, 2020 Roll Left & Right (QC): 6 Sit to Lying (QC): 6 Lying-Sitting on Side/Bed(QC): 6 Sit to Stand (QC): 6 Chair/Com-ro-Axhon Xfer(QC): 6 Walk 10 feet (QC): 6 Walk 50ft with 2 Turns (QC): 6 Walk 150 ft (QC): 6 PT Plan Treatment/Plan Treatment Plan: Continue Plan of Care Treatment Plan: Bed Mobility, Education, Functional Activity Fabien, Functional Strength, Gait, Safety, Therapeutic Exercise, Transfers Treatment Duration: Aug 28, 2020 Frequency: 6 times per week Estimated Hrs Per Day: .25 hour per day Patient and/or Family Agrees t: Yes Time/GCodes Time In: 930 Time Out: 942 Total Billed Treatment Time: 12 Total Billed Treatment 1 visit GT 12 min HAWK GREEN PT Aug 26, 2020 10:07
--- NOTE | 2020-08-26 10:28 | Discharge Summary ---
Discharge Summary Reconcile Patient Problems Problems Reviewed?: Yes Instructions for Patient [facility] [employer], Assessment/Instructions - Acute Pneumothorax - AE COPD - Squamous Cell Lung Ca, Non small cell - Metastatic Brain lesions - Debility Physician to follow Patient: Sandra Discharge Diet for Home: No Restrictions Hospital Course Date of Admission: Aug 19, 2020 at 12:43 Admission Diagnosis : Family Physician/Provider: Heurter Date of Discharge: 08/26/20 Discharge Diagnosis: Acute Pneumothorax AE COPD Non Small Cell lung Cancer Metastatic Brain Lesions Debility Hospital Course: 65 yo M that presented with increasing shortness of breath. Patient was found to have large lung mass and underwent CT guided Bx. Patient then had pneumothorax and was transferred up to ICU and had chest tube placement. 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 Will have close f.u with oncology. Labs and Pending Lab Test: Laboratory Tests 08/25/20 10:44: Glucometer 287H 08/25/20 15:50: Glucometer 306H 08/25/20 20:19: Glucometer 256H 08/26/20 06:22: Glucometer 305H Microbiology 08/21/20 Mycobacterial Culture - Preliminary, Resulted 08/20/20 Blood Culture - Final, Complete No growth Home Meds Active Cefdinir 300 Mg Capsule 300 Mg PO BID Dexamethasone 4 Mg Tablet 4 Mg PO Q6HR Reported Ibuprofen 200 Mg Tablet 400-600 Mg PO Q6H PRN Proair Hfa (Albuterol Sulfate) 1 Puff Puff 2 Puff INH Q6H PRN Hydrochlorothiazide 25 Mg Tablet 25 Mg PO DAILY Amlodipine Besylate 10 Mg Tablet 10 Mg PO HS Albuterol Sulfate 2.5 Mg/3 Ml Vial.neb 1 Vial INH QID Symbicort 80-4.5 Mcg Inhaler (Budesonide/Formoterol Fumarate) 10.2 Gm Hfa.aer.ad 1 Puff INH DAILY Fenofibrate (Fenofibrate Nanocrystallized) 145 Mg Tablet 145 Mg PO DAILY Spiriva (Tiotropium Powderhorn) 1 Inh Aerp 1 Puff INH DAILY Montelukast Sodium 10 Mg Tablet 10 Mg PO HS Atorvastatin Calcium 40 Mg Tablet 40 Mg PO HS Quinapril HCl 10 Mg Tablet 10 Mg PO HS Metformin HCl 500 Mg Tablet 1,000 Mg PO BID TAKES 2 (500MG) TABS Diclofenac Sodium 75 Mg Tablet.dr 75 Mg PO BID Consulations Dr Mejia, Pulmonology and Critical Care Patient Allergies: Coded Allergies: sulfamethoxazole (Verified Allergy, Unknown, Hives, 08/10/20) trimethoprim (Verified Allergy, Unknown, Hives, 08/10/20) New Medications: Cefdinir (Cefdinir) 300 Mg Capsule 300 MG PO BID, #10 CAP Dexamethasone (Dexamethasone) 4 Mg Tablet 4 MG PO Q6HR, #30 TAB Continued Medications: Albuterol Sulfate (Albuterol Sulfate) 2.5 Mg/3 Ml Vial.neb 1 VIAL INH QID, EA Albuterol Sulfate (Proair Hfa) 1 Puff Puff 2 PUFF INH Q6H PRN for SHORTNESS OF BREATH, EA Amlodipine Besylate (Amlodipine Besylate) 10 Mg Tablet 10 MG PO HS, TAB Atorvastatin Calcium (Atorvastatin Calcium) 40 Mg Tablet 40 MG PO HS, TAB Budesonide/Formoterol Fumarate (Symbicort 80-4.5 Mcg Inhaler) 10.2 Gm Hfa.aer.ad 1 PUFF INH DAILY Diclofenac Sodium (Diclofenac Sodium) 75 Mg Tablet.dr 75 MG PO BID, TAB Fenofibrate Nanocrystallized (Fenofibrate) 145 Mg Tablet 145 MG PO DAILY, TAB Hydrochlorothiazide (Hydrochlorothiazide) 25 Mg Tablet 25 MG PO DAILY Ibuprofen (Ibuprofen) 200 Mg Tablet 400-600 MG PO Q6H PRN for PAIN-MILD (1-4), TAB Metformin HCl (Metformin HCl) 500 Mg Tablet 1000 MG PO BID, TAB TAKES 2 (500MG) TABS Montelukast Sodium (Montelukast Sodium) 10 Mg Tablet 10 MG PO HS, TAB Quinapril HCl (Quinapril HCl) 10 Mg Tablet 10 MG PO HS, TAB Tiotropium Powderhorn (Spiriva) 1 Inh Aerp 1 PUFF INH DAILY, EA Home Health Need/Face to Face Date of Face to Face: Aug 26, 2020 Clinical Findings: Generalized weakness and fatigue, Instability, Shortness of breath, Unsteady gait I have seen Pt gveg-iv-ayap: Yes Discharged To: Home Diagnosis/Conditions: See Above Patient is Homebound due to: Faviola fall risk due to instabilty, Shortness of breath/distress Homebound Status Due to the above stated illness, injury or surgical procedure (medical cond ition or diagnosis) and associated clinical findings, the patient is homebound because of his/her inability to leave home except with aid of a supportive device and/or person AND leaving the home requires a considerable and taxing effort or is medically contraindicated. Pt req the following assistanc: Aid of another person, Walker Home Health Nursing Orders Home Health Services Order: Nursing Services, Physical Therapy-Evaluate & Treat Therapy Orders Therapy Orders: PT to assess for OT Therapy Specific Orders: Eval assistive deivces, Teach enviro modifications/safety, Increase strength/endurance Certify Stmt I certify that this patient is under my care and that I, a nurse practitioner or a physician; a zoning assistant working with me, had a face to face encounter that - meets the physician face to face encounter requirements with this patient as dated. Discharge Physical Exam General: Alert, Oriented X3, Cooperative HEENT: Mucous Memb Moist/[place] Lungs: Clear to Auscultation, Normal Air Movement Heart: Regular Rate, No Murmurs Abdomen: Normal Bowel Sounds, Soft, No Tenderness, No Masses Extremities: No Edema, No Tenderness/Swelling Skin: No Rashes Neuro: Normal Speech, Sensation Intact, Cranial Nerves 3-12 NL Psych/Mental Status: Mental Status NL, Mood NL JAMEY ROMEO MD Aug 26, 2020 10:27
[2020-08-26 12:00] VITALS: BP 162/91
--- NOTE | 2020-08-26 13:09 | Occ Therapy Progress Note ---
Therapy Progress Note Pt declined OT tx this afternoon, stating he is hoping to d/c today and would like to save his energy. OT educated pt on purpose and benefits of OT, but pt still declined. OT will attempt again next available time. 1, visit 1303 PETAR NICHOLS OT Aug 26, 2020 13:09
--- NOTE | 2020-08-26 16:04 | NUR ---
Discharge plans finalized and pt discharged to his apt. by [facility]. Home Health referral completed and chose [facility]. Pt received a Front Wheel Walker from our DME by his choice. Pt's local friends were alerted to his discharge. Pt was going to consider Meals on Wheels but was looking into other options. His case manage Dandy was alerted to his need for Alert bracelet and his [employer] Event Marketing Representative Analisa Waters was also notified of his discharge home today for immediate arrangement for help starting tomorrow. Pt will be coming to the [facility] for Radiation Oncology consult tomorrow at 1:30 PM and will be transported by our [facility]ARE van. He has a follow-up appt. with Dr. Haque,Oncologist on Sep.02 at 2:15. Pt planned to notify his friends from [place] of his discharge.Will [facility].
== END 2020-08-26 14:25 | disposition home or self-care (01) | DRG 200 ==
LOC: ICU 12:43 → CSD 08-21 17:38 → 4TH 08-25 14:12
PROVIDERS: ADMIT Internal Medicine; ATTEND Internal Medicine
PROC: 0W9B30Z Drainage of Left Pleural Cavity with Drainage Device, Percutaneous Approach (ICD-10-PCS; principal; 2020-08-19)
PROC: 0BDG8ZX Extraction of Left Upper Lung Lobe, Via Natural or Artificial Opening Endoscopic, Diagnostic (ICD-10-PCS; 2020-08-21)
PROC: 0BDM8ZX Extraction of Bilateral Lungs, Via Natural or Artificial Opening Endoscopic, Diagnostic (ICD-10-PCS; 2020-08-21)
PROC: 0B9G8ZX Drainage of Left Upper Lung Lobe, Via Natural or Artificial Opening Endoscopic, Diagnostic (ICD-10-PCS; 2020-08-21)
DX: J93.83 Other pneumothorax (principal); J44.1 Chronic obstructive pulmonary disease with (acute) exacerbation; C34.90 Malignant neoplasm of unspecified part of unspecified bronchus or lung; C79.31 Secondary malignant neoplasm of brain; I10 Essential (primary) hypertension; E78.5 Hyperlipidemia, unspecified; E11.9 Type 2 diabetes mellitus without complications; Z79.84 Long term (current) use of oral hypoglycemic drugs; Z77.22 Contact with and (suspected) exposure to environmental tobacco smoke (acute) (chronic)
CPT/HCPCS: 36415; 71045; 71250; 71260; 74177; 76000; 80048; 80053; 81000; 82962; 83735; 84100; 84145; 85025; 87015; 87040; 87070; 87101; 87116; 87205; 87206; 87635; 88112; 88305; 88312; 94010; 94640; 94760

== ENCOUNTER 2020-08-27 11:35 | Inpatient (IN) | payer MEDICARE, MEDICAID ==
[~2020-08-27] VITALS: Ht 172 cm; Wt 77.0 kg
[~2020-08-27 11:35] MED LIST changes: +CEFD300C3 PO; +DEXA4TAB PO; -MIDAZOLAM 2 MG/2 ML (VERSED) VIAL IVP ONE; -fentaNYL INJECTION 100 MCG/2 ML AMP IVP ONE
--- NOTE | 2020-08-27 11:41 | ED Respiratory ---
General Chief Complaint: Respiratory Problems Stated Complaint: FALL History of Present Illness Date Seen by Provider: Aug 27, 2020 Time Seen by Provider: 11:41 Initial Comments 65-year-old male brought in with shortness of breath. Patient was just dis charged from the hospital yesterday after being here 16 days. Patient reports he had "collapsed lung" 3 times when he was here. Patient initially came in for what was bleeding be a CVA was found to have a brain tumor. Patient fell yesterday when he got back to his facility. Reports that since then he says some pain and tightness on the left side. He does have a history of COPD and smoking. Patient describes this pain more as a tightness. He does not have any reports of fevers or chills. There is no reports of nausea or vomiting. Patient did reportedly Bogered up with hand and has a bandage on his right hand when he fell. Patient was scheduled to see oncology today due to his brain tumor. Patient was reported to have a oxygen saturation of 88% per EMS. He was placed on some oxygen. Patient does report that he uses oxygen at night.. Allergies and Home Medications Allergies Coded Allergies: sulfamethoxazole (Verified Allergy, Unknown, Hives, 08/10/20) trimethoprim (Verified Allergy, Unknown, Hives, 08/10/20) Home Medications Albuterol Sulfate 2.5 Mg/3 Ml Vial.neb, 1 VIAL INH QID, (Reported) Albuterol Sulfate 1 Puff Puff, 2 PUFF INH Q6H PRN for SHORTNESS OF BREATH, (Reported) Amlodipine Besylate 10 Mg Tablet, 10 MG PO HS, (Reported) Atorvastatin Calcium 40 Mg Tablet, 40 MG PO HS, (Reported) Budesonide/Formoterol Fumarate 10.2 Gm Hfa.aer.ad, 1 PUFF INH DAILY, (Reported) Cefdinir 300 Mg Capsule, 300 MG PO BID Prescribed by: DAVID NICOLE on 08/23/201108 Dexamethasone 4 Mg Tablet, 4 MG PO Q6HR Prescribed by: DAVID NICOLE on 08/23/201108 Diclofenac Sodium 75 Mg Tablet.dr, 75 MG PO BID, (Reported) Fenofibrate Nanocrystallized 145 Mg Tablet, 145 MG PO DAILY, (Reported) Hydrochlorothiazide 25 Mg Tablet, 25 MG PO DAILY, (Reported) Ibuprofen 200 Mg Tablet, 400-600 MG PO Q6H PRN for PAIN-MILD (1-4), (Reported) Metformin HCl 500 Mg Tablet, 1,000 MG PO BID, (Reported) TAKES 2 (500MG) TABS Montelukast Sodium 10 Mg Tablet, 10 MG PO HS, (Reported) Quinapril HCl 10 Mg Tablet, 10 MG PO HS, (Reported) Tiotropium [place] 1 Inh Aerp, 1 PUFF INH DAILY, (Reported) Patient Home Medication List Home Medication List Reviewed: Yes Review of Systems Review of Systems Constitutional: No chills, No fever EENTM: no symptoms reported Respiratory: short of breath Cardiovascular: see HPI Gastrointestinal: no symptoms reported Genitourinary: no symptoms reported Musculoskeletal: no symptoms reported Skin: see HPI Psychiatric/Neurological: No Symptoms Reported Hematologic/Lymphatic: No Symptoms Reported Past Ajrkaiq-Vflbqu-Imuepa Hx Past Med/Social Hx: Reviewed Nursing Past Med/Soc Hx Patient Social History Type Used: Cigarettes 2nd Hand Smoke Exposure: Yes Recent Hopitalizations: No Immunizations Up To Date Date of Pneumonia Vaccine: Oct 10, 2018 Past Medical History Surgeries: No Respiratory: Yes COPD Currently Using CPAP: No Currently Using BIPAP: No Cardiac: Yes Hypertension Neurological: No Genitourinary: No Gastrointestinal: No Musculoskeletal: No Endocrine: No ("borderline diabetic") HEENT: No Cancer: No Psychosocial: No Integumentary: No Blood Disorders: No Physical Exam Vital Signs - First Documented 08/27/20 08/27/20 11:35 12:01 Temp 36.4 Pulse 85 Resp 16 B/P (MAP) 135/103 (114) Pulse Ox 95 O2 Delivery Nasal Cannula O2 Flow Rate 2.00 FiO2 96 Capillary Refill : Height: '" Weight: lbs. oz. kg; 30.04 BMI Method: General Appearance: WD/WN, no apparent distress HEENT: PERRL/EOMI Respiratory: other (mild decreased breath sounds with some mild diffuse wheezing/squeaking) Cardiovascular: normal peripheral pulses, regular rate, rhythm Gastrointestinal: non tender, soft Neurologic/Psychiatric: alert, normal mood/affect, oriented x 3 Skin: normal color, warm/dry Progress/Results/Core Measures Suspected Sepsis SIRS Temperature: Pulse: Respiratory Rate: Laboratory Tests 08/27/20 11:40: White Blood Count 21.5H Blood Pressure / Mean: Laboratory Tests 08/27/20 11:40: Creatinine 0.94, Platelet Count 269, Total Bilirubin 1.1H Results/Orders Lab Results Laboratory Tests Test 08/27/20 11:40 Range/Units White Blood Count 21.5 H 4.3-11.0 10^3/uL Red Blood Count 6.22 H 4.30-5.52 10^6/uL Hemoglobin 18.2 H 13.3-17.7 g/dL Hematocrit 53 40-54 % Mean Corpuscular Volume 85 80-99 fL Mean Corpuscular Hemoglobin 29 25-34 pg Mean Corpuscular Hemoglobin Concent 34 32-36 g/dL Red Cell Distribution Width 13.5 10.0-14.5 % Platelet Count 269 130-400 10^3/uL Mean Platelet Volume 8.9 L 9.0-12.2 fL Immature Granulocyte % (Auto) 2 % Neutrophils (%) (Auto) 79 H 42-75 % Lymphocytes (%) (Auto) 9 L 12-44 % Monocytes (%) (Auto) 9 0-12 % Eosinophils (%) (Auto) 1 0-10 % Basophils (%) (Auto) 0 0-10 % Neutrophils # (Auto) 17.0 H 1.8-7.8 10^3/uL Lymphocytes # (Auto) 1.9 1.0-4.0 10^3/uL Monocytes # (Auto) 2.0 H 0.0-1.0 10^3/uL Eosinophils # (Auto) 0.1 0.0-0.3 10^3/uL Basophils # (Auto) 0.1 0.0-0.1 10^3/uL Immature Granulocyte # (Auto) 0.5 H 0.0-0.1 10^3/uL Neutrophils % (Manual) 87 % Lymphocytes % (Manual) 9 % Monocytes % (Manual) 4 % Eosinophils % (Manual) 0 % Basophils % (Manual) 0 % Band Neutrophils 0 % Blood Morphology Comment NORMAL Sodium Level 135 135-145 MMOL/L Potassium Level 4.2 3.6-5.0 MMOL/L Chloride Level 100 98-107 MMOL/L Carbon Dioxide Level 26 21-32 MMOL/L Anion Gap 9 5-14 MMOL/L Blood Urea Nitrogen 30 H 7-18 MG/DL Creatinine 0.94 0.60-1.30 MG/DL Estimat Glomerular Filtration Rate > 60 BUN/Creatinine Ratio 32 Glucose Level 163 H 70-105 MG/DL Calcium Level 9.4 8.5-10.1 MG/DL Corrected Calcium 9.5 8.5-10.1 MG/DL Magnesium Level 1.8 1.6-2.4 MG/DL Total Bilirubin 1.1 H 0.1-1.0 MG/DL Aspartate Amino Transf (AST/SGOT) 42 H 5-34 U/L Alanine Aminotransferase (ALT/SGPT) 320 H 0-55 U/L Alkaline Phosphatase 134 40-136 U/L Troponin I 0.319 *H <0.028 NG/ML B-Type Natriuretic Peptide 54.4 <100.0 PG/ML Total Protein 6.7 6.4-8.2 GM/DL Albumin 3.9 3.2-4.5 GM/DL My Orders Orders - DEV BOOKER L DO Chest Pa/Lat (2 View) (08/27/20 11:42) BNP (08/27/20 11:42) Cbc With Automated Diff (08/27/20 11:42) Comprehensive Metabolic Panel (08/27/20 11:42) Magnesium (08/27/20 11:42) Troponin I (08/27/20 11:42) Ed Iv/Invasive Line Start (08/27/20 11:42) Ekg Tracing (08/27/20 11:42) O2 (08/27/20 11:42) Monitor-Rhythm Ecg Trace Only (08/27/20 11:42) Albuterol/Ipra Inhalation Soln (Duoneb I (08/27/20 11:45) Svn Small Volume Nebulizer (08/27/20 11:42) Manual Differential (08/27/20 11:40) Aspirin Chewable Tablet (Baby Aspirin Ch (08/27/20 13:00) Medications Given in ED Current Medications Medications Dose Ordered Sig/Lacey Route Start Time Stop Time Status Last Admin Dose Admin Albuterol/ Ipratropium 3 ml ONCE ONCE INH 08/27/20 11:45 08/27/20 11:46 DC 08/27/20 12:00 3 ML Aspirin 324 mg ONCE ONCE PO 08/27/20 13:00 08/27/20 13:01 DC 08/27/20 13:07 324 MG Vital Signs/I&O 08/27/20 08/27/20 08/27/20 11:35 11:46 12:01 Temp 36.4 Pulse 85 Resp 16 B/P (MAP) 135/103 (114) Pulse Ox 95 O2 Delivery Nasal Cannula Nasal Cannula Nasal Cannula O2 Flow Rate 2.00 2.00 2.00 FiO2 96 Capillary Refill : ECG Initial ECG Impression Date: Aug 27, 2020 Initial ECG Impression Time: 11:45 Initial ECG Rhythm: Normal Sinus Initial ECG Impression: Nonspecific Changes Comment Patient with no acute findings on EKG. He does have a slight increase in his BUNs, white count and hemoglobin. He also has an elevated troponin at 0.3. His troponin was normal on 08/10/20. Unsure if this is due to cardiac versus to some dehydration and mild hypoxia. Patient's symptoms did improve with oxygen. Call discussed with both Dr. Reyes and Dr. De La O. We will place patient in observation with a repeat troponin in the morning per Dr. Tierney. Patient was admitted in stable condition. Diagnostic Imaging Diagonstic Imaging: Xray Plain Films/CT/US/NM/MRI: chest Comments [facility] [place] NAME: JOY SORTO [facility] REC#: [id number] PT STATUS: REG ER : 1955 PHYSICIAN: DEV BOOKER DO ADMIT DATE: 08/27/20/ER Draft Date of Exam:08/27/20 CHEST PA/LAT (2 VIEW) INDICATION: Shortness of breath. TECHNIQUE/COMPARISON: PA and lateral views of the chest were obtained at 11:53 AM and compared to 08/25/2020. FINDINGS: The heart and mediastinal silhouette are normal in appearance. The lungs show no new infiltrate. The large left suprahilar mass appears similar to the prior study. There is no pneumothorax. IMPRESSION: The large left suprahilar mass is again noted. No pneumothorax or pleural fluid at this time. Departure Communication (Admissions) Time/Spoke to Admitting Phy: 12:58 Okay to admit and observation, consult cardiology Time/Spoke to Consulting Phy: 13:00 Daily aspirin, repeat troponin in the morning Impression Primary Impression: Shortness of breath Additional Impressions: Small cell lung cancer Troponin level elevated Discomfort in chest Disposition: ADMITTED INPATIENT Condition: Stable Admissions Decision to Admit Reason: Admit from ER (General) Decision to Admit/Date: Aug 27, 2020 Time/Decision to Admit Time: 13:00 Departure-Patient Inst. Referrals: ELIDA CAIN MD (PCP) Primary Care Physician DEV BOOKER DO Aug 27, 2020 11:41
[2020-08-27] MEDS ORDERED: RT-ALBUTEROL/IPRATROPIUM 3 ML (DUONEB) VIAL INH ONE (11:45)
--- NOTE | 2020-08-27 11:50 | NUR ---
RT CONTACTED FOR BLOOD DRAW.
[2020-08-27 12:02] LABS: BASOPHILS # (AUTO) 0.1 10^3/uL (0.0-0.1); BASOPHILS % (AUTO) 0 % (0-10); EOSINOPHILS # (AUTO) 0.1 10^3/uL (0.0-0.3); EOSINOPHILS % (AUTO) 1 % (0-10); HEMATOCRIT 53 % (40-54); HEMOGLOBIN 18.2 g/dL (13.3-17.7); LYMPHOCYTES # (AUTO) 1.9 10^3/uL (1.0-4.0); LYMPHOCYTES % (AUTO) 9 % (12-44); MEAN CORPUSCULAR HEMOGLOBIN 29 pg (25-34); MEAN CORPUSCULAR HGB CONC 34 g/dL (32-36); MEAN CORPUSCULAR VOLUME 85 fL (80-99); MEAN PLATELET VOLUME 8.9 fL (9.0-12.2); MONOCYTES % (AUTO) 9 % (0-12); NEUTROPHILS % (AUTO) 79 % (42-75); PLATELET COUNT 269 10^3/uL (130-400); WHITE BLOOD COUNT 21.5 10^3/uL (4.3-11.0)
[2020-08-27 12:14] LABS: ALBUMIN 3.9 GM/DL (3.2-4.5); CHLORIDE 100 MMOL/L (98-107); POTASSIUM 4.2 MMOL/L (3.6-5.0); SODIUM 135 MMOL/L (135-145)
[2020-08-27 12:15] LABS: CALCIUM 9.4 MG/DL (8.5-10.1)
[2020-08-27 12:16] LABS: GLUCOSE 163 MG/DL (70-105); TOTAL PROTEIN 6.7 GM/DL (6.4-8.2)
[2020-08-27 12:17] LABS: CARBON DIOXIDE 26 MMOL/L (21-32)
--- NOTE | 2020-08-27 12:17 | Diagnostic Imaging Report ---
INDICATION: Shortness of breath. TECHNIQUE/COMPARISON: PA and lateral views of the chest were obtained at 11:53 AM and compared to 08/25/2020. FINDINGS: The heart and mediastinal silhouette are normal in appearance. The lungs show no new infiltrate. The large left suprahilar mass appears similar to the prior study. There is no pneumothorax. IMPRESSION: The large left suprahilar mass is again noted. No pneumothorax or pleural fluid at this time. Dictated by: Dictated on workstation # [id number]
[2020-08-27 12:18] LABS: BILIRUBIN,TOTAL 1.1 MG/DL (0.1-1.0)
[2020-08-27 12:20] LABS: ALKALINE PHOSPHATASE 134 U/L (40-136); CREATININE SERUM 0.94 MG/DL (0.60-1.30); GFR ESTIMATED > 60
[2020-08-27 12:21] LABS: BUN/CREATININE RATIO 32
[2020-08-27 12:23] LABS: ALANINE AMINOTRANSFERASE 320 U/L (0-55); MAGNESIUM 1.8 MG/DL (1.6-2.4)
[2020-08-27 12:32] LABS: BAND NEUTROPHILS 0 %; BASOPHILS % (MANUAL) 0 %; EOSINOPHILS % (MANUAL) 0 %; LYMPHOCYTES % (MANUAL) 9 %; MONOCYTES % (MANUAL) 4 %; NEUTROPHILS % (MANUAL) 87 %; RBC MORPH NORMAL
--- NOTE | 2020-08-27 12:37 | NUR ---
RESTING IN BED. WARM BLANKET GIVEN. DENIES ANY OTHER NEEDS AT THIS TIME.
[2020-08-27] MEDS ORDERED: ASPIRIN 81 MG CHEW (CHILDREN'S ASA) PO ONE (13:00)
--- NOTE | 2020-08-27 13:00 | NUR ---
ANOTHER WARM BLANKET GIVEN FOR PT'S COLD FEET.
--- NOTE | 2020-08-27 13:23 | NUR ---
PATCHER BOWLING BALL CONTACTED FOR A BED.
[2020-08-27 14:37] VITALS: BP 157/93
[2020-08-27] MEDS ORDERED: CATHETER FLUSH 10 ML SYR IV PRN (15:15)
[2020-08-27 16:00] VITALS: BP 147/91
[2020-08-27] MEDS: NS IV 1000 ML 1,000 ML IV SCH (16:08)
[2020-08-27 16:16] LABS: ABG BASE EXCESS 3.2 MMOL/L (-2.5-2.5); ABG OXYGEN SATURATION 94 % (94-100); ABG PCO2 39 MMHG (35-45); ABG PH 7.45 (7.37-7.43); ABG PO2 73 MMHG (79-93); ABG TCO2 28.3 MMOL/L (21.0-31.0)
[2020-08-27 16:18] LABS: ALLENS TEST YES-POS; INSPIRED O2 RA; PATIENT TEMP 37.6; VENTILATOR NO
[2020-08-27] MEDS ORDERED: FLU QUADRIvalent (3YOA+) 60 mcg/0.5 ml 2020-21 (AFLURIA) IM ONE (18:00)
[2020-08-27 19:11] VITALS: BP 148/87
--- NOTE | 2020-08-27 19:50 | NUR ---
1945 Patient shouting in room complaining of abdominal pain, currently rating pain 10/10. [address] Reyes, received order for Fentanyl and Senna
[2020-08-27] MEDS ORDERED: fentaNYL INJECTION 100 MCG/2 ML AMP IVP PRN (20:00)
[2020-08-27] MEDS: SENNA W/DOCUSATE (SENOKOT S) TABLET PO SCH (20:03)
[2020-08-27] MEDS ORDERED: morphine INJ 10 MG/ML 1ML (SYR OR VIAL) IVP STA ×2 (21:03→22:26)
[2020-08-27] MEDS ORDERED: morphine INJ 4 MG/ML 1 ML (VIAL/SYRINGE) ONE (21:03)
--- NOTE | 2020-08-27 21:17 | NUR ---
2044-pt voices abd pain, pt asked for assistance to reposition again, pt turned on right side. 2099-pt yelling out that he is in pain-pt states it 10/10 numerically in mid abd-pt states that if feels like pressure pushing outward 2101-this rn called dr. herman informed her of pts continued & increasing abd pain orders for 2mg morphine iv now x1 dose & ct abd pelvis without contrast
--- NOTE | 2020-08-27 21:56 | Diagnostic Imaging Report ---
PROCEDURE: CT abdomen and pelvis without contrast. TECHNIQUE: Multiple contiguous axial images were obtained through the abdomen and pelvis without the use of intravenous contrast. Auto Exposure Controls were utilized during the CT exam to meet ALARA standards for radiation dose reduction. INDICATION: Increased abdominal pain, lung cancer COMPARISON: 08/20/2020 FINDINGS: The lung bases are clear. The heart is normal in size. The liver, spleen, pancreas, adrenal glands appear normal on this noncontrast exam. There are simple appearing cysts on the kidneys bilaterally, the larger is seen on the left measuring up to 5 cm in size. There is a subtle low density in the posterior inferior left kidney measuring 3.1 cm, which is not well evaluated. The bowel loops are nondistended without obstruction seen. The appendix is normal. There is moderate stool in the proximal colon. No significant free air or free fluid is seen. No significant adenopathy is seen. No acute osseous abnormality is seen. IMPRESSION: 1. Hypodense lesion in the inferior left kidney is suboptimally evaluated without contrast and was concerning for metastatic disease on the prior exam. 2. No bowel obstruction or other acute abdominal abnormality is seen. Dictated by: Dictated on workstation # [id number]
--- NOTE | 2020-08-27 22:24 | NUR ---
2220 Patient still shouting and complaining of 9/[address] resulted. [address] Reyes with CT results and notified her of patients pain level and patients continued shouting about pain. Received orders for stat morphine x1 and stat ativan x1, and prn morphine.
[2020-08-27] MEDS ORDERED: LORazepam INJ 2 MG/ML (ATIVAN) VIAL IVP ONE (22:30)
[2020-08-28] VITALS (13 sets, daily range): BP systolic 136–169; BP diastolic 70–103
[2020-08-28] MEDS: NS IV 1000 ML 1,000 ML IV SCH ×2 (01:39→08:56)
[2020-08-28] MEDS: morphine INJ 10 MG/ML 1ML (SYR OR VIAL) IVP PRN ×3 (03:47→23:14)
[2020-08-28 06:24] LABS: BASOPHILS % (AUTO) 0 % (0-10); EOSINOPHILS # (AUTO) 0.1 10^3/uL (0.0-0.3); EOSINOPHILS % (AUTO) 1 % (0-10); HEMATOCRIT 49 % (40-54); HEMOGLOBIN 16.6 g/dL (13.3-17.7); LYMPHOCYTES # (AUTO) 0.7 10^3/uL (1.0-4.0); LYMPHOCYTES % (AUTO) 5 % (12-44); MEAN CORPUSCULAR HEMOGLOBIN 30 pg (25-34); MEAN CORPUSCULAR HGB CONC 34 g/dL (32-36); MEAN CORPUSCULAR VOLUME 87 fL (80-99); MEAN PLATELET VOLUME 9.2 fL (9.0-12.2); MONOCYTES # (AUTO) 1.2 10^3/uL (0.0-1.0); MONOCYTES % (AUTO) 9 % (0-12); NEUTROPHILS # (AUTO) 11.1 10^3/uL (1.8-7.8); NEUTROPHILS % (AUTO) 84 % (42-75); PLATELET COUNT 195 10^3/uL (130-400); WHITE BLOOD COUNT 13.3 10^3/uL (4.3-11.0)
[2020-08-28 06:31] LABS: ALBUMIN 3.4 GM/DL (3.2-4.5)
[2020-08-28 06:32] LABS: CHLORIDE 104 MMOL/L (98-107); POTASSIUM 3.9 MMOL/L (3.6-5.0); SODIUM 136 MMOL/L (135-145)
[2020-08-28 06:33] LABS: CALCIUM 8.5 MG/DL (8.5-10.1)
[2020-08-28 06:34] LABS: GLUCOSE 140 MG/DL (70-105); TOTAL PROTEIN 5.8 GM/DL (6.4-8.2)
[2020-08-28 06:35] LABS: CARBON DIOXIDE 22 MMOL/L (21-32)
[2020-08-28 06:36] LABS: BILIRUBIN,TOTAL 1.3 MG/DL (0.1-1.0)
[2020-08-28 06:37] LABS: ALKALINE PHOSPHATASE 104 U/L (40-136)
[2020-08-28 06:38] LABS: GFR ESTIMATED > 60
[2020-08-28 06:39] LABS: BUN/CREATININE RATIO 44
[2020-08-28 06:41] LABS: ALANINE AMINOTRANSFERASE 221 U/L (0-55)
[2020-08-28] MEDS: RT-ALBUTEROL/IPRATROPIUM 3 ML (DUONEB) VIAL IH SCH ×5 (07:33→19:18)
[2020-08-28] MEDS: SENNA W/DOCUSATE (SENOKOT S) TABLET PO SCH ×2 (08:55→20:00)
[2020-08-28] MEDS: ASPIRIN 81 MG CHEW (CHILDREN'S ASA) PO SCH (08:55)
--- NOTE | 2020-08-28 09:47 | Consultation-Cardiology ---
HPI-Cardiology Cardiology Consultation Date of Consultation 08/28/20 Date of Admission Time Seen by Provider: 09:00 Indication: elevated troponin HPI Patient is a 65 y/o male recently diagnosed with metastatic lung CA and was recently discharged home. Presented to the ER with complaints of generalized weakness, increased dyspnea and chest tightness. Denies any active chest pain. Continues to complain of weakness. Denies any dizziness/lightheadedness or syncope. Home Medications & Allergies Allergies: Coded Allergies: sulfamethoxazole (Verified Allergy, Unknown, Hives, 08/10/20) trimethoprim (Verified Allergy, Unknown, Hives, 08/10/20) Home Medication List Reviewed: Yes [id number] Hx Patient Social History Smoking Status: Current Everyday Smoker Type Used: Cigarettes 2nd Hand Smoke Exposure: Yes Recent Foreign Travel: No Recent Infectious Disease Expo: No Recent Hopitalizations: No Immunizations Up To Date Date of Pneumonia Vaccine: Oct 10, 2018 Past Medical History HTN, HLP Family Medical History Significant Family History: No Pertinent Family Hx Review of Systems-General Review of Systems Constitutional: No chills, No fever; malaise, weakness EENTM: no symptoms reported; No blurred vision, No double vision, No vision loss, No epistaxis, No nose pain Respiratory: see HPI; No cough; dyspnea on exertion; No orthopnea, No phlegm; short of breath Cardiovascular: see HPI, chest pain; No edema, No Hx of Intervention, No palpitations, No syncope, No vascular heart diseas Gastrointestinal: no symptoms reported; No abdominal pain, No constipation Genitourinary: no symptoms reported Musculoskeletal: no symptoms reported Skin: see HPI Psychiatric/Neurological: No Symptoms Reported Reviewed Test Results Reviewed Test Results Lab Laboratory Tests 08/27/20 11:40: White Blood Count 21.5H, Red Blood Count 6.22H, Hemoglobin 18.2H, Hematocrit 53, Mean Corpuscular Volume 85, Mean Corpuscular Hemoglobin 29, Mean Corpuscular Hemoglobin Concent 34, Red Cell Distribution Width 13.5, Platelet Count 269, Mean Platelet Volume 8.9L, Immature Granulocyte % (Auto) 2, Neutrophils (%) (Auto) 79H, Lymphocytes (%) (Auto) 9L, Monocytes (%) (Auto) 9, Eosinophils (%) (Auto) 1, Basophils (%) (Auto) 0, Neutrophils # (Auto) 17.0H, Lymphocytes # (Auto) 1.9, Monocytes # (Auto) 2.0H, Eosinophils # (Auto) 0.1, Basophils # (Auto) 0.1, Immature Granulocyte # (Auto) 0.5H, Neutrophils % (Manual) 87, Lymphocytes % (Manual) 9, Monocytes % (Manual) 4, Eosinophils % (Manual) 0, Basophils % (Manual) 0, Band Neutrophils 0, Blood Morphology Comment NORMAL, Sodium Level 135, Potassium Level 4.2, Chloride Level 100, Carbon Dioxide Level 26, Anion Gap 9, Blood Urea Nitrogen 30H, Creatinine 0.94, Estimat Glomerular Filtration Rate > 60, BUN/Creatinine Ratio 32, Glucose Level 163H, Calcium Level 9.4, Corrected Calcium 9.5, Magnesium Level 1.8, Total Bilirubin 1.1H, Aspartate Amino Transf (AST/SGOT) 42H, Alanine Aminotransferase (ALT/SGPT) 320H, Alkaline Phosphatase 134, Troponin I 0.319*H, B-Type Natriuretic Peptide 54.4, Total Protein 6.7, Albumin 3.9 08/27/20 16:00: Blood Gas Puncture Site L RADIAL, Blood Gas Patient Temperature 37.6, Arterial Blood pH 7.45H, Arterial Blood Partial Pressure CO2 39, Arterial Blood Partial Pressure O2 73L, Arterial Blood HCO3 27, Arterial Blood Total CO2 28.3, Arterial Blood Oxygen Saturation 94, Arterial Blood Base Excess 3.2H, Jose Daniel Test YES-POS, Blood Gas Ventilator Setting NO, Blood Gas Inspired Oxygen RA 08/27/20 17:34: Troponin I 0.275H 08/28/20 05:31: White Blood Count 13.3H, Red Blood Count 5.60H, Hemoglobin 16.6, Hematocrit 49, Mean Corpuscular Volume 87, Mean Corpuscular Hemoglobin 30, Mean Corpuscular Hemoglobin Concent 34, Red Cell Distribution Width 13.5, Platelet Count 195, Mean Platelet Volume 9.2, Immature Granulocyte % (Auto) 2, Neutrophils (%) (Auto) 84H, Lymphocytes (%) (Auto) 5L, Monocytes (%) (Auto) 9, Eosinophils (%) (Auto) 1, Basophils (%) (Auto) 0, Neutrophils # (Auto) 11.1H, Lymphocytes # (Auto) 0.7L, Monocytes # (Auto) 1.2H, Eosinophils # (Auto) 0.1, Basophils # (Auto) 0.0, Immature Granulocyte # (Auto) 0.2H, Sodium Level 136, Potassium Level 3.9, Chloride Level 104, Carbon Dioxide Level 22, Anion Gap 10, Blood Urea Nitrogen 35H, Creatinine 0.80, Estimat Glomerular Filtration Rate > 60, BUN/Creatinine Ratio 44, Glucose Level 140H, Calcium Level 8.5, Corrected Calcium 9.0, Total Bilirubin 1.3H, Aspartate Amino Transf (AST/SGOT) 29, Alanine Aminotransferase (ALT/SGPT) 221H, Alkaline Phosphatase 104, Troponin I 0.145H, Total Protein 5.8L, Albumin 3.4 08/28/20 10:51: Urine Color DARK YELLOW, Urine Clarity CLEAR, Urine pH 5.5, Urine Specific [place] 1.025H, Urine Protein NEGATIVE, Urine Glucose (UA) NEGATIVE, Urine Ketones NEGATIVE, Urine Nitrite NEGATIVE, Urine Bilirubin NEGATIVE, Urine Urobilinogen 1.0, Urine Leukocyte Esterase NEGATIVE, Urine RBC (Auto) 1+H, Urine RBC 0-2, Urine WBC NONE, Urine Squamous Epithelial Cells RARE, Urine Crystals NONE, Urine Bacteria TRACE, Urine Casts NONE, Urine Mucus SMALLH, Urine Yeast RARE, Urine Culture Indicated YES ECG Impression ECG Initial ECG Rhythm: Normal Sinus Physical Exam Physical Exam Vital Signs Vital Signs - First Documented 08/27/20 08/27/20 11:35 12:01 Temp 36.4 Pulse 85 Resp 16 B/P (MAP) 135/103 (114) Pulse Ox 95 O2 Delivery Nasal Cannula O2 Flow Rate 2.00 FiO2 96 Capillary Refill : Less Than 3 Seconds Height, Weight, BMI Height: '" Weight: lbs. oz. kg; 26.00 BMI Method: General Appearance: No Apparent Distress, WD/WN HEENT: PERRL/EOMI, Normal ENT Inspection Neck: Full Range of Motion, Normal Inspection, Non Tender, Supple Respiratory: Chest Non Tender, No Accessory Muscle Use, No Respiratory Distress, Rhonci Cardiovascular: Regular Rate, Rhythm, No Edema, No Gallop, No JVD, No Murmur, Normal Peripheral Pulses Gastrointestinal: No Pulsatile Mass, Non Tender, Soft A/P-Cardiology Admission Diagnosis chest pain dyspnea metastatic lung CA HTN Assessment/Plan Chest pain, resembling angina, EKG shows no acute ST changes. Patient has mild troponin elevation, could be secondary to hypoxemia, however, underlying CAD cannot be ruled out. Discussed management plan, recommend LHC, radial access for further evaluation. Dyspnea, improving, continue to monitor. Metastatic Lung CA, recently diagnosed, has appt with Dr. Gudino next week HTN, continue to monitor Generalized debility/weakness- PT/OT Thank you for allowing us to participate in the management of Mr. Pritchard. This is Brook De La Fuente PA-C, as a scribe for Dr. Pugh. Patient was seen and evaluated with Brook, examination performed, management plan was discussed, agree with the current scribed note, I made few changes to the note using Italic font Patient is currently having chest pain free, due to the elevated troponin we discussed the management plan recommended coronary angiogram to the fact that he has metastatic lung cancer and he will continue to have recurrent chest pain. Procedure was explained in length to the patient on Prozac and cons were explained, patient agreed on the procedure, discussed the management plan with Dr. Reyes Coronary angiogram carried out showing mild coronary artery disease nonobstructive disease Clinical Quality Measures DVT/VTE Risk/Contraindication: Risk Factor Score Per Nursin RFS Level Per Nursing on Admit: 4+=Very High BROOK CUMMINS Aug 28, 2020 9:47 am ANGELO PUGH MD Aug 28, 2020 11:42 am
[2020-08-28] MEDS ORDERED: HEParin 1000 UNIT/ML (10ML VIAL) FOR BOLUS ONE (10:51)
[2020-08-28] MEDS ORDERED: MIDAZOLAM 5 MG/5 ML (VERSED) VIAL ONE (10:51)
[2020-08-28] MEDS ORDERED: LIDOCAINE 1% INJ 20 ML 20 ML VIAL ONE (10:51)
[2020-08-28] MEDS ORDERED: VERAPAMIL 5 MG/2 ML (CALAN) VIAL IV ONE (10:51)
[2020-08-28] MEDS ORDERED: fentaNYL INJECTION 100 MCG/2 ML AMP ONE (10:51)
[2020-08-28] MEDS ORDERED: NITRO DRIP 25000 MCG/D5W 250 ML IV ONE (10:52)
[2020-08-28] MEDS ORDERED: HEParin (CATH LAB) 2,000 ML IV ONE (10:52)
--- NOTE | 2020-08-28 11:00 | NUR ---
PT OFF FLOOR TO PLATE GRAINER APPRENTICE AT THIS TIME STAFF AT SIDE.
[2020-08-28 11:02] LABS: BILIRUBIN,URINE NEGATIVE (NEGATIVE); CLARITY,URINE CLEAR; COLOR,URINE DARK YELLOW; GLUCOSE, URINE (UA) NEGATIVE (NEGATIVE); KETONES,URINE NEGATIVE (NEGATIVE); LEUKOCYTE ESTERASE ,URINE NEGATIVE (NEGATIVE); NITRITE,URINE NEGATIVE (NEGATIVE); PH,URINE 5.5 (5-9); PROTEIN,URINE NEGATIVE (NEGATIVE)
[2020-08-28 11:17] LABS: BACTERIA,URINE TRACE /HPF; RBC,URINE 0-2 /HPF
[2020-08-28 11:18] LABS: SQUAMOUS EPITHELIAL CELL,UR RARE /HPF; YEAST,URINE RARE /HPF
--- NOTE | 2020-08-28 11:19 | Cardiac Procedure Note-CS/ASA ---
Pre-Procedure Note Pre-Op Procedure Note H&P Reviewed The H&P was reviewed, patient examined and no changes noted. Date H&P Reviewed: Aug 28, 2020 Time H&P Reviewed: 11:19 Conscious Sedation Pre-Proced Time 11:19 ASA Score 3 For ASA 3 and 4: Consider anesthesia and medical clearance. Also, for patients with a history of failed moderate sedation consider anesthesia. Airway Lungs Heart ASA score ASA 1: a normal healthy patient ASA 2: a patient with a mild systemic disease (mid diabetes, controlled hypertension, obesity x ASA 3: a patient with a severe systemic disease that limits activity (angina, COPD, prior Myocardial infarction) ASA 4: a patient with an incapacitating disease that is a constant threat to life (CHF, renal failure) ASA 5: a moribund patient not expected to survive 24 hrs. (ruptured aneurysm) ASA 6: a declared brain- patient whose organs are being harvested. For emergent operations, add the letter E after the classification Mallampati Classification Grade 3 Sedation Plan Analgesia, Amnesia, Plan communicated to team members, Discussed options with patient/fam, Discussed risks with patient/fam The patient is an appropriate candidate to undergo the planned procedure, sedation, and anesthesia. The patient immediately re-assessed prior to indication. ANGELO HOWARD MD Aug 28, 2020 11:19 am
[2020-08-28] MEDS ORDERED: NS IV 1000 ML 1,000 ML IV SCH (11:40)
--- NOTE | 2020-08-28 11:46 | Cardiac Cath Report ---
Cardiac Cath Report Physician (s)/Japanese Professor (s) Physician ANGELO HOWARD MD Pre-Procedure Diagnosis Pre-Procedure Diagnosis: elevated troponin Post-Procedure Note Procedure Start Date: Aug 28, 2020 Name of Procedure: Left heart catheterization Left ventriculogram Aortic arch angiogram Findings/Procedure Note PROCEDURE NOTE: 65 years old gentleman with metastatic lung cancer, discharged recently from the hospital, readmitted with chest pain and elevated troponin. Decided to proceed with coronary angiogram. After explaining the procedure to the patient, all pros and cons were explained, all questions were answered. The patient signed the consent and then he was placed on the cardiac catheterization laboratory. Groin was prepped SL fashion local anesthesia was used. Sheath placed in the right radial artery, [place] catheter was used advanced to left ventricular cavity, left ventriculogram was done, then intubated the coronaries, had difficulty advancing to the full engagement in the left coronary system, there is no significant obstructive disease noted then turned to the right coronary system and angiogram was done then bolded to the level of the aortic arch and aortic arch angiogram was done At the end of the procedure the sheath was removed. Vascular bed was used FINDINGS: Hemodynamics LV 113/8, end-diastolic pressure of 8 Aorta 109/73 mean of 89 ANATOMY: Left Main is free of obstructive disease Left Anterior Descending has mild to moderate disease in the midportion about 40-50 percent stenosis nonobstructive disease Left Circumflex is small in size with no obstructive disease Right Coronary Artery is large dominant artery with no obstructive disease LV Gram was done showing normal left ventricular size, estimated ejection fraction 60 percent Aorta evaluation done with aortic arch angiogram showing normal arch, no dissection or aneurysm, normal origin of the brachiocephalic artery, left carotid artery and left subclavian arteries CONCLUSION: 1. Duoc-kb-btideiyu disease in the mid LAD, nonobstructive disease otherwise no significant obstructive disease in the coronary system 2. Normal left ventricular size and systolic function estimated ejection fraction 60 percent 3. Normal aortic arch and great vessels of the neck DISCUSSION AND RECOMMENDATION: Medical therapy is recommended no intervention is needed Anesthesia Type: Conscious Sedation Estimated blood loss (mL): 5 ml Contrast Amount: 65 ml Total Radiation Dose: 418 mGy Post-Procedure Diagnosis Post-operative diagnosis: Chest pain Type II myocardial infarction Metastatic lung cancer Hypertension ANGELO HOWARD MD Aug 28, 2020 11:46 am
--- NOTE | 2020-08-28 16:14 | NUR ---
Pt was dismissed on Wednesday to his apt. and returned the following day having fallen at home and left message that he was willing to pursue detention home placement. Discussed continued care with pt briefly today and acknowledges that he rushed his discharge home and wasn't ready. He is willing to be admitted to the Skilled Unit at [facility] when ready for discharge. Since he has a managed care Medicare plan the halfway will need approval for admission which could take 24 to 48 hours. [facility] has been faxed preliminary medical information.will follow and assist.
[2020-08-28] MEDS ORDERED: ACETAMINOPHEN 500 MG TAB (TYLENOL) ONE (20:14)
[2020-08-28] MEDS ORDERED: IBUPROFEN 600 MG (MOTRIN) TAB PO PRN (20:15)
[2020-08-28] MEDS: ACETAMINOPHEN 500 MG TAB (TYLENOL) PO PRN (20:21)
[2020-08-28] MEDS: CEFEPIME INJECTION 1,000 MG in WATER (STERILE) FOR INJECTION 10 ML IV SCH (21:08)
--- NOTE | 2020-08-28 21:58 | History & Physical ---
HPI History of Present Illness: 65 yo M that was recently discharged earlier this week that presented with shortness of breath and chest pain. Patient was recently diagnosed with metastatic lung cancer. Patient started to have shortness of breath and chest pain a couple hours prior to presenting to ER. Patient denies ever having pain like this previously. O/N patient started having abdominal pain. Denies any diarrhea or constipation. Stat CT did not reveal any acute abdominal processes and abdominal pain is improved this AM. Source: patient, old records Exam Limitations: no limitations Date seen by provider: Aug 28, 2020 Time Seen by Provider: 10:45 Attending Physician Jamey Reyes MD PCP Erendira Mirza MD Consult Date of Admission Aug 28, 2020 at 15:22 Home Medications Home Medications Reviewed patient Home Medication Reconciliation performed by pharmacy medication reconciliations pharmacy technician instructor and/or nursing. Patients Allergies have been reviewed. Allergies Coded Allergies: sulfamethoxazole (Verified Allergy, Unknown, Hives, 08/10/20) trimethoprim (Verified Allergy, Unknown, Hives, 08/10/20) [id number] Hx Patient Social History Smoking Status: Current Everyday Smoker Type Used: Cigarettes 2nd Hand Smoke Exposure: Yes Recent Foreign Travel: No Contact w/other who traveled: No Recent Hopitalizations: No Recent Infectious Disease Expo: No Immunizations Up To Date Date of Pneumonia Vaccine: Oct 10, 2018 Past Medical History HTN Metastatic Lung Ca Family Medical History Significant Family History: No Pertinent Family Hx Review of Systems (CHC) Constitutional: No chills, No dizziness, No fever; weakness EENTM: no symptoms reported; No mouth pain, No nose pain, No throat pain Respiratory: No cough; dyspnea on exertion, short of breath Cardiovascular: chest pain; No edema, No palpitations Gastrointestinal: abdominal pain; No constipation, No diarrhea; loss of appetite; No nausea, No vomiting Genitourinary: no symptoms reported; No dysuria, No frequency, No hematuria Musculoskeletal: no symptoms reported; No back pain, No joint pain, No muscle pain Skin: no symptoms reported; No lesions, No rash Psychiatric/Neurological: Anxiety, Depressed All Other Systems Reviewed Negative Unless Noted: Yes Reviewed Test Results Reviewed Test Results Lab Laboratory Tests Test 08/28/20 05:31 08/28/20 10:51 Range/Units White Blood Count 13.3 H 4.3-11.0 10^3/uL Red Blood Count 5.60 H 4.30-5.52 10^6/uL Hemoglobin 16.6 13.3-17.7 g/dL Hematocrit 49 40-54 % Mean Corpuscular Volume 87 80-99 fL Mean Corpuscular Hemoglobin 30 25-34 pg Mean Corpuscular Hemoglobin Concent 34 32-36 g/dL Red Cell Distribution Width 13.5 10.0-14.5 % Platelet Count 195 130-400 10^3/uL Mean Platelet Volume 9.2 9.0-12.2 fL Immature Granulocyte % (Auto) 2 % Neutrophils (%) (Auto) 84 H 42-75 % Lymphocytes (%) (Auto) 5 L 12-44 % Monocytes (%) (Auto) 9 0-12 % Eosinophils (%) (Auto) 1 0-10 % Basophils (%) (Auto) 0 0-10 % Neutrophils # (Auto) 11.1 H 1.8-7.8 10^3/uL Lymphocytes # (Auto) 0.7 L 1.0-4.0 10^3/uL Monocytes # (Auto) 1.2 H 0.0-1.0 10^3/uL Eosinophils # (Auto) 0.1 0.0-0.3 10^3/uL Basophils # (Auto) 0.0 0.0-0.1 10^3/uL Immature Granulocyte # (Auto) 0.2 H 0.0-0.1 10^3/uL Sodium Level 136 135-145 MMOL/L Potassium Level 3.9 3.6-5.0 MMOL/L Chloride Level 104 98-107 MMOL/L Carbon Dioxide Level 22 21-32 MMOL/L Anion Gap 10 5-14 MMOL/L Blood Urea Nitrogen 35 H 7-18 MG/DL Creatinine 0.80 0.60-1.30 MG/DL Estimat Glomerular Filtration Rate > 60 BUN/Creatinine Ratio 44 Glucose Level 140 H 70-105 MG/DL Calcium Level 8.5 8.5-10.1 MG/DL Corrected Calcium 9.0 8.5-10.1 MG/DL Total Bilirubin 1.3 H 0.1-1.0 MG/DL Aspartate Amino Transf (AST/SGOT) 29 5-34 U/L Alanine Aminotransferase (ALT/SGPT) 221 H 0-55 U/L Alkaline Phosphatase 104 40-136 U/L Troponin I 0.145 H <0.028 NG/ML Total Protein 5.8 L 6.4-8.2 GM/DL Albumin 3.4 3.2-4.5 GM/DL Urine Color DARK YELLOW Urine Clarity CLEAR Urine pH 5.5 5-9 Urine Specific [place] 1.025 H 1.016-1.022 Urine Protein NEGATIVE NEGATIVE Urine Glucose (UA) NEGATIVE NEGATIVE Urine Ketones NEGATIVE NEGATIVE Urine Nitrite NEGATIVE NEGATIVE Urine Bilirubin NEGATIVE NEGATIVE Urine Urobilinogen 1.0 < = 1.0 MG/DL Urine Leukocyte Esterase NEGATIVE NEGATIVE Urine RBC (Auto) 1+ H NEGATIVE Urine RBC 0-2 /HPF Urine WBC NONE /HPF Urine Squamous Epithelial Cells RARE /HPF Urine Crystals NONE /LPF Urine Bacteria TRACE /HPF Urine Casts NONE /LPF Urine Mucus SMALL H /LPF Urine Yeast RARE /HPF Urine Culture Indicated YES Physical Exam-(CHC) Physical Exam Vital Signs VS - Last 72 Hours, by Label 08/27/20 08/27/20 08/27/20 08/27/20 11:35 11:46 12:01 13:57 Temp 36.4 Pulse 85 79 Resp 16 16 B/P (MAP) 135/103 (114) 146/102 Pulse Ox 95 96 O2 Delivery Nasal Cannula Nasal Cannula Nasal Cannula Nasal Cannula O2 Flow Rate 2.00 2.00 2.00 2.00 FiO2 96 08/27/20 08/27/20 08/27/20 08/27/20 14:37 16:00 17:11 19:00 Temp 36.6 36.7 Pulse 85 85 89 77 Resp 18 16 B/P (MAP) 157/93 (114) 147/91 (109) Pulse Ox 96 94 O2 Delivery Room Air Room Air 08/27/20 08/27/20 08/28/20 08/28/20 19:11 20:00 00:35 01:00 Temp 36.7 36.7 Pulse 85 82 92 Resp 16 20 B/P (MAP) 148/87 (107) 153/82 (105) Pulse Ox 94 95 O2 Delivery Room Air Room Air Nasal Cannula O2 Flow Rate 2.00 08/28/20 08/28/20 08/28/20 08/28/20 03:48 06:43 08:00 08:00 Temp 36.7 37.1 37.1 Pulse 89 98 98 98 Resp 18 18 18 B/P (MAP) 144/81 (102) 145/92 (109) 145/92 (109) Pulse Ox 94 96 96 O2 Delivery Nasal Cannula Nasal Cannula Nasal Cannula O2 Flow Rate 2.00 2.00 2.00 08/28/20 08/28/20 08/28/20 08/28/20 08:00 10:13 11:55 12:10 Pulse 89 90 Resp 16 18 B/P (MAP) 142/84 (103) 136/70 (92) Pulse Ox 93 92 92 O2 Delivery Nasal Cannula Nasal Cannula Room Air Room Air O2 Flow Rate 2.00 2.00 08/28/20 08/28/20 08/28/20 08/28/20 12:25 12:37 12:40 12:55 Pulse 85 83 103 94 Resp 16 20 18 B/P (MAP) 161/88 (112) 136/88 (104) 166/103 (124) Pulse Ox 95 94 95 O2 Delivery Room Air Room Air Room Air 08/28/20 08/28/20 08/28/20 08/28/20 13:10 13:25 13:55 15:57 Temp 36.9 Pulse 100 92 92 90 Resp 18 18 16 22 B/P (MAP) 159/84 (109) 153/91 (111) 161/92 (115) 169/93 (118) Pulse Ox 95 92 92 96 O2 Delivery Room Air Room Air Room Air Room Air 08/28/20 08/28/20 08/28/20 08/28/20 16:33 19:00 19:18 20:12 Temp 38.4 Pulse 104 92 Resp 20 B/P (MAP) 157/80 (105) Pulse Ox 93 92 93 O2 Delivery Room Air Room Air Room Air 08/28/20 08/28/20 08/28/20 20:21 20:51 21:34 Temp 38.4 38.0 36.8 Capillary Refill : Less Than 3 Seconds General Appearance: WD/WN, no apparent distress HEENT: PERRL/EOMI Neck: non-tender, full range of motion, supple Respiratory: chest non-tender, lungs clear, normal breath sounds, no respiratory distress, no accessory muscle use Cardiovascular: normal peripheral pulses, regular rate, rhythm, no murmur Gastrointestinal: normal bowel sounds, soft, no organomegaly; No guarding, No rebound; tenderness Back: no CVA tenderness, no vertebral tenderness Extremities: normal range of motion, non-tender, normal inspection, no pedal edema, no calf tenderness, normal capillary refill Neurologic/Psychiatric: nca certified concierge II-XII nml as tested, no motor/sensory deficits, alert, normal mood/affect, oriented x 3 Skin: normal color, warm/dry Lymphatic: no adenopathy Assessment/Plan Assessment/Plan Admission Status: Inpatient Order (span 2 midnights) Reason for Inpatient Admission: Patient having chest pain and needing cardiac evaluation and consult from cardiology (1) NSTEMI (non-ST elevated myocardial infarction) Status: Acute Assessment & Plan: - Cardiology consult, patient to cath today which was n ormal, continue to monitor (2) Metastatic lung carcinoma Status: Acute Assessment & Plan: - Dx last week, non small cell lung Ca, following with Oncology (3) Abdominal pain Status: Acute Assessment & Plan: - Stat CT neg for acute processes Qualifiers: Qualified Codes: R10.84 - Generalized abdominal pain (4) Hypertension Status: Chronic Assessment & Plan: - Continue home meds Qualifiers: Qualified Codes: I10 - Essential (primary) hypertension (5) COPD (chronic obstructive pulmonary disease) Status: Chronic Assessment & Plan: - Continue home meds (6) Shortness of breath Status: Acute (7) DVT prophylaxis Status: Acute Assessment & Plan: - Lovenox Clinical Quality Measures DVT/VTE Risk/Contraindication: Risk Factor Score Per Nursin RFS Level Per Nursing on Admit: 4+=Very High JAMEY REYES MD Aug 28, 2020 21:58
[2020-08-29] VITALS: BP 144/67
[2020-08-29] MEDS: NS IV 1000 ML 1,000 ML IV SCH ×3 (01:01→17:38)
[2020-08-29] MEDS: CEFEPIME INJECTION 1,000 MG in WATER (STERILE) FOR INJECTION 10 ML IV SCH ×4 (02:44→20:29)
[2020-08-29] MEDS: morphine INJ 10 MG/ML 1ML (SYR OR VIAL) IVP PRN (02:44)
[2020-08-29] MEDS: RT-ALBUTEROL/IPRATROPIUM 3 ML (DUONEB) VIAL IH SCH ×4 (03:01→21:09)
[2020-08-29 04:55] VITALS: BP 141/77
[2020-08-29 07:39] LABS: BASOPHILS % (AUTO) 0 % (0-10); EOSINOPHILS # (AUTO) 0.3 10^3/uL (0.0-0.3); EOSINOPHILS % (AUTO) 3 % (0-10); HEMATOCRIT 45 % (40-54); HEMOGLOBIN 15.2 g/dL (13.3-17.7); LYMPHOCYTES # (AUTO) 0.3 10^3/uL (1.0-4.0); LYMPHOCYTES % (AUTO) 3 % (12-44); MEAN CORPUSCULAR HEMOGLOBIN 30 pg (25-34); MEAN CORPUSCULAR HGB CONC 34 g/dL (32-36); MEAN CORPUSCULAR VOLUME 87 fL (80-99); MEAN PLATELET VOLUME 9.2 fL (9.0-12.2); MONOCYTES # (AUTO) 0.9 10^3/uL (0.0-1.0); MONOCYTES % (AUTO) 8 % (0-12); NEUTROPHILS # (AUTO) 8.6 10^3/uL (1.8-7.8); NEUTROPHILS % (AUTO) 85 % (42-75); PLATELET COUNT 151 10^3/uL (130-400); WHITE BLOOD COUNT 10.1 10^3/uL (4.3-11.0)
[2020-08-29 07:58] LABS: ALANINE AMINOTRANSFERASE 151 U/L (0-55); ALKALINE PHOSPHATASE 89 U/L (40-136); BUN/CREATININE RATIO 33; CALCIUM 7.9 MG/DL (8.5-10.1); CARBON DIOXIDE 22 MMOL/L (21-32); CHLORIDE 103 MMOL/L (98-107); CREATININE SERUM 0.73 MG/DL (0.60-1.30); GFR ESTIMATED > 60; GLUCOSE 102 MG/DL (70-105); POTASSIUM 3.7 MMOL/L (3.6-5.0); SODIUM 135 MMOL/L (135-145); TOTAL PROTEIN 5.3 GM/DL (6.4-8.2)
[2020-08-29 08:00] VITALS: BP 125/69
[2020-08-29] MEDS: ASPIRIN 81 MG CHEW (CHILDREN'S ASA) PO SCH (08:09)
[2020-08-29] MEDS: SENNA W/DOCUSATE (SENOKOT S) TABLET PO SCH ×2 (08:09→20:28)
--- NOTE | 2020-08-29 09:00 | NUR ---
RADIATION TREATMENT #2 OF 10 DELIVERED AT 9 AM.
[2020-08-29] MEDS: ADVAIR HFA 45/21 MCG INHALER 8 GM IH SCH (09:34)
--- NOTE | 2020-08-29 09:49 | Progress Note - Cardiology ---
Cardiology SOAP Progress Note Subjective: Lying in bed, just returned from radiation oncology treatment. No c/o CP or SOB or palpitations. Reports pain he was having in his lower back yesterday has improved today. Objective: I&O/Vital Signs 08/29/20 08/29/20 08/29/20 08/29/20 04:55 07:19 08:00 08:00 Temp 37.0 36.2 Pulse 82 81 81 Resp 16 B/P (MAP) 141/77 (98) 125/69 (87) Pulse Ox 95 97 O2 Delivery Nasal Cannula Room Air Nasal Cannula O2 Flow Rate 2.00 2.00 08/29/20 08/29/20 08/29/20 08/29/20 09:34 12:07 13:05 14:41 Temp 36.9 Pulse 84 86 Resp 18 B/P (MAP) 149/81 (103) Pulse Ox 92 96 92 O2 Delivery Nasal Cannula Room Air Nasal Cannula O2 Flow Rate 1.50 1.00 08/29/20 16:05 Temp 35.7 Pulse 91 Resp 16 B/P (MAP) 149/71 (97) Pulse Ox 94 O2 Delivery Room Air 08/29/20 00:00 Intake Total 700 ml Output Total 1000 ml Balance -300 ml Constitutional: appears stated age, AAO x 3, well-nourished Respiratory: No accessory muscle use, No respiratory distress; chest expansion is symmetric, chest is bilaterally symmetric, rhonchi (scattered), other (prolonged expiratory phase) Cardiovascular: regular rate-rhythm; No JVD; S1 and S2 Gastrointestional: No tender Extremities: no lower extremity edema bilateral Neurologic/Psychiatric: grossly intact (moves extremities) Skin: No rash on exposed areas, No ulcerations on exposed areas Results/Procedures: Labs Laboratory Tests 08/29/20 07:09: White Blood Count 10.1, Red Blood Count 5.12, Hemoglobin 15.2, Hematocrit 45, Mean Corpuscular Volume 87, Mean Corpuscular Hemoglobin 30, Mean Corpuscular Hemoglobin Concent 34, Red Cell Distribution Width 13.3, Platelet Count 151, Mean Platelet Volume 9.2, Immature Granulocyte % (Auto) 1, Neutrophils (%) (Auto) 85H, Lymphocytes (%) (Auto) 3L, Monocytes (%) (Auto) 8, Eosinophils (%) (Auto) 3, Basophils (%) (Auto) 0, Neutrophils # (Auto) 8.6H, Lymphocytes # (Au to) 0.3L, Monocytes # (Auto) 0.9, Eosinophils # (Auto) 0.3, Basophils # (Auto) 0.0, Immature Granulocyte # (Auto) 0.1, Sodium Level 135, Potassium Level 3.7, Chloride Level 103, Carbon Dioxide Level 22, Anion Gap 10, Blood Urea Nitrogen 24H, Creatinine 0.73, Estimat Glomerular Filtration Rate > 60, BUN/Creatinine Ratio 33, Glucose Level 102, Calcium Level 7.9L, Corrected Calcium 8.7, Total Bilirubin 2.0H, Aspartate Amino Transf (AST/SGOT) 26, Alanine Aminotransferase (ALT/SGPT) 151H, Alkaline Phosphatase 89, Total Protein 5.3L, Albumin 3.0L A/P: Assessment: CAD - [id number] disease in the mid LAD, nonobstructive disease otherwise no significant obstructive disease in the coronary system. Normal left ventricular size and systolic function estimated ejection fraction 60%. Normal aortic arch and great vessels of the neck. Per cardiac cath of Aug 28, [address] Pugh Echocardiogram of Aug 28, [address] Pugh showed LVEF 55-65%. Grade 1 diastolic dysfunction. PASP 25-30mmHg Metastatic Lung CA, recently diagnosed, management per Dr. Gudino HTN, continue to monitor Generalized debility/weakness- PT/OT Plan: Continue current regimen Possible transfer to [facility] later today per medical services Advise out pt f/u with Dr. Pugh in the next 4 weeks MEGGAN ROSE Aug 29, 2020 09:49
[2020-08-29 12:07] VITALS: BP 149/81
--- NOTE | 2020-08-29 13:17 | NUR ---
Pt is agreeable to senior care home placement. Referral pending with [facility].
--- NOTE | 2020-08-29 13:23 | NUR ---
RD ASSESSMENT PMHx: HTN; metastatic lung CA PT INTERACTION: Pt was awake and pleasant during nutrition assessment. Pt states current appetite is good. Note PO intake 75% x1meal, per chart review. Pt states following a regular diet at home, and has no issues with chewing/swallowing food. Pt states no issues with nausea, vomiting, or diarrhea. Pt states some issues with constipation, and that his last BM was "5 days ago." Note pt currently on bowel regimen of senna BID, per chart review. Pt states no recent wt changes. Note abnormal low lab values of Pro 5.3 and alb 3.0, per chart review. ABNORMAL NUTRITION-RELATED LAB VALUES LOW: Ca 7.9; Pro 5.3; alb 3.0 HIGH: BUN 24; bili 2.0; ALT 151 Est. kcal needs: 1550 kcal | 20 kcal/kg Est. Pro needs: 92 g Pro | 1.2 g Pro/kg PES STATEMENT: Inadequate protein intake (NI-2.1) related to low laboratory values as evidenced by Pro 5.3 | alb 3.0 INTERVENTION: Continue with current diet order of 2000mg Na diet. Add Ensure HP (vary) to meals TID, for increased protein intake. Provides 160 kcal and 16 g Pro per serving. Will continue to follow and reassess as pt needs, intake, and status change. Aliza Holm MS RD LD
--- NOTE | 2020-08-29 15:37 | Progress Note - Cardiology ---
Cardiology SOAP Progress Note Subjective: Malaise No cp or palp or syncope Shortness of breath with activity Back pain Objective: I&O/Vital Signs 08/29/20 08/29/20 08/29/20 08/29/20 04:55 07:19 08:00 08:00 Temp 37.0 36.2 Pulse 82 81 81 Resp 16 B/P (MAP) 141/77 (98) 125/69 (87) Pulse Ox 95 97 O2 Delivery Nasal Cannula Room Air Nasal Cannula O2 Flow Rate 2.00 2.00 08/29/20 08/29/20 08/29/20 08/29/20 09:34 12:07 13:05 14:41 Temp 36.9 Pulse 84 86 Resp 18 B/P (MAP) 149/81 (103) Pulse Ox 92 96 92 O2 Delivery Nasal Cannula Room Air Nasal Cannula O2 Flow Rate 1.50 1.00 08/29/20 00:00 Intake Total 700 ml Output Total 1000 ml Balance -300 ml Constitutional: appears stated age, AAO x 3, well-nourished Respiratory: No accessory muscle use, No respiratory distress; chest expansion is symmetric, chest is bilaterally symmetric, rhonchi (scattered), other (prolonged expiratory phase) Cardiovascular: regular rate-rhythm; No JVD; S1 and S2 Gastrointestional: No tender Extremities: no lower extremity edema bilateral Neurologic/Psychiatric: grossly intact (moves extremities) Skin: No rash on exposed areas, No ulcerations on exposed areas Results/Procedures: Labs Laboratory Tests 08/29/20 07:09: White Blood Count 10.1, Red Blood Count 5.12, Hemoglobin 15.2, Hematocrit 45, Mean Corpuscular Volume 87, Mean Corpuscular Hemoglobin 30, Mean Corpuscular Hemoglobin Concent 34, Red Cell Distribution Width 13.3, Platelet Count 151, Mean Platelet Volume 9.2, Immature Granulocyte % (Auto) 1, Neutrophils (%) (Auto) 85H, Lymphocytes (%) (Auto) 3L, Monocytes (%) (Auto) 8, Eosinophils (%) (Auto) 3, Basophils (%) (Auto) 0, Neutrophils # (Auto) 8.6H, Lymphocytes # (Auto) 0.3L, Monocytes # (Auto) 0.9, Eosinophils # (Auto) 0.3, Basophils # (Auto) 0.0, Immature Granulocyte # (Auto) 0.1, Sodium Level 135, Potassium Level 3.7, Chloride Level 103, Carbon Dioxide Level 22, Anion Gap 10, Blood Urea Nitrogen 24H, Creatinine 0.73, Estimat Glomerular Filtration Rate > 60, BUN/C reatinine Ratio 33, Glucose Level 102, Calcium Level 7.9L, Corrected Calcium 8. 7, Total Bilirubin 2.0H, Aspartate Amino Transf (AST/SGOT) 26, Alanine Aminotransferase (ALT/SGPT) 151H, Alkaline Phosphatase 89, Total Protein 5.3L, Albumin 3.0L Laboratory Tests 08/28/20 05:31 08/29/20 07:09 A/P: Assessment: CAD - cardiac cath of Aug 28, [address] Pugh: [id number] disease in the mid LAD, nonobstructive disease otherwise no significant obstructive disease in the coronary system. Normal left ventricular size and systolic function estimated ejection fraction 60%. Normal aortic arch and great vessels of the neck. Echocardiogram of Aug 28, [address] Pugh showed LVEF 55-65%. Grade 1 diast olic dysfunction. PASP 25-30mmHg Metastatic Lung CA, recently diagnosed, management per Dr. Gudino HTN, continue to monitor Generalized debility/weakness- PT/OT Plan: We reviewed his records, interviewed and examined him and answered his questions Continue current regimen Monitor labs Advise out pt f/u with Dr. Pugh in the next [address] LOREDO MD FACP [facility] Aug 29, 2020 15:37
[2020-08-29 16:05] VITALS: BP 149/71
[2020-08-29 19:51] VITALS: BP 146/75
[2020-08-29] MEDS: ACETAMINOPHEN 500 MG TAB (TYLENOL) PO PRN (20:28)
[2020-08-29] MEDS ORDERED: [UNRECOGNIZED DRUG - REMARK] PO SCH (21:00)
[2020-08-29] MEDS ORDERED: amLODIPine 10 MG (NORVASC) TAB PO SCH (21:00)
--- NOTE | 2020-08-29 21:04 | Progress Note ---
Subjective Subjective/Events-last exam Patient states that he is feeling better this AM. He still has not had a BM. Tolerating PO diet Review of Systems Pulmonary: No Dyspnea, No Cough Cardiovascular: No: Chest Pain, Palpitations Gastrointestinal: Abdominal Pain, Constipation; No: Nausea, Vomiting Neurological: Weakness Objective Exam Last Set of Vital Signs Vital Signs Date Time Temp Pulse Resp B/P (MAP) Pulse Ox O2 Delivery O2 Flow Rate FiO2 08/29/20 19:51 37.0 83 16 146/75 (98) 97 Nasal Cannula 2.00 08/27/20 12:01 96 Capillary Refill : Less Than 3 Seconds I&O Intake and Output 08/29/20 00:00 Intake Total 1700 ml Output Total 1425 ml Balance 275 ml Intake Oral 690 ml IV Total 1010 ml Output Urine Total 1425 ml General: Alert, Oriented X3, Cooperative, No Acute Distress Lungs: Clear to Auscultation, Normal Air Movement Heart: Regular Rate, No Murmurs Abdomen: Normal Bowel Sounds, Soft, Other (diffuse ttp, no gaurding or rebound) Extremities: No Edema, No Tenderness/Swelling Neuro: Normal Speech, Strength at 5/5 X4 Ext, Cranial Nerves 3-12 NL Psych/Mental Status: Mental Status NL, Mood NL Results/Procedures Lab Laboratory Tests 08/29/20 07:09: White Blood Count 10.1, Red Blood Count 5.12, Hemoglobin 15.2, Hematocrit 45, Mean Corpuscular Volume 87, Mean Corpuscular Hemoglobin 30, Mean Corpuscular Hemoglobin Concent 34, Red Cell Distribution Width 13.3, Platelet Count 151, Mean Platelet Volume 9.2, Immature Granulocyte % (Auto) 1, Neutrophils (%) (Auto) 85H, Lymphocytes (%) (Auto) 3L, Monocytes (%) (Auto) 8, Eosinophils (%) (Auto) 3, Basophils (%) (Auto) 0, Neutrophils # (Auto) 8.6H, Lymphocytes # (Auto) 0.3L, Monocytes # (Auto) 0.9, Eosinophils # (Auto) 0.3, Basophils # (Auto) 0.0, Immature Granulocyte # (Auto) 0.1, Sodium Level 135, Potassium Level 3.7, Chloride Level 103, Carbon Dioxide Level 22, Anion Gap 10, Blood Urea Nitrogen 24H, Creatinine 0.73, Estimat Glomerular Filtration Rate > 60, BUN/Creatinine Ratio 33, Glucose Level 102, Calcium Level 7.9L, Corrected Calcium 8.7, Total Bilirubin 2.0H, Aspartate Amino Transf (AST/SGOT) 26, Alanine Aminotransferase (ALT/SGPT) 151H, Alkaline Phosphatase 89, Total Protein 5.3L, Albumin 3.0L Microbiology 08/28/20 Urine Culture - Final, Complete YEAST Assessment/Plan Assessment/Plan (1) NSTEMI (non-ST elevated myocardial infarction) Status: Acute Assessment & Plan: - Cardiology consult, patient to cath today which was n ormal, continue to monitor 08/29: Denies any CP (2) Metastatic lung carcinoma Status: Acute Assessment & Plan: - Dx last week, non small cell lung Ca, following with Oncology (3) Abdominal pain Status: Acute Assessment & Plan: - Stat CT neg for acute processes 08/29: Will start Miralax for constipation Qualifiers: Qualified Codes: R10.84 - Generalized abdominal pain (4) Hypertension Status: Chronic Assessment & Plan: - Continue home meds Qualifiers: Qualified Codes: I10 - Essential (primary) hypertension (5) COPD (chronic obstructive pulmonary disease) Status: Chronic Assessment & Plan: - Continue home meds (6) Shortness of breath Status: Acute (7) DVT prophylaxis Status: Acute Assessment & Plan: - Lovenox Clinical Quality Measures DVT/VTE Risk/Contraindication: Risk Factor Score Per Nursin RFS Level Per Nursing on Admit: 4+=Very High JAMEY ROMEO MD Aug 29, 2020 21:04
[2020-08-29] MEDS: polyethylene glycoL POWDER 17 GM (MIRALAX) PACK PO SCH (21:22)
[2020-08-30 00:17] VITALS: BP 138/76
[2020-08-30] MEDS: CEFEPIME INJECTION 1,000 MG in WATER (STERILE) FOR INJECTION 10 ML IV SCH ×3 (02:13→13:58)
[2020-08-30] MEDS: RT-ALBUTEROL/IPRATROPIUM 3 ML (DUONEB) VIAL IH SCH ×3 (02:30→14:16)
[2020-08-30 04:06] VITALS: BP 128/70
[2020-08-30] MEDS: NS IV 1000 ML 1,000 ML IV SCH ×2 (04:54→11:28)
[2020-08-30 06:00] LABS: BASOPHILS % (AUTO) 0 % (0-10); EOSINOPHILS # (AUTO) 0.1 10^3/uL (0.0-0.3); EOSINOPHILS % (AUTO) 1 % (0-10); HEMATOCRIT 42 % (40-54); HEMOGLOBIN 14.1 g/dL (13.3-17.7); LYMPHOCYTES # (AUTO) 0.2 10^3/uL (1.0-4.0); LYMPHOCYTES % (AUTO) 3 % (12-44); MEAN CORPUSCULAR HEMOGLOBIN 29 pg (25-34); MEAN CORPUSCULAR HGB CONC 34 g/dL (32-36); MEAN CORPUSCULAR VOLUME 87 fL (80-99); MEAN PLATELET VOLUME 9.3 fL (9.0-12.2); MONOCYTES # (AUTO) 0.4 10^3/uL (0.0-1.0); MONOCYTES % (AUTO) 5 % (0-12); NEUTROPHILS # (AUTO) 8.5 10^3/uL (1.8-7.8); NEUTROPHILS % (AUTO) 91 % (42-75); PLATELET COUNT 135 10^3/uL (130-400); WHITE BLOOD COUNT 9.4 10^3/uL (4.3-11.0)
[2020-08-30 06:12] LABS: CHLORIDE 104 MMOL/L (98-107); POTASSIUM 4.2 MMOL/L (3.6-5.0); SODIUM 134 MMOL/L (135-145)
[2020-08-30 06:14] LABS: GLUCOSE 172 MG/DL (70-105); TOTAL PROTEIN 5.4 GM/DL (6.4-8.2)
[2020-08-30 06:15] LABS: CARBON DIOXIDE 21 MMOL/L (21-32)
[2020-08-30 06:17] LABS: ALKALINE PHOSPHATASE 133 U/L (40-136)
[2020-08-30 06:18] LABS: CREATININE SERUM 0.68 MG/DL (0.60-1.30); GFR ESTIMATED > 60
[2020-08-30 06:19] LABS: BUN/CREATININE RATIO 25
[2020-08-30 06:21] LABS: ALANINE AMINOTRANSFERASE 147 U/L (0-55)
[2020-08-30] MEDS: ADVAIR HFA 45/21 MCG INHALER 8 GM IH SCH (06:51)
[2020-08-30 08:00] VITALS: BP 145/74
--- NOTE | 2020-08-30 08:44 | Physician Query Clarification ---
PQ-Further Specificity Admission/Discharge Admission Date: Aug 28, 2020 at 15:22 Discharge Date: Dr. Reyes, The medical record reflects the following clinical scenario: History/Risk Factors: CAD Small cell lung cancer Type II [place] documented as Dr. Pugh's post procedure diagnosis. Clinical Findings: 08/27 Troponin-0.319 followed by Troponin 0.275 and Troponin 0.145. Treatment: Left Heart Cath and Aortic Arch Angiogram. Question: Can you further specify NSTEMI per the clinical indicators above? Please document a response in the Progress Notes or Discharge Summary. 1. NSTEMI 2. Type II AZ. 3. Other, with explanation of the clinical findings. 4. Clinically undetermined, no explanation for the clinical findings. Please remember a lack of response to the above will prompt a phone page by CDI/Coding staff. In responding to this query, please exercise your independent professional judgment. The purpose of this communication is to more accurately reflect the complexity of your patients condition. The fact that a question is asked does not imply that any particular answer is desired or expected. Thank you for your timely response to this clarification. Requestors name: Norma Zamarripa [facility] Phone # ext [phone] or [phone] THIS PHYSICIAN QUERY FORM IS A PERMANENT PART OF THE MEDICAL RECORD NORMA ZAMARRIPA Aug 30, 2020 08:44
[2020-08-30] MEDS: ASPIRIN 81 MG CHEW (CHILDREN'S ASA) PO SCH (08:46)
[2020-08-30] MEDS: SENNA W/DOCUSATE (SENOKOT S) TABLET PO SCH (08:46)
[2020-08-30] MEDS: polyethylene glycoL POWDER 17 GM (MIRALAX) PACK PO SCH ×2 (08:46→11:28)
[2020-08-30] MEDS ORDERED: fluCOnazole (DIFLUCAN) 100 MG TAB PO SCH (09:00)
--- NOTE | 2020-08-30 09:50 | NUR ---
Referral to the Skilled Unit at [facility] remains pending. Insurance has not yet approved. will advise when accepted.
--- NOTE | 2020-08-30 10:29 | Progress Note - Cardiology ---
Cardiology SOAP Progress Note Subjective: No new c/o. Objective: I&O/Vital Signs Constitutional: appears stated age, AAO x 3, well-nourished Respiratory: No accessory muscle use, No respiratory distress; chest expansion is symmetric, chest is bilaterally symmetric, rhonchi (scattered), other (prolonged expiratory phase) Cardiovascular: regular rate-rhythm; No JVD; S1 and S2 Gastrointestional: No tender Extremities: no lower extremity edema bilateral Neurologic/Psychiatric: grossly intact (moves extremities) Skin: No rash on exposed areas, No ulcerations on exposed areas Results/Procedures: Labs Microbiology 08/28/20 Urine Culture - Final, Complete YEAST A/P: Assessment: CAD - cardiac cath of Aug 28, [address] Pugh: [id number] disease in the mid LAD, nonobstructive disease otherwise no significant obstructive disease in the coronary system. Normal left ventricular size and systolic function estimated ejection fraction 60%. Normal aortic arch and great vessels of the neck. Echocardiogram of Aug 28, [address] Pugh showed LVEF 55-65%. Grade 1 diastolic dysfunction. PASP 25-30mmHg Metastatic Lung CA, recently diagnosed, management per Dr. Gudino HTN, continue to monitor Generalized debility/weakness- PT/OT Plan: Continue current regimen Monitor labs Advise out pt f/u with Dr. Pugh in the next 4 weeks Plan is to transfer to [facility] today if bed is available MEGGAN ROSE Aug 30, 2020 10:29
[2020-08-30 12:00] VITALS: BP 135/81
[2020-08-30] MEDS ORDERED: FLUC100T6 PO (13:56)
[2020-08-30] MEDS ORDERED: ASPI-999 PO (13:56)
[2020-08-30] MEDS ORDERED: SENN-20 PO (13:56)
[2020-08-30] MEDS ORDERED: OXYC1TAB16 PO (13:56)
--- NOTE | 2020-08-30 14:09 | Discharge Summary ---
Discharge Summary Reconcile Patient Problems Problems Reviewed?: Yes Hospital Course Hospital Course Date of Admission: Aug 28, 2020 at 15:22 Admission Diagnosis : Family Physician/Provider: Date of Discharge: 08/30/20 Discharge Diagnosis: Atypical Chest Pain Elevated Troponin Metastatic Lung Ca Medication Induced Constipation UTI: Yeast Hospital Course: 65 yo M that was recently discharged that came back with new chest pain and had elevated troponin. Patient was seen by cardiology and taken to the cath lab technologist and had a normal cath. He also had abdominal pain during this admission with a CT that did not show any acute processes. Patient had been started on pain medication and had not had a bowel movement. Chest pain and abdominal pain are both resolved at time of discharge. Patient had a long hospital admission prior to this one and is very weak and not safe to care for himself at this time. Plan to discharge to [facility] for therapies. Labs and Pending Lab Test: Laboratory Tests 08/30/20 05:13: White Blood Count 9.4, Red Blood Count 4.81, Hemoglobin 14.1, Hematocrit 42, Mean Corpuscular Volume 87, Mean Corpuscular Hemoglobin 29, Mean Corpuscular Hemoglobin Concent 34, Red Cell Distribution Width 13.1, Platelet Count 135, Mean Platelet Volume 9.3, Immature Granulocyte % (Auto) 1, Neutrophils (%) (Auto) 91H, Lymphocytes (%) (Auto) 3L, Monocytes (%) (Auto) 5, Eosinophils (%) (Auto) 1, Basophils (%) (Auto) 0, Neutrophils # (Auto) 8.5H, Lymphocytes # (Auto) 0.2L, Monocytes # (Auto) 0.4, Eosinophils # (Auto) 0.1, Basophils # (Auto) 0.0, Immature Granulocyte # (Auto) 0.1, Sodium Level 134L, Potassium Level 4.2, Chloride Level 104, Carbon Dioxide Level 21, Anion Gap 9, Blood Urea Nitrogen 17, Creatinine 0.68, Estimat Glomerular Filtration Rate > 60, BUN/Creatinine Ratio 25, Glucose Level 172H, Calcium Level 8.0L, Corrected Calcium 8.8, Total Bilirubin 1.0, Aspartate Amino Transf (AST/SGOT) 32, Alanine Aminotransferase (ALT/SGPT) 147H, Alkaline Phosphatase 133, Total Protein 5.4L, Albumin 3.0L Microbiology 08/28/20 Urine Culture - Final, Complete YEAST Home Meds Active Cefdinir 300 Mg Capsule 300 Mg PO BID Dexamethasone 4 Mg Tablet 4 Mg PO Q6HR Reported Ibuprofen 200 Mg Tablet 400-600 Mg PO Q6H PRN Proair Hfa (Albuterol Sulfate) 1 Puff Puff 2 Puff INH Q6H PRN Hydrochlorothiazide 25 Mg Tablet 25 Mg PO DAILY Amlodipine Besylate 10 Mg Tablet 10 Mg PO HS Albuterol Sulfate 2.5 Mg/3 Ml Vial.neb 1 Vial INH QID Symbicort 80-4.5 Mcg Inhaler (Budesonide/Formoterol Fumarate) 10.2 Gm Hfa.aer.ad 1 Puff INH DAILY Fenofibrate (Fenofibrate Nanocrystallized) 145 Mg Tablet 145 Mg PO DAILY Spiriva (Tiotropium [place]) 1 Inh Aerp 1 Puff INH DAILY Montelukast Sodium 10 Mg Tablet 10 Mg PO HS Atorvastatin Calcium 40 Mg Tablet 40 Mg PO HS Quinapril HCl 10 Mg Tablet 10 Mg PO HS Metformin HCl 500 Mg Tablet 1,000 Mg PO BID TAKES 2 (500MG) TABS Diclofenac Sodium 75 Mg Tablet.dr 75 Mg PO BID Instructions to Patient/Family Assessment/Instructions See Above Follow Up Appt.: [facility] Provider will see you at [facility] Skilled NF Admit to: [facility] Certification (SNF) I certify that SNF services are required to be given on an inpatient basis because of the above named patient's need for fci care on a continuing basis for the conditions(s) for which he/she was receiving inpatient hospital services prior to his/her transfer to the SNF. Fdc Facility Order: Nursing Services, Recoater-Evaluate & Treat, Physical Therapy-Evaluate & Treat Oxygen Delivery Method: Nasal Cannula Discharge Diet: Cardiac Diet Daily Activity as Tolerated: Yes Resuscitation Status: Full Code Jamey Reyes Aug 30, 2020 13:56 Discharge Physical Exam General: Alert, Oriented X3, Cooperative, No Acute Distress HEENT: Mucous Memb Moist/White Cloud Lungs: Clear to Auscultation, Normal Air Movement Heart: Regular Rate, No Murmurs Abdomen: Soft, No Tenderness, No Masses Extremities: No Edema, No Tenderness/Swelling Neuro: Normal Speech, Sensation Intact, Cranial Nerves 3-12 NL, Other (Strength 4/5 LE bilaterally with unsteady gait) Psych/Mental Status: Mental Status NL JAMEY REYES MD Aug 30, 2020 14:08
--- NOTE | 2020-08-30 14:45 | NUR ---
Report called to [facility] and [facility].
--- NOTE | 2020-08-30 15:04 | NUR ---
Arrangements completed for pt's discharge to [facility]. Pt agreeable with plan and [facility] at 2:15pm. He will also see Dr. Haque Oncologist at 2:[address] Reyes sent pain script to [facility] in [place]. Pt's friends, Dustin and Ghazal Chawlaerman who live in the [place] area were also notified of pt discharge and agreeable with plan. They can be reached at [phone] or [phone].
== END 2020-08-30 15:00 | DRG 281 ==
LOC: EDUNIT# 11:35 → ER 11:36 → 4TH 13:26 → UNDOADMOB 13:26 → CATH 15:34 → 4TH 15:34 → CATH 08-28 15:21 → 4TH 08-28 15:22 → OBSVTOIN 08-28 15:22 → INTOOBSV 08-28 15:22 → UNDODISIN 08-30 15:00
PROVIDERS: ADMIT Family Medicine; ATTEND Family Medicine
PROC: 4A023N7 Measurement of Cardiac Sampling and Pressure, Left Heart, Percutaneous Approach (ICD-10-PCS; principal; 2020-08-28)
PROC: B2111ZZ Fluoroscopy of Multiple Coronary Arteries using Low Osmolar Contrast (ICD-10-PCS; 2020-08-28)
PROC: B2151ZZ Fluoroscopy of Left Heart using Low Osmolar Contrast (ICD-10-PCS; 2020-08-28)
PROC: B3101ZZ Fluoroscopy of Thoracic Aorta using Low Osmolar Contrast (ICD-10-PCS; 2020-08-28)
DX: R07.89 Other chest pain (principal); I21.A1 Myocardial infarction type 2; C78.02 Secondary malignant neoplasm of left lung; N39.0 Urinary tract infection, site not specified; D49.6 Neoplasm of unspecified behavior of brain; I25.10 Atherosclerotic heart disease of native coronary artery without angina pectoris; I10 Essential (primary) hypertension; J44.9 Chronic obstructive pulmonary disease, unspecified; R73.03 Prediabetes; F41.9 Anxiety disorder, unspecified; F32.9 Major depressive disorder, single episode, unspecified; R09.02 Hypoxemia; R53.81 Other malaise; F17.210 Nicotine dependence, cigarettes, uncomplicated; S69.91XA Unspecified injury of right wrist, hand and finger(s), initial encounter; W19.XXXA Unspecified fall, initial encounter; Y92.129 Unspecified place in nursing home as the place of occurrence of the external cause; K59.03 Drug induced constipation; B96.89 Other specified bacterial agents as the cause of diseases classified elsewhere
CPT/HCPCS: 36221; 36415; 36600; 71046; 74176; 77290; 77334; 77417; 80053; 81000; 82805; 83735; 83880; 84484; 85007; 85025; 85027; 87088; 90686; 93005; 93041; 93306; 93458; 94640; 94760; 99205; G0378

== ENCOUNTER 2020-09-10 14:10 | Outpatient (RCR) | payer MEDICARE, MEDICAID ==
[~2020-09-10 14:10] MED LIST changes: +AMLO-251 PO; -AMLO10TA7 PO; +ASPI-999 PO; +FLUC100T6 PO; -MONT10TA26 PO; +MONT10TA97 PO; +OXYC1TAB16 PO; +SENN-20 PO; +morphine INJ 4 MG/ML 1 ML (CANCER CTR) IV PRN
== END 2020-12-01 | disposition home or self-care (01) ==
LOC: ONC 14:10
PROVIDERS: ATTEND Internal Medicine Hematology & Oncology
DX: Z51.0 Encounter for antineoplastic radiation therapy (principal); C34.90 Malignant neoplasm of unspecified part of unspecified bronchus or lung; J44.9 Chronic obstructive pulmonary disease, unspecified; R53.81 Other malaise
CPT/HCPCS: 77295; 77300; 77334; 77336; 77417; 77470; 96374; 96376; 99213

== ENCOUNTER → 2020-09-12 | Outpatient (CLI) | payer MEDICARE, MEDICAID ==
[~2020-09-12] MED LIST changes: -AMLO-251 PO; +AMLO10TA7 PO; +MONT10TA26 PO; -MONT10TA97 PO; -morphine INJ 4 MG/ML 1 ML (CANCER CTR) IV PRN
--- NOTE | 2020-09-12 15:56 | Diagnostic Imaging Report ---
INDICATION: Back pain and lung cancer. TECHNIQUE: Patient was administered 25.0 mCi technetium-99m MDP intravenously and whole-body imaging was performed after a three-hour delay. COMPARISON: No prior bone scan is available for comparison. FINDINGS: There is normal uptake of activity by the axial and appendicular skeleton. There is uptake by the kidneys with excretion into the urinary bladder. No suspicious foci of tracer accumulation is seen to suggest osseous metastatic disease. IMPRESSION: No scintigraphic evidence of osseous metastatic disease. Dictated by: Dictated on workstation # [id number]
== END ==
LOC: CARD 12:00
PROVIDERS: ATTEND Nurse Practitioner Adult Health
DX: C34.90 Malignant neoplasm of unspecified part of unspecified bronchus or lung (principal)
CPT/HCPCS: 78306